=== PATIENT | male | born 1940 | race Caucasian/White ===

== ENCOUNTER 2017-07-24 13:39 | Inpatient (IN) ==
--- NOTE | 2017-07-23 23:22 | Discharge Summary ---
<Jerica Londono - Last Filed: 07/23/17 23:20> Date of Encounter: 07/23/17 - Discharge Diagnosis (1) Rotator cuff tear arthropathy of right shoulder Priority: Primary Status: Acute (2) Status post total replacement of right shoulder Priority: Primary Status: Acute - Hospital Course Hospital course: Mr. Deng is a 76 year old male - Time Spent with Patient Total time spent providing and/or coordinating discharge services: - Discharge Medications Home Medications: OxyCODONE Immed Rel [Roxicodone 5 MG] 5 mg PO Q6HR PRN 7 Days #28 tablet [Rx] Clopidogrel [Plavix] 75 mg PO DAILY 07/24/17 [History] Lisinopril 30 mg PO DAILY 07/24/17 [History] Omeprazole [PriLOSEC] 20 mg PO DAILY 07/24/17 [History] Rosuvastatin Calcium 40 mg PO DAILY 07/24/17 [History] Sertraline [Zoloft] 100 mg PO DAILY 07/24/17 [History] amLODIPine [Norvasc] 5 mg PO DAILY 07/24/17 [History] Allergies/Adverse Reactions: 3 Allergy/AdvReac Type Severity Reaction Status Date / Time No Known Allergies Allergy Verified 07/24/17 13:54 Primary care physician: Nubia Field, - Patient Status Disposition: Home, Self-Care Condition: Good - Discharge Instructions Follow Up With: Nubia Field MD [Primary Care Provider] - Additional Instructions: Discharge Instructions: Total Shoulder Please call [facility] ([phone]), your Primary Care Physician, or report to the Emergency Room if you have any of the following symptoms: Nausea, vomiting, fever greater that 101.5, swelling, chest pain, shortness of breath, increased pain/redness/drainage/odor for your incision site, numbness/ tingling, or any other concerning symptoms. ACTIVITY: Always keep your arm in the sling. Do not raise your arm away from your body. Do not use your arm to help with getting in or out of bed. No weight bearing permitted. Only perform those exercises given to you by your therapist. MEDICATIONS: Upon discharge resume your home medications. Take all the medications as prescribed. Take a stool softener if taking narcotic pain medications. Stool softeners are only effective if you drink enough fluids. Drink 6-8 glass of water or fluids a day, unless this is not allowed for another health problem. Despite using stool softeners, if you haven't had a bowel movement in 3 days, please switch to a gentle laxative. Gentle laxatives are sold over the counter. You should have a bowel movement within 24 hours, if not call the office. You will be discharged from the hospital with a prescription for pain medication. You are encouraged to decrease the use of narcotic pain medication as tolerated. Should you require a refill, please call the office. [facility] prescribes narcotic pain medication for only 4-6 weeks after surgery. If you require pain medication beyond this time period, you may be referred to your Primary Care Physician or to the Pain Clinic for further evaluation. Plan ahead for refills on pain medication as many narcotics either need to be picked up at the office or mailed. It is best to call 48-72 hours in advance of needing a prescription refill so you don't run out of medication. To help control the post-operative pain, you may take NSAIDs (Aleve,Advil, Motrin, Ibuprofen, Naprosyn) or Tylenol as prescribed on the bottle in addition to the pain medication. WOUND CARE: Leave the dressing on for 7-10 days. You may change the dressing if it becomes saturated greater than 50%. Do not get the dressing wet at anytime. Wash your hands with antibacterial soap, rinse and dry prior to any wound care. If you have merry the visiting nurse or rehab facility can remove the stapes 10-14 days after surgery and place steri-strips across the wound. Leave the steri-strips in place until they fall off on their own. You may let water from the shower run on top of the steri-strips. If you do not have a visiting nurse or rehab facility, you will need to return to the office at 10-14 days for the merry to be removed. If you have itching or redness around the dressing call the office. FOLLOW-UP: Please follow up with your surgeon in the orthopedic clinic, as scheduled <Jaron Johns - Last Filed: 07/25/17 06:26> Orders not resulted at time of discharge: Pending orders 07/24/17 00:01 XR shoulder complete RT [XR] Routine H/H [Hemoglobin and Hematocrit] [HEME] Routine Date of Encounter: 07/25/17 Time of Encounter: 06:24 - Discharge Diagnosis (1) Rotator cuff tear arthropathy of right shoulder Priority: Primary Status: Chronic (2) Status post total replacement of right shoulder Priority: Primary Status: Acute (3) Acute blood loss anemia Priority: Primary Status: Acute (4) Coronary artery disease Priority: Secondary Status: Acute Qualifiers: Coronary Disease-Associated Artery/Lesion type: unspecified vessel or lesion type [place] vs. transplanted heart: [place] heart Associated angina: angina presence unspecified Qualified Code(s): I25.10 - Atherosclerotic heart disease of [place] coronary artery without angina pectoris (5) Hypertension Priority: Secondary Status: Chronic Qualifiers: Hypertension type: unspecified Qualified Code(s): I10 - Essential (primary ) hypertension (6) Hyperlipidemia Priority: Secondary Status: Chronic Qualifiers: Hyperlipidemia type: unspecified Qualified Code(s): E78.5 - Hyperlipidemia , unspecified (7) Chronic renal disease, stage IV Priority: Secondary Status: Chronic (8) Diabetes type 2, controlled Priority: Secondary Status: Chronic Qualifiers: Diabetes mellitus long term care phlebotomist insulin use: unspecified long term care phlebotomist insulin use status Diabetes mellitus complication status: without complication Qualified Code(s): E11.9 - Type 2 diabetes mellitus without complications - Hospital Course Hospital course: Mr. Deng is a 76 year old male Status post right total shoulder The patient had an uneventful postoperative course. They received antibiotics and physical therapy and were discharged in stable condition. There will follow -up in the office in 2 weeks. - Time Spent with Patient Total time spent providing and/or coordinating discharge services: Primary care physician: Nubia Field, - Patient Status Functional capacity at discharge: independent ambulation Overall status at discharge: patient is progressing back to baseline
--- NOTE | 2017-07-24 13:53 | History & Physical Report ---
Date of Encounter: 07/24/17 Time of Encounter: 13:53 24 Hour HP Update - Instructions Instructions: If the History and Physical is less than 30 days old and was completed prior to A.M. admission and or procedure and has NOT been updated on calendar day of procedure please complete this update prior to performing procedure. - Update Patient reports changes in Medical Condition: No Changes in examination, assessment, or condition: No Changes in Medication: No Preop tests/diagnostics Reviewed: Yes Surgery Remains Indicated: Yes Consent for Planned Operative Procedure(s) Verified: Yes - Pre-Operative Checklist Preoperative Checklist Indicated: No Prophylactic Antibiotic Ordered: Yes Is VTE Prophylaxis Indicated?: Yes
[2017-07-24] MEDS ORDERED: CeFAZolin Syr 2,000MG/20 ML 2,000 MG/20 ML SYRINGE IVPB ONE (13:54)
[2017-07-24] MEDS ORDERED: Ringers Solution, Lactated 1,000 ML IVC SCH ×2 (14:00→17:45)
[2017-07-24] MEDS ORDERED: Famotidine 20 MG/2 ML VIAL IVP ONE (14:05)
[2017-07-24] MEDS ORDERED: Acetaminophen IV 1,000 MG/100 ML INFUS..BTL IVPB ONE (14:05)
--- NOTE | 2017-07-24 14:37 | Anesthesia Evaluation PreOp ---
Date of Encounter: 07/24/17 Time of Encounter: 14:35 - Past History Planned Operation: Rt Total Shoulder Replacement Cardiac History: HTN, Hyperlipidemia, Cardiac Stent, Other (CAD....last dose Plavix 07-21-2017) Pulmonary History: Denies Any Significant HX FLOTATION TENDER History: Denies Any Significant HX Other Medical History: Renal (Stage 4 CKD), Diabetes Type II Anesthesia History: No Prior Anesthetic Complications Alcohol Use: none Drug use: none Medications and Allergies OxyCODONE Immed Rel [Roxicodone 5 MG] 5 mg PO Q6HR PRN 7 Days #28 tablet [Rx] Clopidogrel [Plavix] 75 mg PO DAILY 07/24/17 [History] Lisinopril [Lisinopril] 30 mg PO DAILY 07/24/17 [History] Omeprazole [PriLOSEC] 20 mg PO DAILY 07/24/17 [History] Rosuvastatin Calcium [Rosuvastatin Calcium] 40 mg PO DAILY 07/24/17 [History] Sertraline [Zoloft] 100 mg PO DAILY 07/24/17 [History] amLODIPine [Norvasc] 5 mg PO DAILY 07/24/17 [History] 3 Allergy/AdvReac Type Severity Reaction Status Date / Time No Known Allergies Allergy Verified 07/24/17 13:54 - Meds/Allergy Pre-op Review Medications Reviewed: Yes Allergies Reviewed: Yes Beta Blockers on Current Med List: No Anesthesia Results - Labs Laboratory Tests 07/24/17 07/24/17 13:30 13:30 Hgb 11.0 L Hct 34.0 L Plt Count 123 L Sodium 138 Potassium 5.0 BUN 31 H Creatinine 2.23 H - Imaging EKG: report reviewed (SR) Anesthesia Exam O2 Sat Height 1.68 m Height 1.68 m Height 1.68 m Weight 72.575 kg Weight 72.575 kg Weight 72.575 kg O2 Sat by Pulse Oximetry 95 Vital Signs Temp Pulse Resp BP Pulse Ox 98.2 F 84 18 152/72 95 07/24/17 13:58 07/24/17 13:58 07/24/17 13:58 07/24/17 13:58 07/24/17 13:58 Height: 5'6 Weight: 152 lbs NPO (# of Hours): MN Pain Scale: 0 - HEENT Pupil (Motor): Pupils equal, EOMI Mallampati: II Denture Type: Upper: Complete Oral Opening: Greater than 3 - FLOTATION TENDER LOC: Oriented FLOTATION TENDER Motor: Normal RUE, Normal LUE, Normal RLE, Normal LLE, Normal Face FLOTATION TENDER Sensory: Normal: RUE, LUE, RLE, LLE, Face - Cardiac Rhythm: Regular Murmur: None JVD: No Carotid Bruit: No - Pulmonary Breath Sounds: bilateral Clear Respiratory Effort: Symmetrical Anesthesia Assess/Plan ASA Score: 3 (HTN CAD DM CKD) Modified Scotty Scale for Level of Consciousness: Cooperative, oriented, and tranquil Anesthetic Plan: General, Regional Monitoring Plan: Standard Monitors Recovery Plan: PACU (Discussed GA and RA, agrees to proceed)
[2017-07-24] MEDS ORDERED: Lidocaine -MPF 4% 5 ML AMPUL ONE (14:46)
[2017-07-24] MEDS ORDERED: Ondansetron 4 MG/2 ML VIAL ONE (14:46)
[2017-07-24] MEDS ORDERED: *HR* Succinylcholine 200 MG/10 ML VIAL IVP ONE (14:46)
[2017-07-24] MEDS ORDERED: Dexamethasone 4 MG/ML VIAL ONE (14:46)
[2017-07-24] MEDS ORDERED: Lidocaine -MPF 2% 2 ML VIAL ONE (14:46)
[2017-07-24] MEDS ORDERED: *HR* Propofol 200 MG/20 ML VIAL IVP ONE (14:47)
[2017-07-24] MEDS ORDERED: *HR* FentaNYL (PF) 100 MCG/2 ML VIAL ONE (14:47)
[2017-07-24] MEDS ORDERED: ROPIVACAINE HCL/PF 0.5% 30 ML VIAL ONE (15:15)
--- NOTE | 2017-07-24 15:38 | Anesthesia Procedures ---
Date of Encounter: 07/24/17 Time of Encounter: 15:36 Procedures: Anesthesia - Nerve Block Procedure Date: 07/24/17 Time: 15:36 Allergies/Adv Reactions: No Known Allergies Allergy (Verified 07/24/17 13:54) Pre-op Diagnosis: right shoulder pain Surgical Procedure: right shoulder arthroplasty Checklist: Correct Patient Identifier, Correct procedure, History checked Correct side: Right Blood Thinner: No Monitor Applied: EKG, BP, Pulse Oximetry Supplemental Oxygen via Nasal Cannula (L/min): 2 Sedation: Fentanyl (mcg): 100 Indication: Post Op Analgesia Block Type: Supraclavicular Catheter placed: No Sterile Technique: Yes Ultrasound used: Yes Anatomy identified: Yes Visual spread of Local: Yes Blood on Needle Aspiration: No Smooth Injection of Local: Yes Pain with Injection of Local: No Prep: Chlorhexadine Needle: 22 x 50 mm Stimuplex Local: Ropivacaine (0.5%) Volume (cc): 20 Number of Attempts: 1 Complications: None/effective block
[2017-07-24] MEDS ORDERED: EPHEDrine 50 MG/ML VIAL ONE (16:22)
[2017-07-24] MEDS ORDERED: *HR* Promethazine 25 MG/ML VIAL IVP PRN (16:39)
[2017-07-24] MEDS ORDERED: *HR* HYDROmorphone (PF) 1 MG/ML SYRINGE IVP PRN (16:39)
--- NOTE | 2017-07-24 16:48 | Orthopedic Operative Note ---
Date of procedure: 07/24/17 Pre-op diagnosis: Right shoulder cuff tear arthropathy Post-op diagnosis: same Procedure: Procedure: Total Shoulder Replacment Reverse, right Estimated blood loss: 100 cc Hardware: Metal and polyethylene replacement: Arthrex large glenoid baseplate, 2 4.5 screws. 1 6.5 screw, 42+4 glenosphere, 13 humeral stem, poly insert 6 Exam Under anesthesia: Full motion no instability Procedural Notes: Irreparable rotator cuff tear Operative procedure: The patient was brought to the operating room and placed on the operating room table. After general anesthesia was administered the operative shoulder was examined. Findings were noted. The patient was placed in the modified beachchair position. All pressure points were padded appropriately. And the head was stabilized in the neutral position. The operative extremity was prepped and draped in the sterile surgical fashion. The patient received IV antibiotics prior to skin incision. A standard deltopectoral approach was made to the operative shoulder. Incision was made to the skin and subcutaneous tissue,hemo stasis was obtained with Bovie cautery. Using careful blunt dissection the cephalic vein was identified and mobilized medially. The deltopectoral interval was developed and the clavipectoral fascia was incised. The subscap was irreparable. The humerus was dislocated patient noted to have irreparable tear supraspinatus tendon, and the humeral cut was made along the anatomic neck. Anterior and posterior Bankart retractors were placed to expose the glenoid. The glenoid guide was seated and the centering hole was made. It was reamed with the appropriate reamer. The large baseplate was seated and secured with (2) 4.5 screws and one 6.5 screw. The baseplate was irrigated and dried and the 42+4 Glenosphere was seated and secured with the Brady taper. The Brady taper was tested and found to be secure the humerus was redislocated and prepared with the diaphyseal reamers, followed by a broaching process up to the appropriate size 13 in the patient's anatomic version. The metaphyseal reamer was then utilized. Trial reduction found the shoulder to be relocatable. Trial components were removed and the 13 stem was impacted in place in the patient's anatomic version. Trial reduction found the shoulder to be relocatable and stable with the appropriate 6 [place] Trial component was removed and the real implant was seated and secured the shoulder was reduced. The shoulder had excellent motion and excellent stability and no evidence of dislocation. The deep tissue was irrigated with pulse irrigation. The PA close the shoulder. The deltopectoral interval was closed with a running #1 PDS suture, subcutaneous tissue was irrigated and closed with 0 PDS suture, the skin was closed with Dermabond. The patient was placed in a sterile dressing, abduction brace and extubated. The patient was then transferred to the recovery room in stable condition. Anesthesia: GETA Surgeon: Jaron Johns Was there an bus assistant present: Yes Book Agent: Nicol Dickson Estimated blood loss (cc): 100 Condition: stable Disposition: PACU
--- NOTE | 2017-07-24 17:41 | Anesthesia Evaluation Post Op ---
Date of Encounter: 07/24/17 Time of Encounter: 17:40 - Vital Signs Vital Signs: Last Vital Signs Temp 98.2 F 07/24/17 17:35 Pulse 75 07/24/17 17:35 Resp 18 07/24/17 17:35 BP 157/60 07/24/17 17:35 Pulse Ox 98 07/24/17 17:35 - Lungs Lungs: Clear Ascult./Percussion - Airway Airway: Non-obstructed - Cardiovascular Regular Rate - Mental Status Mental Status: Alert & Oriented, Answers Appropriately - Pain Pain Scale: 2 - Nausea Vomiting Nausea Vomiting: Not Present - Hydration Hydration: NPO - Discharge PostOp Status: Transfer Patient to floor
[2017-07-24] MEDS ORDERED: Naloxone 0.4 MG/ML INJ IVP PRN (17:45)
[2017-07-24] MEDS ORDERED: *HR* OxyCODONE/APAP 5/325 TABLET PO PRN (17:45)
[2017-07-24] MEDS ORDERED: *HR* OxyCODONE Immed Rel 5 MG TABLET PO PRN (17:45)
[2017-07-24] MEDS ORDERED: Sennosides 8.6 MG TABLET PO PRN (17:45)
[2017-07-24] MEDS ORDERED: MOM Conc 10 ML UD.LIQ PO PRN (17:45)
[2017-07-24] MEDS ORDERED: Ondansetron 4 MG/2 ML VIAL IVP PRN (17:45)
[2017-07-24] MEDS ORDERED: traMADol 50 MG TABLET PO PRN (17:45)
[2017-07-24] MEDS ORDERED: Temazepam 15 MG CAPSULE PO PRN (17:45)
[2017-07-24 17:54] LABS: Hematocrit 31.1 % (37.5-50.1); Hemoglobin 9.9 g/dL (12.9-16.9)
[2017-07-24] MEDS ORDERED: *HR* Enoxaparin 30 MG/0.3 ML SYRINGE SQ SCH ×2 (18:00)
[2017-07-24] MEDS ORDERED: CeFAZolin Pre 2,000 MG/100 ML 2,000 MG/100 ML BAG IVPB ONE (18:15)
[2017-07-25] MEDS ORDERED: CeFAZolin Pre 2,000 MG/100 ML 2,000 MG/100 ML BAG IVPB SCH
[2017-07-25 02:16] LABS: Hematocrit 28.6 % (37.5-50.1); Hemoglobin 9.1 g/dL (12.9-16.9)
[2017-07-25 06:25] VITALS: BP 126/52
--- NOTE | 2017-07-25 06:27 | Orthopedics Progress Note ---
Date of Encounter: 07/25/17 Time of Encounter: 06:27 - Assessment and Plan (1) Rotator cuff tear arthropathy of right shoulder Current Visit: No Status: Chronic (2) Status post total replacement of right shoulder Current Visit: No Status: Acute (3) Acute blood loss anemia Current Visit: Yes Status: Acute (4) Coronary artery disease Current Visit: Yes Status: Acute Qualifiers: Coronary Disease-Associated Artery/Lesion type: unspecified vessel or lesion type [place] vs. transplanted heart: [place] heart Associated angina: angina presence unspecified Qualified Code(s): I25.10 - Atherosclerotic heart disease of [place] coronary artery without angina pectoris (5) Hypertension Current Visit: Yes Status: Chronic Qualifiers: Hypertension type: unspecified Qualified Code(s): I10 - Essential (primary ) hypertension (6) Hyperlipidemia Current Visit: Yes Status: Chronic Qualifiers: Hyperlipidemia type: unspecified Qualified Code(s): E78.5 - Hyperlipidemia , unspecified (7) Chronic renal disease, stage IV Current Visit: Yes Status: Chronic (8) Diabetes type 2, controlled Current Visit: Yes Status: Chronic Qualifiers: Diabetes mellitus fpc insulin use: unspecified fpc insulin use status Diabetes mellitus complication status: without complication Qualified Code(s): E11.9 - Type 2 diabetes mellitus without complications Subjective Interval history: Patient was seen this morning doing well without complaints. Afebrile vital signs stable. Operative extremity: Neurovascularly intact Dressing clean dry and intact Calves nontender Assessment and plan: Continue with postoperative care Patient with bleeding after surgery requiring merry in the incision wound clean dry and intact dressing changed. Discharge today. Objective Vital signs: Vital Signs Temp Pulse Resp BP Pulse Ox 07/25/17 06:22 97.5 F L 65 18 126/52 95 07/25/17 03:20 97.8 F 72 18 153/49 97 07/24/17 23:44 97.5 F L 69 18 125/62 96 07/24/17 19:14 97.3 F L 83 16 157/76 95 07/24/17 17:53 97.6 F 76 14 154/70 96 07/24/17 17:35 98.2 F 75 18 157/60 98 07/24/17 17:25 98.2 F 75 16 146/60 97 07/24/17 17:15 98.2 F 74 18 152/60 96 07/24/17 17:05 97.5 F L 74 18 137/61 100 07/24/17 15:55 66 99 07/24/17 15:41 66 148/71 99 07/24/17 15:22 61 148/71 100 07/24/17 13:58 98.2 F 84 18 152/72 95 Intake and Output 07/24/17 07/24/17 07/25/17 15:59 23:59 07:59 Intake Total 900 / 900 0 / 0 Output Total 100 / 100 560 / 560 Balance 800 / 800 -560 / -560 Intake: Oral 900 / 900 0 / 0 Output: Urine 0 / 0 10 / 10 Estimated Blood Loss 100 / 100 Straight Cath 550 / 550 Other: Weight 72.575 kg Blood Glucose* 95 165 - Labs CBC & BMP: 07/25/17 01:24 Labs: Abnormal lab results Hgb 9.1 g/dL (12.9-16.9) L 07/25/17 01:24 Hct 28.6 % (37.5-50.1) L 07/25/17 01:24 POC Glucose 165 mg/dL (70-99) H 07/24/17 20:31 - VTE Documentation of Mechanical Device: Venous foot pump, device Consult Discharge Plan - Plan Additional Instructions: Discharge Instructions: Total Shoulder Please call [facility] ([phone]), your Primary Care Physician, or report to the Emergency Room if you have any of the following symptoms: Nausea, vomiting, fever greater that 101.5, swelling, chest pain, shortness of breath, increased pain/redness/drainage/odor for your incision site, numbness/ tingling, or any other concerning symptoms. ACTIVITY: Always keep your arm in the sling. Do not raise your arm away from your body. Do not use your arm to help with getting in or out of bed. No weight bearing permitted. Only perform those exercises given to you by your therapist. MEDICATIONS: Upon discharge resume your home medications. Take all the medications as prescribed. Take a stool softener if taking narcotic pain medications. Stool softeners are only effective if you drink enough fluids. Drink 6-8 glass of water or fluids a day, unless this is not allowed for another health problem. Despite using stool softeners, if you haven't had a bowel movement in 3 days, please switch to a gentle laxative. Gentle laxatives are sold over the counter. You should have a bowel movement within 24 hours, if not call the office. You will be discharged from the hospital with a prescription for pain medication. You are encouraged to decrease the use of narcotic pain medication as tolerated. Should you require a refill, please call the office. [facility] prescribes narcotic pain medication for only 4-6 weeks after surgery. If you require pain medication beyond this time period, you may be referred to your Primary Care Physician or to the Pain Clinic for further evaluation. Plan ahead for refills on pain medication as many narcotics either need to be picked up at the office or mailed. It is best to call 48-72 hours in advance of needing a prescription refill so you don't run out of medication. To help control the post-operative pain, you may take NSAIDs (Aleve,Advil, Motrin, Ibuprofen, Naprosyn) or Tylenol as prescribed on the bottle in addition to the pain medication. WOUND CARE: Leave the dressing on for 7-10 days. You may change the dressing if it becomes saturated greater than 50%. Do not get the dressing wet at anytime. Wash your hands with antibacterial soap, rinse and dry prior to any wound care. If you have merry the visiting nurse or rehab facility can remove the stapes 10-14 days after surgery and [address] steri-strips across the wound. Leave the steri-strips in place until they fall off on their own. You may let water from the shower run on top of the steri-strips. If you do not have a visiting nurse or rehab facility, you will need to return to the office at 10-14 days for the merry to be removed. If you have itching or redness around the dressing call the office. FOLLOW-UP: Please follow up with your surgeon in the orthopedic clinic, as scheduled Referrals: Nubia Field MD [Primary Care Provider] -
[2017-07-25] MEDS ORDERED: Insulin LISPRO 300 UNITS/3 ML VIAL SQ SCH ×2 (07:30→21:00)
[2017-07-25] MEDS ORDERED: amLODIPine 5 MG TABLET PO SCH (09:00)
== END 2017-07-25 10:28 | disposition home or self-care (01) | DRG 483 ==
LOC: SAMDAY 13:39 → 3NENU 18:06
PROVIDERS: ADMIT Orthopaedic Surgery; ATTEND Orthopaedic Surgery

== ENCOUNTER 2017-08-01 17:26 | Inpatient (IN) ==
[2017-08-01] MEDS ORDERED: Naloxone 0.4 MG/ML INJ IVP PRN (23:16)
[2017-08-01] MEDS ORDERED: Acetaminophen 325 MG TABLET PO PRN (23:16)
--- NOTE | 2017-08-01 23:16 | Internal Med History&Physical ---
<Benjamin Mckeon - Last Filed: 08/02/17 00:47> Date of Encounter: 08/02/17 Time of Encounter: 23:16 Internal Medicine - H&P: HPI Chief complaint: Dehydration and weakness Admitted From: Hospital to Hospital Transfer History of present illness: Mr. Deng is a 76 year old male with past medical history of angioplasty done in 1994, chronic kidney disease 40% at stage III, diet-controlled diabetes, one week status post total right shoulder replacement presented to the emergency department [facility] and transferred here to be further evaluated. He presented there with generalized weakness and dehydration. Since the surgery patient has not felt well so he was not eating or drinking. said he had very little water and very little food each day. The surgery seems to be healing fine there has been no problems with the shoulder surgery. This I did take him after he said he became too weak ray could barely stand up. Patient is denying any chest pain. He has no recent fevers or recent illnesses. Urine output has been decreased but no pain with urination. At the outside hospital patient was shown to be hyperkalemic as well as having worsening of his creatinine worsening of his kidney function so they gave a total of 3 L of IV fluids his normal creatinine is 2.4 based on old records here his creatinine at the outside hospital was 8.37 with a GFR of 7. Patient is also noted to have an elevated troponin of 7.49. Patient does have history of chronic anemia most likely due to chronic kidney disease hemoglobin at the outside hospital was 7.6. Platelets 159 normal white blood cell count. He was also hyponatremic at 128. Potassium was 6.0. Urine had no abnormalities. Glucose was 118. They did get blood cultures. Patient was given full dose aspirin as well as started with a heparin bolus and then a heparin drip. EKG had no acute ST changes other than ST depressions in the lateral leads which looked to be old. There is no ST elevations. Patient is yet to complain of any chest pain. Patient was transferred here for further cardiac workup as well as electrolyte replacement and fluid resuscitation Past Med Surg Social Fam HX - Past Medical History Medical history: coronary artery disease, diabetes, GERD, hypertension, renal disease, other Psychiatric history: no psych history - Past Surgical History Surgical History: carotid endarterectomy, other - Social History Smoking Status: Former smoker Smokeless Tobacco Status: No Alcohol use: none Drug use: none - Family History Daughter Hx Family Neurologic Disorders: Yes (CVA) Mother Living Status: Hx Family Endocrine Disorder: Yes (DM) Internal Medicine - H&P: Meds OxyCODONE Immed Rel [Roxicodone 5 MG] 5 mg PO Q6HR PRN 7 Days #28 tablet [Rx] Clopidogrel [Plavix] 75 mg PO DAILY 07/24/17 [History] Lisinopril 30 mg PO DAILY 07/24/17 [History] Rosuvastatin Calcium 40 mg PO DAILY 07/24/17 [History] Sertraline [Zoloft] 100 mg PO DAILY 07/24/17 [History] amLODIPine [Norvasc] 5 mg PO DAILY 07/24/17 [History] Cholecalciferol (Vitamin D3) [Vitamin D] 2,000 unit PO DAILY 08/01/17 [History] Ferrous Sulfate [Ferosul] 325 mg PO Q2D 08/01/17 [History] Omeprazole [PriLOSEC] 20 mg PO DAILY 08/01/17 [History] Chlorpromazine HCl 25 mg PO Q8H 08/02/17 [History] 3 Allergy/AdvReac Type Severity Reaction Status Date / Time No Known Allergies Allergy Verified 08/02/17 06:55 All Systems PM: A 10-system review of systems was performed and is negative for pertinent findings except as documented above in the HPI. - Constitutional Constitutional: anorexia, fatigue, lethargy, weakness, no chills, no fever(s), no night sweats - EENT Eyes: no change in vision, no discharge, no pain, no photophobia Ears: no ear discharge, no ear pain, no tinnitus Nose, mouth and throat: no dysphagia, no nasal discharge, no neck pain, no sore throat - Cardiovascular Cardiovascular ROS IM: no chest pain, no diaphoresis, no dyspnea, no lightheadedness, no palpitations, no syncope - Respiratory Respiratory: no cough, no dyspnea, no wheezing, no excessive phlegm production - Gastrointestinal Gastrointestinal: no abdominal pain, no diarrhea, no hematemesis, no hematochezia, no melena, no nausea, no vomiting - Musculoskeletal Musculoskeletal ROS IM: no numbness, no tingling - Integumentary Integumentary IM: no rash, no unusual bruising - Neurological Neurological ROS: no confusion, no convulsions, no focal weakness, no numbness, no tingling, no tremor(s) - Hematologic/Lymphatic Hematologic/Lymphatic: no easy bruising - Constitutional Vitals: Temp Pulse Resp BP Pulse Ox 97.1 F L 141 24 94/55 88 08/01/17 22:20 08/01/17 22:20 08/01/17 22:20 08/01/17 22:20 08/01/17 22:20 General appearance: Present: A&O X 3, pleasant, no acute distress - Head Head exam: Present: atraumatic, normocephalic - Eye Eye exam: Present: PERRL, conjuntiva pink, sclera anicteric Pupils: Present: PERRL - Neck Neck exam general surgery: Present: supple, trachea midline. Absent: lymphadenopathy - Respiratory Respiratory exam: Present: CTAB. Absent: accessory muscle use, rales, rhonchi, wheezes - Cardiovascular Cardiovascular exam: Present: RRR, +S1, +S2. Absent: diastolic murmur, gallop, rubs, systolic murmur - GI/Abdominal GI/Abdominal exam: Present: normal bowel sounds, soft, no peritoneal signs. Absent: distended, tenderness - Extremities Exam Extremities exam: Present: warm, radial pulses palpable and symmetrical. Absent : calf tenderness, cyanotic, pedal edema Additional comments: 20 cm healing scar with no erythema on the right shoulder that still has merry placed. There is no leakage of fluid or any erythema around the wound. Wound seems to be healing fine. - Neurological Exam Neurological exam: Present: CN II-XII intact, oriented X3, no focal deficits. Absent: pronater drift, facial droop, speech deficit - Skin Skin exam: Present: dry, intact - Assessment and plan (1) NSTEMI (non-ST elevated myocardial infarction) Current Visit: Yes Status: Acute Assessment and plan: Patient presented from outside hospital with elevated troponin of 7.[address] depressions in the lateral leads no other acute findings no ST elevation. Patient was not having any chest pain. He was given full dose aspirin at the outside hospital. He does have history of angioplasty done in 1994 otherwise no cardiac history. Does take high blood pressure medication and hypercholesterol medication. He was started on a heparin drip worries given a bolus and then started on a drip. Patient was not given any nitroglycerin. Trend troponins every 6 hours Continue heparin drip low-dose ACS protocol Echocardiogram Consult cardiology await recommendations (2) JOSH (acute kidney injury) Current Visit: Yes Status: Acute Assessment and plan: Patient was dehydrated had an elevated creatinine of 8.37 after looking at previous records his normal creatinines around 2.3 with a GFR of 40 today the GFR was 8. We will repeat labs here. He also had hyperkalemia, hyponatremia and overall seemed to dry on exam. Patient was given 3 L in the outside hospital of crystalloid fluid. He was on lactated Ringer's 125 per hour when he arrived. Patient does have known chronic kidney disease stage III has never had dialysis and is following a infrastructure technician from [facility]. Will not continue IV boluses as well monitor his kidney function. Continue LR at 125 ML's per hour Stop home nephrotoxic drugs Continue to monitor creatinine Will not consult nephrology at this time we will see if the elevated creatinine is due to the dehydration. If not better consider nephrology consultation (3) Dehydration Current Visit: Yes Status: Acute Assessment and plan: See JOSH above. Most likely secondary to malnutrition as patient has not been feeling well over the past few days. He is arty given 3 L of crystalloid prior to arrival we are continuing lactated Ringer's at 125 mellitus per hour. We will continue to monitor with daily labs. (4) Hyperkalemia Current Visit: Yes Status: Acute Assessment and plan: Patient had elevated potassium at 6.0. We will give Kayexalate at this time we will continue to monitor with daily BMPs (5) Hyponatremia Current Visit: Yes Status: Acute Assessment and plan: Patient was hyponatremic at 128 we do not want to increase it to much he has been getting IV fluids will continue giving these and continue to monitor hyponatremia with daily BMPs (6) Status post total replacement of right shoulder Current Visit: No Status: Acute Assessment and plan: This was done [address] Johns. Prior to starting heparin the outside emergency physician contacted Dr. Johns who is okay with starting heparin due to the recent surgery. Patient scars healing well there is no signs of drainage or infection or any and erythema around the area. (7) Coronary artery disease Current Visit: No Status: Acute Assessment and plan: Treating as an STEMI we will continue home medications Qualifiers: Coronary Disease-Associated Artery/Lesion type: unspecified vessel or lesion type [place] vs. transplanted heart: [place] heart Associated angina: angina presence unspecified Qualified Code(s): I25.10 - Atherosclerotic heart disease of [place] coronary artery without angina pectoris (8) Hypertension Current Visit: No Status: Chronic Assessment and plan: Stopping home nephrotoxic medications continuing all others Qualifiers: Hypertension type: unspecified Qualified Code(s): I10 - Essential (primary ) hypertension (9) Hyperlipidemia Current Visit: No Status: Chronic Assessment and plan: Continue home medications Qualifiers: Hyperlipidemia type: unspecified Qualified Code(s): E78.5 - Hyperlipidemia , unspecified (10) Chronic renal disease, stage IV Current Visit: No Status: Chronic Assessment and plan: Does have increasing creatinine we will continue to monitor after IV hydration. This most likely is due to dehydration causing this or possibly NSTEMI. If patient does not get better will consider nephrology consultation is not needed at this time (11) Diabetes type 2, controlled Current Visit: No Status: Chronic Assessment and plan: Patient is a type II diabetic controlled by diet. We will continue to monitor glucose is no insulin or treatment needed at this time. 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 Patient's hemoglobin outside hospital was 7.6 we will continue to monitor this but do not want to give blood as patient is being heparinized and possibly needs left heart catheterization at this time. Qualifiers: Anemia type: due to chronic kidney disease Chronic kidney disease stage: stage 3 (moderate) Qualified Code(s): N18.3 - Chronic kidney disease, stage 3 (moderate); D63.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 (13) DVT prophylaxis Current Visit: Yes Status: Acute Assessment and plan: Patient currently on low-dose ACS protocol heparin - Time Spent With Patient Total time spent is greater than 50% in coordination of care (as documented) at patient's floor/unit and/or counseling patient: <Cj Carias P - Last Filed: 08/02/17 08:23> Date of Encounter: 08/01/17 Internal Medicine - H&P: HPI History of present illness: Mr. Deng is a 76 year old male All Systems PM: A 10-system review of systems was performed and is negative for pertinent findings except as documented above in the HPI. - Constitutional Vitals: Temp Pulse Resp BP Pulse Ox 97.3 F L 88 22 87/50 93 08/02/17 07:30 08/02/17 07:30 08/02/17 07:30 08/02/17 07:30 08/02/17 07:30 Internal Med - H&P Results - Labs CBC & Chem 7: 08/02/17 07:04 08/02/17 07:04 Labs: Short CBC 08/02/17 08/02/17 Range/Units 00:46 07:04 WBC 9.0 10.2 (4.3-11.1) K/mcL Hgb 7.3 L 6.9 L (12.9-16.9) g/dL Hct 22.2 L 21.7 L (37.5-50.1) % Plt Count 150 157 (140-400) K/mcL Neutrophils # 7.6 8.9 (1.6-8.9) K/mcL BMP 08/02/17 08/02/17 00:46 07:04 Sodium 130 L 129 L Potassium 5.9 H 6.9 H* Chloride 101 102 Carbon Dioxide 10 L* 9 L* BUN 105 H 105 H Creatinine 8.60 H 8.55 H Glucose 104 133 H Calcium 8.3 L 8.1 L Cardiac Enzymes 08/02/17 08/02/17 Range/Units 00:46 07:04 Troponin I 6.44 H* 4.61 H* (< 0.04) ng/mL - Impressions ITS Impressions Chest X-Ray 08/02/17 07:41 IMPRESSION: Chronic interstitial lung disease with associated superimposed pulmonary edema and/or pneumonitis. D/ / Eric Platt MD / Eric Platt MD Interpreting Provider: Eric Platt MD - Attending Attestation I performed a history and physical examination of the patient on 08/01/17 and discussed his management with the resident. I reviewed the residents note and agree with the documented findings and plan of care. Briefly, patient is admitted as transfer from [place] for JOSH and NSTEMI. On heparin drip. Will trend troponins and consult cardiology in the AM. We will hydrate aggressively with IVF. Repeat CBC in AM for anemia. Kayexalate for hyperkalemia. Will monitor mild hyponatremia; on IVF. Condition is guarded at this time, so will place in step-down unit. - Time Spent With Patient Total time spent is greater than 50% in coordination of care (as documented) at patient's floor/unit and/or counseling patient:
[2017-08-01] MEDS ORDERED: Heparin 25,000 UNIT/500 ML D5W 25,000 UNIT/500 ML BAG IVC SCH (23:45)
[2017-08-01] MEDS ORDERED: Potassium Phosphate 44 MEQ in 0.9 % Sodium Chloride 250 ML IVPB PRN (23:52)
[2017-08-01] MEDS ORDERED: *HR* Heparin 5,000 UNIT/ML VIAL IVP PRN ×2 (23:56)
[2017-08-02] MEDS: Ringers Solution, Lactated 1,000 ML IVC SCH ×2 (00:25→07:54)
[2017-08-02 01:00] LABS: VBG Ionized Calcium 1.01 mmol/L (1.15-1.35)
[2017-08-02 01:03] LABS: Hematocrit 22.2 % (37.5-50.1); Hemoglobin 7.3 g/dL (12.9-16.9); Lymphocytes # 0.5 K/mcL (0.6-4.6); Lymphocytes % 5.8 %; Mean Corpuscular HGB Conc 32.9 g/dL (31.6-35.5); Mean Corpuscular Hemoglobin 31.9 pg (28.0-33.3); Mean Corpuscular Volume 96.9 fL (83.0-100.0); Mean Platelet Volume 11.1 fL (9.4-12.4); Monocytes # 0.7 K/mcL (0.0-1.3); Monocytes % 7.6 %; Neutrophils # 7.6 K/mcL (1.6-8.9); Platelet Count 150 K/mcL (140-400); Red Blood Count 2.29 M/mcL (4.19-5.50); Red Cell Distribution Width 14.7 % (11.5-14.5); Segmented Neutrophils % 84.6 %
[2017-08-02 01:08] LABS: INR 1.2; Prothrombin Time 12.7 Seconds (9.4-12.1)
[2017-08-02 01:11] LABS: Activated Partial Thrombo Time 85.7 Seconds (26.0-36.0)
[2017-08-02 01:18] LABS: Magnesium 2.3 mg/dL (1.6-2.6); Phosphorous 7.2 mg/dL (2.7-4.5)
[2017-08-02 01:23] LABS: Calcium 8.3 mg/dL (8.6-10.3); Potassium 5.9 mEq/L (3.5-5.1)
[2017-08-02] MEDS ORDERED: 0.9 % Sodium Chloride 1,000 ML IVC ONE (04:16)
[2017-08-02 07:28] LABS: Basophils % 0.1 %; Hematocrit 21.7 % (37.5-50.1); Hemoglobin 6.9 g/dL (12.9-16.9); Immature Granulocytes % 2.7 % (0-4); Lymphocytes # 0.3 K/mcL (0.6-4.6); Lymphocytes % 2.9 %; Mean Corpuscular HGB Conc 31.8 g/dL (31.6-35.5); Mean Corpuscular Hemoglobin 31.5 pg (28.0-33.3); Mean Corpuscular Volume 99.1 fL (83.0-100.0); Mean Platelet Volume 11.4 fL (9.4-12.4); Monocytes # 0.7 K/mcL (0.0-1.3); Monocytes % 7.1 %; Neutrophils # 8.9 K/mcL (1.6-8.9); Nucleated Red Blood Cells 0.3 /100 WBC (0); Platelet Count 157 K/mcL (140-400); Red Blood Count 2.19 M/mcL (4.19-5.50); Segmented Neutrophils % 87.2 %
[2017-08-02] MEDS: Cholecalciferol (D-3) 1,000 UNIT TABLET PO SCH (07:53)
[2017-08-02 07:56] LABS: Calcium 8.1 mg/dL (8.6-10.3); Chol/HDL Ratio 3.7 (0-4.9); Potassium 6.9 mEq/L (3.5-5.1)
[2017-08-02 08:02] LABS: Troponin I 4.61 ng/mL (< 0.04)
[2017-08-02] MEDS ORDERED: Sodium Bicarbonate 150 MEQ in D5% in Water 1,000 ML IVC SCH (08:15)
[2017-08-02] MEDS ORDERED: *HR* Etomidate 20 MG/10 ML AMPUL IVP ONE ×2 (08:33→21:52)
[2017-08-02] MEDS ORDERED: *HR* Rocuronium Bromide 100 MG/10 ML VIAL IVC ONE (08:33)
--- NOTE | 2017-08-02 08:35 | Nephrology Consult Note ---
Date of Encounter: 08/02/17 Time of Encounter: 08:33 Assessment and Plan (1) JOSH (acute kidney injury) Current Visit: Yes Status: Acute The patient has acute kidney injury superimposed on chronic kidney disease. Baseline creatinine is around 2.23. Acute kidney injuries in the setting of an STEMI, what appears to be acute blood loss anemia, hypotension, and possible other etiologies as well. Since the patient is critically ill and he has severe hyperkalemia and metabolic acidosis as well as evidence of some volume overload and shortness of breath I believe the best course of action is to proceed with urgent dialysis following the placement of a temporary dialysis catheter. This will also enable us to transfuse the patient without causing additional volume overload. I discussed this with the patient and the patient' s and they are in agreement. (2) NSTEMI (non-ST elevated myocardial infarction) Current Visit: Yes Status: Acute (3) Acute blood loss anemia Current Visit: No Status: Acute (4) Hyperkalemia Current Visit: Yes Status: Acute History of Present Illness - History of Present Illness This is a 76-year-old male who was admitted to the hospital after being transferred from [facility] with complaints of weakness and decreased oral intake over the past week. Apparently this is been going on since the patient underwent right shoulder surgery approximately a week ago. Initial lab work showed that the patient had a serum creatinine greater than 8 with associated hyperkalemia and severe metabolic acidosis. The patient and his reported history of chronic kidney disease. Baseline creatinine appears to be 2.23 on July 24. He follows with a java consultant for mild [place]. Patient does report a history of diabetes, hypertension, peripheral vascular disease, coronary artery disease, and gastroesophageal reflux disease. He also gives a history of a renal stents being placed. He has a history of coronary angioplasty, lower extremity stent placements as well. On admission he had a hemoglobin of 5.9. Potassium was 6.9, bicarbonate 9, and creatinine 8.55. Patient is currently on BiPAP. He is complaining of some shortness of breath. Troponin is 4.61 initial troponin was over 6. Patient reports a history of decreased oral intake and worsening weakness with difficulty in ambulating and getting up. Past Med Surg Social Fam HX - Past Medical History Medical history: coronary artery disease, diabetes, GERD, hypertension, renal disease, other Psychiatric history: no psych history - Past Surgical History Surgical History: carotid endarterectomy, other - Social History Smoking Status: Former smoker Smokeless Tobacco Status: No Alcohol use: none Drug use: none - Family History Daughter Hx Family Neurologic Disorders: Yes (CVA) Mother Living Status: Hx Family Endocrine Disorder: Yes (DM) Medications and Allergies OxyCODONE Immed Rel [Roxicodone 5 MG] 5 mg PO Q6HR PRN 7 Days #28 tablet [Rx] Clopidogrel [Plavix] 75 mg PO DAILY 07/24/17 [History] Lisinopril 30 mg PO DAILY 07/24/17 [History] Rosuvastatin Calcium 40 mg PO DAILY 07/24/17 [History] Sertraline [Zoloft] 100 mg PO DAILY 07/24/17 [History] amLODIPine [Norvasc] 5 mg PO DAILY 07/24/17 [History] Cholecalciferol (Vitamin D3) [Vitamin D] 2,000 unit PO DAILY 08/01/17 [History] Ferrous Sulfate [Ferosul] 325 mg PO Q2D 08/01/17 [History] Omeprazole [PriLOSEC] 20 mg PO DAILY 08/01/17 [History] Chlorpromazine HCl 25 mg PO Q8H 08/02/17 [History] 3 Allergy/AdvReac Type Severity Reaction Status Date / Time No Known Allergies Allergy Verified 08/02/17 06:55 Review of Systems Constitutional: weakness Eyes: bilateral: blurred vision (patient denies), diplopia (patient denies) Nose, mouth and throat: no dizziness, no headache(s) Cardiovascular: dyspnea, dyspnea on exertion, leg edema, no chest pain, no palpitations Respiratory: dyspnea, dyspnea on exertion Gastrointestinal: no abdominal pain, no change in bowel habits Genitourinary Male: as per HPI Musculoskeletal: no muscle weakness, no numbness Musculoskeletal: right: shoulder pain Integumentary: no hirsutism, no striae Neurological: as per HPI, weakness Psychiatric: no depression, no difficulty concentrating Endocrine: as per HPI Exam - Vital Signs Vital signs: Initial Vital Signs Temp Pulse Resp BP Pulse Ox 97.1 F L 141 24 94/55 88 08/01/17 22:20 08/01/17 22:20 08/01/17 22:20 08/01/17 22:20 08/01/17 22:20 Vital Signs - Last 8 Hours Temp Pulse Resp BP Pulse Ox 08/02/17 07:30 97.3 F L 88 22 87/50 93 08/02/17 07:20 22 93 08/02/17 06:00 83 100/63 08/02/17 04:11 97.6 F 114 22 83/49 93 08/02/17 04:00 79/51 08/02/17 03:45 89/52 08/02/17 02:45 102/56 08/02/17 02:00 91/53 Intake and Output 08/01/17 08/02/17 08/02/17 23:59 07:59 15:59 Intake Total 2109 Balance 2109 Intake: IV Fluids 2109 0.9 % Sodium Chloride 1,000 ML 1000 / 1000 @ 3750 mls/hr IVC .Q16M ONE Rx# :[id number] Lactated Ringers 1,000 ML @ 125 1000 / 1000 mls/hr IVC .Q8H ESTEFANÍA Rx#: [id number] Calcium Gluconate 1,000 MG In 0 110 / 110 .9 % Sodium Chloride 100 ML @ 220 mls/hr IVPB Q6HR PRN Rx#: [id number] Other: Weight 78.8 kg 78.4 kg Patient Weight 08/02/17 23:59 Weight 78.4 kg - General Appearance Exam: Patient is alert. He appears acutely ill. He is on BiPAP. Blood pressure is 87/50. Temperature 97.3. Lungs exhibit diminished breath sounds along with mild expiratory wheezing. Heart regular rate and rhythm with a 2/6 systolic ejection murmur. Abdomen shows normal bowel sounds bruits masses, megaly or tenderness. Lower extremity show no edema. He has a fresh surgical incision over the right shoulder area. Appears to be healing well and his there is no obvious sign of infection. Results - Lab Results 08/02/17 07:04 08/02/17 07:04 Most recent lab results Calcium 8.1 mg/dL (8.6-10.3) L 08/02/17 07:04 Phosphorus 7.2 mg/dL (2.7-4.5) H 08/02/17 00:46 Magnesium 2.3 mg/dL (1.6-2.6) 08/02/17 00:46 Consult Discharge Plan - Plan Referrals: Nubia Field MD [Primary Care Provider] -
[2017-08-02] MEDS ORDERED: 0.9 % Sodium Chloride 250 ML IVC PRN (08:39)
--- NOTE | 2017-08-02 08:50 | Pulmonology Consult Note ---
Date of Encounter: 08/02/17 Time of Encounter: 08:45 Assessment and Plan (1) Acute respiratory failure with hypoxia Current Visit: Yes Status: Acute In conclusion the patient is a 76-year-old gentleman with multiple medical comorbidities including underlying coronary artery disease who presents with lethargy found to have acute kidney injury metabolic acidosis and Non-STEMI with acute hypoxic respiratory failure secondary to hydrostatic pulmonary edema as a manifestation by aggressive crystalloid infusion complicated by his underlying acute kidney injury and an STEMI. He is also displaying evidence of hypotension of unclear etiology may be related to cardiogenic process versus developing sepsis although I think this is less likely. See below for my assessment and plan based upon systems. I spent 35min of Critical Care time with this patient. It involved decision making of high complexity to assess, manipulate, and support vital organ system failure and/or to prevent further life threatening deterioration of the patient' s condition. The time involved in the performance of separately reportable procedures was not counted toward critical care time. 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 Unfortunately the patient remains oliguric which is complicating ability to keep up with demands of metabolic acidosis and pulmonary edema. He is stable currently on BiPAP recommend checking ABG high risk for decompensation further to needing endotracheal intubation. I do not feel that diuretic in this situation is going to be beneficial Cards: Non-STEMI which may be demand ischemia in the setting of acute kidney injury patient has received aspirin and is on heparin infusion cardiology to see the patient recommend formal echocardiogram on urgent basis. Possibility left heart catheterization we complicated by his acute kidney injury although her to cardiology service for this I am concerned about continued use of heparin infusion given worsening anemia with unclear baseline but I will defer to cardiology regarding risk and benefit of this. This may need to be held temporarily for possible dialysis catheter placement. The patient is borderline hypotensive which may be a manifestation of his underlying cardiac process such as heart failure this may also represent sepsis although I think this is much less likely. Although the patient likely was volume depleted on admission his received aggressive volume resuscitation I think further volume resuscitation will negatively impact his clinical course FEN-GI: Remain nothing by mouth for now, abodmen otherwise appears benign Renal: Acute oliguric kidney injury with hyperkalemia this is a mixed gap acidosis likely related to underlying kidney failure need to check lactate. Nephrology has been consulted patient has received calcium recommend 10 units IV insulin followed by an amp of dextrose. Likely etiology is prerenal azotemia complicated by ACEi use (now on hold). He is also to receive Kayexalate. I discussed the case directly with the recreation center director and plan for emergent dialysis with dialysis lines replaced by interventional radiology. In the interim use of sodium bicarbonate infusion is somewhat controversial but could be attempted as temporizing measure although I think with anything that should worsen his respiratory status. Will also check urine lytes and CPK ID: I do not believe that this represents a septic picture but will obtain blood cultures and urine cultures if possible. I will not start empiric antimicrobials would have a low threshold of doing so. Heme/Onc: The patient is on heparin infusion he appears to have an anemia which likely is chronic but is slightly worse overnight there is no overt evidence of bleeding we will continue to monitor this very closely defer to management of heparin to cardiology service Endo: Patient has history of diabetes will monitor his glucose and start a sliding scale insulin may need insulin infusion based upon clinical course Integ/MSK: The patient is status post right arthroplasty which appears to be healing appropriately Dispo: Recommend transfer to intensive care unit for closer monitoring possible need for vasopressor and possible need for intubation CODE: Full code family updated all questions answered at bedsideand I explained to his and to the patient he will need transferred to ICU for close monitoring and that his prognosis remains guarded with high risk of further decompensation over the next 12-24 hours (2) Hypotension Current Visit: Yes Status: Acute Qualifiers: Hypotension type: unspecified hypotension type Qualified Code(s): I95.9 - Hypotension, unspecified (3) Metabolic acidosis Current Visit: Yes Status: Acute (4) JOSH (acute kidney injury) Current Visit: Yes Status: Acute (5) Anemia Current Visit: Yes Status: Acute Qualifiers: Anemia type: due to chronic kidney disease Chronic kidney disease stage: stage 3 (moderate) Qualified Code(s): N18.3 - Chronic kidney disease, stage 3 (moderate); D63.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 (6) Dehydration Current Visit: Yes Status: Acute (7) Hyperkalemia Current Visit: Yes Status: Acute (8) NSTEMI (non-ST elevated myocardial infarction) Current Visit: Yes Status: Acute (9) Coronary artery disease Current Visit: Yes Status: Chronic Qualifiers: Coronary Disease-Associated Artery/Lesion type: unspecified vessel or lesion type [place] vs. transplanted heart: [place] heart Associated angina: angina presence unspecified Qualified Code(s): I25.10 - Atherosclerotic heart disease of [place] coronary artery without angina pectoris (10) Diabetes type 2, controlled Current Visit: No Status: Chronic Qualifiers: Diabetes mellitus salvage determiner insulin use: unspecified prison insulin use status Diabetes mellitus complication status: without complication Qualified Code(s): E11.9 - Type 2 diabetes mellitus without complications History of Present Illness Consult date: 08/02/17 Requesting physician: Samira Tate Reason for consult: hypoxemia Chief complaint: Difficulty in Breathing History of present illness: The patient is a 76 -year-old gentleman with a past medical history of coronary artery disease peripheral vascular disease chronic kidney disease disease stage III and diabetes he presented to the emergency room yesterday at [facility] after worsening lethargy and weakness and decreased by mouth intake. The history was gathered primarily from the as the patient is on BiPAP but the patient was able to nod and confirmed the story as outlined by his . Since surgery the patient's been suffering from singultus for the last 8 days and this is caused him to lose sleep and to have decreased by mouth intake. He is about 1 week postop from a recent right shoulder arthroplasty and he was told that the singultus was a result of the anesthesia he received. He denies any abdominal pain during this time. On admission to [facility] was noted to have an elevated troponin hyperkalemia acute kidney injury and metabolic acidosis was transferred to [facility] for further evaluation he was admitted to the stepdown unit where he is developed worsening respiratory failure over the last 12 hours from nasal cannula to ox E Angy now requiring BiPAP to support his hypoxemia. Chest x-ray notable for bilateral pulmonary edema pulmonary was consulted to further evaluate the patient rate make recommendations for what appears to be developing multiorgan system failure. Past Med Surg Social Fam HX - Past Medical History Medical history: coronary artery disease, diabetes, GERD, hypertension, renal disease, other Psychiatric history: no psych history - Past Surgical History Surgical History: carotid endarterectomy, other - Social History Smoking Status: Former smoker Smokeless Tobacco Status: No Alcohol use: none Drug use: none - Family History Daughter Hx Family Neurologic Disorders: Yes (CVA) Mother Living Status: Hx Family Endocrine Disorder: Yes (DM) Medications and Allergies RX: OxyCODONE Immed Rel [Roxicodone 5 MG] 5 mg PO Q6HR PRN 7 Days #28 tablet 09/04 [Rx] RX: Clopidogrel [Plavix] 75 mg PO DAILY 07/24/17 [History] RX: Lisinopril 30 mg PO DAILY 07/24/17 [History] RX: Rosuvastatin Calcium 40 mg PO DAILY 07/24/17 [History] RX: Sertraline [Zoloft] 100 mg PO DAILY 07/24/17 [History] RX: amLODIPine [Norvasc] 5 mg PO DAILY 07/24/17 [History] Cholecalciferol (Vitamin D3) [Vitamin D] 2,000 unit PO DAILY 08/01/17 [History] Ferrous Sulfate [Ferosul] 325 mg PO Q2D 08/01/17 [History] Omeprazole [PriLOSEC] 20 mg PO DAILY 08/01/17 [History] RX: Chlorpromazine HCl 25 mg PO Q8H 08/02/17 [History] 3 Allergy/AdvReac Type Severity Reaction Status Date / Time No Known Allergies Allergy Verified 08/02/17 06:55 All Systems: The remainder of the systems were reviewed and are negative Physical Examination Vital Signs: Vital Signs, Last 4 Hours Temp Pulse Resp BP Pulse Ox 08/02/17 07:30 97.3 F L 88 22 87/50 93 08/02/17 07:20 22 93 08/02/17 06:00 83 100/63 General appearance: appears uncomfortable Eyes: nonicteric ENT: oropharynx moist Neck: supple Effort: mildly labored Auscultation: bilateral: rales Cardiovascular: regular rate and rhythm Gastrointestinal: normoactive bowel sounds, soft, non-tender Integumentary: normal Extremities: no edema, pink and warm, pulses normal Musculoskeletal: other (Status post right arthroplasty with Steri-Strips present over surgical scar appears to be well-healing there is surrounding ecchymotic changes without clear evidence of hematoma per the this is improving from May been over the last week) normal mental status, non-focal exam anxious Results - Laboratory Findings CBC and BMP: 08/02/17 07:04 08/02/17 07:04 PT/INR, D-dimer PT 12.7 Seconds (9.4-12.1) H 08/02/17 00:46 Abnormal lab findings: Abnormal lab results RBC 2.19 M/mcL (4.19-5.50) L 08/02/17 07:04 Hgb 6.9 g/dL (12.9-16.9) L 08/02/17 07:04 Hct 21.7 % (37.5-50.1) L 08/02/17 07:04 RDW 15.0 % (11.5-14.5) H 08/02/17 07:04 Lymphocytes # 0.3 K/mcL (0.6-4.6) L 08/02/17 07:04 Nucleated RBCs/100 WBC 0.3 /100 WBC (0) H 08/02/17 07:04 PT 12.7 Seconds (9.4-12.1) H 08/02/17 00:46 APTT 76.1 Seconds (26.0-36.0) H 08/02/17 07:04 Sodium 129 mEq/L (136-145) L 08/02/17 07:04 Potassium 6.9 mEq/L (3.5-5.1) H* 08/02/17 07:04 Carbon Dioxide 9 mEq/L (23-29) L* 08/02/17 07:04 BUN 105 mg/dL (8-23) H 08/02/17 07:04 Creatinine 8.55 mg/dL (0.70-1.30) H 08/02/17 07:04 Est GFR ( Amer) 7 (> 60) L 08/02/17 07:04 Est GFR (Non-Af Amer) 6 (> 60) L 08/02/17 07:04 Glucose 133 mg/dL (70-105) H 08/02/17 07:04 Calculated Osmolality 303 (280-300) H 08/02/17 07:04 Calcium 8.1 mg/dL (8.6-10.3) L 08/02/17 07:04 Venous Ioniz Calcium 1.00 mmol/L (1.15-1.35) L 08/02/17 07:26 Phosphorus 7.2 mg/dL (2.7-4.5) H 08/02/17 00:46 Troponin I 4.61 ng/mL (< 0.04) H* 08/02/17 07:04 HDL Cholesterol 19 mg/dL (40-59) L 08/02/17 07:04 - Diagnostic Findings Chest x-ray: report reviewed, image reviewed - Clinical Findings Intake & Output: Intake & Output 08/01/17 08/02/17 08/02/17 23:59 07:59 15:59 Intake Total 2109 Balance 2109 Weight 78.8 kg 78.4 kg Consult Discharge Plan - Plan Referrals: Nubia Field MD [Primary Care Provider] -
--- NOTE | 2017-08-02 08:58 | Internal Med Progress Note ---
Date of Encounter: 08/02/17 Time of Encounter: 08:00 - Assessment and plan (1) NSTEMI (non-ST elevated myocardial infarction) Current Visit: Yes Status: Acute Assessment and plan: presented with generalized weakness, elevated Troponin with EKG changes of ST depression; continue IV Heparin drip; continue ASA and statin; hold ACEI and beta jameel due to JOSH and hypotension; Cardiology consulted; f/up TTE; continue Telemetry monitoring and serial Troponins; (2) Metabolic acidosis Current Visit: Yes Status: Acute Assessment and plan: anion gap metabolic acidosis with JOSH and hyperkalemia; d/w Nephrology, will start bicarbonate drip; monitor electrolytes closely; Telemetry monitoring; (3) Acute respiratory failure with hypoxia Current Visit: Yes Status: Acute Assessment and plan: chest XRay reviewed- shows B/L infiltrates, likely pulmonary edema and volume overload; continue supplemental O2 and BiPAP support; ABG shows acidosis with pH 7.1 with bicarb of 8; d/w Pulmonology, patient is critically ill at this time and requires higher level of care, plan to transfer to ICU when bed is available; (4) JOSH (acute kidney injury) Current Visit: Yes Status: Acute Assessment and plan: JOSH on underlying CKD; [facility]; baseline serum creatinine noted to be around 2.2, now with 8.6, associated with metabolic acidosis, oliguria and hyperkalemia; consulted Nephrology, plan for possible urgent HD; high risk for complications; (5) Anemia Current Visit: Yes Status: Acute Assessment and plan: acute on chronic; suspected bleeding due to Heparin drip? transfuse to keep Hb>8 ; Qualifiers: Anemia type: due to chronic kidney disease Chronic kidney disease stage: stage 3 (moderate) Qualified Code(s): N18.3 - Chronic kidney disease, stage 3 (moderate); D63.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 (6) Hyperkalemia Current Visit: Yes Status: Acute Assessment and plan: give Kayexalate; expect to correct with correction of acidosis; (7) Coronary artery disease Current Visit: Yes Status: Chronic Qualifiers: Coronary Disease-Associated Artery/Lesion type: [place] artery [place] vs. transplanted heart: [place] heart Associated angina: without angina Qualified Code(s): I25.10 - Atherosclerotic heart disease of [place] coronary artery without angina pectoris (8) Status post total replacement of right shoulder Current Visit: Yes Status: Chronic Assessment and plan: TSR 1 week ago; Orthopedics on board; no signs of wound infection; (9) Diabetes type 2, controlled Current Visit: Yes Status: Chronic Assessment and plan: Accucheck blood glucose monitoring with sliding scale insulin as needed; Qualifiers: Diabetes mellitus long term care pharmacist insulin use: without detention use Diabetes mellitus complication status: with kidney complications Diabetes mellitus complication detail: with chronic kidney disease Chronic kidney disease stage : stage 3 (moderate) Qualified Code(s): E11.22 - Type 2 diabetes mellitus with diabetic chronic kidney disease; N18.3 - Chronic kidney disease, stage 3 ( moderate) (10) CKD (chronic kidney disease) Current Visit: Yes Status: Chronic Qualifiers: Chronic kidney disease stage: stage 3 (moderate) Qualified Code(s): N18.3 - Chronic kidney disease, stage 3 (moderate) - Time Spent With Patient Total time spent is greater than 50% in coordination of care (as documented) at patient's floor/unit and/or counseling patient: - Subjective Interval history: Patient on BiPAP; unable to provide history, which is obtained from his at bedside; presented to ER with generalized weakness and currently still reports fatigue; no nausea, vomiting, diarrhea, chest or abdominal pain; no dyspnea or leg swelling reported; - Constitutional Vitals: Temp Pulse Resp BP Pulse Ox 97.3 F L 88 22 87/50 93 08/02/17 07:30 08/02/17 07:30 08/02/17 07:30 08/02/17 07:30 08/02/17 07:30 General appearance: Present: mild distress, A&O X 3, answers questions appropriately - Respiratory Respiratory exam: Present: CTAB, rales (at right base). Absent: accessory muscle use, rhonchi, wheezes - Cardiovascular Cardiovascular exam: Present: RRR, +S1, +S2. Absent: diastolic murmur, gallop, rubs, systolic murmur - GI/Abdominal GI/Abdominal exam: Present: normal bowel sounds, soft, no peritoneal signs. Absent: distended, tenderness - Extremities Exam Extremities exam: Present: full ROM, warm, radial pulses palpable and symmetrical. Absent: calf tenderness, cyanotic, pedal edema Additional comments: right shoulder with well-healing surgical incision and sutures, with surrounding ecchymoses - Neurological Exam Neurological exam: Present: CN II-XII intact, oriented X3, no focal deficits. Absent: pronater drift, facial droop, speech deficit - Skin Skin exam: Present: dry, intact Internal Medicine: Result - Labs CBC & Chem 7: 08/02/17 07:04 08/02/17 12:49 Labs: Short CBC 08/02/17 08/02/17 Range/Units 00:46 07:04 WBC 9.0 10.2 (4.3-11.1) K/mcL Hgb 7.3 L 6.9 L (12.9-16.9) g/dL Hct 22.2 L 21.7 L (37.5-50.1) % Plt Count 150 157 (140-400) K/mcL Neutrophils # 7.6 8.9 (1.6-8.9) K/mcL BMP 08/02/17 08/02/17 00:46 07:04 Sodium 130 L 129 L Potassium 5.9 H 6.9 H* Chloride 101 102 Carbon Dioxide 10 L* 9 L* BUN 105 H 105 H Creatinine 8.60 H 8.55 H Glucose 104 133 H Calcium 8.3 L 8.1 L Cardiac Enzymes 08/02/17 08/02/17 Range/Units 00:46 07:04 Troponin I 6.44 H* 4.61 H* (< 0.04) ng/mL - ABG Interpretation ABG results: PT/INR, D-dimer PT 12.7 Seconds (9.4-12.1) H 08/02/17 00:46 - Impressions Impressions Chest X-Ray 08/02/17 07:41 IMPRESSION: Chronic interstitial lung disease with associated superimposed pulmonary edema and/or pneumonitis. D/ / Eric Platt MD / Eric Platt MD Interpreting Provider: Eric Platt MD Consult Discharge Plan - Plan Referrals: Nubia Field MD [Primary Care Provider] -
[2017-08-02] MEDS ORDERED: Lisinopril 20 MG TABLET PO SCH (09:00)
[2017-08-02] MEDS ORDERED: Aspirin 81 MG TAB.CHEW PO SCH (09:00)
[2017-08-02] MEDS ORDERED: Famotidine 20 MG TABLET PO SCH (09:00)
[2017-08-02] MEDS ORDERED: amLODIPine 5 MG TABLET PO SCH (09:00)
--- NOTE | 2017-08-02 09:09 | Cardiology Consult Note ---
<Philippe De Dios - Last Filed: 08/02/17 09:23> Date of Encounter: 08/02/17 Time of Encounter: 09:03 Assessment and Plan (1) NSTEMI (non-ST elevated myocardial infarction) Current Visit: Yes Status: Acute Troponin at [place] [facility] reportedly 7.49. At [facility], 6.44, 4.61. Downtrending. Also in setting of JOSH on CKD with creatinine 8.55 and acute anemia with HGB 6.9. Baseline creatinine ~2.23 and HGB was 11 last week prior to shoulder surgery. Pt denies chest pain. Currently in acute respiratory failure thought to be secondary to pulmonary edema, requiring BiPAP support, being transferred to ICU. Hx of CAD with PTCA in the . No LHC since that time. TTE to evaluate structure and function. Currently not a candidate for LHC given his decline in HGB and renal function. Discussed at length with family. Medically manage for now. Possible LHC in the future pending his clinical course. On ASA, Plavix, and Statin. BP will not tolerate BB. On heparin gtt, but given decline in HGB, will discuss with Dr. Cheung on if this should be continued. (2) Coronary artery disease Current Visit: Yes Status: Chronic Hx of PTCA in . Continue ASA, Plavix, Statin. BP will not tolerate BB. Qualifiers: Coronary Disease-Associated Artery/Lesion type: unspecified vessel or lesion type [place] vs. transplanted heart: [place] heart Associated angina: angina presence unspecified Qualified Code(s): I25.10 - Atherosclerotic heart disease of [place] coronary artery without angina pectoris (3) JOSH (acute kidney injury) Current Visit: Yes Status: Acute Baseline ~2.23. Creatinine today 8.55. Nephrology following with plans for urgent dialysis and temporary dialysis catheter placement. K 6.9--management per nephrology. (4) Anemia Current Visit: Yes Status: Acute HGB 11.0 prior to shoulder surgery last week. Post op HGB downtrended to 9.1. HGB today 6.9--suspect acute blood loss anemia post op, as well as dilutional. Pt reportedly received 3L of fluid at outside facility. Pt denies active bleeding. Currently on heparin gtt for NSTEMI. Will discuss with Dr. Cheung on whether to continue. Also on ASA and Plavix, both home meds. Further management of anemia per primary team. Qualifiers: Anemia type: due to chronic kidney disease Chronic kidney disease stage: stage 3 (moderate) Qualified Code(s): N18.3 - Chronic kidney disease, stage 3 (moderate); D63.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 (5) Hypotension Current Visit: Yes Status: Acute Currently hypotensive, not yet requiring pressor support. Will avoid antihypertensives. Qualifiers: Hypotension type: unspecified hypotension type Qualified Code(s): I95.9 - Hypotension, unspecified (6) Atrial fibrillation Current Visit: Yes Status: Acute A-Fib RVR on admission EKG, new diagnosis per pt and . A-Fib in setting of above--anemia, JOSH, acute respiratory failure. TTE to evaluate structure and function. 12 hr tele AVG HR 113, but HR currently 80s at bedside. No on rate control medications currently due to hypotension. K 6.9--address per nephrology. Mag 2.3. Check TSH. On heparin gtt for NSTEMI, but with declining HGB. [id number] is 4 (Age, HTN, DM, CAD). High CVA risk, ideally would be on chronic anticoagulation. However, given current clinical status and declining HGB, will not start. Continue to follow and reconsider prior to d/c pending clinical course. Qualifiers: Atrial fibrillation type: unspecified Qualified Code(s): I48.91 - Unspecified atrial fibrillation Discussion w patient/family: The assessment and plan as outlined above was discussed with the patient and/or family members who expressed understanding and agreement. All questions were answered. Thank you for involving us in the care of your patient. Please call with any questions. I will discuss all the above with Dr. Cheung and make changes as necessary. History of Present Illness Consult date: 08/02/17 Requesting physician: Samira Tate Consult reason: NSTEMI Chief complaint: dyspnea, weakness History of present illness: Mr. Deng is a 76 year old male with PMH of CAD with hx of PTCA in the , PVD with LE stents, renal stents, CKD stage III and DM that presented to the ED yesterday at [facility] after worsening lethargy and weakness, decreased PO intake, and worsening dyspnea. Hx gathered mostly from the as the patient is on BiPAP, but pt confirms details. Pt underwent right shoulder surgery last week and since then reports weakness, decreased PO intake, and worsening dyspnea in the past 3-4 days. On admission to [facility] was noted to have an elevated troponin of 7.49, hyperkalemia K 6.0, JOSH creatinine 8.37 and metabolic acidosis. He was transferred to [facility] for further evaluation. He has developed worsening respiratory failure over the last 12 hours now requiring BiPAP to support his hypoxemia. Chest x-ray notable for bilateral pulmonary edema pulmonary. Also to note, HGB 6.9 today, was 11.0 last week. Troponin trend 7.49 at [place], then 6.44, 4.61 at [facility]. Pt denies chest pain. Admission EKG A-Fib RVR, new diagnosis. Pt has been seen by nephrology. Creatinine currently 8.55, K 6.9. Plan is for urgent dialysis. Pt also seen by pulmonology. Past Med Surg Social Fam HX - Past Medical History Medical history: coronary artery disease, diabetes, GERD, hypertension, renal disease, other Psychiatric history: no psych history - Past Surgical History Surgical History: carotid endarterectomy, other - Social History Smoking Status: Former smoker Smokeless Tobacco Status: No Alcohol use: none Drug use: none - Family History Daughter Hx Family Neurologic Disorders: Yes (CVA) Mother Living Status: Hx Family Endocrine Disorder: Yes (DM) Medications and Allergies OxyCODONE Immed Rel [Roxicodone 5 MG] 5 mg PO Q6HR PRN 7 Days #28 tablet [Rx] Clopidogrel [Plavix] 75 mg PO DAILY 07/24/17 [History] Lisinopril 30 mg PO DAILY 07/24/17 [History] Rosuvastatin Calcium 40 mg PO DAILY 07/24/17 [History] Sertraline [Zoloft] 100 mg PO DAILY 07/24/17 [History] amLODIPine [Norvasc] 5 mg PO DAILY 07/24/17 [History] Cholecalciferol (Vitamin D3) [Vitamin D] 2,000 unit PO DAILY 08/01/17 [History] Ferrous Sulfate [Ferosul] 325 mg PO Q2D 08/01/17 [History] Omeprazole [PriLOSEC] 20 mg PO DAILY 08/01/17 [History] Chlorpromazine HCl 25 mg PO Q8H 08/02/17 [History] 3 Allergy/AdvReac Type Severity Reaction Status Date / Time No Known Allergies Allergy Verified 08/02/17 06:55 All Systems Review: The remainder of the systems were reviewed and are negative - Constitutional Constitutional: weakness - Cardiovascular Cardiovascular: as per HPI, dyspnea at rest, dyspnea on exertion - Respiratory Respiratory: dyspnea Physical Examination Vital Signs, Last 4 Hours Temp Pulse Resp BP Pulse Ox 08/02/17 07:30 97.3 F L 88 22 87/50 93 08/02/17 07:20 22 93 08/02/17 06:00 83 100/63 Vital Signs Temp Pulse Resp BP Pulse Ox 08/02/17 07:30 97.3 F L 88 22 87/50 93 08/02/17 07:20 22 93 08/02/17 06:00 83 100/63 08/02/17 04:11 97.6 F 114 22 83/49 93 08/02/17 04:00 79/51 08/02/17 03:45 89/52 08/02/17 02:45 102/56 08/02/17 02:00 91/53 08/01/17 22:20 97.1 F L 141 24 94/55 88 Intake and Output 08/01/17 08/02/17 08/02/17 23:59 07:59 15:59 Intake Total 2109 Balance 2109 Intake: IV Fluids 2109 0.9 % Sodium Chloride 1,000 ML 1000 / 1000 @ 3750 mls/hr IVC .Q16M ONE Rx# :[id number] Lactated Ringers 1,000 ML @ 125 1000 / 1000 mls/hr IVC .Q8H ESTEFANÍA Rx#: [id number] Calcium Gluconate 1,000 MG In 0 110 / 110 .9 % Sodium Chloride 100 ML @ 220 mls/hr IVPB Q6HR PRN Rx#: [id number] Other: Weight 78.8 kg 78.4 kg Patient Weight 08/02/17 23:59 Weight 78.4 kg General: Other (respiratory distress, on BiPAP) HEENT: Atraumatic, Normocephaly Neck: Normal carotid pulses Cardiac: Other (irregularly irregular) Lungs: Other (rhonchi, wheezes) Neuro: Alert and responsive Abdomen: Soft, Non-Tender Skin: Other (s/p right shoulder surgery, merry noted) Musculoskeletal: No Chest Wall Tenderness Extremities: No Clubbing, No Cyanosis, No Edema, Normal Pulses Results 08/02/17 07:04 08/02/17 07:04 Lab Results 08/02/17 08/02/17 08/02/17 00:46 00:46 00:46 WBC 9.0 Hgb 7.3 L Hct 22.2 L Plt Count 150 INR APTT Sodium Potassium Chloride Carbon Dioxide BUN Creatinine Glucose Calcium Magnesium 2.3 Troponin I 6.44 H* 08/02/17 08/02/17 08/02/17 00:46 00:46 07:04 WBC 10.2 Hgb 6.9 L Hct 21.7 L Plt Count 157 INR 1.2 APTT 85.7 H Sodium 130 L Potassium 5.9 H Chloride 101 Carbon Dioxide 10 L* BUN 105 H Creatinine 8.60 H Glucose 104 Calcium 8.3 L Magnesium Troponin I 08/02/17 08/02/17 08/02/17 07:04 07:04 07:04 WBC Hgb Hct Plt Count INR APTT 76.1 H Sodium 129 L Potassium 6.9 H* Chloride 102 Carbon Dioxide 9 L* BUN 105 H Creatinine 8.55 H Glucose 133 H Calcium 8.1 L Magnesium Troponin I 4.61 H* Short CBC 08/02/17 08/02/17 Range/Units 07:04 00:46 WBC 10.2 9.0 (4.3-11.1) K/mcL Hgb 6.9 L 7.3 L (12.9-16.9) g/dL Hct 21.7 L 22.2 L (37.5-50.1) % Plt Count 157 150 (140-400) K/mcL Neutrophils # 8.9 7.6 (1.6-8.9) K/mcL BMP 08/02/17 08/02/17 Range/Units 07:04 00:46 Sodium 129 L 130 L (136-145) mEq/L Potassium 6.9 H* 5.9 H (3.5-5.1) mEq/L Chloride 102 101 (98-107) mEq/L Carbon Dioxide 9 L* 10 L* (23-29) mEq/L BUN 105 H 105 H (8-23) mg/dL Creatinine 8.55 H 8.60 H (0.70-1.30) mg/dL Glucose 133 H 104 (70-105) mg/dL Calcium 8.1 L 8.3 L (8.6-10.3) mg/dL Cardiac Enzymes 08/02/17 08/02/17 Range/Units 07:04 00:46 Troponin I 4.61 H* 6.44 H* (< 0.04) ng/mL Impressions Chest X-Ray 08/02/17 07:41 IMPRESSION: Chronic interstitial lung disease with associated superimposed pulmonary edema and/or pneumonitis. D/ / Eric Platt MD / Eric Platt MD Interpreting Provider: Eric Platt MD Active Medications Acetaminophen (Tylenol) 650 mg PO Q6HR PRN PRN Reason: Mild Pain/Fever Stop: 01/31/18 23:17 Aspirin (Aspirin) 81 mg PO DAILY [facility] Stop: 02/01/18 09:01 Last Admin: 08/02/17 07:53 Dose: 81 mg Chlorpromazine HCl (Thorazine) 12.5 mg PO HS [facility] Stop: 02/01/18 21:01 Clopidogrel Bisulfate (Plavix) 75 mg PO DAILY [facility] Stop: 02/01/18 09:01 Last Admin: 08/02/17 07:53 Dose: 75 mg Ferrous Sulfate (Ferrous Sulfate) 325 mg PO [facility] Stop: 02/02/18 09:01 Heparin Sodium (Porcine) (Heparin) 4,000 unit IVP Q6HR PRN PRN Reason: SEE COMMENTS Stop: 01/31/18 23:57 Heparin Sodium (Porcine) (Heparin) 2,000 unit IVP Q6H PRN PRN Reason: SEE COMMENTS Stop: 01/31/18 23:57 Calcium Gluconate 1,000 mg/ (Sodium Chloride) 110 mls @ 220 mls/hr IVPB Q6HR PRN PRN Reason: Hypocalcemia Stop: 01/31/18 23:53 Last Infusion: 08/02/17 02:38 Dose: Infused Magnesium Sulfate (Magnesium Sulfate Premix 2gm/50ml) 2 gm in 50 mls @ 50 mls/ hr IVPB Q6H PRN PRN Reason: Hypomagnesemia Stop: 01/31/18 23:53 Potassium Chloride (Potassium Chloride 10 Meq/100ml) 10 meq in 100 mls @ 100 mls/hr IVPB Q1H PRN PRN Reason: Potassium less than 4 Stop: 01/31/18 23:53 Potassium Phosphate 44 meq/ (Sodium Chloride) 260 mls @ 40 mls/hr IVPB Q10H PRN PRN Reason: Phosphate less than 3 Stop: 01/31/18 23:53 Sodium Phosphate 30 mmol/ (Sodium Chloride) 260 mls @ 42 mls/hr IVPB Q12H PRN PRN Reason: Hypophosphatemia Stop: 01/31/18 23:53 Heparin Sodium/Dextrose (Heparin 25,000 Unit/500 Ml D5w) 25,000 unit in 500 mls @ 18.912 mls/hr IVC .Q24H ESTEFANÍA; 12 UNIT/KG/HR PRN Reason: Protocol Stop: 01/31/18 23:46 Last Admin: 08/02/17 00:25 Dose: 12 unit/kg/hr, 18.912 mls/hr Sodium Bicarbonate 150 meq/ (Dextrose) 1,150 mls @ 100 mls/hr IVC .[id number] ESTEFANÍA Stop: 02/01/18 08:16 Sodium Chloride (0.9 % Sodium Chloride) 250 mls @ 937.5 mls/hr IVC .Q16M PRN PRN Reason: Hypotension Stop: 02/01/18 08:40 Naloxone HCl (Narcan) 0.4 mg IVP Q2MIN PRN PRN Reason: SEE COMMENTS Stop: 01/31/18 23:17 Omeprazole (Prilosec) 20 mg PO DAILY ESTEFANÍA PRN Reason: Protocol Stop: 02/01/18 09:01 Last Admin: 08/02/17 07:53 Dose: 20 mg Rosuvastatin Calcium (Crestor) 40 mg PO HS [facility] Stop: 02/01/18 21:01 Sertraline HCl (Zoloft) 100 mg PO DAILY ESTEFANÍA Stop: 02/01/18 00:16 Last Admin: 08/02/17 07:53 Dose: 100 mg Vitamin D (Vitamin D) 2,000 unit PO DAILY [facility] Stop: 02/01/18 09:01 Last Admin: 08/02/17 07:53 Dose: 2,000 unit - EKG Interpretation EKG results cardiology: personally reviewed (A-Fib RVR), other (12 hr tele AVG HR 113, A-Fib, no ventricular arrhythmias noted.) Consult Discharge Plan - Plan Referrals: Nubia Field MD [Primary Care Provider] - <Marla Cheung - Last Filed: 08/02/17 12:36> Date of Encounter: 08/02/17 - Attending Attestation I have personally performed a face to face evaluation on this patient. I have reviewed and agree with the care plan. History and Exam by me shows: 76-year-old male with history of coronary artery disease status post PTCA 30 years ago presents after shoulder surgery last week with increasing shortness of breath fatigue tiredness. Patient found to have peaked troponin of 7.4 currently down trending at 6.0 with a potassium of 6.0 and acute or chronic kidney disease the creatinine of 8.0. He is in respiratory insufficiency currently on BiPAP with significant EKG changes suggestive of 3 vessel disease. Patient high risk for left her calf at this time due to significant anemia and acute renal failure. Patient likely would benefit from aspirin, heparin IV, and a left heart catheterization. I do recommend starting aspirin if not contraindicated, heparin IV ACS protocol if not contraindicated as well. Left heart catheterization would be ideal however as described above at this time is high risk and would likely lead to chronic hemodialysis and in the setting is significant anemia may also cause worsening due to dual antiplatelet therapy anticoagulation. Echocardiogram currently pending however patient is at high risk for cardiac morbidity and mortality at this time. His overall cardiac prognosis is poor due to his multiple comorbidities and cardiac risk factors/non -ST elevation myocardial infarction. Assessment and Plan Discussion w patient/family: The assessment and plan as outlined above was discussed with the patient and/or family members who expressed understanding and agreement. All questions were answered. Thank you for involving us in the care of your patient. Please call with any questions. History of Present Illness History of present illness: Mr. Deng is a 76 year old male All Systems Review: The remainder of the systems were reviewed and are negative Physical Examination Vital Signs, Last 4 Hours Temp Pulse Resp BP Pulse Ox 08/02/17 12:29 96.3 F L 134 27 107/59 95 08/02/17 11:16 96.2 F L 77 19 107/53 98 Results 08/02/17 07:04 08/02/17 07:04 Lab Results 08/02/17 08/02/17 08/02/17 00:46 00:46 00:46 WBC 9.0 Hgb 7.3 L Hct 22.2 L Plt Count 150 INR APTT Sodium Potassium Chloride Carbon Dioxide BUN Creatinine Glucose Calcium Magnesium 2.3 Troponin I 6.44 H* 08/02/17 08/02/17 08/02/17 00:46 00:46 07:04 WBC 10.2 Hgb 6.9 L Hct 21.7 L Plt Count 157 INR 1.2 APTT 85.7 H Sodium 130 L Potassium 5.9 H Chloride 101 Carbon Dioxide 10 L* BUN 105 H Creatinine 8.60 H Glucose 104 Calcium 8.3 L Magnesium Troponin I 08/02/17 08/02/17 08/02/17 07:04 07:04 07:04 WBC Hgb Hct Plt Count INR APTT 76.1 H Sodium 129 L Potassium 6.9 H* Chloride 102 Carbon Dioxide 9 L* BUN 105 H Creatinine 8.55 H Glucose 133 H Calcium 8.1 L Magnesium Troponin I 4.61 H*
--- NOTE | 2017-08-02 09:37 | IR Procedure Note ---
Date of procedure: 08/02/17 Consent Obtained: Verbal consent Timeout: Correct patient and procedure verified, Correct site verified, Time out performed, Skin prep completed Local anesthetic: Lidocaine 1% Indications: Renal failure Procedure Performed: Temp HD catheter placement Was there an study assistant present: No Site/Technique: Temp HD catheter placed bedside Results/Findings: Patent right IJ vein Estimated blood loss (cc): 2 Complications: None; Tolerated procedure well Post Procedure Treatment Plan: May use HD catheter pending CXR Specimen: none
[2017-08-02 10:49] LABS: Bilirubin,Urine Small (Negative); Blood,Urine Large (Negative); Color,Urine Dark Yellow (Yellow); Glucose,Urine (UA) Normal (Normal); Ketones,Urine Trace mg/dL (Negative); Leukocyte Esterase,Urine Small (Negative); Nitrite,Urine Negative (Negative); Protein,Urine 100 mg/dL (Neg-Trace); Specific Gravity,Urine 1.023 (1.010-1.025); Urobilinogen,Urine Normal (Normal)
[2017-08-02 10:52] LABS: RBC,Urine 30-50 per hpf (0-3); Squamous Epithelial Cell,Urine Many per lpf (None-Few); WBC,Urine 50-100 per hpf (0-3)
[2017-08-02 10:53] LABS: Clarity,Urine Hazy (Clear)
[2017-08-02 11:05] LABS: Bacteria,Urine Many per hpf (None-Few); Granular Casts,Urine Few per lpf (None Seen)
[2017-08-02] MEDS ORDERED: *HR* LORazepam 2 MG/ML VIAL IVP PRN (11:30)
[2017-08-02] MEDS ORDERED: 0.9 % Sodium Chloride 250 ML ONE (12:17)
[2017-08-02 12:27] LABS: Hepatitis B Surface Antigen Nonreactive (Nonreactive)
[2017-08-02 13:40] LABS: Potassium 6.3 mEq/L (3.5-5.1)
[2017-08-02 13:57] LABS: Albumin 2.9 g/dL (3.5-5.7); Bilirubin,Direct 0.4 mg/dL (0.0-0.2); Bilirubin,Indirect 0.3 mg/dL (0.0-1.2); Bilirubin,Total 0.7 mg/dL (0.3-1.0); Total Protein 5.9 g/dL (6.4-8.9)
--- NOTE | 2017-08-02 16:12 | Electrocardiograph Report ---
[address] [place], [place] [address] Test Date: 2017-08-02 Pat Name: Jersey Deng Department: 110 Room: 02 Gender: M Glove Sewer: TATI : 1940 Requested By: Benjamin Mckeon Order Number: [id number] Reading MD: Alana Coles Measurements Intervals [place] Rate: 137 P: 223 ID: [id number] QRS: -7 QRSD: 133 T: 68 QT: 332 QTc: 412 Interpretive Statements SUPRAVENTRICULAR TACHYCARDIA INTRAVENTRICULAR CONDUCTION DELAY NONSPECIFIC ST ABNORMALITIES Electronically Signed On 08-02-2017 16:11:03 EDT by Alana Coles
--- NOTE | 2017-08-02 16:13 | Electrocardiograph Report ---
[address] [place], [place] [address] Test Date: 2017-08-02 Pat Name: Jersey eDng Department: 110 Room: 02 Gender: M Control Engineer: : 1940 Requested By: Benjamin Mckeon Order Number: [id number] Reading MD: Alana Coles Measurements Intervals [place] Rate: 112 P: MA: 0 QRS: -18 QRSD: 138 T: 97 QT: 368 QTc: 434 Interpretive Statements ATRIAL FIBRILLATION WITH RAPID VENTRICULAR RESPONSE INTRAVENTRICULAR CONDUCTION DELAY Electronically Signed On 08-02-2017 16:11:47 EDT by Alana Coles
[2017-08-02] MEDS ORDERED: *HR* FentaNYL (PF) 100 MCG/2 ML VIAL IVP PRN (18:05)
[2017-08-02] MEDS ORDERED: *HR* FentaNYL (PF) 100 MCG/2 ML VIAL ONE (18:12)
--- NOTE | 2017-08-02 19:06 | Event Note ---
Date of Encounter: 08/02/17 Time of Encounter: 09:30 Ortho made aware of patient's admission. Patient seen on [facility]. Patient on BiPAP machine. Nurse in room. Patient states that approximately 4 days after surgery he started to feel poorly. He states that he did go to an urgent care after speaking with orthopedics nurse navigator. He states he does not remember the events of that urgent care visit normal much as the past several days. No family available at bedside. On exam patient is noted to have significant ecchymosis to the right upper extremity and right chest wall. Right total shoulder replacement incision noted to be intact with merry in supply and intact. No outer dressing noted. Patient's nurse states that patient arrived without a dressing on the right shoulder. Range of motion to the right elbow wrist and hand are intact. Embryology Professor strength intact. He is neurovascularly intact to the right and left upper extremity. Patient's chest x-ray reviewed. Visualization of the right shoulder prosthesis is incomplete however portion visualized as appears to be intact and in alignment with postoperative films. No acute right shoulder process noted on x- ray exam. Patient appears to be stable with regard to the right total shoulder replacement however patient's medical conditions are being managed by hospitalist is primary team. Patient's nurse informs this provider that patient will be transferred to the ICU when a bed becomes available as he has been diagnosed with metabolic acidosis. Nonweightbearing to the right upper extremity. Apply sling for comfort as needed. PT/OT as medical conditions allow. Gentle range of motion to the right upper extremity only. Pain medication as indicated and needed per primary team. We will continue to follow patient regarding the right shoulder replacement and will be happy to provide assistance in whatever way we can. We will be cleansing the incision and applying a new dressing today.
[2017-08-02 19:52] LABS: Albumin 3.1 g/dL (3.5-5.7); Calcium 8.3 mg/dL (8.6-10.3); Phosphorous 5.4 mg/dL (2.7-4.5); Potassium 3.5 mEq/L (3.5-5.1)
[2017-08-02 19:54] LABS: Basophils % 0.1 %; Hematocrit 25.2 % (37.5-50.1); Hemoglobin 8.5 g/dL (12.9-16.9); Immature Granulocytes % 1.5 % (0-4); Lymphocytes # 0.4 K/mcL (0.6-4.6); Lymphocytes % 2.6 %; Mean Corpuscular HGB Conc 33.7 g/dL (31.6-35.5); Mean Platelet Volume 10.8 fL (9.4-12.4); Monocytes # 0.9 K/mcL (0.0-1.3); Monocytes % 6.4 %; Neutrophils # 12.9 K/mcL (1.6-8.9); Nucleated Red Blood Cells 0.1 /100 WBC (0); Platelet Count 153 K/mcL (140-400); Red Blood Count 2.83 M/mcL (4.19-5.50); Red Cell Distribution Width 14.5 % (11.5-14.5); Segmented Neutrophils % 89.4 %
[2017-08-02 20:03] LABS: ABG Base Excess -1 mEq/L (-2 to 3); ABG HCO3 24 mEq/L (21-27); ABG Oxygen Saturation 96 % (95-98); ABG PCO2 37 mmHg (35-45); ABG PH 7.41 pH Units (7.32-7.45); ABG PO2 80 mmHg (85-104); ABG TCO2 25 mEq/L (20-26)
[2017-08-02] MEDS: Dexmedetomidine HCl 400 MCG/100 ML MLS IVC SCH (20:20)
[2017-08-02] MEDS ORDERED: chlorproMAZINE 25 MG TABLET PO SCH (21:00)
[2017-08-02] MEDS ORDERED: *HR* Rocuronium Bromide 50 MG/5 ML VIAL IVP ONE (21:52)
--- NOTE | 2017-08-02 21:57 | Event Note ---
Date of Encounter: 08/02/17 Time of Encounter: 21:55 Paged by resident Benjamin Mckeon about patient likely needing intubation. I arrive to ICU and examined patient. He is sedated and sleeping comfortably on Bipap. Has been on Bipap all day per nurse. He is having some hypotension with systolic BP in 100s. O2 saturations have remained in mid to high 80s all day. Given his condition and failure of Bipap to resolve hypoxia, agree with plan for intubation. I informed resident to page me as needed.
[2017-08-02] MEDS ORDERED: Lacri-Lube 3.5 GM TUBE BOTH EYES PRN (22:29)
--- NOTE | 2017-08-02 22:38 | Event Note ---
Date of Encounter: 08/02/17 Time of Encounter: 22:34 Procedure: Endotracheal intubation Date: 08/02/17 Time: 2234 End Maker: Dr. Benjamin Mckeon D.O. Attending: Dr. Carias Indication: Acute respiratory failure with hypoxia and hypercapnia The patient was placed in supine position. All equipment was checked and operational before beginning the procedure. Sedation was obtained using etomidate. Patient was paralyzed using rocuronium. The patient was easily ventilated using an Ambu bag. There are laryngoscope using a Mac 4 blade was inserted into the oropharynx at which time a grade 1 view of the vocal cords was visualized. A 7.5 Czech endotracheal tube was inserted and visualized going through the cords. The stylet was removed. Colorimetric change was visualized on the CO2 meter. Breath sounds were heard in both lung niño. There were no breast breath sounds auscultated over the stomach. The endotracheal tube was placed at 24 cm at the lip line. Attending physician Jv was in attendance throughout the entirety of the procedures. A chest x-ray was ordered afterwards to assess for pneumothorax and placement of the endotracheal tube. The patient tolerated the procedure well without desaturation or hemodynamic compromise. Leovofed was started as a drip on the patient through his hemodialysis pigtail prior to the procedure to alleviate any hypotension during the procedure. Patient will be continued on Levophed Patient will be sedated with Precedex and fentanyl
[2017-08-02] MEDS: Norepinephrine 4 MG in D5% in Water 250 ML IVC SCH (22:46)
[2017-08-02] MEDS: FentaNYL (PF) 1,000 MCG in 0.9 % Sodium Chloride 80 ML IVC SCH (23:04)
[2017-08-03] MEDS: Lacri-Lube 3.5 GM TUBE BOTH EYES SCH ×7 (00:25→23:06)
[2017-08-03 00:42] LABS: ABG Base Excess -2 mEq/L (-2 to 3); ABG HCO3 24 mEq/L (21-27); ABG Oxygen Saturation 93 % (95-98); ABG PCO2 47 mmHg (35-45); ABG PH 7.32 pH Units (7.32-7.45); ABG PO2 72 mmHg (85-104); ABG TCO2 26 mEq/L (20-26); Blood Gas Modality VC; Blood Gas PEEP 10 cm H2O; Blood Gas Respiration Rate 14; Blood Gas VT 500 cc
[2017-08-03 03:56] LABS: Basophils % 0.1 %; Hematocrit 25.2 % (37.5-50.1); Hemoglobin 8.5 g/dL (12.9-16.9); Lymphocytes # 0.3 K/mcL (0.6-4.6); Lymphocytes % 2.2 %; Mean Corpuscular HGB Conc 33.7 g/dL (31.6-35.5); Mean Corpuscular Hemoglobin 30.1 pg (28.0-33.3); Mean Corpuscular Volume 89.4 fL (83.0-100.0); Mean Platelet Volume 11.2 fL (9.4-12.4); Monocytes % 7.5 %; Neutrophils # 12.1 K/mcL (1.6-8.9); Platelet Count 169 K/mcL (140-400); Red Blood Count 2.82 M/mcL (4.19-5.50); Red Cell Distribution Width 14.7 % (11.5-14.5); Segmented Neutrophils % 88.2 %
[2017-08-03 04:13] LABS: Albumin 2.9 g/dL (3.5-5.7); Bilirubin,Total 0.7 mg/dL (0.3-1.0); Calcium 7.7 mg/dL (8.6-10.3); Potassium 3.6 mEq/L (3.5-5.1); Total Protein 5.9 g/dL (6.4-8.9)
[2017-08-03] MEDS: Dexmedetomidine HCl 400 MCG/100 ML MLS IVC SCH (05:30)
[2017-08-03 05:40] LABS: ABG Base Excess -1 mEq/L (-2 to 3); ABG HCO3 24 mEq/L (21-27); ABG Oxygen Saturation 98 % (95-98); ABG PCO2 39 mmHg (35-45); ABG PH 7.39 pH Units (7.32-7.45); ABG PO2 103 mmHg (85-104); ABG TCO2 25 mEq/L (20-26); Blood Gas Modality VC; Blood Gas PEEP 8 cm H2O; Blood Gas Respiration Rate 14; Blood Gas VT 500 cc
--- NOTE | 2017-08-03 08:06 | Event Note ---
Date of Encounter: 08/03/17 Time of Encounter: 08:04 Patient with worsening respiratory status overnight requiring intubation. Has had multiple episodes of suctioning of kalina blood from the endotracheal tube. I have concern about the possibility of alveolar hemorrhage with the possibility of pulmonary renal syndrome and a bronchoscopy is recommended. The procedure , risks, benefits, complications, and expected outcomes have been reviewed. Benefits of diagnosis, as well as risks to include bleeding, infection , pneumothorax which may require surgical intervention, and in a small population. Discussed with the patient's Bernadette Deng and she agrees to proceed. I did inform her that he will be at slightly increased risk for cardiovascular complications related to recent cardiac ischemia although I do not feel like this is active cardiac ischemia and cardiology is not planning acute intervention.
--- NOTE | 2017-08-03 08:09 | Pulmonology Progress Note ---
Date of Encounter: 08/03/17 Time of Encounter: 08:09 Assessment and Plan (1) Acute respiratory failure with hypoxia Current Visit: Yes Status: Acute The patient presented to the hospital with vague complaints of generalized weakness and nausea vomiting poor by mouth intake. Was found to have life- threatening metabolic acidosis and hyperkalemia along with an STEMI courses worsened to [place] respiratory failure requiring endotracheal intubation complicated by hemoptysis. He is also had cardiac instability requiring intermittent use of vasopressor. Below reflects my systems base assessment and plan I spent 40min of Critical Care time with this patient. It involved decision making of high complexity to assess, manipulate, and support vital organ system failure and/or to prevent further life threatening deterioration of the patient' s condition. The time involved in the performance of separately reportable procedures was not counted toward critical care time. Management was reviewed during multidisciplinary critical care rounds. 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 There is no neurological deficit that has been identified in the patient. He is now sedated on the vein but able to move all extremities spontaneously goal [place] 3. We will perform daily sedation holiday unless contraindication arises Pulm: Acute hypoxic respiratory failure which appears to be a combination of both cardiogenic and noncardiogenic pulmonary edema. I have adjusted his vent settings to be more in line with low tidal volume ventilatory strategy used and ARDS. Including high PEEP to FiO2 ratio. Acceptable gas exchange today. There is concern for alveolar hemorrhage status post bronchoscopy today with sequential lavage that was not consistent diffuse alveolar hemorrhage I suspect that the bloody output from the lungs is likely secondary to increased to hydrostatic filling pressures from heart failure and pulmonary edema. I am also concerned about a noncardiogenic acute lung injury possibly infectious but may be a manifestation of multiorgan system failure and diffuse inflammatory response. I have given a course of steroids for this. We will also start empiric antimicrobials for high risk of aspiration. This was all predicated upon review of his CT scan today which is notable for bilateral pleural effusions and groundglass opacities. Cards: Acute non-ST elevation [place] with heart failure. Echocardiogram pending. He has been evaluated by cardiology troponin has down trended he is not a candidate for left heart catheterization at present because of renal failure and chronic acute on chronic anemia. Heparin infusion is on hold for the same reason. Unfortunately I feel that the risk of continuation of dual antiplatelet therapy also poses an unacceptable risk of further pulmonary hemorrhage and will hold this in the acute setting. This will clearly increase the risk of worsening myocardial ischemia. He is not a candidate for beta jameel therapy because cardiac mediated hypotension requiring Levophed. FEN-GI: The patient will remain nothing by mouth for now. GI prophylaxis given to prevent stress ulcers Renal: Patient has acute and uric renal failure requiring renal replacement therapy nephrology following we will use a nephro protective strategy including renal dose all medications. There is a possibility this represents pulmonary renal syndrome however think this is less likely after the bronchoscopy today to be on the safe side I have sent off inflammatory panel to evaluate for this including ANCA THERESA rheumatoid factor anti-CCP and cryoglobulins along with anti- gbm. May need renal biopsy based upon clinical course ID: Broad-spectrum cultures are been obtained and we will start empiric antimicrobials for possible aspiration pneumonia I have sent a pro-calcitonin level and suspect that antibiotics could be de-escalated her stopped in the next 48 hours Heme/Onc: DVT prophylaxis with SCDs Endo: Glucose Monitored and stable Integ/MSK: Skin Care per routine ICU Nursing Protocol to prevent ulcers. Patient is status post right shoulder arthroplasty without significant hematoma formation as evidence by chest CT today Lines: All lines examined without evidence of infection : Dispo: Remain in ICU for critical illness CODE: Patient remains full code I updated his Bernadette in the ICU waiting room today all QUESTIONS were answered His prognosis remains guarded (2) Hypotension Current Visit: Yes Status: Acute Qualifiers: Hypotension type: unspecified hypotension type Qualified Code(s): I95.9 - Hypotension, unspecified (3) Metabolic acidosis Current Visit: Yes Status: Acute (4) JOSH (acute kidney injury) Current Visit: Yes Status: Acute (5) Anemia Current Visit: Yes Status: Acute Qualifiers: Anemia type: due to chronic kidney disease Chronic kidney disease stage: stage 3 (moderate) Qualified Code(s): N18.3 - Chronic kidney disease, stage 3 (moderate); D63.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 (6) Dehydration Current Visit: Yes Status: Acute (7) Hyperkalemia Current Visit: Yes Status: Acute (8) NSTEMI (non-ST elevated myocardial infarction) Current Visit: Yes Status: Acute (9) Coronary artery disease Current Visit: Yes Status: Chronic Qualifiers: Coronary Disease-Associated Artery/Lesion type: [place] artery [place] vs. 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 The and patient was performed by the overnight hospitalist service without incident. His had further episodes of desaturation and at least 2 episodes with the nursing staff is suctioned but tinged secretions from the endotracheal tube. Upon my arrival to the hospital oxygen saturation was in the mid 90s on 80% FiO2 and 5 of PEEP. He has had some minor hemodynamic instability requiring intermittent use of low-dose norepinephrine. He underwent dialysis yesterday which was successful in correcting hyperkalemia and acidosis however by the end was complicated by severe cramping. Patient is calm and sedated on vent at this time Objective PUL Vital signs: Last Vital Signs Temp 97.8 F 08/03/17 07:20 Pulse 61 08/03/17 06:00 Resp 20 08/03/17 07:43 BP 79/53 08/03/17 06:00 Pulse Ox 96 08/03/17 07:43 General appearance: other (Sedated on vent is noted to have spontaneous movement of all extremities) Eyes: nonicteric ENT: other (Endotracheal tube in satisfactory position) Effort: normal Auscultation: bilateral: rales Cardiovascular: irregular rhythm Gastrointestinal: soft, non-tender Integumentary: other (No rash ) Musculoskeletal: other (As noted patient does have postsurgical changes of the right shoulder with ecchymotic features appear to be improving the ecchymosis extends from the shoulder around the mid axillary region and into the back this does not appear to be worsening and there is no hematoma that is palpated) pupils equal and round Ventilator Settings Ventilator Settings: Ventilator Settings, Last 8 Hours Ventilator Mode VC+ Ventilator Mode VC+ Ventilator Mode VC+ Ventilator Mode VC+ Ventilator Mode VC+ Ventilator Mode VC+ Ventilator Mode VC+ Ventilator Tidal Volume 450 Setting Ventilator Tidal Volume 500 Setting Ventilator Tidal Volume 500 Setting Ventilator Tidal Volume 500 Setting Ventilator Tidal Volume 500 Setting Ventilator Tidal Volume 500 Setting Ventilator Tidal Volume 500 Setting Ventilator Tidal Volume 500 Setting Ventilator Tidal Volume 500 Setting Ventilator Tidal Volume 500 Setting Ventilator Tidal Volume 500 Setting Ventilator Respiratory Rate 16 Setting Ventilator Respiratory Rate 14 Setting Ventilator Respiratory Rate 14 Setting Ventilator Respiratory Rate 14 Setting Ventilator Respiratory Rate 14 Setting Ventilator Respiratory Rate 14 Setting Ventilator Respiratory Rate 14 Setting Ventilator Respiratory Rate 14 Setting Ventilator Respiratory Rate 14 Setting Ventilator Respiratory Rate 14 Setting Ventilator Respiratory Rate 14 Setting Actual Respiratory Rate 20 Actual Respiratory Rate 17 Actual Respiratory Rate 17 Actual Respiratory Rate 16 Actual Respiratory Rate 20 Actual Respiratory Rate 19 Actual Respiratory Rate 21 Actual Respiratory Rate 21 Actual Respiratory Rate 21 Positive End Expiratory 10 Pressure Positive End Expiratory 8 Pressure Positive End Expiratory 8 Pressure Positive End Expiratory 8 Pressure Positive End Expiratory 8 Pressure Positive End Expiratory 10 Pressure Positive End Expiratory 8 Pressure Positive End Expiratory 10 Pressure Positive End Expiratory 10 Pressure Positive End Expiratory 10 Pressure Positive End Expiratory 10 Pressure Peak Inspiratory Airway 20 Pressure Peak Inspiratory Airway 23 Pressure Peak Inspiratory Airway 25 Pressure Peak Inspiratory Airway 23 Pressure Peak Inspiratory Airway 23 Pressure Peak Inspiratory Airway 13 Pressure Peak Inspiratory Airway 16 Pressure Peak Inspiratory Airway 16 Pressure Peak Inspiratory Airway 20 Pressure Results - Laboratory Findings CBC and BMP: 08/03/17 03:20 08/03/17 03:20 ABG ABG pH 7.39 pH Units (7.32-7.45) 08/03/17 05:30 ABG pCO2 39 mmHg (35-45) 08/03/17 05:30 ABG pO2 103 mmHg (85-104) 08/03/17 05:30 ABG O2 Saturation 98 % (95-98) 08/03/17 05:30 PT/INR, D-dimer PT 12.7 Seconds (9.4-12.1) H 08/02/17 00:46 Abnormal lab findings: Abnormal lab results WBC 13.7 K/mcL (4.3-11.1) H 08/03/17 03:20 RBC 2.82 M/mcL (4.19-5.50) L 08/03/17 03:20 Hgb 8.5 g/dL (12.9-16.9) L 08/03/17 03:20 Hct 25.2 % (37.5-50.1) L 08/03/17 03:20 RDW 14.7 % (11.5-14.5) H 08/03/17 03:20 Neutrophils # 12.1 K/mcL (1.6-8.9) H 08/03/17 03:20 Lymphocytes # 0.3 K/mcL (0.6-4.6) L 08/03/17 03:20 Nucleated RBCs/100 WBC 0.1 /100 WBC (0) H 08/02/17 19:30 PT 12.7 Seconds (9.4-12.1) H 08/02/17 00:46 APTT 76.1 Seconds (26.0-36.0) H 08/02/17 07:04 Chloride 97 mEq/L (98-107) L 08/03/17 03:20 Carbon Dioxide 21 mEq/L (23-29) L 08/03/17 03:20 BUN 53 mg/dL (8-23) H 08/03/17 03:20 Creatinine 5.52 mg/dL (0.70-1.30) H 08/03/17 03:20 Est GFR ( Amer) 12 (> 60) L 08/03/17 03:20 Est GFR (Non-Af Amer) 10 (> 60) L 08/03/17 03:20 Glucose 162 mg/dL (70-105) H 08/03/17 03:20 POC Glucose 116 mg/dL (70-99) H 08/02/17 18:46 Calcium 7.7 mg/dL (8.6-10.3) L 08/03/17 03:20 Venous Ioniz Calcium 1.00 mmol/L (1.15-1.35) L 08/02/17 07:26 Phosphorus 5.4 mg/dL (2.7-4.5) H 08/02/17 18:41 Direct Bilirubin 0.4 mg/dL (0.0-0.2) H 08/02/17 12:49 AST 90 Units/L (13-39) H 08/03/17 03:20 ALT 54 Units/L (7-52) H 08/03/17 03:20 Alkaline Phosphatase 232 Units/L (34-104) H 08/03/17 03:20 Creatine Kinase 669 Units/L (30-223) H 08/02/17 07:04 Troponin I 4.93 ng/mL (< 0.04) H* 08/02/17 12:49 Serum Total Protein 5.9 g/dL (6.4-8.9) L 08/03/17 03:20 Albumin 2.9 g/dL (3.5-5.7) L 08/03/17 03:20 Albumin/Globulin Ratio 1.0 (1.1-2.2) L 08/03/17 03:20 HDL Cholesterol 19 mg/dL (40-59) L 08/02/17 07:04 Urine Protein 100 mg/dL (Neg-Trace) H 08/02/17 10:30 Urine Ketones Trace mg/dL (Negative) H 08/02/17 10:30 Urine Blood Large (Negative) H 08/02/17 10:30 Urine Bilirubin Small (Negative) H 08/02/17 10:30 Ur Leukocyte Esterase Small (Negative) H 08/02/17 10:30 Urine Microscopic RBC 30-50 per hpf (0-3) H 08/02/17 10:30 Urine Microscopic WBC 50-100 per hpf (0-3) H 08/02/17 10:30 Ur Squamous Epith Cells Many per lpf (None-Few) H 08/02/17 10:30 Urine Bacteria Many per hpf (None-Few) H 08/02/17 10:30 Granular Casts Few per lpf (None Seen) H 08/02/17 10:30 Ur Culture Indicated? NO. (NO) A 08/02/17 10:30 - Clinical Findings Intake & Output: Intake & Output 08/02/17 08/03/17 08/03/17 23:59 07:59 15:59 Intake Total 1082.1 / 1082.1 122.9 / 122.9 Output Total 5000 / 5000 Balance -3917.9 / -3917.9 102.9 / 102.9 Consult Discharge Plan - Plan Referrals: Nubia Field MD [Primary Care Provider] -
[2017-08-03] MEDS ORDERED: *HR* Midazolam HCl 5 MG/5 ML VIAL IVP ONE ×2 (08:23→08:25)
--- NOTE | 2017-08-03 09:32 | Nephrology Progress Note ---
Date of Encounter: 08/03/17 Time of Encounter: 09:00 - Assessment and Plan (1) JOSH (acute kidney injury) Current Visit: Yes Status: Acute JOSH superimposed on CKD. Baseline creatinine is around 2.23. JOSH setting of an STEMI, what appears to be acute blood loss anemia, hypotension, respiratory failure. Renal fct worsening creat 5.52, negligible urine output. Remains hypotensive, on pressor. Will initiate NAINA. Renal workup in progress. (2) Acute blood loss anemia Current Visit: No Status: Acute (3) NSTEMI (non-ST elevated myocardial infarction) Current Visit: Yes Status: Acute Subjective Principal diagnosis: JOSH Interval history: Intubated, sedated, pressor. FIO2 80, peep 10. Bronc this morning for [place] blood ET. Negative findings for alveolar hemorrhage. Negligible urine output. Objective - Vital Signs Vital signs: Vital Signs Temp Pulse Resp BP Pulse Ox 08/03/17 08:39 16 95 08/03/17 08:10 16 95 08/03/17 07:43 20 96 08/03/17 07:20 97.8 F 08/03/17 06:00 61 17 79/53 99 08/03/17 05:45 19 100 08/03/17 05:00 58 16 96/52 100 08/03/17 04:53 97.3 F L 08/03/17 04:00 76 20 159/93 99 08/03/17 03:47 76 08/03/17 03:31 23 100 08/03/17 03:00 62 19 115/68 98 08/03/17 02:00 70 21 120/61 97 08/03/17 01:00 77 21 70/45 82 08/03/17 00:28 98.4 F 08/03/17 00:00 77 22 102/58 94 08/02/17 23:10 14 95 08/02/17 23:00 84 14 109/51 95 08/02/17 22:30 72 22 100/69 79 08/02/17 22:00 137 22 100/69 91 08/02/17 21:21 98.5 F 08/02/17 21:00 75 30 97/46 92 08/02/17 20:00 90 28 123/53 94 08/02/17 19:45 89 08/02/17 19:00 73 105/49 05/16/18 18:33 30 91 08/02/17 18:00 79 25 89/55 94 18 17:34 97.4 F L 22 128/63 08/02/17 17:10 112/85 08/02/17 17:00 89 27 96/75 99 18 16:55 111/61 18 16:40 123/44 08/02/17 16:25 112/78 08/02/17 16:10 121/67 08/02/17 16:05 97 F L 78 22 119/72 08/02/17 16:00 97.1 F L 96 23 108/61 93 08/02/17 15:55 120/66 08/02/17 15:40 119/68 08/02/17 15:25 97.4 F L 79 22 119/57 08/02/17 15:10 97.3 F L 82 28 133/76 08/02/17 15:00 86 32 136/98 97 08/02/17 14:55 120/63 08/02/17 14:40 109/58 08/02/17 14:38 75 30 109/58 93 08/02/17 14:30 70 30 107/69 93 08/02/17 14:25 107/69 08/02/17 14:10 97.1 F L 22 110/66 08/02/17 13:54 30 100 18 13:31 79 34 124/65 96 08/02/17 12:44 97.4 F L 69 30 92/48 95 08/02/17 12:29 96.3 F L 134 27 107/59 95 08/02/17 11:16 96.2 F L 77 19 107/53 98 Intake and Output 08/02/17 08/03/17 08/03/17 23:59 07:59 15:59 Intake Total 1082.1 / 1082.1 122.9 / 122.9 Output Total 5000 / 5000 Balance -3917.9 / -3917.9 102.9 / 102.9 Intake: IV Fluids 782.1 / 782.1 122.9 / 122.9 PRECEDEX Premix 400 mcg In 100 32.1 / 32.1 67.9 / 67.9 ml @ 0.2 MCG/KG/HR 3.9 mls/hr IVC .Q24H ESTEFANÍA Rx#:[id number] Levophed 4 MG In Dextrose 5% 55.0 / 55.0 250 ML @ 8 MCG/MIN 30.48 mls/hr IVC CONT ESTEFANÍA Rx#:[id number] Sodium Bicarbonate 150 MEQ In 750 / 750 Dextrose 5% 1,000 ML @ 100 mls/ hr IVC .[id number] ESTEFANÍA Rx#: [id number] Oral 0 / 0 Blood Product 300 / 300 Rbcs Leuko Poor As-1 Unit 300 / 300 [id number] Output: Urine 0 / 0 Total Dialysis (HD) Output 4900 / 4900 Catheter 100 / 100 20 / 20 Other: Stool Size Moderate Stool Consistency liquid Stool Color Green # Bowel Movements 1 Hemodialysis Net Fluid Removed 3000 (mL) - General Appearance General appearance: Present: well-developed, well-nourished, appears started age EENT: Present: mucous membranes moist Neck: Present: no JVD Additional Comments: harsh Cardiology: Present: no edema, irregular rhythm Gastrointestinal: Present: absent bowel sounds Additional Comments: soft Integumentary: Present: warm and dry - Lab 08/03/17 03:20 08/03/17 03:20 Most recent lab results ABG pH 7.39 pH Units (7.32-7.45) 08/03/17 05:30 ABG pCO2 39 mmHg (35-45) 08/03/17 05:30 ABG pO2 103 mmHg (85-104) 08/03/17 05:30 ABG HCO3 24 mEq/L (21-27) 08/03/17 05:30 ABG O2 Saturation 98 % (95-98) 08/03/17 05:30 Calcium 7.7 mg/dL (8.6-10.3) L 08/03/17 03:20 Phosphorus 5.4 mg/dL (2.7-4.5) H 08/02/17 18:41 Magnesium 2.3 mg/dL (1.6-2.6) 08/02/17 00:46 Consult Discharge Plan - Plan Referrals: Nubia Field MD [Primary Care Provider] -
[2017-08-03] MEDS: Piperacillin/Tazobactam 3.375 GM in 0.9 % Sodium Chloride Mini Bag 100 ML IVPB SCH ×2 (09:36→21:11)
[2017-08-03] MEDS: Chlorhexidine Rinse 15 ML MOUTHWASH MM SCH ×2 (09:38→20:14)
[2017-08-03] MEDS: Pantoprazole 40 MG VIAL IVP SCH (09:38)
[2017-08-03] MEDS: methylPREDNISolone 125 MG/2 ML VIAL IVP SCH ×2 (09:38→20:14)
[2017-08-03] MEDS: Cholecalciferol (D-3) 1,000 UNIT TABLET PO SCH (09:39)
[2017-08-03] MEDS: 0.9 % Sodium Chloride 1,000 ML PRIME SCH ×2 (11:45→21:07)
[2017-08-03] MEDS: FentaNYL (PF) 1,000 MCG in 0.9 % Sodium Chloride 80 ML IVC SCH ×2 (11:45→20:11)
[2017-08-03] MEDS: PrismaSATE BGK 4/2.5 5,000 ML CRRT SCH ×4 (11:46→22:26)
[2017-08-03] MEDS: Insulin LISPRO 300 UNITS/3 ML VIAL SQ SCH ×2 (12:00→16:23)
[2017-08-03 12:43] LABS: Appearance of Body Fluid Cloudy (Clear); Volume of Body Fluid 29 mL
[2017-08-03 13:17] LABS: INR 1.2; Prothrombin Time 13.2 Seconds (9.4-12.1)
--- NOTE | 2017-08-03 13:32 | Cardiology Progress Note ---
Date of Encounter: 08/03/17 Time of Encounter: 13:20 Assessment and Plan (1) NSTEMI (non-ST elevated myocardial infarction) Current Visit: Yes Status: Acute Troponin at [facility] reportedly 7.49. At [facility], 6.44, 4.61. Downtrending. Also in setting of JOSH on CKD with creatinine 8.55 and acute anemia with HGB 6.9. Baseline creatinine ~2.23 and HGB was 11 last week prior to shoulder surgery. Acute respiratory failure thought to be secondary to pulmonary edema, no intubated/sedated on CRRT. Hx of CAD with PTCA in the . No LHC since that time. TTE to evaluate structure and function. Currently not a candidate for LHC given his decline in HGB and renal function, family aware. Medically manage for now. Heparing gtt/asa/plavix stopped due to anemia/ pulmonary hemorrhage. Unable to tolerate BB due to hypotension, now bradycardiac. Will continue to follow. (2) JOSH (acute kidney injury) Current Visit: Yes Status: Acute Baseline ~2.23. Creatinine peak 8.55 with hyperkalemia. Now on CRRT, Nephrology following. (3) Atrial fibrillation Current Visit: Yes Status: Acute A-Fib RVR on admission EKG, new diagnosis per pt and . A-Fib in setting of above--anemia, JOSH, acute respiratory failure. Echo pending. Remains in NSR, HR 50's sinus bradycardia upon exam. [id number] is 4 (Age, HTN, DM, CAD). High CVA risk, ideally would be on chronic anticoagulation. However, given current clinical status and declining HGB/ alveolar hemorrhage, unable to safely start. Reconsider upon discharge or in the outpatient setting. Qualifiers: Atrial fibrillation type: unspecified Qualified Code(s): I48.91 - Unspecified atrial fibrillation (4) Anemia Current Visit: Yes Status: Acute HGB 11.0 prior to shoulder surgery last week. Post op HGB downtrended to 9.1. HGB today 6.9--suspect acute blood loss anemia post op, as well as dilutional. Alveolar hemorrhage confirmed by Bronch today. Significant bruising at right shoulder (operation site) extending down flank. Qualifiers: Anemia type: due to chronic kidney disease Chronic kidney disease stage: stage 3 (moderate) Qualified Code(s): N18.3 - Chronic kidney disease, stage 3 (moderate); D63.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 (5) Coronary artery disease Current Visit: Yes Status: Chronic Hx of PTCA in . Continue ASA, Plavix, Statin. BP will not tolerate BB. Qualifiers: Coronary Disease-Associated Artery/Lesion type: [place] artery [place] vs. transplanted heart: [place] heart Associated angina: without angina Qualified Code(s): I25.10 - Atherosclerotic heart disease of [place] coronary artery without angina pectoris Discussion w patient/family: The assessment and plan as outlined above was discussed with the patient and/or family members who expressed understanding and agreement. All questions were answered. Thank you for involving us in the care of your patient. Please call with any questions. The patient will be discussed and reviewed with Dr. Cheung; changes to be made accordingly. Subjective Principal diagnosis: JOSH Interval history: Seen and examined. On CRRT, intubated and sedated overnight due to worsening respiratory failure. Bronch this AM-- Objective Vital Signs, Last 4 Hours Temp Pulse Resp BP Pulse Ox 08/03/17 13:00 51 21 102/64 100 08/03/17 12:00 96.2 F L 67 24 156/88 100 08/03/17 11:49 96.2 F L 08/03/17 11:24 21 96 08/03/17 11:00 66 21 131/66 96 08/03/17 10:00 74 21 145/81 96 08/03/17 09:55 20 98 General: Other (intubated/sedated) Cardiac: Reg Rate and Rhythm (bradycardiac), Normal S1 and S2 Lungs: Other (Coarse breath sounds) Neuro: Other (intubated/sedated) Musculoskeletal: Other (large amount of ecchymosis to right shoulder extending down flank) Extremities: No Edema, Normal Pulses Results 08/03/17 03:20 08/03/17 03:20 Lab Results 08/02/17 08/02/17 08/02/17 12:49 18:41 19:30 WBC 14.4 H Hgb 8.5 L D Hct 25.2 L Plt Count 153 INR Sodium 139 D Potassium 6.3 H 3.5 D Chloride 98 Carbon Dioxide 25 BUN 43 H Creatinine 4.30 H Glucose 119 H Calcium 8.3 L Total Bilirubin 0.7 AST 97 H ALT 57 H Alkaline Phosphatase 217 H 08/03/17 08/03/17 08/03/17 03:20 03:20 12:49 WBC 13.7 H Hgb 8.5 L Hct 25.2 L Plt Count 169 INR 1.2 Sodium 136 Potassium 3.6 Chloride 97 L Carbon Dioxide 21 L BUN 53 H Creatinine 5.52 H Glucose 162 H Calcium 7.7 L Total Bilirubin 0.7 AST 90 H ALT 54 H Alkaline Phosphatase 232 H Active Medications Acetaminophen (Tylenol) 650 mg PO Q6HR PRN PRN Reason: Mild Pain/Fever Stop: 01/31/18 23:17 Albuterol Sulfate (Albuterol Inhaler) 2 puff IH Q2HR PRN PRN Reason: Shortness Of Breath/Wheezing Stop: 02/01/18 22:30 Artificial Tears (Lacri-Lube) 1 appl BOTH EYES Q4HR [facility] PRN Reason: Protocol Stop: 02/02/18 00:01 Last Admin: 08/03/17 09:38 Dose: 1 appl Artificial Tears (Lacri-Lube) 1 appl BOTH EYES Q2HR PRN; Protocol PRN Reason: Dry Eyes Stop: 02/01/18 22:30 Chlorhexidine Gluconate (Chlorhexidine Rinse) 15 ml MM BID [facility] Stop: 02/02/18 09:01 Last Admin: 08/03/17 09:38 Dose: 15 ml Fentanyl Citrate (Fentanyl (Pf)) 25 mcg IVP Q1H PRN PRN Reason: Pain Stop: 02/01/18 18:06 Last Admin: 08/02/17 18:15 Dose: 25 mcg Heparin Sodium (Porcine) (Heparin) 0 unit IV ONCE PRN PRN Reason: SEE COMMENTS Stop: 02/02/18 10:25 Sodium Chloride (0.9 % Sodium Chloride) 250 mls @ 937.5 mls/hr IVC .Q16M PRN PRN Reason: Hypotension Stop: 02/01/18 08:40 Dexmedetomidine HCl (Precedex Premix) 400 mcg in 100 mls @ 3.9 mls/hr IVC .Q24H [facility]; 0.2 MCG/KG/HR PRN Reason: Protocol Stop: 02/01/18 20:01 Last Admin: 08/03/17 05:30 Dose: 0.6 mcg/kg/hr, 11.7 mls/hr Fentanyl Citrate 1,000 mcg/ (Sodium Chloride) 100 mls @ 5 mls/hr IVC CONT [facility]EF[facility]A; 50 MCG/HR PRN Reason: Protocol Stop: 02/01/18 22:01 Last Admin: 08/03/17 11:45 Dose: 50 mcg/hr, 5 mls/hr Norepinephrine Bitartrate 4 mg (/ Dextrose) 254 mls @ 30.48 mls/hr IVC CONT ESTEFAN[facility]A ; 8 MCG/MIN PRN Reason: Protocol Stop: 02/01/18 22:01 Last Titration: 08/03/17 06:06 Dose: 2.5 mcg/min, 9.52 mls/hr Piperacillin Sod/Tazobactam (Sod 3.375 gm/ Sodium Chloride) 100 mls @ 25 mls/ hr IVPB Q12H [facility] Stop: 02/02/18 10:01 Last Admin: 08/03/17 09:36 Dose: 25 mls/hr Sodium Chloride (0.9 % Sodium Chloride) 1,000 mls @ 100 mls/hr PRIME .Q10H [facility] Stop: 02/02/18 10:31 Last Admin: 08/03/17 11:45 Dose: 100 mls/hr CRRT Dialysis Solution (Prismasate Bgk 4/2.5) 5,000 mls @ 2,000 mls/hr CRRT CONT [facility] Stop: 02/02/18 10:31 Last Admin: 08/03/17 11:46 Dose: 2,000 mls/hr CRRT Dialysis Solution (Prismasate Bgk 4/2.5) 5,000 mls @ 2,000 mls/hr CRRT CONT [facility] Stop: 02/02/18 10:31 Last Admin: 08/03/17 11:47 Dose: 2,000 mls/hr Insulin Human Lispro (Humalog) 0 units SQ TIDAC [facility]A PRN Reason: Protocol Stop: 02/02/18 12:01 Methylprednisolone (Solu-Medrol) 60 mg IVP Q12H [facility] Stop: 02/02/18 09:01 Last Admin: 08/03/17 09:38 Dose: 60 mg Naloxone HCl (Narcan) 0.4 mg IVP Q2MIN PRN PRN Reason: SEE COMMENTS Stop: 01/31/18 23:17 Pantoprazole Sodium (Protonix) 40 mg IVP DAILY [facility] Stop: 02/02/18 09:01 Last Admin: 08/03/17 09:38 Dose: 40 mg Rosuvastatin Calcium (Crestor) 40 mg PO HS [facility] Stop: 02/01/18 21:01 Last Admin: 08/02/17 20:45 Dose: Not Given Sertraline HCl (Zoloft) 100 mg PO DAILY [facility] Stop: 02/01/18 00:16 Last Admin: 08/03/17 09:29 Dose: Not Given Vitamin D (Vitamin D) 2,000 unit PO DAILY [facility] Stop: 02/01/18 09:01 Last Admin: 08/03/17 09:39 Dose: 2,000 unit - Imaging and Cardiology Echo: pending Consult Discharge Plan - Plan Referrals: Nubia Field MD [Primary Care Provider] -
--- NOTE | 2017-08-03 13:48 | Orthopedics Progress Note ---
Date of Encounter: 08/03/17 Time of Encounter: 13:47 Subjective Principal diagnosis: JOSH Interval history: Patient seen today, status post right total shoulder replacement. Patient surgery was July 31, uneventful discharged home postop day 1. Patient in the ICU now intubated right upper extremity positive ecchymosis dressing clean dry and intact. No orthopedic intervention required at this point time. Reconsult if necessary Objective Vital signs: Vital Signs Temp Pulse Resp BP Pulse Ox 08/03/17 13:00 51 21 102/64 100 08/03/17 12:00 96.2 F L 67 24 156/88 100 08/03/17 11:49 96.2 F L 08/03/17 11:24 21 96 08/03/17 11:00 66 21 131/66 96 08/03/17 10:00 74 21 145/81 96 08/03/17 09:55 20 98 08/03/17 09:00 65 24 153/90 95 08/03/17 08:39 16 95 08/03/17 08:10 16 95 08/03/17 08:00 97.8 F 73 16 125/68 98 08/03/17 07:43 20 96 08/03/17 07:20 97.8 F 08/03/17 07:00 68 32 129/85 95 08/03/17 06:00 61 17 79/53 99 08/03/17 05:45 19 100 08/03/17 05:00 58 16 96/52 100 08/03/17 04:53 97.3 F L 08/03/17 04:00 76 20 159/93 99 08/03/17 03:47 76 08/03/17 03:31 23 100 08/03/17 03:00 62 19 115/68 98 08/03/17 02:00 70 21 120/61 97 08/03/17 01:00 77 21 70/45 82 08/03/17 00:28 98.4 F 08/03/17 00:00 77 22 102/58 94 08/02/17 23:10 14 95 08/02/17 23:00 84 14 109/51 95 08/02/17 22:30 72 22 100/69 79 08/02/17 22:00 137 22 100/69 91 08/02/17 21:21 98.5 F 08/02/17 21:00 75 30 97/46 92 05/16/18 20:00 90 28 123/53 94 08/02/17 19:45 89 08/02/17 19:00 73 105/49 08/02/17 18:33 30 91 08/02/17 18:00 79 25 89/55 94 18 17:34 97.4 F L 22 128/63 08/02/17 17:10 112/85 08/02/17 17:00 89 27 96/75 99 08/02/17 16:55 111/61 08/02/17 16:40 123/44 08/02/17 16:25 112/78 08/02/17 16:10 121/67 08/02/17 16:05 97 F L 78 22 119/72 08/02/17 16:00 97.1 F L 96 23 108/61 93 08/02/17 15:55 120/66 08/02/17 15:40 119/68 08/02/17 15:25 97.4 F L 79 22 119/57 08/02/17 15:10 97.3 F L 82 28 133/76 08/02/17 15:00 86 32 136/98 97 08/02/17 14:55 120/63 08/02/17 14:40 109/58 08/02/17 14:38 75 30 109/58 93 08/02/17 14:30 70 30 107/69 93 08/02/17 14:25 107/69 08/02/17 14:10 97.1 F L 22 110/66 08/02/17 13:54 30 100 Intake and Output 08/02/17 08/03/17 08/03/17 23:59 07:59 15:59 Intake Total 1082.1 / 1082.1 122.9 / 122.9 100 / 100 Output Total 5000 / 5000 20 / 20 0 / 0 Balance -3917.9 / -3917.9 102.9 / 102.9 100 / 100 Intake: IV Fluids 782.1 / 782.1 122.9 / 122.9 100 / 100 PRECEDEX Premix 400 mcg In 100 32.1 / 32.1 67.9 / 67.9 ml @ 0.2 MCG/KG/HR 3.9 mls/hr IVC .Q24H [facility] Rx#:[id number] FentaNYL (PF) 1,000 MCG In 0.9 100 / 100 % Sodium Chloride 80 ML @ 50 MCG/HR 5 mls/hr IVC CONT [facility] Rx #:[id number] Levophed 4 MG In Dextrose 5% 55.0 / 55.0 250 ML @ 8 MCG/MIN 30.48 mls/hr IVC CONT [facility] Rx#:[id number] Sodium Bicarbonate 150 MEQ In 750 / 750 Dextrose 5% 1,000 ML @ 100 mls/ hr IVC .[id number] [facility] Rx#: [id number] Oral 0 / 0 Blood Product 300 / 300 Rbcs Leuko Poor As-1 Unit 300 / 300 [id number] Output: Urine 0 / 0 Total Dialysis (HD) Output 4900 / 4900 Catheter 100 / 100 20 / 20 0 / 0 Other: Stool Size Moderate Stool Consistency liquid Stool Color Green # Bowel Movements 1 Weight 78 kg Blood Glucose* 153 Hemodialysis Net Fluid Removed 3000 (mL) Patient Weight 08/03/17 23:59 Weight 78 kg - Labs CBC & BMP: 08/03/17 03:20 08/03/17 03:20 Labs: Abnormal lab results WBC 13.7 K/mcL (4.3-11.1) H 08/03/17 03:20 RBC 2.82 M/mcL (4.19-5.50) L 08/03/17 03:20 Hgb 8.5 g/dL (12.9-16.9) L 08/03/17 03:20 Hct 25.2 % (37.5-50.1) L 08/03/17 03:20 RDW 14.7 % (11.5-14.5) H 08/03/17 03:20 Neutrophils # 12.1 K/mcL (1.6-8.9) H 08/03/17 03:20 Lymphocytes # 0.3 K/mcL (0.6-4.6) L 08/03/17 03:20 Nucleated RBCs/100 WBC 0.1 /100 WBC (0) H 08/02/17 19:30 PT 13.2 Seconds (9.4-12.1) H 08/03/17 12:49 APTT 76.1 Seconds (26.0-36.0) H 08/02/17 07:04 Chloride 97 mEq/L (98-107) L 08/03/17 03:20 Carbon Dioxide 21 mEq/L (23-29) L 08/03/17 03:20 BUN 53 mg/dL (8-23) H 08/03/17 03:20 Creatinine 5.52 mg/dL (0.70-1.30) H 08/03/17 03:20 Est GFR ( Amer) 12 (> 60) L 08/03/17 03:20 Est GFR (Non-Af Amer) 10 (> 60) L 08/03/17 03:20 Glucose 162 mg/dL (70-105) H 08/03/17 03:20 POC Glucose 153 mg/dL (70-99) H 08/03/17 11:36 Calcium 7.7 mg/dL (8.6-10.3) L 08/03/17 03:20 Venous Ioniz Calcium 1.00 mmol/L (1.15-1.35) L 08/02/17 07:26 Phosphorus 5.4 mg/dL (2.7-4.5) H 08/02/17 18:41 Direct Bilirubin 0.4 mg/dL (0.0-0.2) H 08/02/17 12:49 AST 90 Units/L (13-39) H 08/03/17 03:20 ALT 54 Units/L (7-52) H 08/03/17 03:20 Alkaline Phosphatase 232 Units/L (34-104) H 08/03/17 03:20 Creatine Kinase 669 Units/L (30-223) H 08/02/17 07:04 Troponin I 4.93 ng/mL (< 0.04) H* 08/02/17 12:49 Serum Total Protein 5.9 g/dL (6.4-8.9) L 08/03/17 03:20 Albumin 2.9 g/dL (3.5-5.7) L 08/03/17 03:20 Albumin/Globulin Ratio 1.0 (1.1-2.2) L 08/03/17 03:20 HDL Cholesterol 19 mg/dL (40-59) L 08/02/17 07:04 Urine Protein 100 mg/dL (Neg-Trace) H 08/02/17 10:30 Urine Ketones Trace mg/dL (Negative) H 08/02/17 10:30 Urine Blood Large (Negative) H 08/02/17 10:30 Urine Bilirubin Small (Negative) H 08/02/17 10:30 Ur Leukocyte Esterase Small (Negative) H 08/02/17 10:30 Urine Microscopic RBC 30-50 per hpf (0-3) H 08/02/17 10:30 Urine Microscopic WBC 50-100 per hpf (0-3) H 08/02/17 10:30 Ur Squamous Epith Cells Many per lpf (None-Few) H 08/02/17 10:30 Urine Bacteria Many per hpf (None-Few) H 08/02/17 10:30 Granular Casts Few per lpf (None Seen) H 08/02/17 10:30 Ur Culture Indicated? NO. (NO) A 08/02/17 10:30 Fluid Appearance Cloudy (Clear) A 08/03/17 08:30 Consult Discharge Plan - Plan Referrals: Nubia Field MD [Primary Care Provider] -
[2017-08-03 14:24] LABS: Hemoglobin 8.6 g/dL (12.9-16.9); Lymphocytes # 0.2 K/mcL (0.6-4.6); Lymphocytes % 1.9 %; Mean Corpuscular HGB Conc 34.4 g/dL (31.6-35.5); Mean Corpuscular Hemoglobin 31.2 pg (28.0-33.3); Mean Corpuscular Volume 90.6 fL (83.0-100.0); Monocytes # 0.5 K/mcL (0.0-1.3); Monocytes % 4.1 %; Neutrophils # 10.2 K/mcL (1.6-8.9); Nucleated Red Blood Cells 0.2 /100 WBC (0); Platelet Count 158 K/mcL (140-400); Red Blood Count 2.76 M/mcL (4.19-5.50)
[2017-08-03 14:31] LABS: Albumin 2.8 g/dL (3.5-5.7); Bilirubin,Direct 0.5 mg/dL (0.0-0.2); Bilirubin,Indirect 0.3 mg/dL (0.0-1.2); Bilirubin,Total 0.8 mg/dL (0.3-1.0); Calcium 7.6 mg/dL (8.6-10.3); Globulin 2.7 g/dL (2.4-3.5); Magnesium 2.1 mg/dL (1.6-2.6); Phosphorous 6.9 mg/dL (2.7-4.5); Potassium 3.7 mEq/L (3.5-5.1); Total Protein 5.5 g/dL (6.4-8.9)
[2017-08-03 16:39] LABS: ABG Base Excess -3 mEq/L (-2 to 3); ABG HCO3 24 mEq/L (21-27); ABG Oxygen Saturation 93 % (95-98); ABG PCO2 50 mmHg (35-45); ABG PO2 76 mmHg (85-104); ABG TCO2 26 mEq/L (20-26); Blood Gas Modality ASSIST CONTROL; Blood Gas PEEP 12 cm H2O
[2017-08-03] MEDS: Norepinephrine 4 MG in D5% in Water 250 ML IVC SCH ×2 (21:07→21:30)
[2017-08-03] MEDS ORDERED: *HR* Heparin 5,000 UNIT/ML VIAL ONE (21:09)
[2017-08-03 21:20] LABS: Hemoglobin 9.1 g/dL (12.9-16.9)
[2017-08-04] MEDS: FentaNYL (PF) 1,000 MCG in 0.9 % Sodium Chloride 80 ML IVC SCH (01:03)
[2017-08-04] MEDS: PrismaSATE BGK 4/2.5 5,000 ML CRRT SCH ×9 (01:36→22:01)
[2017-08-04] MEDS: Lacri-Lube 3.5 GM TUBE BOTH EYES SCH ×6 (03:26→23:38)
[2017-08-04 04:19] LABS: ABG Base Excess -2 mEq/L (-2 to 3); ABG HCO3 24 mEq/L (21-27); ABG Oxygen Saturation 100 % (95-98); ABG PCO2 47 mmHg (35-45); ABG PH 7.32 pH Units (7.32-7.45); ABG PO2 277 mmHg (85-104); ABG TCO2 26 mEq/L (20-26); Blood Gas Modality PRVC; Blood Gas PEEP 12 cm H2O; Blood Gas Respiration Rate 16; Blood Gas VT 450 cc
[2017-08-04 04:27] LABS: Basophils % 0.2 %; Hematocrit 26.3 % (37.5-50.1); Hemoglobin 8.6 g/dL (12.9-16.9); Immature Granulocytes % 1.4 % (0-4); Lymphocytes # 0.2 K/mcL (0.6-4.6); Mean Corpuscular HGB Conc 32.7 g/dL (31.6-35.5); Mean Corpuscular Volume 91.6 fL (83.0-100.0); Mean Platelet Volume 10.8 fL (9.4-12.4); Monocytes # 0.5 K/mcL (0.0-1.3); Monocytes % 4.3 %; Neutrophils # 10.8 K/mcL (1.6-8.9); Platelet Count 177 K/mcL (140-400); Red Blood Count 2.87 M/mcL (4.19-5.50); Red Cell Distribution Width 15.2 % (11.5-14.5); Segmented Neutrophils % 92.1 %
[2017-08-04 04:36] LABS: Calcium 7.9 mg/dL (8.6-10.3); Potassium 4.3 mEq/L (3.5-5.1)
[2017-08-04] MEDS: FentaNYL (PF) 2,500 MCG in EMPTY BAG 1 EACH IVC SCH ×2 (05:07→15:07)
--- NOTE | 2017-08-04 07:13 | Pulmonology Progress Note ---
Date of Encounter: 08/04/17 Time of Encounter: 07:12 Assessment and Plan (1) Acute respiratory failure with hypoxia Current Visit: Yes Status: Acute The patient presented to the hospital with vague complaints of generalized weakness and nausea vomiting poor by mouth intake. Was found to have life- threatening metabolic acidosis and hyperkalemia along with an STEMI courses worsened to [place] respiratory failure requiring endotracheal intubation complicated by hemoptysis. He is also had cardiac instability requiring intermittent use of vasopressor. Below reflects my systems base assessment and plan I spent 35 min of Critical Care time with this patient. It involved decision making of high complexity to assess, manipulate, and support vital organ system failure and/or to prevent further life threatening deterioration of the patient' s condition. The time involved in the performance of separately reportable procedures was not counted toward critical care time. Management was reviewed during multidisciplinary critical care rounds. FIELD ORGANIZER: Acute FIELD ORGANIZER failure s/t to Metabolic Encephalopathy. The patient remains sedated on vent for goal [place] 3-4 today he has had some dyssynchrony of the ventilator with increased agitation so we will try to minimize this as much as possible. Pulm: Acute hypoxic respiratory failure which I suspect in large part is related to hydrostatic pulmonary edema from heart failure. There is likely a superimposed component of acute lung injury from noncardiac etiology possibly even infection. Concern yesterday for pulmonary renal syndrome given pulmonary hemorrhage noted clinically. Bronchoscopy was not consistent with diffuse alveolar hemorrhage however I suspect this is related to increased hydrostatic pressure in the context of acute lung injury in the patient on dual antiplatelet therapy (bland hemorrhage). Acceptable gas exchange today but he remains on high FiO2 which I will attempt to wean down. Refusing a low tidal volume ventilatory strategy with the increased PEEP-Fio2 Ratio. Cards: Acute non-ST elevation IN with heart failure with evidence of cardiogenic shock he remains on vasopressor support for this. Echocardiogram reviewed which was notable for ejection fraction of 50-55% with moderate left ventricular diastolic dysfunction mild aortic region could agitation and mild to moderate mitral regurgitation along with moderate to severe tricuspid regurgitation and severe pulmonary hypertension. I suspect the pulmonary hypertension is a manifestation of his left heart disease/failure along with hypoxia and PEEP. Encouraging there is no evidence of right heart failure at this time based upon echocardiography. He is not a candidate for left heart catheterization today for multiple reasons including acute kidney failure and hemorrhage/new anemia. Furthermore I have stopped his dual antiplatelet therapy because of pulmonary hemorrhage. Cardiology is following with this patient appreciate their recommendations. FEN-GI: We have started enteral nutrition per dietary recommendations and will continue GI prophylaxis given to prevent stress ulcers Renal: The patient remains and uric with acute kidney injury on continuous renal replacement therapy acidosis has corrected the hyperkalemia has corrected continue to monitor electrolytes and replace per protocol appreciate nephrology following this patient ID: Broad-spectrum cultures are been obtained and broad-spectrum antibiotics have been started in the form of Zosyn with planned to de-escalate over next 24- 48 hours. Patient has MRSA screen which was negative. Appreciate pharmacy following for renal dosing of all medications Heme/Onc: DVT prophylaxis with SCDs; H/H Stable no evidence of coagulopathy. Endo: Glucose Monitored and slightly elevated we will continue bolus dosing per sliding scale Integ/MSK: Skin Care per routine ICU Nursing Protocol to prevent ulcers. Patient is status post right shoulder arthroplasty without significant hematoma no further intervention necessary from the standpoint Lines: All lines examined without evidence of infection : Dispo: Remain in ICU for critical illness CODE: Patient remains full code (2) Hypotension Current Visit: Yes Status: Acute Qualifiers: Hypotension type: unspecified hypotension type Qualified Code(s): I95.9 - Hypotension, unspecified (3) Metabolic acidosis Current Visit: Yes Status: Acute (4) JOSH (acute kidney injury) Current Visit: Yes Status: Acute (5) Anemia Current Visit: Yes Status: Acute Qualifiers: Anemia type: due to chronic kidney disease Chronic kidney disease stage: stage 3 (moderate) Qualified Code(s): N18.3 - Chronic kidney disease, stage 3 (moderate); D63.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 (6) Dehydration Current Visit: Yes Status: Acute (7) Hyperkalemia Current Visit: Yes Status: Acute (8) NSTEMI (non-ST elevated myocardial infarction) Current Visit: Yes Status: Acute (9) Coronary artery disease Current Visit: Yes Status: Chronic Qualifiers: Coronary Disease-Associated Artery/Lesion type: [place] artery [place] vs. transplanted heart: [place] heart Associated angina: without angina Qualified Code(s): I25.10 - Atherosclerotic heart disease of [place] coronary artery without angina pectoris (10) Diabetes type 2, controlled Current Visit: Yes Status: Chronic Qualifiers: Diabetes mellitus group home insulin use: without manager long term care use Diabetes mellitus complication status: with kidney complications Diabetes mellitus complication detail: with chronic kidney disease Chronic kidney disease stage : stage 3 (moderate) Qualified Code(s): E11.22 - Type 2 diabetes mellitus with diabetic chronic kidney disease; N18.3 - Chronic kidney disease, stage 3 ( moderate) (11) Pulmonary alveolar hemorrhage Current Visit: Yes Status: Acute Subjective Principal diagnosis: JOSH Interval history: The patient remains critically ill and hemodynamically unstable. He said increasing ventilator requirement was on 100% FiO2 and high PEEP over the night now FiO2 is been weaned down to 70%. The amount of the bloody secretions from the endotracheal tube has diminished encouragingly. He remains on norepinephrine for blood pressure support however there is not been a trend to increase in amount needed to maintain appropriate mean arterial pressure. He remains on continuous renal replacement therapy. Objective PUL Vital signs: Last Vital Signs Temp 97.6 F 08/04/17 04:00 Pulse 57 08/04/17 07:00 Resp 20 08/04/17 07:00 BP 89/58 08/04/17 07:00 Pulse Ox 95 08/04/17 07:00 The patient remained sedated on the vent. He was able to open his eyes to my voice command today and gently squeeze my fingers in both upper extremities Endotracheal tube is noted in satisfactory position there is faint pink tinged secretions noted in the suction catheter Pupils are equal round and reactive to light Neck is supple He has breath sounds bilaterally with scattered wheezes diminished breath sounds in the lung bases Is regular rate and rhythm no audible murmur His abdomen is firm but nondistended and nontender to palpation he has hypoactive bowel sounds He has a right IJ CVC catheter without evidence of infection He has diffuse ecchymosis around the right shoulder with postoperative dressing which appears to be healing appropriately He has bilateral lower extremity edema He is able to move all extremities to voice command without clear evidence of focal deficit No new areas of rash purpura or cyanosis Distal pulses are intact bilaterally in the extremities remain warm without evidence of mottling Ventilator Settings Ventilator Settings: Ventilator Settings, Last 8 Hours Ventilator Mode VC+ Ventilator Mode VC+ Ventilator Mode VC+ Ventilator Mode VC+ Ventilator Mode VC+ Ventilator Mode VC+ Ventilator Mode VC+ Ventilator Tidal Volume 450 Setting Ventilator Tidal Volume 450 Setting Ventilator Tidal Volume 450 Setting Ventilator Tidal Volume 450 Setting Ventilator Tidal Volume 450 Setting Ventilator Tidal Volume 450 Setting Ventilator Tidal Volume 450 Setting Ventilator Tidal Volume 450 Setting Ventilator Tidal Volume 450 Setting Ventilator Tidal Volume 450 Setting Ventilator Tidal Volume 450 Setting Ventilator Tidal Volume 450 Setting Ventilator Tidal Volume 450 Setting Ventilator Respiratory Rate 16 Setting Ventilator Respiratory Rate 16 Setting Ventilator Respiratory Rate 16 Setting Ventilator Respiratory Rate 16 Setting Ventilator Respiratory Rate 16 Setting Ventilator Respiratory Rate 16 Setting Ventilator Respiratory Rate 16 Setting Ventilator Respiratory Rate 16 Setting Ventilator Respiratory Rate 16 Setting Ventilator Respiratory Rate 16 Setting Ventilator Respiratory Rate 16 Setting Ventilator Respiratory Rate 16 Setting Ventilator Respiratory Rate 16 Setting Actual Respiratory Rate 19 Actual Respiratory Rate 20 Actual Respiratory Rate 18 Actual Respiratory Rate 20 Actual Respiratory Rate 20 Actual Respiratory Rate 21 Actual Respiratory Rate 21 Actual Respiratory Rate 20 Actual Respiratory Rate 20 Actual Respiratory Rate 22 Actual Respiratory Rate 22 Actual Respiratory Rate 19 Positive End Expiratory 12 Pressure Positive End Expiratory 12 Pressure Positive End Expiratory 12 Pressure Positive End Expiratory 12 Pressure Positive End Expiratory 12 Pressure Positive End Expiratory 12 Pressure Positive End Expiratory 12 Pressure Positive End Expiratory 12 Pressure Positive End Expiratory 12 Pressure Positive End Expiratory 12 Pressure Positive End Expiratory 12 Pressure Positive End Expiratory 12 Pressure Positive End Expiratory 12 Pressure Peak Inspiratory Airway 33 Pressure Peak Inspiratory Airway 33 Pressure Peak Inspiratory Airway 33 Pressure Peak Inspiratory Airway 31 Pressure Peak Inspiratory Airway 31 Pressure Peak Inspiratory Airway 33 Pressure Peak Inspiratory Airway 30 Pressure Peak Inspiratory Airway 28 Pressure Peak Inspiratory Airway 28 Pressure Peak Inspiratory Airway 30 Pressure Peak Inspiratory Airway 26 Pressure Peak Inspiratory Airway 29 Pressure Results - Laboratory Findings CBC and BMP: 08/04/17 03:55 08/04/17 03:55 ABG ABG pH 7.32 pH Units (7.32-7.45) 08/04/17 04:16 ABG pCO2 47 mmHg (35-45) H 08/04/17 04:16 ABG pO2 277 mmHg (85-104) H 08/04/17 04:16 ABG O2 Saturation 100 % (95-98) H 08/04/17 04:16 PT/INR, D-dimer PT 13.2 Seconds (9.4-12.1) H 08/03/17 12:49 Abnormal lab findings: Abnormal lab results WBC 11.7 K/mcL (4.3-11.1) H 08/04/17 03:55 RBC 2.87 M/mcL (4.19-5.50) L 08/04/17 03:55 Hgb 8.6 g/dL (12.9-16.9) L 08/04/17 03:55 Hct 26.3 % (37.5-50.1) L 08/04/17 03:55 RDW 15.2 % (11.5-14.5) H 08/04/17 03:55 Neutrophils # 10.8 K/mcL (1.6-8.9) H 08/04/17 03:55 Lymphocytes # 0.2 K/mcL (0.6-4.6) L 08/04/17 03:55 Nucleated RBCs/100 WBC 0.2 /100 WBC (0) H 08/03/17 13:34 PT 13.2 Seconds (9.4-12.1) H 08/03/17 12:49 APTT 76.1 Seconds (26.0-36.0) H 08/02/17 07:04 ABG pCO2 47 mmHg (35-45) H 08/04/17 04:16 ABG pO2 277 mmHg (85-104) H 08/04/17 04:16 ABG O2 Saturation 100 % (95-98) H 08/04/17 04:16 BUN 39 mg/dL (8-23) H 08/04/17 03:55 Creatinine 3.32 mg/dL (0.70-1.30) H 08/04/17 03:55 Est GFR ( Amer) 22 (> 60) L 08/04/17 03:55 Est GFR (Non-Af Amer) 18 (> 60) L 08/04/17 03:55 Glucose 205 mg/dL (70-105) H 08/04/17 03:55 POC Glucose 190 mg/dL (70-99) H 08/04/17 03:20 Calculated Osmolality 303 (280-300) H 08/04/17 03:55 Calcium 7.9 mg/dL (8.6-10.3) L 08/04/17 03:55 Venous Ioniz Calcium 1.00 mmol/L (1.15-1.35) L 08/02/17 07:26 Phosphorus 6.9 mg/dL (2.7-4.5) H 08/03/17 13:34 Direct Bilirubin 0.5 mg/dL (0.0-0.2) H 08/03/17 13:34 AST 70 Units/L (13-39) H 08/03/17 13:34 Alkaline Phosphatase 210 Units/L (34-104) H 08/03/17 13:34 Creatine Kinase 669 Units/L (30-223) H 08/02/17 07:04 Troponin I 4.93 ng/mL (< 0.04) H* 08/02/17 12:49 Serum Total Protein 5.5 g/dL (6.4-8.9) L 08/03/17 13:34 Albumin 2.8 g/dL (3.5-5.7) L 08/03/17 13:34 Albumin/Globulin Ratio 1.0 (1.1-2.2) L 08/03/17 13:34 HDL Cholesterol 19 mg/dL (40-59) L 08/02/17 07:04 Urine Protein 100 mg/dL (Neg-Trace) H 08/02/17 10:30 Urine Ketones Trace mg/dL (Negative) H 08/02/17 10:30 Urine Blood Large (Negative) H 08/02/17 10:30 Urine Bilirubin Small (Negative) H 08/02/17 10:30 Ur Leukocyte Esterase Small (Negative) H 08/02/17 10:30 Urine Microscopic RBC 30-50 per hpf (0-3) H 08/02/17 10:30 Urine Microscopic WBC 50-100 per hpf (0-3) H 08/02/17 10:30 Ur Squamous Epith Cells Many per lpf (None-Few) H 08/02/17 10:30 Urine Bacteria Many per hpf (None-Few) H 08/02/17 10:30 Granular Casts Few per lpf (None Seen) H 08/02/17 10:30 Ur Culture Indicated? NO. (NO) A 08/02/17 10:30 Fluid Appearance Cloudy (Clear) A 08/03/17 08:30 - Microbiology Findings Microbiology Findings: Microbiology, Last 48 Hours 08/03/17 08:30 Gram Stain - Final Right Middle Lobe Lung - Diagnostic Findings Chest x-ray: report reviewed, image reviewed CT scan - chest: report reviewed, image reviewed Additional studies: ECHO report reviewed - Clinical Findings Intake & Output: Intake & Output 08/03/17 08/03/17 08/04/17 15:59 23:59 07:59 Intake Total 200 / 200 659.4 / 659.4 663.1 / 663.1 Output Total 0 / 0 432 / 432 678 / 678 Balance 200 / 200 227.4 / 227.4 -14.9 / -14.9 Weight 78 kg - VTE Documentation of Mechanical Device: Intermittent pneumatic compression device Consult Discharge Plan - Plan Referrals: Nubia Field MD [Primary Care Provider] -
[2017-08-04] MEDS: Insulin LISPRO 300 UNITS/3 ML VIAL SQ SCH ×6 (07:42→23:39)
[2017-08-04] MEDS: Piperacillin/Tazobactam 3.375 GM in 0.9 % Sodium Chloride Mini Bag 100 ML IVPB SCH ×2 (08:35→16:49)
[2017-08-04] MEDS: methylPREDNISolone 125 MG/2 ML VIAL IVP SCH ×2 (08:36→20:10)
[2017-08-04] MEDS: Pantoprazole 40 MG VIAL IVP SCH (08:37)
[2017-08-04] MEDS: Cholecalciferol (D-3) 1,000 UNIT TABLET PO SCH (08:37)
[2017-08-04] MEDS: Chlorhexidine Rinse 15 ML MOUTHWASH MM SCH ×2 (08:37→20:10)
--- NOTE | 2017-08-04 09:00 | Cardiology Progress Note ---
Date of Encounter: 08/04/17 Time of Encounter: 08:30 Assessment and Plan (1) NSTEMI (non-ST elevated myocardial infarction) Current Visit: Yes Status: Acute Troponin at [facility] reportedly 7.49. At [facility], 6.44, 4.61. Downtrending. Also in setting of JOSH on CKD with creatinine 8.55 and acute anemia with HGB 6.9. Baseline creatinine ~2.23 and HGB was 11 last week prior to shoulder surgery. Acute respiratory failure thought to be secondary to pulmonary edema, no intubated/sedated on CRRT. Hx of CAD with PTCA in the . No LHC since that time. TTE demonstrated preserved LVEF, 50-55%, moderate LVDD, mild AR, mild-moderate MR, moderate to severe TR, severe PH (est. RVSP=65 mmHg). Currently not a candidate for LHC given his decline in HGB and renal function, family aware. Medically manage for now. Heparing gtt/asa/plavix stopped due to anemia/ pulmonary hemorrhage. Unable to tolerate BB due to hypotension, now bradycardiac. Recommend resuming when able. Continue statin. Discussed with Dr. Cheung; Cardiology will sign-off. Recommend ischemic evaluation once patient is stable, acute issues have resolved prior to discharge or in the outpatient setting. (2) JOSH (acute kidney injury) Current Visit: Yes Status: Acute Baseline ~2.23. Creatinine peak 8.55 with hyperkalemia. Now on CRRT, Nephrology following. (3) Atrial fibrillation Current Visit: Yes Status: Acute A-Fib RVR on admission EKG, new diagnosis per pt and . A-Fib in setting of above--anemia, JOSH, acute respiratory failure. TTE shows preserved LVEF, 50-55%. Remains in NSR, HR 50's sinus bradycardia upon exam likely secondary to precedex gtt. Brief episode of PAF noted overnight. [id number] is 4 (Age, HTN, DM, CAD). High CVA risk, ideally would be on chronic anticoagulation. However, given current clinical status and declining HGB/ alveolar hemorrhage, unable to safely start. Reconsider upon discharge or in the outpatient setting. Qualifiers: Atrial fibrillation type: unspecified Qualified Code(s): I48.91 - Unspecified atrial fibrillation (4) Anemia Current Visit: Yes Status: Acute HGB 11.0 prior to shoulder surgery last week. Post op HGB downtrended to 9.1. HGB today 6.9--suspect acute blood loss anemia post op, as well as dilutional. Alveolar hemorrhage confirmed by Bronch today. Significant bruising at right shoulder (operation site) extending down flank. Qualifiers: Anemia type: due to chronic kidney disease Chronic kidney disease stage: stage 3 (moderate) Qualified Code(s): N18.3 - Chronic kidney disease, stage 3 (moderate); D63.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 (5) Coronary artery disease Current Visit: Yes Status: Chronic Hx of PTCA in . Continue statin. ASA/plavix stopped due to anemia, acute blood loss, alveolar hemorrhage. BP will not tolerate BB--currently on pressors. Qualifiers: Coronary Disease-Associated Artery/Lesion type: [place] artery [place] vs. transplanted heart: [place] heart Associated angina: without angina Qualified Code(s): I25.10 - Atherosclerotic heart disease of [place] coronary artery without angina pectoris Discussion w patient/family: The assessment and plan as outlined above was discussed with the patient and/or family members who expressed understanding and agreement. All questions were answered. Thank you for involving us in the care of your patient. Please call with any questions. The patient will be discussed and reviewed with Dr. Cheung; changes to be made accordingly. Subjective Principal diagnosis: JOSH Interval history: Seen and examined. Remains intubated/sedated, on CRRT. Objective Vital Signs, Last 4 Hours Pulse Resp BP Pulse Ox 08/04/17 08:00 59 19 94/52 97 08/04/17 07:46 18 98/48 89 08/04/17 07:00 57 20 89/58 95 08/04/17 06:00 52 20 92/55 99 08/04/17 05:56 18 90/47 95 08/04/17 05:00 53 20 97/50 96 General: Other (intubated/sedated) HEENT: Atraumatic Cardiac: Reg Rate and Rhythm, Normal S1 and S2 Lungs: Other (coarse) Neuro: Other (intubated/sedated) Abdomen: Soft Extremities: Normal Pulses, Other (mild upper and lower extremity edema) Other: right IJ CVC, grey cath--minimal dark output. Results 08/04/17 03:55 08/04/17 03:55 Lab Results 08/03/17 08/03/17 08/03/17 12:49 13:34 13:34 WBC 11.0 Hgb 8.6 L Hct 25.0 L Plt Count 158 INR 1.2 Sodium 141 Potassium 3.7 Chloride 100 Carbon Dioxide 25 BUN 54 H Creatinine 5.44 H Glucose 162 H Calcium 7.6 L Magnesium 2.1 Total Bilirubin 0.8 AST 70 H ALT 48 Alkaline Phosphatase 210 H 08/03/17 08/04/17 08/04/17 21:00 03:55 03:55 WBC 11.7 H Hgb 9.1 L 8.6 L Hct 27.0 L 26.3 L Plt Count 177 INR Sodium 139 Potassium 4.3 Chloride 103 Carbon Dioxide 23 BUN 39 H Creatinine 3.32 H Glucose 205 H Calcium 7.9 L Magnesium Total Bilirubin AST ALT Alkaline Phosphatase Active Medications Acetaminophen (Tylenol) 650 mg PO Q6HR PRN PRN Reason: Mild Pain/Fever Stop: 01/31/18 23:17 Albuterol Sulfate (Albuterol Inhaler) 2 puff IH Q2HR PRN PRN Reason: Shortness Of Breath/Wheezing Stop: 02/01/18 22:30 Artificial Tears (Lacri-Lube) 1 appl BOTH EYES Q4HR ESTEFANÍA PRN Reason: Protocol Stop: 02/02/18 00:01 Last Admin: 08/04/17 07:46 Dose: 1 appl Artificial Tears (Lacri-Lube) 1 appl BOTH EYES Q2HR PRN; Protocol PRN Reason: Dry Eyes Stop: 02/01/18 22:30 Chlorhexidine Gluconate (Chlorhexidine Rinse) 15 ml MM BID ESTEFANÍA Stop: 02/02/18 09:01 Last Admin: 08/04/17 08:37 Dose: 15 ml Fentanyl Citrate (Fentanyl (Pf)) 25 mcg IVP Q1H PRN PRN Reason: Pain Stop: 02/01/18 18:06 Last Admin: 08/02/17 18:15 Dose: 25 mcg Heparin Sodium (Porcine) (Heparin) 0 unit IV ONCE PRN PRN Reason: SEE COMMENTS Stop: 02/02/18 10:25 Sodium Chloride (0.9 % Sodium Chloride) 250 mls @ 937.5 mls/hr IVC .Q16M PRN PRN Reason: Hypotension Stop: 02/01/18 08:40 Dexmedetomidine HCl (Precedex Premix) 400 mcg in 100 mls @ 3.9 mls/hr IVC .Q24H ESTEFANÍA; 0.2 MCG/KG/HR PRN Reason: Protocol Stop: 02/01/18 20:01 Last Titration: 08/03/17 19:00 Dose: Infused Norepinephrine Bitartrate 4 mg (/ Dextrose) 254 mls @ 30.48 mls/hr IVC CONT ESTEFANÍA ; 8 MCG/MIN PRN Reason: Protocol Stop: 02/01/18 22:01 Last Titration: 08/04/17 08:00 Dose: 1.04 mcg/min, 4 mls/hr Sodium Chloride (0.9 % Sodium Chloride) 1,000 mls @ 100 mls/hr PRIME .Q10H ESTEFANÍA Stop: 02/02/18 10:31 Last Admin: 08/03/17 21:07 Dose: Not Given CRRT Dialysis Solution (Prismasate Bgk 4/2.5) 5,000 mls @ 2,000 mls/hr CRRT CONT ESTEFANÍA Stop: 02/02/18 10:31 Last Admin: 08/04/17 08:28 Dose: 2,000 mls/hr CRRT Dialysis Solution (Prismasate Bgk 4/2.5) 5,000 mls @ 2,000 mls/hr CRRT CONT ESTEFANÍA Stop: 02/02/18 10:31 Last Admin: 08/04/17 01:36 Dose: 2,000 mls/hr Fentanyl Citrate 2,500 mcg/ (Miscellaneous) 50 mls @ 1 mls/hr IVC CONT ESTEFANÍA; 50 MCG/HR PRN Reason: Protocol Stop: 02/01/18 22:01 Last Titration: 08/04/17 08:00 Dose: 150 mcg/hr, 3 mls/hr Piperacillin Sod/Tazobactam (Sod 3.375 gm/ Sodium Chloride) 100 mls @ 25 mls/ hr IVPB Q8H ESTEFANÍA Stop: 02/02/18 10:01 Last Admin: 08/04/17 08:35 Dose: 25 mls/hr Insulin Human Lispro (Humalog) 0 units SQ Q4H ESTEFANÍA PRN Reason: Protocol Stop: 02/02/18 12:01 Last Admin: 08/04/17 08:27 Dose: Not Given Methylprednisolone (Solu-Medrol) 60 mg IVP Q12H ESTEFANÍA Stop: 02/02/18 09:01 Last Admin: 08/04/17 08:36 Dose: 60 mg Naloxone HCl (Narcan) 0.4 mg IVP Q2MIN PRN PRN Reason: SEE COMMENTS Stop: 01/31/18 23:17 Pantoprazole Sodium (Protonix) 40 mg IVP DAILY ESTEFANÍA Stop: 02/02/18 09:01 Last Admin: 08/04/17 08:37 Dose: 40 mg Rosuvastatin Calcium (Crestor) 40 mg PO HS ESTEFANÍA Stop: 02/01/18 21:01 Last Admin: 08/03/17 20:13 Dose: 40 mg Sertraline HCl (Zoloft) 100 mg PO DAILY ESTEFANÍA Stop: 02/01/18 00:16 Last Admin: 08/04/17 08:37 Dose: 100 mg Vitamin D (Vitamin D) 2,000 unit PO DAILY ESTEFANÍA Stop: 02/01/18 09:01 Last Admin: 08/04/17 08:37 Dose: 2,000 unit - Imaging and Cardiology Echo: report reviewed Other Results: 12 hour tele: avg HR=67 SR. Episode of PAF noted. - EKG Interpretation EKG results cardiology: personally reviewed - VTE Documentation of Mechanical Device: Intermittent pneumatic compression device Consult Discharge Plan - Plan Referrals: Nubia Field MD [Primary Care Provider] -
--- NOTE | 2017-08-04 09:40 | Nephrology Progress Note ---
Date of Encounter: 08/04/17 Time of Encounter: 09:25 - Assessment and Plan (1) JOSH (acute kidney injury) Current Visit: Yes Status: Acute JOSH superimposed on CKD. Baseline creatinine is around 2.23. JOSH setting of an STEMI, what appears to be acute blood loss anemia, hypotension, respiratory failure. Creat 3.32. urine output today 165 cc. NAINA attempt fluid removal rate net +50 as anders. (2) Acute blood loss anemia Current Visit: No Status: Acute (3) NSTEMI (non-ST elevated myocardial infarction) Current Visit: Yes Status: Acute Subjective Principal diagnosis: JOSH Interval history: Intubated, sedated, pressor. FIO2 70, peep 12. Objective - Vital Signs Vital signs: Vital Signs Temp Pulse Resp BP Pulse Ox 08/04/17 09:06 19 101/48 100 08/04/17 08:00 59 19 94/52 97 08/04/17 07:46 18 98/48 89 08/04/17 07:00 57 20 89/58 95 08/04/17 06:00 52 20 92/55 99 08/04/17 05:56 18 90/47 95 08/04/17 05:00 53 20 97/50 96 08/04/17 04:00 97.6 F 110 20 105/64 93 08/04/17 03:46 108 08/04/17 03:10 21 90/53 90 08/04/17 03:00 100 21 81/53 94 08/04/17 02:00 60 20 111/58 94 08/04/17 01:30 20 110/61 96 08/04/17 01:00 60 22 102/54 93 08/04/17 00:00 98.7 F 60 20 118/63 93 08/03/17 23:47 61 08/03/17 23:15 19 118/67 93 08/03/17 23:00 71 20 118/67 91 08/03/17 22:00 77 22 102/63 88 08/03/17 21:36 18 141/71 93 08/03/17 21:00 61 20 133/67 93 08/03/17 20:00 97.3 F L 65 16 126/70 90 08/03/17 19:40 64 08/03/17 19:30 20 133/83 93 08/03/17 19:00 58 22 133/83 90 08/03/17 18:00 67 29 139/73 94 08/03/17 17:42 24 146/75 92 08/03/17 17:00 64 27 152/70 93 08/03/17 16:09 96.0 F L 08/03/17 16:00 96.0 F L 59 18 111/60 98 08/03/17 15:42 22 97 08/03/17 15:00 48 24 80/49 100 08/03/17 14:00 48 21 92/57 100 08/03/17 13:20 20 93 08/03/17 13:00 51 21 102/64 100 08/03/17 12:00 96.2 F L 67 24 156/88 100 08/03/17 11:49 96.2 F L 08/03/17 11:24 21 96 08/03/17 11:00 66 21 131/66 96 08/03/17 10:00 74 21 145/81 96 08/03/17 09:55 20 98 Intake and Output 08/03/17 08/04/17 08/04/17 23:59 07:59 15:59 Intake Total 659.4 / 659.4 663.1 / 663.1 62.9 / 62.9 Output Total 432 / 432 828 / 828 59 / 59 Balance 227.4 / 227.4 -164.9 / -164.9 3.9 / 3.9 Intake: IV Fluids 496.4 / 496.4 328.1 / 328.1 15.9 / 15.9 PrismaSATE BGK 4/2.5 5,000 ML @ 0 / 0 0 / 0 2000 mls/hr CRRT CONT [facility] Rx#: [id number] PRECEDEX Premix 400 mcg In 100 100 / 100 ml @ 0.2 MCG/KG/HR 3.9 mls/hr IVC .Q24H [facility] Rx#:[id number] FentaNYL (PF) 1,000 MCG In 0.9 173.0 / 173.0 127.0 / 127.0 % Sodium Chloride 80 ML @ 50 MCG/HR 5 mls/hr IVC CONT [facility] Rx #:[id number] FentaNYL (PF) 2,500 MCG In 8.9 / 8.9 3.2 / 3.2 Empty Bag 1 Each @ 50 MCG/HR 1 mls/hr IVC CONT [facility] Rx#: [id number] Levophed 4 MG In Dextrose 5% 223.4 / 223.4 92.2 / 92.2 12.7 / 12.7 250 ML @ 8 MCG/MIN 30.48 mls/hr IVC CONT [facility] Rx#:[id number] Zosyn 3.375 GM In 0.9 % Sodium 100 / 100 Chloride (Mini-Bag +) 100 ML @ 25 mls/hr IVPB Q12H [facility] Rx#: [id number] Oral 0 / 0 Tube Feeding 163 / 163 335 / 335 47 / 47 Output: Urine 0 / 0 Naina 432 / 432 663 / 663 59 / 59 Catheter 0 / 0 165 / 165 Urethral ([place]) 0 / 0 Other: Blood Glucose* 124 190 - General Appearance General appearance: Present: well-developed, well-nourished, appears started age EENT: Present: mucous membranes moist Neck: Present: no JVD Respiratory: Present: rhonchi Cardiology: Present: edema, irregular rhythm Additional Comments: trace pitting ankle Gastrointestinal: Present: absent bowel sounds Integumentary: Present: warm and dry - Lab 08/04/17 03:55 08/04/17 03:55 Most recent lab results ABG pH 7.32 pH Units (7.32-7.45) 08/04/17 04:16 ABG pCO2 47 mmHg (35-45) H 08/04/17 04:16 ABG pO2 277 mmHg (85-104) H 08/04/17 04:16 ABG HCO3 24 mEq/L (21-27) 08/04/17 04:16 ABG O2 Saturation 100 % (95-98) H 08/04/17 04:16 Calcium 7.9 mg/dL (8.6-10.3) L 08/04/17 03:55 Phosphorus 6.9 mg/dL (2.7-4.5) H 08/03/17 13:34 Magnesium 2.1 mg/dL (1.6-2.6) 08/03/17 13:34 - VTE Documentation of Mechanical Device: Intermittent pneumatic compression device Consult Discharge Plan - Plan Referrals: Nubia Field MD [Primary Care Provider] -
[2017-08-04] MEDS: 0.9 % Sodium Chloride 1,000 ML PRIME SCH ×2 (09:55→17:08)
[2017-08-04 11:01] LABS: ABG Base Excess -19 mEq/L (-2 to 3); ABG HCO3 8 mEq/L (21-27); ABG Oxygen Saturation 96 % (95-98); ABG PCO2 25 mmHg (35-45); ABG PH 7.14 pH Units (7.32-7.45); ABG PO2 104 mmHg (85-104); ABG TCO2 9 mEq/L (20-26)
[2017-08-04] MEDS ORDERED: *HR* Heparin 5,000 UNIT/ML VIAL SQ SCH (14:00)
[2017-08-04] MEDS: Norepinephrine 4 MG in D5% in Water 250 ML IVC SCH (16:34)
[2017-08-04] MEDS ORDERED: *HR* Heparin 5,000 UNIT/ML VIAL ONE (18:16)
[2017-08-04 20:05] LABS: Basophils % 0.1 %; Hematocrit 24.8 % (37.5-50.1); Hemoglobin 8.3 g/dL (12.9-16.9); Immature Granulocytes % 1.9 % (0-4); Immature Platelets 5.3 % (1.1-6.1); Lymphocytes # 0.2 K/mcL (0.6-4.6); Lymphocytes % 1.5 %; Mean Corpuscular HGB Conc 33.5 g/dL (31.6-35.5); Mean Corpuscular Hemoglobin 31.3 pg (28.0-33.3); Mean Corpuscular Volume 93.6 fL (83.0-100.0); Mean Platelet Volume 10.7 fL (9.4-12.4); Monocytes # 0.7 K/mcL (0.0-1.3); Monocytes % 4.5 %; Neutrophils # 14.8 K/mcL (1.6-8.9); Nucleated Red Blood Cells 0.1 /100 WBC (0); Platelet Count 209 K/mcL (140-400); Red Blood Count 2.65 M/mcL (4.19-5.50); Red Cell Distribution Width 15.1 % (11.5-14.5)
[2017-08-04] MEDS: Dexmedetomidine HCl 400 MCG/100 ML MLS IVC SCH (20:10)
[2017-08-04 20:47] LABS: Calcium 7.9 mg/dL (8.6-10.3); Magnesium 2.6 mg/dL (1.6-2.6); Potassium 4.4 mEq/L (3.5-5.1)
[2017-08-05] MEDS: *HR* Heparin 5,000 UNIT/ML VIAL IV PRN (00:40)
[2017-08-05] MEDS: Piperacillin/Tazobactam 3.375 GM in 0.9 % Sodium Chloride Mini Bag 100 ML IVPB SCH ×3 (00:41→17:05)
[2017-08-05] MEDS: 0.9 % Sodium Chloride 1,000 ML PRIME SCH ×3 (00:49→20:09)
[2017-08-05] MEDS: FentaNYL (PF) 2,500 MCG in EMPTY BAG 1 EACH IVC SCH ×2 (03:02→16:10)
[2017-08-05] MEDS: PrismaSATE BGK 4/2.5 5,000 ML CRRT SCH ×9 (03:02→22:06)
[2017-08-05 04:14] LABS: Basophils % 0.1 %; Hematocrit 25.6 % (37.5-50.1); Hemoglobin 8.4 g/dL (12.9-16.9); Immature Granulocytes % 1.5 % (0-4); Lymphocytes # 0.3 K/mcL (0.6-4.6); Lymphocytes % 1.7 %; Mean Corpuscular HGB Conc 32.8 g/dL (31.6-35.5); Mean Corpuscular Volume 94.5 fL (83.0-100.0); Mean Platelet Volume 10.6 fL (9.4-12.4); Monocytes # 0.6 K/mcL (0.0-1.3); Monocytes % 3.5 %; Neutrophils # 15.7 K/mcL (1.6-8.9); Nucleated Red Blood Cells 0.2 /100 WBC (0); Platelet Count 193 K/mcL (140-400); Red Blood Count 2.71 M/mcL (4.19-5.50); Red Cell Distribution Width 15.2 % (11.5-14.5); Segmented Neutrophils % 93.2 %
[2017-08-05 04:19] LABS: INR 1.1; Prothrombin Time 11.4 Seconds (9.4-12.1)
[2017-08-05] MEDS: Insulin LISPRO 300 UNITS/3 ML VIAL SQ SCH ×6 (04:22→23:32)
[2017-08-05] MEDS: Lacri-Lube 3.5 GM TUBE BOTH EYES SCH ×6 (04:22→23:33)
[2017-08-05 04:41] LABS: Potassium 4.3 mEq/L (3.5-5.1)
[2017-08-05 05:00] LABS: ABG Base Excess -1 mEq/L (-2 to 3); ABG HCO3 29 mEq/L (21-27); ABG Oxygen Saturation 97 % (95-98); ABG PCO2 73 mmHg (35-45); ABG PO2 108 mmHg (85-104); ABG TCO2 31 mEq/L (20-26); Blood Gas Modality PRVC; Blood Gas PEEP 12 cm H2O; Blood Gas Respiration Rate 16; Blood Gas VT 450 cc
--- NOTE | 2017-08-05 06:41 | Pulmonology Progress Note ---
Date of Encounter: 08/05/17 Time of Encounter: 06:41 Assessment and Plan (1) Acute respiratory failure with hypoxia Current Visit: Yes Status: Acute The patient presented to the hospital with vague complaints of generalized weakness and nausea vomiting poor by mouth intake. Was found to have life- threatening metabolic acidosis and hyperkalemia requiring emergent dialysis along with NSTEMI respiratory failure requiring endotracheal intubation complicated by hemoptysis and cardiac instability requiring vasopressor. Below reflects my systems base assessment and plan I spent 32 min of Critical Care time with this patient. It involved decision making of high complexity to assess, manipulate, and support vital organ system failure and/or to prevent further life threatening deterioration of the patient' s condition. The time involved in the performance of separately reportable procedures was not counted toward critical care time. Management was reviewed during multidisciplinary critical care rounds. DOCTOR NATUROPATHIC: Acute DOCTOR NATUROPATHIC failure s/t to Metabolic Encephalopathy. The patient remains sedated on vent for goal [place] 3-4 today he has had some dyssynchrony of the ventilator with increased agitation so we will try to minimize this as much as possible. Pulm: Acute hypoxic respiratory failure which I suspect in large part is related to hydrostatic pulmonary edema from heart failure. There is likely a superimposed component of acute lung injury from noncardiac etiology likely (PNA ) infection. C Bronchoscopy was not consistent with diffuse alveolar hemorrhage however I suspect this is related to increased hydrostatic pressure in the context of acute lung injury in the patient on dual antiplatelet therapy (bland hemorrhage). A worsening respiratory acidosis overnight and adjust his vent settings to increase minute ventilation by increasing respiratory rate I suspect this is a component of worsening cardiogenic edema. Encouragingly the oxygen requirement has gone down we will continue to decrease FiO2. Cont a low tidal volume ventilatory strategy with the increased PEEP-Fio2 Ratio. Cont steroids and antibiotics bronchodilators. Repeat chest x-ray today. Cards: Acute non-ST elevation MD with heart failure with evidence of cardiogenic shock he remains on vasopressor support for this. Echocardiogram reviewed which was notable for ejection fraction of 50-55% with moderate left ventricular diastolic dysfunction mild aortic region could agitation and mild to moderate mitral regurgitation along with moderate to severe tricuspid regurgitation and severe pulmonary hypertension. I suspect the pulmonary hypertension is a manifestation of his left heart disease/failure along with hypoxia and PEEP. Encouraging there is no evidence of right heart failure at this time based upon echocardiography. He is not a candidate for left heart catheterization today for multiple reasons including acute kidney failure and hemorrhage/new anemia. Furthermore I have stopped his dual antiplatelet therapy because of pulmonary hemorrhage. Cardiology is following with this patient appreciate their recommendations. Continue volume removal with Continuous renal replacement therapy FEN-GI: Cont enteral nutrition per dietary recommendations and will continue GI prophylaxis given to prevent stress ulcers Renal: The patient remains and uric with acute kidney injury on continuous renal replacement therapy acidosis has corrected the hyperkalemia has corrected continue to monitor electrolytes and replace per protocol appreciate nephrology following this patient ID: Continue antibiotics for likely pneumonia. White count is stable he remains afebrile cultures thus far negative. Renal dose all medications per pharmacy guidelines Heme/Onc: DVT prophylaxis with SCDs; H/H Stable no evidence of coagulopathy. Endo: Glucose Monitored and slightly elevated we will continue bolus dosing per sliding scale Integ/MSK: Skin Care per routine ICU Nursing Protocol to prevent ulcers. Patient is status post right shoulder arthroplasty without significant hematoma no further intervention necessary from the standpoint Lines: All lines examined without evidence of infection : Dispo: Remain in ICU for critical illness CODE: Patient remains full code (2) Hypotension Current Visit: Yes Status: Acute Qualifiers: Hypotension type: unspecified hypotension type Qualified Code(s): I95.9 - Hypotension, unspecified (3) Metabolic acidosis Current Visit: Yes Status: Acute (4) JOSH (acute kidney injury) Current Visit: Yes Status: Acute (5) Anemia Current Visit: Yes Status: Acute Qualifiers: Anemia type: due to chronic kidney disease Chronic kidney disease stage: stage 3 (moderate) Qualified Code(s): N18.3 - Chronic kidney disease, stage 3 (moderate); D63.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 (6) Dehydration Current Visit: Yes Status: Acute (7) Hyperkalemia Current Visit: Yes Status: Acute (8) NSTEMI (non-ST elevated myocardial infarction) Current Visit: Yes Status: Acute (9) Coronary artery disease Current Visit: Yes Status: Chronic Qualifiers: Coronary Disease-Associated Artery/Lesion type: [place] artery [place] vs. transplanted heart: [place] heart Associated angina: without angina Qualified Code(s): I25.10 - Atherosclerotic heart disease of [place] coronary artery without angina pectoris (10) Diabetes type 2, controlled Current Visit: Yes Status: Chronic Qualifiers: Diabetes mellitus marketing assistant [employer] insulin use: without marketing assistant retail division use Diabetes mellitus complication status: with kidney complications Diabetes mellitus complication detail: with chronic kidney disease Chronic kidney disease stage : stage 3 (moderate) Qualified Code(s): E11.22 - Type 2 diabetes mellitus with diabetic chronic kidney disease; N18.3 - Chronic kidney disease, stage 3 ( moderate) (11) Pulmonary alveolar hemorrhage Current Visit: Yes Status: Acute Subjective Principal diagnosis: JOSH Interval history: The patient remains critically ill on continuous renal replacement therapy and vasopressor support. He is able to awaken to my voice today follow simple commands. Been able to titrate vasopressor down slightly overnight so that he is on low-dose norepinephrine. Noted to have worsening respiratory acidosis today with vent adjustment. Oxygenation actually he has been improving. He continues to have trace amount of pink secretions from the endotracheal tube without kalina hemoptysis. Objective PUL Vital signs: Last Vital Signs Temp 98.0 F 08/05/17 04:00 Pulse 55 08/05/17 06:00 Resp 22 08/05/17 06:00 BP 100/60 08/05/17 06:00 Pulse Ox 100 08/05/17 06:00 General appearance: other Patient is sedated on vent however he is able to open his eyes to my voice he is able to follow simple commands intermittently such as squeezing both hands His pupils are round and reactive to light they are symmetric He has a right internal jugular CVC without evidence of infection Neck is supple otherwise He has bilateral breath sounds with faint inspiratory wheezing rales at the lung bases are appreciated Heart sounds are regular rate and rhythm without audible murmur His abdomen today is soft he has bowel sounds present there is no grimace to deep palpation no rigidity or rebound tenderness His lower shoulders have trace pulses the distal extremities are warm and well perfused is no peripheral cyanosis he does have trace bilateral lower extremity edema Status post right arthroplasty with dressing clean dry and intact surrounding ecchymotic changes with trend towards healing Ventilator Settings Ventilator Settings: Ventilator Settings, Last 8 Hours Ventilator Mode VC+ Ventilator Mode VC+ Ventilator Mode VC+ Ventilator Tidal Volume 450 Setting Ventilator Tidal Volume 450 Setting Ventilator Tidal Volume 450 Setting Ventilator Tidal Volume 450 Setting Ventilator Tidal Volume 450 Setting Ventilator Tidal Volume 450 Setting Ventilator Tidal Volume 450 Setting Ventilator Tidal Volume 450 Setting Ventilator Tidal Volume 450 Setting Ventilator Tidal Volume 450 Setting Ventilator Tidal Volume 450 Setting Ventilator Tidal Volume 450 Setting Ventilator Tidal Volume 450 Setting Ventilator Respiratory Rate 20 Setting Ventilator Respiratory Rate 20 Setting Ventilator Respiratory Rate 16 Setting Ventilator Respiratory Rate 16 Setting Ventilator Respiratory Rate 16 Setting Ventilator Respiratory Rate 16 Setting Ventilator Respiratory Rate 16 Setting Ventilator Respiratory Rate 16 Setting Ventilator Respiratory Rate 16 Setting Ventilator Respiratory Rate 16 Setting Ventilator Respiratory Rate 16 Setting Ventilator Respiratory Rate 16 Setting Ventilator Respiratory Rate 16 Setting Actual Respiratory Rate 22 Actual Respiratory Rate 22 Actual Respiratory Rate 17 Actual Respiratory Rate 18 Actual Respiratory Rate 18 Actual Respiratory Rate 18 Actual Respiratory Rate 18 Actual Respiratory Rate 20 Actual Respiratory Rate 18 Actual Respiratory Rate 18 Actual Respiratory Rate 17 Actual Respiratory Rate 18 Positive End Expiratory 12 Pressure Positive End Expiratory 12 Pressure Positive End Expiratory 12 Pressure Positive End Expiratory 12 Pressure Positive End Expiratory 12 Pressure Positive End Expiratory 12 Pressure Positive End Expiratory 12 Pressure Positive End Expiratory 12 Pressure Positive End Expiratory 12 Pressure Positive End Expiratory 12 Pressure Positive End Expiratory 12 Pressure Positive End Expiratory 12 Pressure Positive End Expiratory 12 Pressure Peak Inspiratory Airway 32 Pressure Peak Inspiratory Airway 33 Pressure Peak Inspiratory Airway 29 Pressure Peak Inspiratory Airway 29 Pressure Peak Inspiratory Airway 29 Pressure Peak Inspiratory Airway 27 Pressure Peak Inspiratory Airway 30 Pressure Peak Inspiratory Airway 28 Pressure Peak Inspiratory Airway 28 Pressure Peak Inspiratory Airway 27 Pressure Peak Inspiratory Airway 29 Pressure Peak Inspiratory Airway 25 Pressure Results - Laboratory Findings CBC and BMP: 08/05/17 04:08 08/05/17 04:08 ABG ABG pH 7.20 pH Units (7.32-7.45) L* 08/05/17 04:57 ABG pCO2 73 mmHg (35-45) H* 08/05/17 04:57 ABG pO2 108 mmHg (85-104) H 08/05/17 04:57 ABG O2 Saturation 97 % (95-98) 08/05/17 04:57 PT/INR, D-dimer PT 11.4 Seconds (9.4-12.1) 08/05/17 04:08 Abnormal lab findings: Abnormal lab results WBC 16.8 K/mcL (4.3-11.1) H 08/05/17 04:08 RBC 2.71 M/mcL (4.19-5.50) L 08/05/17 04:08 Hgb 8.4 g/dL (12.9-16.9) L 08/05/17 04:08 Hct 25.6 % (37.5-50.1) L 08/05/17 04:08 RDW 15.2 % (11.5-14.5) H 08/05/17 04:08 Neutrophils # 15.7 K/mcL (1.6-8.9) H 08/05/17 04:08 Lymphocytes # 0.3 K/mcL (0.6-4.6) L 08/05/17 04:08 Nucleated RBCs/100 WBC 0.2 /100 WBC (0) H 08/05/17 04:08 APTT 76.1 Seconds (26.0-36.0) H 08/02/17 07:04 ABG pH 7.20 pH Units (7.32-7.45) L* 08/05/17 04:57 ABG pCO2 73 mmHg (35-45) H* 08/05/17 04:57 ABG pO2 108 mmHg (85-104) H 08/05/17 04:57 ABG HCO3 29 mEq/L (21-27) H 08/05/17 04:57 ABG Total CO2 31 mEq/L (20-26) H 08/05/17 04:57 BUN 31 mg/dL (8-23) H 08/05/17 04:08 Creatinine 2.27 mg/dL (0.70-1.30) H 08/05/17 04:08 Est GFR ( Amer) 34 (> 60) L 08/05/17 04:08 Est GFR (Non-Af Amer) 28 (> 60) L 08/05/17 04:08 Glucose 167 mg/dL (70-105) H 08/05/17 04:08 POC Glucose 191 mg/dL (70-99) H 08/05/17 03:59 Calcium 8.0 mg/dL (8.6-10.3) L 08/05/17 04:08 Venous Ioniz Calcium 1.00 mmol/L (1.15-1.35) L 08/02/17 07:26 Phosphorus 6.9 mg/dL (2.7-4.5) H 08/03/17 13:34 Direct Bilirubin 0.5 mg/dL (0.0-0.2) H 08/03/17 13:34 AST 70 Units/L (13-39) H 08/03/17 13:34 Alkaline Phosphatase 210 Units/L (34-104) H 08/03/17 13:34 Creatine Kinase 669 Units/L (30-223) H 08/02/17 07:04 Troponin I 4.93 ng/mL (< 0.04) H* 08/02/17 12:49 Serum Total Protein 5.5 g/dL (6.4-8.9) L 08/03/17 13:34 Albumin 2.8 g/dL (3.5-5.7) L 08/03/17 13:34 Albumin/Globulin Ratio 1.0 (1.1-2.2) L 08/03/17 13:34 HDL Cholesterol 19 mg/dL (40-59) L 08/02/17 07:04 Urine Protein 100 mg/dL (Neg-Trace) H 08/02/17 10:30 Urine Ketones Trace mg/dL (Negative) H 08/02/17 10:30 Urine Blood Large (Negative) H 08/02/17 10:30 Urine Bilirubin Small (Negative) H 08/02/17 10:30 Ur Leukocyte Esterase Small (Negative) H 08/02/17 10:30 Urine Microscopic RBC 30-50 per hpf (0-3) H 08/02/17 10:30 Urine Microscopic WBC 50-100 per hpf (0-3) H 08/02/17 10:30 Ur Squamous Epith Cells Many per lpf (None-Few) H 08/02/17 10:30 Urine Bacteria Many per hpf (None-Few) H 08/02/17 10:30 Granular Casts Few per lpf (None Seen) H 08/02/17 10:30 Ur Culture Indicated? NO. (NO) A 08/02/17 10:30 Fluid Appearance Cloudy (Clear) A 08/03/17 08:30 - Microbiology Findings Microbiology Findings: Microbiology, Last 48 Hours 08/03/17 08:30 Acid Fast Stain - Final Right Middle Lobe Lung 08/03/17 08:30 Gram Stain - Final Right Middle Lobe Lung 08/02/17 12:49 Blood Culture - Preliminary Peripheral Venipuncture No growth. 08/02/17 12:49 Blood Culture - Preliminary Peripheral Venipuncture No growth. - Clinical Findings Intake & Output: Intake & Output 08/04/17 08/04/17 08/05/17 15:59 23:59 07:59 Intake Total 666.0 / 666.0 694.3 / 694.3 561.4 / 561.4 Output Total 723 / 723 1067 / 1067 846 / 846 Balance -57.0 / -57.0 -372.7 / -372.7 -284.6 / -284.6 - VTE Documentation of Mechanical Device: Intermittent pneumatic compression device Consult Discharge Plan - Plan Referrals: Nubia Field MD [Primary Care Provider] -
[2017-08-05] MEDS ORDERED: *HR* Heparin 5,000 UNIT/ML VIAL ONE (07:49)
[2017-08-05] MEDS: Pantoprazole 40 MG VIAL IVP SCH (08:09)
[2017-08-05] MEDS: Cholecalciferol (D-3) 1,000 UNIT TABLET PO SCH (08:09)
[2017-08-05] MEDS: Chlorhexidine Rinse 15 ML MOUTHWASH MM SCH ×2 (08:09→20:08)
[2017-08-05] MEDS: methylPREDNISolone 125 MG/2 ML VIAL IVP SCH ×2 (08:09→20:08)
[2017-08-05] MEDS ORDERED: Sennosides 8.6 MG TABLET PO SCH (09:30)
--- NOTE | 2017-08-05 10:07 | Nephrology Progress Note ---
Date of Encounter: 08/05/17 Time of Encounter: 09:05 - Assessment and Plan (1) JOSH (acute kidney injury) Current Visit: Yes Status: Acute JOSH superimposed on CKD. Baseline creatinine is around 2.23. JOSH setting of an STEMI, what appears to be acute blood loss anemia, hypotension, respiratory failure. Creat 2.27. urine output today 170 cc. NAINA attempt fluid removal rate net +100 as anders. (2) Acute blood loss anemia Current Visit: No Status: Acute (3) NSTEMI (non-ST elevated myocardial infarction) Current Visit: Yes Status: Acute Subjective Principal diagnosis: JOSH Interval history: Intubated, sedated, pressor. FIO2 50, peep 12. Objective - Vital Signs Vital signs: Vital Signs Temp Pulse Resp BP Pulse Ox 08/05/17 09:00 65 20 100/54 99 08/05/17 08:00 76 20 89/59 100 08/05/17 07:35 20 100/60 100 08/05/17 07:30 72 08/05/17 07:00 75 22 100 08/05/17 06:00 55 22 100/60 100 08/05/17 05:58 22 91/52 99 08/05/17 05:00 64 17 108/63 100 08/05/17 04:13 117 08/05/17 04:00 98.0 F 115 18 98/60 100 08/05/17 03:21 18 98/59 100 08/05/17 03:00 116 20 98/59 100 08/05/17 02:00 58 18 90/47 97 08/05/17 01:05 20 99/57 100 08/05/17 01:00 67 18 99/57 100 08/05/17 00:00 98.0 F 64 18 91/57 100 08/04/17 23:41 76 08/04/17 23:04 17 99/60 100 08/04/17 23:00 61 18 99/60 100 08/04/17 22:00 72 18 94/64 100 08/04/17 21:08 18 114/63 100 08/04/17 21:00 61 18 114/63 100 08/04/17 20:00 97.9 F 66 18 100/59 100 08/04/17 19:29 64 08/04/17 19:19 18 98/45 100 08/04/17 19:00 68 18 98/45 100 08/04/17 18:00 66 19 110/50 100 08/04/17 17:04 19 105/64 100 08/04/17 17:00 59 19 105/64 100 08/04/17 16:00 97.9 F 58 18 108/56 100 08/04/17 15:14 16 106/75 96 08/04/17 15:00 64 17 106/75 100 08/04/17 14:00 64 18 86/52 98 08/04/17 13:44 19 85/47 100 08/04/17 13:00 64 19 102/59 98 08/04/17 12:00 97.8 F 68 20 99/58 100 08/04/17 11:24 22 101/49 100 08/04/17 11:00 61 20 101/49 100 Intake and Output 08/04/17 08/05/17 08/05/17 23:59 07:59 15:59 Intake Total 694.3 / 694.3 630.6 / 630.6 79.5 / 79.5 Output Total 1067 / 1067 967 / 967 158 / 158 Balance -372.7 / -372.7 -336.4 / -336.4 -78.5 / -78.5 Intake: IV Fluids 231.3 / 231.3 175.6 / 175.6 13.5 / 13.5 PrismaSATE BGK 4/2.5 5,000 ML @ 0 / 0 0 / 0 2000 mls/hr CRRT CONT [facility] Rx#: [id number] FentaNYL (PF) 2,500 MCG In 29.1 / 29.1 37.6 / 37.6 6 / 6 Empty Bag 1 Each @ 50 MCG/HR 1 mls/hr IVC CONT [facility]A Rx#: [id number] Levophed 4 MG In Dextrose 5% 102.2 / 102.2 38.0 / 38.0 7.5 / 7.5 250 ML @ 8 MCG/MIN 30.48 mls/hr IVC CONT [facility] Rx#:[id number] Zosyn 3.375 GM In 0.9 % Sodium 100 / 100 100 / 100 Chloride (Mini-Bag +) 100 ML @ 25 mls/hr IVPB Q8H [facility] Rx#: [id number] 0.9 % Sodium Chloride 1,000 ML 0 / 0 @ 100 mls/hr PRIME .Q10H [facility] Rx #:[id number] Tube Feeding 463 / 463 455 / 455 16 / 16 Other 50 / 50 Output: Naina 1062 / 1062 967 / 967 158 / 158 Catheter 5 / 5 0 / 0 0 / 0 Other: Blood Glucose* 189 191 - General Appearance General appearance: Present: well-developed, appears started age EENT: Present: mucous membranes moist Neck: Present: no JVD Respiratory: Present: rhonchi Cardiology: Present: edema, irregular rhythm Additional Comments: right arm Dialysis Vascular Access: Venous Catheter Gastrointestinal: Present: hypoactive bowel sounds Integumentary: Present: warm and dry - Lab 08/05/17 04:08 08/05/17 04:08 Most recent lab results ABG pH 7.20 pH Units (7.32-7.45) L* 08/05/17 04:57 ABG pCO2 73 mmHg (35-45) H* 08/05/17 04:57 ABG pO2 108 mmHg (85-104) H 08/05/17 04:57 ABG HCO3 29 mEq/L (21-27) H 08/05/17 04:57 ABG O2 Saturation 97 % (95-98) 08/05/17 04:57 Calcium 8.0 mg/dL (8.6-10.3) L 08/05/17 04:08 Phosphorus 6.9 mg/dL (2.7-4.5) H 08/03/17 13:34 Magnesium 2.6 mg/dL (1.6-2.6) 08/04/17 19:50 - VTE Documentation of Mechanical Device: Intermittent pneumatic compression device Consult Discharge Plan - Plan Referrals: Nubia Field MD [Primary Care Provider] -
[2017-08-05] MEDS: Dexmedetomidine HCl 400 MCG/100 ML MLS IVC SCH (15:43)
[2017-08-05 15:49] LABS: ANA IgG by ELISA NONE DETECTED (None Detected)
[2017-08-05 17:58] LABS: Myeloperoxidase Ab 0 AU/mL (0-19); Serine Protease-3 Antibody 1 AU/mL (0-19)
[2017-08-05] MEDS ORDERED: *HR* LORazepam 2 MG/ML VIAL ONE (20:34)
[2017-08-05] MEDS ORDERED: *HR* LORazepam 2 MG/ML VIAL IM STA (20:37)
[2017-08-05] MEDS: *HR* LORazepam 2 MG/ML VIAL IVP PRN (23:32)
[2017-08-06] MEDS: Piperacillin/Tazobactam 3.375 GM in 0.9 % Sodium Chloride Mini Bag 100 ML IVPB SCH ×3 (00:04→16:48)
[2017-08-06] MEDS: PrismaSATE BGK 4/2.5 5,000 ML CRRT SCH ×8 (01:17→21:40)
[2017-08-06] MEDS: *HR* LORazepam 2 MG/ML VIAL IVP PRN ×4 (01:36→20:57)
[2017-08-06] MEDS ORDERED: *HR* Heparin 5,000 UNIT/ML VIAL ONE (02:16)
[2017-08-06 03:24] LABS: Basophils % 0.1 %; Hematocrit 25.8 % (37.5-50.1); Hemoglobin 8.3 g/dL (12.9-16.9); Immature Granulocytes % 1.5 % (0-4); Lymphocytes # 0.4 K/mcL (0.6-4.6); Lymphocytes % 1.8 %; Mean Corpuscular HGB Conc 32.2 g/dL (31.6-35.5); Mean Corpuscular Hemoglobin 31.4 pg (28.0-33.3); Mean Corpuscular Volume 97.7 fL (83.0-100.0); Mean Platelet Volume 10.5 fL (9.4-12.4); Monocytes # 0.8 K/mcL (0.0-1.3); Monocytes % 3.4 %; Neutrophils # 20.6 K/mcL (1.6-8.9); Platelet Count 196 K/mcL (140-400); Red Blood Count 2.64 M/mcL (4.19-5.50); Red Cell Distribution Width 15.5 % (11.5-14.5); Segmented Neutrophils % 93.2 %
[2017-08-06 03:43] LABS: Potassium 4.9 mEq/L (3.5-5.1)
[2017-08-06] MEDS: *HR* Heparin 5,000 UNIT/ML VIAL IV PRN (04:00)
[2017-08-06] MEDS: FentaNYL (PF) 2,500 MCG in EMPTY BAG 1 EACH IVC SCH ×2 (04:02→15:04)
[2017-08-06] MEDS: Norepinephrine 4 MG in D5% in Water 250 ML IVC SCH (04:02)
[2017-08-06] MEDS: Lacri-Lube 3.5 GM TUBE BOTH EYES SCH ×6 (04:03→23:30)
[2017-08-06] MEDS: Insulin LISPRO 300 UNITS/3 ML VIAL SQ SCH ×6 (04:03→23:30)
[2017-08-06 04:46] LABS: ABG Base Excess 1 mEq/L (-2 to 3); ABG HCO3 28 mEq/L (21-27); ABG Oxygen Saturation 99 % (95-98); ABG PCO2 57 mmHg (35-45); ABG PO2 132 mmHg (85-104); ABG TCO2 30 mEq/L (20-26); Blood Gas Modality PRVC; Blood Gas PEEP 5 cm H2O; Blood Gas Respiration Rate 20; Blood Gas VT 450 cc
[2017-08-06] MEDS: 0.9 % Sodium Chloride 1,000 ML PRIME SCH ×2 (05:37→20:06)
--- NOTE | 2017-08-06 06:43 | Pulmonology Progress Note ---
Date of Encounter: 08/06/17 Time of Encounter: 06:43 Assessment and Plan (1) Acute respiratory failure with hypoxia Current Visit: Yes Status: Acute The patient presented to the hospital with vague complaints of generalized weakness and nausea vomiting poor by mouth intake. Was found to have life- threatening metabolic acidosis and hyperkalemia requiring emergent dialysis along with NSTEMI respiratory failure requiring endotracheal intubation complicated by hemoptysis and cardiac instability requiring vasopressor. Below reflects my systems base assessment and plan I spent 33 min of Critical Care time with this patient. It involved decision making of high complexity to assess, manipulate, and support vital organ system failure and/or to prevent further life threatening deterioration of the patient' s condition. The time involved in the performance of separately reportable procedures was not counted toward critical care time. Management was reviewed during multidisciplinary critical care rounds. 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 The patient remains sedated on vent for goal [place] 3-4 today spontaneous awake trial showed that he is able to move all extremities and follow simple commands. I suspect the patient is significant hard of hearing and we will add attempt to get his hearing aid with battery to prevent sensory deprivation Pulm: Acute hypoxic respiratory failure which I suspect in large part is related to hydrostatic pulmonary edema from heart failure withhemoptysis complicated by pneumonia. Bronchoscopy was not consistent with diffuse alveolar hemorrhage however I suspect this is related to increased hydrostatic pressure in the context of acute lung injury in the patient on dual antiplatelet therapy (bland hemorrhage). Acceptable gas exchange on today's ABG I will wean down the patient's PEEP because of high PaO2 value in excellent saturation. Encouragingly the oxygen requirement has gone down we will continue to decrease FiO2. Cont a low tidal volume ventilatory strategy with the increased PEEP-Fio2 Ratio. Stop steroids continue antibiotics and bronchodilators. Cards: Acute non-ST elevation NH with heart failure with evidence of cardiogenic shock he remains on vasopressor support for this. Echocardiogram reviewed which was notable for ejection fraction of 50-55% with moderate left ventricular diastolic dysfunction mild aortic region regurgitaito n and mild to moderate mitral regurgitation along with moderate to severe tricuspid regurgitation and severe pulmonary hypertension. I suspect the pulmnary hypertension is a manifestation of his left heart disease/failure along with hypoxia and PEEP. Encouraging there is no evidence of right heart failure at this time based upon echocardiography. He is not a candidate for left heart catheterization today for multiple reasons including acute kidney failure and hemorrhage/new anemia. DAPT on hold for CAD but likely safe to restart ASA given stability. Cardiology is following with this patient appreciate their recommendations. Continue volume removal with Continuous renal replacement therapy FEN-GI: Cont enteral nutrition per dietary recommendations and will continue GI prophylaxis given to prevent stress ulcers Renal: The patient remains anuric with acute kidney injury on continuous renal replacement therapy acidosis has corrected the hyperkalemia has corrected continue to monitor electrolytes and replace per protocol appreciate nephrology following this patient ID: Continue antibiotics for Haemophilus pneumonia. White count trending up which may be a steroid effect and I stopped this. He remains afebrile otherwise and a respiratory standpoint appears to be improving . Renal dose all medications per pharmacy guidelines Heme/Onc: Start subcutaneous heparin for chemical DVT prophylaxis; H/H Stable no evidence of coagulopathy. Endo: Glucose Monitored and slightly elevated we will continue bolus dosing per sliding scale Integ/MSK: Skin Care per routine ICU Nursing Protocol to prevent ulcers. Patient is status post right shoulder arthroplasty without significant hematoma no further intervention necessary from their standpoint Lines: All lines examined without evidence of infection : Dispo: Remain in ICU for critical illness CODE: Patient remains full code (2) Hypotension Current Visit: Yes Status: Acute Qualifiers: Hypotension type: unspecified hypotension type Qualified Code(s): I95.9 - Hypotension, unspecified (3) Metabolic acidosis Current Visit: Yes Status: Acute (4) JOSH (acute kidney injury) Current Visit: Yes Status: Acute (5) Anemia Current Visit: Yes Status: Acute Qualifiers: Anemia type: due to chronic kidney disease Chronic kidney disease stage: stage 3 (moderate) Qualified Code(s): N18.3 - Chronic kidney disease, stage 3 (moderate); D63.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 (6) Dehydration Current Visit: Yes Status: Acute (7) Hyperkalemia Current Visit: Yes Status: Acute (8) NSTEMI (non-ST elevated myocardial infarction) Current Visit: Yes Status: Acute (9) Coronary artery disease Current Visit: Yes Status: Chronic Qualifiers: Coronary Disease-Associated Artery/Lesion type: red devil artery [place] vs. 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 Diabetes mellitus complication status: with kidney complications Diabetes mellitus complication detail: with chronic kidney disease Chronic kidney disease stage : stage 3 (moderate) Qualified Code(s): E11.22 - Type 2 diabetes mellitus with diabetic chronic kidney disease; N18.3 - Chronic kidney disease, stage 3 ( moderate) (11) Pulmonary alveolar hemorrhage Current Visit: Yes Status: Acute (12) Cardiorenal syndrome with renal failure Current Visit: Yes Status: Acute (13) Pneumonia Current Visit: Yes Status: Acute Qualifiers: Qualified Code(s): J18.9 - Pneumonia, unspecified organism Subjective Principal diagnosis: JOSH Interval history: The patient had issues with the tachycardia overnight which appears related to agitation with increase in sedation his been more comfortable. Blood pressure was temporarily stable enough to remove vasopressor but he had to be restarted on vasopressor over the course of early part of this morning. He remains on continuous renal replacement therapy. No further episodes of bloody output from the endotracheal tube. Objective PUL Vital signs: Last Vital Signs Temp 96.3 F L 08/06/17 04:00 Pulse 62 08/06/17 06:00 Resp 20 08/06/17 06:16 BP 88/64 08/06/17 06:16 Pulse Ox 100 08/06/17 06:16 General appearance: other (The patient is resting comfortably. He is on sedation but able to open his eyes to my voice command and move all of his extremities to command) Eyes: nonicteric ENT: other (Endotracheal tube in satisfactory position) Neck: supple Auscultation: bilateral: rales Cardiovascular: irregular rhythm Gastrointestinal: hypoactive bowel sounds, non-tender, other (Mildly distended and firm but no tenderness to deep palpation) Integumentary: other (Right IJ CVC without evidence of palpable cord or surrounding erythema) Extremities: pink and warm, pulses normal, no ischemia or petechiae, anasarca ( Worsening anasarca of the upper and lower extremities) Gait: other (Status post right arthroplasty stable physical examination) Ventilator Settings Ventilator Settings: Ventilator Settings, Last 8 Hours Ventilator Mode VC+ Ventilator Mode VC+ Ventilator Mode VC+ Ventilator Tidal Volume 450 Setting Ventilator Tidal Volume 450 Setting Ventilator Tidal Volume 450 Setting Ventilator Tidal Volume 450 Setting Ventilator Tidal Volume 450 Setting Ventilator Tidal Volume 450 Setting Ventilator Tidal Volume 450 Setting Ventilator Tidal Volume 450 Setting Ventilator Tidal Volume 450 Setting Ventilator Tidal Volume 450 Setting Ventilator Tidal Volume 450 Setting Ventilator Tidal Volume 450 Setting Ventilator Tidal Volume 450 Setting Ventilator Respiratory Rate 20 Setting Ventilator Respiratory Rate 20 Setting Ventilator Respiratory Rate 20 Setting Ventilator Respiratory Rate 20 Setting Ventilator Respiratory Rate 20 Setting Ventilator Respiratory Rate 20 Setting Ventilator Respiratory Rate 20 Setting Ventilator Respiratory Rate 20 Setting Ventilator Respiratory Rate 20 Setting Ventilator Respiratory Rate 20 Setting Ventilator Respiratory Rate 20 Setting Ventilator Respiratory Rate 20 Setting Ventilator Respiratory Rate 20 Setting Actual Respiratory Rate 20 Actual Respiratory Rate 20 Actual Respiratory Rate 20 Actual Respiratory Rate 24 Actual Respiratory Rate 22 Actual Respiratory Rate 20 Actual Respiratory Rate 20 Actual Respiratory Rate 20 Actual Respiratory Rate 20 Actual Respiratory Rate 20 Actual Respiratory Rate 22 Actual Respiratory Rate 20 Positive End Expiratory 12 Pressure Positive End Expiratory 12 Pressure Positive End Expiratory 12 Pressure Positive End Expiratory 12 Pressure Positive End Expiratory 12 Pressure Positive End Expiratory 12 Pressure Positive End Expiratory 12 Pressure Positive End Expiratory 12 Pressure Positive End Expiratory 12 Pressure Positive End Expiratory 12 Pressure Positive End Expiratory 12 Pressure Positive End Expiratory 12 Pressure Positive End Expiratory 12 Pressure Peak Inspiratory Airway 30 Pressure Peak Inspiratory Airway 38 Pressure Peak Inspiratory Airway 38 Pressure Peak Inspiratory Airway 33 Pressure Peak Inspiratory Airway 31 Pressure Peak Inspiratory Airway 35 Pressure Peak Inspiratory Airway 36 Pressure Peak Inspiratory Airway 33 Pressure Peak Inspiratory Airway 32 Pressure Peak Inspiratory Airway 32 Pressure Peak Inspiratory Airway 34 Pressure Peak Inspiratory Airway 32 Pressure Results - Laboratory Findings CBC and BMP: 08/06/17 03:10 08/06/17 03:10 ABG ABG pH 7.30 pH Units (7.32-7.45) L 08/06/17 04:42 ABG pCO2 57 mmHg (35-45) H 08/06/17 04:42 ABG pO2 132 mmHg (85-104) H 08/06/17 04:42 ABG O2 Saturation 99 % (95-98) H 08/06/17 04:42 PT/INR, D-dimer PT 11.4 Seconds (9.4-12.1) 08/05/17 04:08 Abnormal lab findings: Abnormal lab results WBC 22.1 K/mcL (4.3-11.1) H 08/06/17 03:10 RBC 2.64 M/mcL (4.19-5.50) L 08/06/17 03:10 Hgb 8.3 g/dL (12.9-16.9) L 08/06/17 03:10 Hct 25.8 % (37.5-50.1) L 08/06/17 03:10 RDW 15.5 % (11.5-14.5) H 08/06/17 03:10 Neutrophils # 20.6 K/mcL (1.6-8.9) H 08/06/17 03:10 Lymphocytes # 0.4 K/mcL (0.6-4.6) L 08/06/17 03:10 Nucleated RBCs/100 WBC 0.2 /100 WBC (0) H 08/05/17 04:08 APTT 76.1 Seconds (26.0-36.0) H 08/02/17 07:04 ABG pH 7.30 pH Units (7.32-7.45) L 08/06/17 04:42 ABG pCO2 57 mmHg (35-45) H 08/06/17 04:42 ABG pO2 132 mmHg (85-104) H 08/06/17 04:42 ABG HCO3 28 mEq/L (21-27) H 08/06/17 04:42 ABG Total CO2 30 mEq/L (20-26) H 08/06/17 04:42 ABG O2 Saturation 99 % (95-98) H 08/06/17 04:42 BUN 29 mg/dL (8-23) H 08/06/17 03:10 Creatinine 1.88 mg/dL (0.70-1.30) H 08/06/17 03:10 Est GFR ( Amer) 42 (> 60) L 08/06/17 03:10 Est GFR (Non-Af Amer) 35 (> 60) L 08/06/17 03:10 Glucose 152 mg/dL (70-105) H 08/06/17 03:10 POC Glucose 134 mg/dL (70-99) H 08/06/17 03:43 Calcium 8.0 mg/dL (8.6-10.3) L 08/06/17 03:10 Venous Ioniz Calcium 1.00 mmol/L (1.15-1.35) L 08/02/17 07:26 Phosphorus 6.9 mg/dL (2.7-4.5) H 08/03/17 13:34 Direct Bilirubin 0.5 mg/dL (0.0-0.2) H 08/03/17 13:34 AST 70 Units/L (13-39) H 08/03/17 13:34 Alkaline Phosphatase 210 Units/L (34-104) H 08/03/17 13:34 Creatine Kinase 669 Units/L (30-223) H 08/02/17 07:04 Troponin I 4.93 ng/mL (< 0.04) H* 08/02/17 12:49 Serum Total Protein 5.5 g/dL (6.4-8.9) L 08/03/17 13:34 Albumin 2.8 g/dL (3.5-5.7) L 08/03/17 13:34 Albumin/Globulin Ratio 1.0 (1.1-2.2) L 08/03/17 13:34 HDL Cholesterol 19 mg/dL (40-59) L 08/02/17 07:04 Procalcitonin 3.93 ng/mL (<=0.10) H 08/03/17 09:17 Urine Protein 100 mg/dL (Neg-Trace) H 08/02/17 10:30 Urine Ketones Trace mg/dL (Negative) H 08/02/17 10:30 Urine Blood Large (Negative) H 08/02/17 10:30 Urine Bilirubin Small (Negative) H 08/02/17 10:30 Ur Leukocyte Esterase Small (Negative) H 08/02/17 10:30 Urine Microscopic RBC 30-50 per hpf (0-3) H 08/02/17 10:30 Urine Microscopic WBC 50-100 per hpf (0-3) H 08/02/17 10:30 Ur Squamous Epith Cells Many per lpf (None-Few) H 08/02/17 10:30 Urine Bacteria Many per hpf (None-Few) H 08/02/17 10:30 Granular Casts Few per lpf (None Seen) H 08/02/17 10:30 Ur Culture Indicated? NO. (NO) A 08/02/17 10:30 Fluid Appearance Cloudy (Clear) A 08/03/17 08:30 - Microbiology Findings Microbiology Findings: Microbiology, Last 48 Hours 08/03/17 08:30 Acid Fast Stain - Final Right Middle Lobe Lung 08/03/17 08:30 Gram Stain - Final Right Middle Lobe Lung Respiratory Culture - Final Haemophilus influenzae 08/02/17 12:49 Blood Culture - Preliminary Peripheral Venipuncture No growth. 08/02/17 12:49 Blood Culture - Preliminary Peripheral Venipuncture No growth. - Clinical Findings Intake & Output: Intake & Output 08/05/17 08/05/17 08/06/17 15:59 23:59 07:59 Intake Total 259.1 / 259.1 239.9 / 239.9 185.8 / 185.8 Output Total 821 / 821 443 / 443 302 / 302 Balance -561.9 / -561.9 -203.1 / -203.1 -116.2 / -116.2 Weight 78.4 kg - VTE Documentation of Mechanical Device: Intermittent pneumatic compression device Consult Discharge Plan - Plan Referrals: Nubia Field MD [Primary Care Provider] -
[2017-08-06] MEDS: *HR* Heparin 5,000 UNIT/ML VIAL SQ SCH ×3 (07:47→20:57)
[2017-08-06] MEDS: Cholecalciferol (D-3) 1,000 UNIT TABLET PO SCH (08:20)
[2017-08-06] MEDS: Chlorhexidine Rinse 15 ML MOUTHWASH MM SCH ×2 (08:20→20:48)
[2017-08-06] MEDS: Pantoprazole 40 MG VIAL IVP SCH (08:20)
--- NOTE | 2017-08-06 09:06 | Nephrology Progress Note ---
Date of Encounter: 08/06/17 Time of Encounter: 08:50 - Assessment and Plan (1) JOSH (acute kidney injury) Current Visit: Yes Status: Acute JOSH superimposed on CKD. Baseline creatinine is around 2.23. JOSH setting of an STEMI, what appears to be acute blood loss anemia, hypotension, respiratory failure. Creat 1.88, anuric. NAINA attempt fluid removal rate net +100 as anders. (2) Acute blood loss anemia Current Visit: No Status: Acute (3) NSTEMI (non-ST elevated myocardial infarction) Current Visit: Yes Status: Acute Subjective Principal diagnosis: JOSH Interval history: Intubated, sedated, pressor. FIO2 50, peep 10. Nursing states difficulty obtaining net +100 volume removal, currently at 50. Objective - Vital Signs Vital signs: Vital Signs Temp Pulse Resp BP Pulse Ox 08/06/17 08:00 97.3 F L 60 21 82/58 100 08/06/17 07:26 20 106/61 100 08/06/17 07:00 64 26 95/65 100 08/06/17 06:59 61 23 90/61 100 08/06/17 06:16 20 88/64 100 08/06/17 06:00 62 20 74/50 100 08/06/17 05:00 59 20 99/52 100 08/06/17 04:00 96.3 F L 57 24 107/55 100 08/06/17 03:53 23 102/62 100 08/06/17 03:34 56 08/06/17 03:00 48 20 87/53 100 08/06/17 02:00 60 20 101/61 100 08/06/17 01:12 20 102/60 100 08/06/17 01:00 53 20 102/60 100 08/06/17 00:00 96.3 F L 62 20 92/67 100 08/05/17 23:20 57 08/05/17 23:05 22 114/91 99 08/05/17 23:00 54 24 114/91 100 08/05/17 22:00 53 20 108/62 100 08/05/17 21:34 20 105/68 100 08/05/17 21:00 45 20 70/44 100 08/05/17 20:00 96.8 F L 51 22 93/59 100 08/05/17 19:45 21 76/59 100 08/05/17 19:25 46 08/05/17 19:00 44 22 84/51 100 08/05/17 18:00 114 20 97/66 100 08/05/17 17:06 20 79/51 100 08/05/17 17:00 117 20 79/51 100 08/05/17 16:00 98.1 F 134 20 137/77 100 08/05/17 15:43 20 136/73 100 08/05/17 15:00 68 20 118/87 100 08/05/17 14:00 65 20 96/54 100 08/05/17 13:15 20 114/58 100 08/05/17 13:00 70 20 114/58 100 08/05/17 12:00 98.1 F 65 20 97/57 100 08/05/17 11:02 20 102/65 100 08/05/17 11:00 61 20 102/65 100 08/05/17 10:00 64 20 107/53 100 08/05/17 09:57 20 100/54 100 Intake and Output 08/05/17 08/06/17 08/06/17 23:59 07:59 15:59 Intake Total 239.9 / 239.9 193.0 / 193.0 0 / 0 Output Total 443 / 443 352 / 352 124 / 124 Balance -203.1 / -203.1 -159.0 / -159.0 -124 / -124 Intake: IV Fluids 239.9 / 239.9 193.0 / 193.0 0 / 0 PrismaSATE BGK 4/2.5 5,000 ML @ 0 / 0 0 / 0 0 / 0 2000 mls/hr CRRT CONT ESTEFANÍA Rx#: [id number] PRECEDEX Premix 400 mcg In 100 36.8 / 36.8 ml @ 0.2 MCG/KG/HR 3.9 mls/hr IVC .Q24H ESTEFANÍA Rx#:[id number] FentaNYL (PF) 2,500 MCG In 36.2 / 36.2 32.2 / 32.2 Empty Bag 1 Each @ 50 MCG/HR 1 mls/hr IVC CONT ESTEFANÍA Rx#: [id number] Levophed 4 MG In Dextrose 5% 66.9 / 66.9 60.8 / 60.8 250 ML @ 8 MCG/MIN 30.48 mls/hr IVC CONT ESTEFANÍA Rx#:[id number] Zosyn 3.375 GM In 0.9 % Sodium 100.0 / 100.0 100 / 100 Chloride (Mini-Bag +) 100 ML @ 25 mls/hr IVPB Q8H ESTEFANÍA Rx#: [id number] 0.9 % Sodium Chloride 1,000 ML 0 / 0 @ 100 mls/hr PRIME .Q10H ESTEFANÍA Rx #:[id number] Oral 0 / 0 0 / 0 Tube Feeding 0 / 0 Output: Naina 443 / 443 347 / 347 49 / 49 Catheter 0 / 0 5 / 5 Gastric Drainage 0 / 0 0 / 0 75 / 75 Other: Stool Size Moderate Stool Consistency loose Stool Color Brown # Bowel Movements 1 Weight 78.4 kg Blood Glucose* 141 123 Patient Weight 08/06/17 23:59 Weight 78.4 kg - General Appearance General appearance: Present: well-developed, appears started age EENT: Present: mucous membranes moist Neck: Present: no JVD Respiratory: Present: rhonchi Cardiology: Present: no edema, irregular rhythm Dialysis Vascular Access: Venous Catheter Gastrointestinal: Present: absent bowel sounds Integumentary: Present: warm and dry - Lab 08/06/17 03:10 08/06/17 03:10 Most recent lab results ABG pH 7.30 pH Units (7.32-7.45) L 08/06/17 04:42 ABG pCO2 57 mmHg (35-45) H 08/06/17 04:42 ABG pO2 132 mmHg (85-104) H 08/06/17 04:42 ABG HCO3 28 mEq/L (21-27) H 08/06/17 04:42 ABG O2 Saturation 99 % (95-98) H 08/06/17 04:42 Calcium 8.0 mg/dL (8.6-10.3) L 08/06/17 03:10 Phosphorus 6.9 mg/dL (2.7-4.5) H 08/03/17 13:34 Magnesium 2.6 mg/dL (1.6-2.6) 08/04/17 19:50 - VTE Documentation of Mechanical Device: Intermittent pneumatic compression device Consult Discharge Plan - Plan Referrals: Nubia Field MD [Primary Care Provider] -
[2017-08-06] MEDS: Aspirin 81 MG TAB.CHEW PO SCH (09:34)
[2017-08-06 09:42] LABS: Magnesium 2.6 mg/dL (1.6-2.6)
[2017-08-06] MEDS ORDERED: *HR* Metoprolol 5 MG/5 ML VIAL IVP ONE ×2 (12:15→12:17)
[2017-08-06 13:30] LABS: Influenza A PCR Body Fluid NOT DETECTED; Influenza B PCR Body Fluid NOT DETECTED; RVP Body Fluid Source BAL RML
[2017-08-06 16:48] LABS: RSV PCR Body Fluid NOT DETECTED
[2017-08-06] MEDS: Dexmedetomidine HCl 400 MCG/100 ML MLS IVC SCH (20:07)
[2017-08-07] MEDS: PrismaSATE BGK 4/2.5 5,000 ML CRRT SCH ×8 (00:52→21:00)
[2017-08-07] MEDS: Piperacillin/Tazobactam 3.375 GM in 0.9 % Sodium Chloride Mini Bag 100 ML IVPB SCH ×3 (00:54→16:34)
[2017-08-07] MEDS: FentaNYL (PF) 2,500 MCG in EMPTY BAG 1 EACH IVC SCH ×2 (01:53→16:44)
[2017-08-07] MEDS: *HR* LORazepam 2 MG/ML VIAL IVP PRN ×3 (02:53→22:18)
[2017-08-07] MEDS: Lacri-Lube 3.5 GM TUBE BOTH EYES SCH ×5 (03:16→20:16)
[2017-08-07 03:40] LABS: Basophils % 0.1 %; Hematocrit 24.6 % (37.5-50.1); Hemoglobin 7.8 g/dL (12.9-16.9); Immature Granulocytes % 1.8 % (0-4); Lymphocytes # 1.3 K/mcL (0.6-4.6); Lymphocytes % 8.6 %; Mean Corpuscular HGB Conc 31.7 g/dL (31.6-35.5); Mean Corpuscular Hemoglobin 31.5 pg (28.0-33.3); Mean Corpuscular Volume 99.2 fL (83.0-100.0); Mean Platelet Volume 9.9 fL (9.4-12.4); Monocytes # 0.8 K/mcL (0.0-1.3); Monocytes % 5.5 %; Neutrophils # 12.4 K/mcL (1.6-8.9); Nucleated Red Blood Cells 0.2 /100 WBC (0); Platelet Count 159 K/mcL (140-400); Red Blood Count 2.48 M/mcL (4.19-5.50)
[2017-08-07 03:59] LABS: Potassium 4.6 mEq/L (3.5-5.1)
[2017-08-07 04:00] LABS: Calcium 8.2 mg/dL (8.6-10.3); Magnesium 2.6 mg/dL (1.6-2.6); Phosphorous 1.8 mg/dL (2.7-4.5)
[2017-08-07] MEDS: 0.9 % Sodium Chloride 1,000 ML PRIME SCH ×3 (04:08→19:44)
[2017-08-07] MEDS: Insulin LISPRO 300 UNITS/3 ML VIAL SQ SCH ×5 (04:08→20:16)
[2017-08-07 05:17] LABS: ABG Base Excess 3 mEq/L (-2 to 3); ABG HCO3 30 mEq/L (21-27); ABG Oxygen Saturation 95 % (95-98); ABG PCO2 58 mmHg (35-45); ABG PH 7.32 pH Units (7.32-7.45); ABG PO2 82 mmHg (85-104); ABG TCO2 32 mEq/L (20-26); Blood Gas Modality PRVC; Blood Gas PEEP 10 cm H2O; Blood Gas Respiration Rate 20; Blood Gas VT 450 cc
[2017-08-07] MEDS: *HR* Heparin 5,000 UNIT/ML VIAL SQ SCH ×3 (05:57→21:05)
--- NOTE | 2017-08-07 07:33 | Pulmonology Progress Note ---
<Benjamin Mckeon - Last Filed: 08/07/17 12:43> Date of Encounter: 08/07/17 Time of Encounter: 11:30 Assessment and Plan (1) Acute respiratory failure with hypoxia Current Visit: Yes Status: Acute Patient presented to the hospital with complaints of generalized weakness and nausea and vomiting with poor intake by mouth. Was found out life-threatening metabolic acidosis and hyperkalemia requiring emergent dialysis along with an and STEMI and her story failure requiring endotracheal intubation, complicated by hemoptysis in cardiac instability requiring vasopressors due to hypotension. Patient is still on the intubate her at this time. AB.32/58/82/30 patient is currently being sedated with fentanyl and Precedex Patient was on a norepinephrine drip to keep his blood pressure normalized. We have weaned him off that and he is just on Lopressor as needed to help with his blood pressure. Plan to decrease sedation today and had a CPAP trial. Results of that are still pending (2) Metabolic acidosis Current Visit: Yes Status: Acute Patient did have an extensive metabolic acidosis with an electrolyte abnormality of hyponatremia and hyperkalemia. Nephrology was consult to Dr. Winchester were patient was emergently dialyzed. Please refer to nephrology's note for recommendations for the metabolic acidosis and treatment of his chronic kidney disease. (3) NSTEMI (non-ST elevated myocardial infarction) Current Visit: Yes Status: Acute Patient did have a NSTEMI with heart failure with evidence of cardiogenic shock he was on vasopressors but is currently off the vasopressors at this time. Patient did have elevated troponins at previous hospital where was 7.49 here it changed to 6.442 4.61 and is down trending. Echo was reviewed which was notable for an ejection fraction of 50-55% with moderate left ventricular diastolic dysfunction mild aortic regurgitation and mild to moderate mitral regurgitation, moderate to severe tricuspid regurgitation and severe pulmonary hypertension. DA PT is on hold for CAD but likely safe to restart aspirin given patient's stability. Cardiology was following patient we appreciated the recommendations they say patient is not stable enough for left heart catheterization as kidney function does need to get better. Continue volume removal with continuous renal replacement therapy (4) JOSH (acute kidney injury) Current Visit: Yes Status: Acute Patient does have history of chronic kidney disease his normal creatinine is around 2.3. He has never had be on dialysis. Patient did present here and he had a creatinine 8.6 and has been downtrending after patient was started on dialysis were now most recently today it is 1.85. Nephrology is following the patient through Dr. Winchester Patient still on dialysis. We will continue to monitor nephrology is goal is to take off 100 mL per hour (5) Dehydration Current Visit: Yes Status: Acute Patient was dehydrated when he first was admitted he was given 3 L of IV fluids prior to his arrival here and given another liter bolus here. This ended up going into pulmonary edema. Dehydration is mainly subsided Patient easily could become dehydrated again as his kidney function is still poor while not on dialysis. So we will continue to monitor. Strict I's and O's as well as fluid resuscitation as needed (6) Hyperkalemia Current Visit: Yes Status: Acute Patient is hyperkalemic due to chronic kidney disease and acute kidney injury. This has normalized to where he is now having potassium of 4.6. We will continue to monitor (7) Hyponatremia Current Visit: Yes Status: Acute Patient was hyponatremic when he arrived most likely due to dehydration we will continue to monitor. Dialysis is helping with this as well. 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 Dr. Johns has seen the patient and they say there is no orthopedic intervention required at this time and will reconsult when necessary. At this time there is no need to reconsult orthopedics (9) Coronary artery disease Current Visit: Yes Status: Chronic Patient does have history of coronary artery disease patient is back on his aspirin will hold all her medications due to patient's poor status at this time. Qualifiers: Coronary Disease-Associated Artery/Lesion type: [place] artery [place] vs. transplanted heart: [place] heart Associated angina: without angina Qualified Code(s): I25.10 - Atherosclerotic heart disease of [place] coronary artery without angina pectoris (10) Hypertension Current Visit: No Status: Chronic Patient is currently hypotensive does have history of hypertension we will hold all home hypertensive medications. Qualifiers: Hypertension type: unspecified Qualified Code(s): I10 - Essential (primary ) hypertension (11) Hyperlipidemia Current Visit: No Status: Chronic Continue home medications Qualifiers: Hyperlipidemia type: unspecified Qualified Code(s): E78.5 - Hyperlipidemia , unspecified (12) Chronic renal disease, stage IV Current Visit: No Status: Anali Stephens's EKG baseline creatinine is 2.3 when he presented here he was 8.0. Creatinine has gone down since being on dialysis. We will continue to monitor. Patient is being followed by nephrology Dr. Winchester we appreciate their recommendations (13) Pneumonia Current Visit: Yes Status: Acute Patient did have acute hypoxic respiratory failure in large part due to the hydrostatic pulmonary edema from his heart failure with his hemoptysis. Bronchoscopy was done but was not consistent with a diffuse alveolar hemorrhage however they could have been due to the increased hydrostatic pressure in contact with acute lung injury in the patient while he was on dual antiplatelet therapy. Patient is doing well on the ventilator. Patient's P Pat had to be increased where slowly decreasing as patient tolerates. FiO2 has been decreased to 30 which is better. He is keeping his saturations around upper 90% . Blood Cultures have been negative 2 Bronchoscopy pathology came back positive for Haemophilus influenza susceptibilities are still pending Patient is on day #3 of Zon for antibiotics we will de-escalate/change once susceptibilities come back Steroids have been stopped where continuing antibiotics and bronchodilators. This is day Qualifiers: Pneumonia type: due to Haemophilus influenzae Laterality: unspecified laterality Lung location: unspecified part of lung Qualified Code(s): J14 - Pneumonia due to Hemophilus influenzae (14) Pulmonary alveolar hemorrhage Current Visit: Yes Status: Acute Through the ET tube suctioned out was pink frothy fluid that we are worried about was possibly alveolar hemorrhage. Bronchoscopy did not show any signs of hemorrhage. This most likely was secondary to his CHF and pulmonary hypertension. There has not been any signs of other hemorrhage coming out of the ET tube during since he was last initially intubated and had a bronchoscopy done. Continue to monitor (15) Diabetes type 2, controlled Current Visit: Yes Status: Chronic Patient is a known type II diabetic does need long-term insulin. Patient is currently on the high-dose sliding scale of insulin. Blood sugars have been stable we will continue to monitor Qualifiers: Diabetes mellitus manager intermediate insulin use: without fpc use Diabetes mellitus complication status: with kidney complications Diabetes mellitus complication detail: with chronic kidney disease Chronic kidney disease stage : stage 3 (moderate) Qualified Code(s): E11.22 - Type 2 diabetes mellitus with diabetic chronic kidney disease; N18.3 - Chronic kidney disease, stage 3 ( moderate) (16) Anemia Current Visit: Yes Status: Acute Patient has been anemic during his entire stay here. He recently came in with hemoglobin of 9.1 is now 7.8. We will continue to monitor. There is no active bleeding anywhere. Was likely secondary to his chronic kidney disease and decreased kidney function. We will continue to monitor. Transfuse packed red blood cells as necessary Qualifiers: Anemia type: due to chronic kidney disease Chronic kidney disease stage: stage 3 (moderate) Qualified Code(s): N18.3 - Chronic kidney disease, stage 3 (moderate); D63.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 (17) Cardiorenal syndrome with renal failure Current Visit: Yes Status: Acute See above, patient most likely is not cardio renal failure and nephrology and cardiology avulsing the patient and we appreciate their recommendations. They should normalize once the kidney function and cardiac function normalizes. (18) DVT prophylaxis Current Visit: Yes Status: Acute Subcutaneous heparin Subjective Principal diagnosis: JOSH Interval history: No acute events overnight. Patient is still intubated and upon arrival this morning. We will attempt to decrease sedation and have a CPAP trial to see how patient does see we can wean him off the ventilator. Patient is still on dialysis with nephrology. Objective PUL Vital signs: Last Vital Signs Temp 97.8 F 08/07/17 04:00 Pulse 64 08/07/17 07:00 Resp 20 08/07/17 07:00 BP 112/62 08/07/17 07:00 Pulse Ox 100 08/07/17 07:00 General appearance: no acute distress, other (Somnolent and sedated on a ventilator and intubated) Eyes: nonicteric ENT: oropharynx moist Neck: supple Effort: normal Auscultation: bilateral: diminished breath sounds, rales Cardiovascular: regular rate and rhythm Gastrointestinal: normoactive bowel sounds, non-distended Integumentary: normal Extremities: no cyanosis, no edema, no clubbing Musculoskeletal: no deformities, ROM normal non-focal exam, pupils equal and round Ventilator Settings Ventilator Settings: Ventilator Settings, Last 8 Hours Ventilator Mode VC+ Ventilator Mode VC+ Ventilator Mode VC+ Ventilator Tidal Volume 450 Setting Ventilator Tidal Volume 450 Setting Ventilator Tidal Volume 450 Setting Ventilator Tidal Volume 450 Setting Ventilator Tidal Volume 450 Setting Ventilator Tidal Volume 450 Setting Ventilator Tidal Volume 450 Setting Ventilator Tidal Volume 450 Setting Ventilator Tidal Volume 450 Setting Ventilator Tidal Volume 450 Setting Ventilator Tidal Volume 450 Setting Ventilator Tidal Volume 450 Setting Ventilator Respiratory Rate 20 Setting Ventilator Respiratory Rate 20 Setting Ventilator Respiratory Rate 20 Setting Ventilator Respiratory Rate 20 Setting Ventilator Respiratory Rate 20 Setting Ventilator Respiratory Rate 20 Setting Ventilator Respiratory Rate 20 Setting Ventilator Respiratory Rate 20 Setting Ventilator Respiratory Rate 20 Setting Ventilator Respiratory Rate 20 Setting Ventilator Respiratory Rate 20 Setting Ventilator Respiratory Rate 20 Setting Actual Respiratory Rate 20 Actual Respiratory Rate 22 Actual Respiratory Rate 20 Actual Respiratory Rate 20 Actual Respiratory Rate 20 Actual Respiratory Rate 20 Actual Respiratory Rate 20 Actual Respiratory Rate 20 Actual Respiratory Rate 21 Actual Respiratory Rate 20 Actual Respiratory Rate 20 Positive End Expiratory 10 Pressure Positive End Expiratory 10 Pressure Positive End Expiratory 10 Pressure Positive End Expiratory 10 Pressure Positive End Expiratory 10 Pressure Positive End Expiratory 10 Pressure Positive End Expiratory 10 Pressure Positive End Expiratory 10 Pressure Positive End Expiratory 10 Pressure Positive End Expiratory 10 Pressure Positive End Expiratory 10 Pressure Positive End Expiratory 10 Pressure Peak Inspiratory Airway 24 Pressure Peak Inspiratory Airway 24 Pressure Peak Inspiratory Airway 25 Pressure Peak Inspiratory Airway 27 Pressure Peak Inspiratory Airway 27 Pressure Peak Inspiratory Airway 28 Pressure Peak Inspiratory Airway 25 Pressure Peak Inspiratory Airway 26 Pressure Peak Inspiratory Airway 26 Pressure Peak Inspiratory Airway 25 Pressure Peak Inspiratory Airway 25 Pressure Results - Laboratory Findings CBC and BMP: 08/07/17 03:30 08/07/17 03:30 ABG ABG pH 7.32 pH Units (7.32-7.45) 08/07/17 05:14 ABG pCO2 58 mmHg (35-45) H 08/07/17 05:14 ABG pO2 82 mmHg (85-104) L 08/07/17 05:14 ABG O2 Saturation 95 % (95-98) 08/07/17 05:14 PT/INR, D-dimer PT 11.4 Seconds (9.4-12.1) 08/05/17 04:08 Abnormal lab findings: Abnormal lab results WBC 14.8 K/mcL (4.3-11.1) H 08/07/17 03:30 RBC 2.48 M/mcL (4.19-5.50) L 08/07/17 03:30 Hgb 7.8 g/dL (12.9-16.9) L 08/07/17 03:30 Hct 24.6 % (37.5-50.1) L 08/07/17 03:30 RDW 15.0 % (11.5-14.5) H 08/07/17 03:30 Neutrophils # 12.4 K/mcL (1.6-8.9) H 08/07/17 03:30 Nucleated RBCs/100 WBC 0.2 /100 WBC (0) H 08/07/17 03:30 APTT 76.1 Seconds (26.0-36.0) H 08/02/17 07:04 ABG pCO2 58 mmHg (35-45) H 08/07/17 05:14 ABG pO2 82 mmHg (85-104) L 08/07/17 05:14 ABG HCO3 30 mEq/L (21-27) H 08/07/17 05:14 ABG Total CO2 32 mEq/L (20-26) H 08/07/17 05:14 Creatinine 1.85 mg/dL (0.70-1.30) H 08/07/17 03:30 Est GFR ( Amer) 43 (> 60) L 08/07/17 03:30 Est GFR (Non-Af Amer) 36 (> 60) L 08/07/17 03:30 Calcium 8.2 mg/dL (8.6-10.3) L 08/07/17 03:30 Venous Ioniz Calcium 1.00 mmol/L (1.15-1.35) L 08/02/17 07:26 Phosphorus 1.8 mg/dL (2.7-4.5) L 08/07/17 03:30 Direct Bilirubin 0.5 mg/dL (0.0-0.2) H 08/03/17 13:34 AST 70 Units/L (13-39) H 08/03/17 13:34 Alkaline Phosphatase 210 Units/L (34-104) H 08/03/17 13:34 Creatine Kinase 669 Units/L (30-223) H 08/02/17 07:04 Troponin I 4.93 ng/mL (< 0.04) H* 08/02/17 12:49 Serum Total Protein 5.5 g/dL (6.4-8.9) L 08/03/17 13:34 Albumin 2.8 g/dL (3.5-5.7) L 08/03/17 13:34 Albumin/Globulin Ratio 1.0 (1.1-2.2) L 08/03/17 13:34 HDL Cholesterol 19 mg/dL (40-59) L 08/02/17 07:04 Procalcitonin 3.93 ng/mL (<=0.10) H 08/03/17 09:17 Urine Protein 100 mg/dL (Neg-Trace) H 08/02/17 10:30 Urine Ketones Trace mg/dL (Negative) H 08/02/17 10:30 Urine Blood Large (Negative) H 08/02/17 10:30 Urine Bilirubin Small (Negative) H 08/02/17 10:30 Ur Leukocyte Esterase Small (Negative) H 08/02/17 10:30 Urine Microscopic RBC 30-50 per hpf (0-3) H 08/02/17 10:30 Urine Microscopic WBC 50-100 per hpf (0-3) H 08/02/17 10:30 Ur Squamous Epith Cells Many per lpf (None-Few) H 08/02/17 10:30 Urine Bacteria Many per hpf (None-Few) H 08/02/17 10:30 Granular Casts Few per lpf (None Seen) H 08/02/17 10:30 Ur Culture Indicated? NO. (NO) A 08/02/17 10:30 Fluid Appearance Cloudy (Clear) A 08/03/17 08:30 - Microbiology Findings Microbiology Findings: Microbiology, Last 48 Hours 08/03/17 08:30 Acid Fast Stain - Final Right Middle Lobe Lung 08/03/17 08:30 Gram Stain - Final Right Middle Lobe Lung Respiratory Culture - Final Haemophilus influenzae - Clinical Findings Intake & Output: Intake & Output 08/06/17 08/06/17 08/07/17 15:59 23:59 07:59 Intake Total 253.6 / 253.6 184.5 / 184.5 138.3 / 138.3 Output Total 703 / 703 795 / 795 865 / 865 Balance -449.4 / -449.4 -610.5 / -610.5 -726.7 / -726.7 Weight 78.4 kg - VTE Documentation of Mechanical Device: Intermittent pneumatic compression device Consult Discharge Plan - Plan Referrals: Nubia Field MD [Primary Care Provider] - <Vy Scales - Last Filed: 08/07/17 15:53> Date of Encounter: 08/07/17 Objective PUL Vital signs: Last Vital Signs Temp 98.4 F 08/07/17 08:42 Pulse 64 08/07/17 08:42 Resp 20 08/07/17 08:42 BP 105/57 08/07/17 08:42 Pulse Ox 100 08/07/17 08:42 Ventilator Settings Ventilator Settings: Ventilator Settings, Last 8 Hours Ventilator Mode VC+ Ventilator Tidal Volume 450 Setting Ventilator Tidal Volume 450 Setting Ventilator Tidal Volume 450 Setting Ventilator Tidal Volume 450 Setting Ventilator Tidal Volume 450 Setting Ventilator Tidal Volume 450 Setting Ventilator Tidal Volume 450 Setting Ventilator Tidal Volume 450 Setting Ventilator Tidal Volume 450 Setting Ventilator Tidal Volume 450 Setting Ventilator Tidal Volume 450 Setting Ventilator Tidal Volume 450 Setting Ventilator Respiratory Rate 20 Setting Ventilator Respiratory Rate 20 Setting Ventilator Respiratory Rate 20 Setting Ventilator Respiratory Rate 20 Setting Ventilator Respiratory Rate 20 Setting Ventilator Respiratory Rate 20 Setting Ventilator Respiratory Rate 20 Setting Ventilator Respiratory Rate 20 Setting Ventilator Respiratory Rate 20 Setting Ventilator Respiratory Rate 20 Setting Ventilator Respiratory Rate 20 Setting Ventilator Respiratory Rate 20 Setting Actual Respiratory Rate 20 Actual Respiratory Rate 20 Actual Respiratory Rate 20 Actual Respiratory Rate 22 Actual Respiratory Rate 20 Actual Respiratory Rate 20 Actual Respiratory Rate 20 Actual Respiratory Rate 20 Actual Respiratory Rate 20 Actual Respiratory Rate 20 Actual Respiratory Rate 21 Positive End Expiratory 8 Pressure Positive End Expiratory 8 Pressure Positive End Expiratory 10 Pressure Positive End Expiratory 10 Pressure Positive End Expiratory 10 Pressure Positive End Expiratory 10 Pressure Positive End Expiratory 10 Pressure Positive End Expiratory 10 Pressure Positive End Expiratory 10 Pressure Positive End Expiratory 10 Pressure Positive End Expiratory 10 Pressure Positive End Expiratory 10 Pressure Peak Inspiratory Airway 24 Pressure Peak Inspiratory Airway 24 Pressure Peak Inspiratory Airway 24 Pressure Peak Inspiratory Airway 24 Pressure Peak Inspiratory Airway 25 Pressure Peak Inspiratory Airway 27 Pressure Peak Inspiratory Airway 27 Pressure Peak Inspiratory Airway 28 Pressure Peak Inspiratory Airway 25 Pressure Peak Inspiratory Airway 26 Pressure Peak Inspiratory Airway 26 Pressure Results - Laboratory Findings CBC and BMP: 08/07/17 03:30 08/07/17 03:30 ABG ABG pH 7.32 pH Units (7.32-7.45) 08/07/17 05:14 ABG pCO2 58 mmHg (35-45) H 08/07/17 05:14 ABG pO2 82 mmHg (85-104) L 08/07/17 05:14 ABG O2 Saturation 95 % (95-98) 08/07/17 05:14 PT/INR, D-dimer PT 11.4 Seconds (9.4-12.1) 08/05/17 04:08 Abnormal lab findings: Abnormal lab results WBC 14.8 K/mcL (4.3-11.1) H 08/07/17 03:30 RBC 2.48 M/mcL (4.19-5.50) L 08/07/17 03:30 Hgb 7.8 g/dL (12.9-16.9) L 08/07/17 03:30 Hct 24.6 % (37.5-50.1) L 08/07/17 03:30 RDW 15.0 % (11.5-14.5) H 08/07/17 03:30 Neutrophils # 12.4 K/mcL (1.6-8.9) H 08/07/17 03:30 Nucleated RBCs/100 WBC 0.2 /100 WBC (0) H 08/07/17 03:30 APTT 76.1 Seconds (26.0-36.0) H 08/02/17 07:04 ABG pCO2 58 mmHg (35-45) H 08/07/17 05:14 ABG pO2 82 mmHg (85-104) L 08/07/17 05:14 ABG HCO3 30 mEq/L (21-27) H 08/07/17 05:14 ABG Total CO2 32 mEq/L (20-26) H 08/07/17 05:14 Creatinine 1.85 mg/dL (0.70-1.30) H 08/07/17 03:30 Est GFR ( Amer) 43 (> 60) L 08/07/17 03:30 Est GFR (Non-Af Amer) 36 (> 60) L 08/07/17 03:30 Calcium 8.2 mg/dL (8.6-10.3) L 08/07/17 03:30 Venous Ioniz Calcium 1.00 mmol/L (1.15-1.35) L 08/02/17 07:26 Phosphorus 1.8 mg/dL (2.7-4.5) L 08/07/17 03:30 Direct Bilirubin 0.5 mg/dL (0.0-0.2) H 08/03/17 13:34 AST 70 Units/L (13-39) H 08/03/17 13:34 Alkaline Phosphatase 210 Units/L (34-104) H 08/03/17 13:34 Creatine Kinase 669 Units/L (30-223) H 08/02/17 07:04 Troponin I 4.93 ng/mL (< 0.04) H* 08/02/17 12:49 Serum Total Protein 5.5 g/dL (6.4-8.9) L 08/03/17 13:34 Albumin 2.8 g/dL (3.5-5.7) L 08/03/17 13:34 Albumin/Globulin Ratio 1.0 (1.1-2.2) L 08/03/17 13:34 HDL Cholesterol 19 mg/dL (40-59) L 08/02/17 07:04 Procalcitonin 3.93 ng/mL (<=0.10) H 08/03/17 09:17 Urine Protein 100 mg/dL (Neg-Trace) H 08/02/17 10:30 Urine Ketones Trace mg/dL (Negative) H 08/02/17 10:30 Urine Blood Large (Negative) H 08/02/17 10:30 Urine Bilirubin Small (Negative) H 08/02/17 10:30 Ur Leukocyte Esterase Small (Negative) H 08/02/17 10:30 Urine Microscopic RBC 30-50 per hpf (0-3) H 08/02/17 10:30 Urine Microscopic WBC 50-100 per hpf (0-3) H 08/02/17 10:30 Ur Squamous Epith Cells Many per lpf (None-Few) H 08/02/17 10:30 Urine Bacteria Many per hpf (None-Few) H 08/02/17 10:30 Granular Casts Few per lpf (None Seen) H 08/02/17 10:30 Ur Culture Indicated? NO. (NO) A 08/02/17 10:30 Fluid Appearance Cloudy (Clear) A 08/03/17 08:30 - Microbiology Findings Microbiology Findings: Microbiology, Last 48 Hours 08/03/17 08:30 Acid Fast Stain - Final Right Middle Lobe Lung 08/03/17 08:30 Gram Stain - Final Right Middle Lobe Lung Respiratory Culture - Final Haemophilus influenzae - Clinical Findings Intake & Output: Intake & Output 08/06/17 08/07/17 08/07/17 23:59 07:59 15:59 Intake Total 184.5 / 184.5 138.3 / 138.3 Output Total 795 / 795 865 / 865 98 / 98 Balance -610.5 / -610.5 -726.7 / -726.7 -98 / -98 Weight 78.4 kg - Attending Attestation I examined this patient and my medical decision-making was reviewed with the Resident Physician. I agree with the documented findings, disposition and treatment plan as described except to the extent set forth below. Patient seen and examined. Labs, radiology, chart personally reviewed. Agree with resident's history and physical, assessment, plan with following comments: HARNESSMAKER: Patient still on sedation and will wean off for SBT, Pulmonary: Acceptable oxygenation and ventilation lowered PEEP and try SBT. Cardiovascular: stable GI: Nutrition per dietary and GI prophylaxis per routine Heme: DVT prophylaxis per routine ID: Continue antibiotics and plan to de-escalation Renal; urine out put and renal funtion reviewed. Nephrology is following up and replace electrolytes. Endorcine: blood glucose is monitored Lines: all lines checked and no evidence of infections Skin: skin care to prevent pressure ulcers per nursing routine care
[2017-08-07] MEDS: Aspirin 81 MG TAB.CHEW PO SCH (08:22)
[2017-08-07] MEDS: Cholecalciferol (D-3) 1,000 UNIT TABLET PO SCH (08:22)
[2017-08-07] MEDS: Chlorhexidine Rinse 15 ML MOUTHWASH MM SCH ×2 (08:23→20:17)
[2017-08-07] MEDS: Pantoprazole 40 MG VIAL IVP SCH (08:23)
--- NOTE | 2017-08-07 09:03 | Nephrology Progress Note ---
Date of Encounter: 08/07/17 Time of Encounter: 08:35 - Assessment and Plan (1) JOSH (acute kidney injury) Current Visit: Yes Status: Acute JOSH superimposed on CKD. Baseline creatinine is around 2.23. JOSH setting of an STEMI, what appears to be acute blood loss anemia, hypotension, respiratory failure. Creat 1.85, anuric. NAINA attempt fluid removal rate net +100 as anders. (2) Acute blood loss anemia Current Visit: No Status: Acute (3) NSTEMI (non-ST elevated myocardial infarction) Current Visit: Yes Status: Acute Subjective Principal diagnosis: JOSH Interval history: Intubated, sedated, off pressor since 2300 last night. FIO2 30, peep 8. Nursing states obtaining net +100 volume removal on CVVH. Objective - Vital Signs Vital signs: Vital Signs Temp Pulse Resp BP Pulse Ox 08/07/17 08:00 98.4 F 64 20 105/57 100 08/07/17 07:32 20 92/61 96 08/07/17 07:00 64 20 112/62 100 08/07/17 06:00 66 22 102/63 95 08/07/17 05:18 23 122/55 96 08/07/17 05:00 60 22 107/72 98 08/07/17 04:00 97.8 F 60 20 105/65 100 08/07/17 03:30 21 90/55 100 08/07/17 03:22 69 08/07/17 03:00 73 20 118/73 98 08/07/17 02:00 64 20 92/76 100 08/07/17 01:39 20 94/54 100 08/07/17 01:00 70 20 100/53 100 08/07/17 00:00 98.0 F 69 20 94/51 100 08/06/17 23:30 67 08/06/17 23:12 20 94/72 100 08/06/17 23:00 80 20 94/72 100 08/06/17 22:00 73 21 102/63 99 08/06/17 21:39 20 101/56 96 08/06/17 21:00 86 20 99/70 98 08/06/17 20:00 98.2 F 56 21 101/52 100 08/06/17 19:43 20 97/63 100 08/06/17 19:24 67 08/06/17 19:00 63 20 107/51 98 08/06/17 18:00 56 20 105/53 100 08/06/17 17:00 59 20 114/55 100 08/06/17 16:51 21 108/54 100 08/06/17 16:00 97.5 F L 58 20 108/52 97 08/06/17 15:30 21 105/68 100 08/06/17 15:00 61 20 98/67 100 08/06/17 14:00 61 20 105/66 100 08/06/17 13:00 50 20 88/56 100 08/06/17 12:00 98 F 121 20 94/63 100 08/06/17 11:46 23 131/52 100 08/06/17 11:00 62 20 97/61 100 08/06/17 10:00 64 22 127/69 100 08/06/17 09:39 23 76/48 100 Intake and Output 08/06/17 08/07/17 08/07/17 23:59 07:59 15:59 Intake Total 184.5 / 184.5 138.3 / 138.3 Output Total 795 / 795 865 / 865 Balance -610.5 / -610.5 -726.7 / -726.7 Intake: IV Fluids 184.5 / 184.5 138.3 / 138.3 PrismaSATE BGK 4/2.5 5,000 ML @ 0 / 0 0 / 0 2000 mls/hr CRRT CONT ESTEFANÍA Rx#: [id number] FentaNYL (PF) 2,500 MCG In 29.4 / 29.4 38.3 / 38.3 Empty Bag 1 Each @ 50 MCG/HR 1 mls/hr IVC CONT ESTEFANÍA Rx#: [id number] Levophed 4 MG In Dextrose 5% 55.1 / 55.1 250 ML @ 8 MCG/MIN 30.48 mls/hr IVC CONT ESTEFANÍA Rx#:[id number] Zosyn 3.375 GM In 0.9 % Sodium 100.0 / 100.0 100 / 100 Chloride (Mini-Bag +) 100 ML @ 25 mls/hr IVPB Q8H ESTEFANÍA Rx#: [id number] Oral 0 / 0 Output: Naina 595 / 595 865 / 865 Catheter 0 / 0 0 / 0 Gastric Drainage 200 / 200 0 / 0 Other: Weight 78.4 kg Blood Glucose* 99 85 78 Patient Weight 08/07/17 23:59 Weight 78.4 kg - General Appearance General appearance: Present: well-developed, appears started age EENT: Present: mucous membranes moist Neck: Present: no JVD Respiratory: Present: rhonchi Cardiology: Present: no edema, irregular rhythm Dialysis Vascular Access: Venous Catheter Gastrointestinal: Present: hypoactive bowel sounds Integumentary: Present: warm and dry - Lab 08/07/17 03:30 08/07/17 03:30 Most recent lab results ABG pH 7.32 pH Units (7.32-7.45) 08/07/17 05:14 ABG pCO2 58 mmHg (35-45) H 08/07/17 05:14 ABG pO2 82 mmHg (85-104) L 08/07/17 05:14 ABG HCO3 30 mEq/L (21-27) H 08/07/17 05:14 ABG O2 Saturation 95 % (95-98) 08/07/17 05:14 Calcium 8.2 mg/dL (8.6-10.3) L 08/07/17 03:30 Phosphorus 1.8 mg/dL (2.7-4.5) L 08/07/17 03:30 Magnesium 2.6 mg/dL (1.6-2.6) 08/07/17 03:30 - VTE Documentation of Mechanical Device: Intermittent pneumatic compression device Consult Discharge Plan - Plan Referrals: Nubia Field MD [Primary Care Provider] -
--- NOTE | 2017-08-07 14:41 | Electrocardiograph Report ---
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
[2017-08-07] MEDS ORDERED: *HR* Heparin 5,000 UNIT/ML VIAL ONE (19:20)
[2017-08-07] MEDS: *HR* Heparin 5,000 UNIT/ML VIAL IV PRN (19:43)
[2017-08-07] MEDS: Dexmedetomidine HCl 400 MCG/100 ML MLS IVC SCH (20:16)
[2017-08-07] MEDS: Norepinephrine 4 MG in D5% in Water 250 ML IVC SCH (21:04)
[2017-08-07] MEDS ORDERED: *HR* Metoprolol 5 MG/5 ML VIAL IVP ONE (22:25)
[2017-08-08] MEDS: PrismaSATE BGK 4/2.5 5,000 ML CRRT SCH ×10 (00:20→22:02)
[2017-08-08] MEDS: Insulin LISPRO 300 UNITS/3 ML VIAL SQ SCH ×7 (00:20→23:04)
[2017-08-08] MEDS: Piperacillin/Tazobactam 3.375 GM in 0.9 % Sodium Chloride Mini Bag 100 ML IVPB SCH ×3 (00:20→16:58)
[2017-08-08] MEDS: Lacri-Lube 3.5 GM TUBE BOTH EYES SCH ×7 (00:20→21:07)
[2017-08-08] MEDS: *HR* LORazepam 2 MG/ML VIAL IVP PRN (03:50)
[2017-08-08 04:05] LABS: Basophils % 0.1 %; Eosinophils % 0.1 %; Hematocrit 25.3 % (37.5-50.1); Immature Platelets 5.1 % (1.1-6.1); Lymphocytes # 1.3 K/mcL (0.6-4.6); Lymphocytes % 7.7 %; Mean Corpuscular HGB Conc 31.6 g/dL (31.6-35.5); Mean Corpuscular Hemoglobin 31.4 pg (28.0-33.3); Mean Corpuscular Volume 99.2 fL (83.0-100.0); Mean Platelet Volume 10.1 fL (9.4-12.4); Monocytes # 0.9 K/mcL (0.0-1.3); Monocytes % 5.1 %; Neutrophils # 14.2 K/mcL (1.6-8.9); Platelet Count 188 K/mcL (140-400); Red Blood Count 2.55 M/mcL (4.19-5.50); Red Cell Distribution Width 15.2 % (11.5-14.5)
[2017-08-08] MEDS: FentaNYL (PF) 2,500 MCG in EMPTY BAG 1 EACH IVC SCH (05:09)
[2017-08-08] MEDS: *HR* Heparin 5,000 UNIT/ML VIAL SQ SCH ×3 (05:11→21:05)
[2017-08-08 05:12] LABS: Calcium 8.2 mg/dL (8.6-10.3); Potassium 4.5 mEq/L (3.5-5.1)
[2017-08-08 06:00] LABS: ABG Base Excess 2 mEq/L (-2 to 3); ABG HCO3 28 mEq/L (21-27); ABG Oxygen Saturation 93 % (95-98); ABG PCO2 54 mmHg (35-45); ABG PH 7.33 pH Units (7.32-7.45); ABG PO2 74 mmHg (85-104); ABG TCO2 30 mEq/L (20-26); Blood Gas Modality VC; Blood Gas PEEP 8 cm H2O; Blood Gas Respiration Rate 20; Blood Gas VT 450 cc
--- NOTE | 2017-08-08 07:53 | Pulmonology Progress Note ---
<Vy Scales M - Last Filed: 08/08/17 09:55> Date of Encounter: 08/08/17 Objective PUL Vital signs: Last Vital Signs Temp 98.0 F 08/08/17 08:00 Pulse 64 08/08/17 09:00 Resp 10 08/08/17 09:28 BP 114/58 08/08/17 09:28 Pulse Ox 98 08/08/17 09:28 Ventilator Settings Ventilator Settings: Ventilator Settings, Last 8 Hours Ventilator Mode CPAP Ventilator Mode CPAP Ventilator Mode A/C Ventilator Mode VC+ Ventilator Mode VC+ Ventilator Mode VC+ Ventilator Mode VC+ Ventilator Tidal Volume 450 Setting Ventilator Tidal Volume 450 Setting Ventilator Tidal Volume 450 Setting Ventilator Tidal Volume 450 Setting Ventilator Tidal Volume 450 Setting Ventilator Tidal Volume 450 Setting Ventilator Tidal Volume 450 Setting Ventilator Tidal Volume 450 Setting Ventilator Respiratory Rate 20 Setting Ventilator Respiratory Rate 20 Setting Ventilator Respiratory Rate 20 Setting Ventilator Respiratory Rate 20 Setting Ventilator Respiratory Rate 20 Setting Ventilator Respiratory Rate 20 Setting Ventilator Respiratory Rate 20 Setting Actual Respiratory Rate 10 Actual Respiratory Rate 12 Actual Respiratory Rate 11 Actual Respiratory Rate 12 Actual Respiratory Rate 20 Actual Respiratory Rate 22 Actual Respiratory Rate 22 Actual Respiratory Rate 20 Actual Respiratory Rate 20 Actual Respiratory Rate 20 Actual Respiratory Rate 21 Positive End Expiratory 5 Pressure Positive End Expiratory 5 Pressure Positive End Expiratory 5 Pressure Positive End Expiratory 8 Pressure Positive End Expiratory 8 Pressure Positive End Expiratory 8 Pressure Positive End Expiratory 8 Pressure Positive End Expiratory 8 Pressure Positive End Expiratory 8 Pressure Positive End Expiratory 8 Pressure Positive End Expiratory 8 Pressure Positive End Expiratory 8 Pressure Peak Inspiratory Airway 11 Pressure Peak Inspiratory Airway 10 Pressure Peak Inspiratory Airway 11 Pressure Peak Inspiratory Airway 18 Pressure Peak Inspiratory Airway 30 Pressure Peak Inspiratory Airway 22 Pressure Peak Inspiratory Airway 22 Pressure Peak Inspiratory Airway 24 Pressure Peak Inspiratory Airway 24 Pressure Peak Inspiratory Airway 21 Pressure Peak Inspiratory Airway 23 Pressure Results - Laboratory Findings CBC and BMP: 08/08/17 04:00 08/08/17 03:50 ABG ABG pH 7.33 pH Units (7.32-7.45) 08/08/17 05:55 ABG pCO2 54 mmHg (35-45) H 08/08/17 05:55 ABG pO2 74 mmHg (85-104) L 08/08/17 05:55 ABG O2 Saturation 93 % (95-98) L 08/08/17 05:55 PT/INR, D-dimer PT 11.4 Seconds (9.4-12.1) 08/05/17 04:08 Abnormal lab findings: Abnormal lab results WBC 17.1 K/mcL (4.3-11.1) H 08/08/17 04:00 RBC 2.55 M/mcL (4.19-5.50) L 08/08/17 04:00 Hgb 8.0 g/dL (12.9-16.9) L 08/08/17 04:00 Hct 25.3 % (37.5-50.1) L 08/08/17 04:00 RDW 15.2 % (11.5-14.5) H 08/08/17 04:00 Neutrophils # 14.2 K/mcL (1.6-8.9) H 08/08/17 04:00 Nucleated RBCs/100 WBC 0.2 /100 WBC (0) H 08/07/17 03:30 APTT 76.1 Seconds (26.0-36.0) H 08/02/17 07:04 ABG pCO2 54 mmHg (35-45) H 08/08/17 05:55 ABG pO2 74 mmHg (85-104) L 08/08/17 05:55 ABG HCO3 28 mEq/L (21-27) H 08/08/17 05:55 ABG Total CO2 30 mEq/L (20-26) H 08/08/17 05:55 ABG O2 Saturation 93 % (95-98) L 08/08/17 05:55 Creatinine 1.79 mg/dL (0.70-1.30) H 08/08/17 03:50 Est GFR ( Amer) 45 (> 60) L 08/08/17 03:50 Est GFR (Non-Af Amer) 37 (> 60) L 08/08/17 03:50 Calcium 8.2 mg/dL (8.6-10.3) L 08/08/17 03:50 Venous Ioniz Calcium 1.00 mmol/L (1.15-1.35) L 08/02/17 07:26 Phosphorus 1.8 mg/dL (2.7-4.5) L 08/07/17 03:30 Direct Bilirubin 0.5 mg/dL (0.0-0.2) H 08/03/17 13:34 AST 70 Units/L (13-39) H 08/03/17 13:34 Alkaline Phosphatase 210 Units/L (34-104) H 08/03/17 13:34 Creatine Kinase 669 Units/L (30-223) H 08/02/17 07:04 Troponin I 4.93 ng/mL (< 0.04) H* 08/02/17 12:49 Serum Total Protein 5.5 g/dL (6.4-8.9) L 08/03/17 13:34 Albumin 2.8 g/dL (3.5-5.7) L 08/03/17 13:34 Albumin/Globulin Ratio 1.0 (1.1-2.2) L 08/03/17 13:34 HDL Cholesterol 19 mg/dL (40-59) L 08/02/17 07:04 Procalcitonin 3.93 ng/mL (<=0.10) H 08/03/17 09:17 Urine Protein 100 mg/dL (Neg-Trace) H 08/02/17 10:30 Urine Ketones Trace mg/dL (Negative) H 08/02/17 10:30 Urine Blood Large (Negative) H 08/02/17 10:30 Urine Bilirubin Small (Negative) H 08/02/17 10:30 Ur Leukocyte Esterase Small (Negative) H 08/02/17 10:30 Urine Microscopic RBC 30-50 per hpf (0-3) H 08/02/17 10:30 Urine Microscopic WBC 50-100 per hpf (0-3) H 08/02/17 10:30 Ur Squamous Epith Cells Many per lpf (None-Few) H 08/02/17 10:30 Urine Bacteria Many per hpf (None-Few) H 08/02/17 10:30 Granular Casts Few per lpf (None Seen) H 08/02/17 10:30 Ur Culture Indicated? NO. (NO) A 08/02/17 10:30 Fluid Appearance Cloudy (Clear) A 08/03/17 08:30 - Microbiology Findings Microbiology Findings: Microbiology, Last 48 Hours 08/02/17 12:49 Blood Culture - Final Peripheral Venipuncture No growth. 08/02/17 12:49 Blood Culture - Final Peripheral Venipuncture No growth. - Clinical Findings Intake & Output: Intake & Output 08/07/17 08/08/17 08/08/17 23:59 07:59 15:59 Intake Total 121.6 / 121.6 128.4 / 128.4 33.7 / 33.7 Output Total 549 / 549 64 / 64 0 / 0 Balance -427.4 / -427.4 64.4 / 64.4 33.7 / 33.7 Weight 76.7 kg Consult Discharge Plan - Plan Referrals: Nubia Field MD [Primary Care Provider] - - Attending Attestation I examined this patient and my medical decision-making was reviewed with the Resident Physician. I agree with the documented findings, disposition and treatment plan as described except to the extent set forth below. Patient seen and examined. Labs, radiology, chart personally reviewed. Agree with resident's history and physical, assessment, plan with following comments: SEAMLESS T[employer]BE [employer]ER: Patient follows commands, continuing to wean off sedation. Pulmonary: Acceptable oxygenation and ventilation and is tolerating spontaneous breathing trial most likely plan for extubation Cardiovascular: stable and I suspect he is intravascular volume depleted. GI: Nutrition per dietary and GI prophylaxis per routine Heme: DVT prophylaxis per routine Renal; urine out put and renal funtion reviewed and renal replacement per nephrology Endorcine: blood glucose is monitored Lines: all lines checked and no evidence of infections Skin: skin care to prevent pressure ulcers per nursing routine care <Benjamin Mckeon - Last Filed: 08/08/17 13:08> Date of Encounter: 08/08/17 Time of Encounter: 07:50 Assessment and Plan (1) Acute respiratory failure with hypoxia Current Visit: Yes Status: Acute Patient presented to the hospital with complaints of generalized weakness and nausea and vomiting with poor intake by mouth. Was found out life-threatening metabolic acidosis and hyperkalemia requiring emergent dialysis along with an and STEMI and her story failure requiring endotracheal intubation, complicated by hemoptysis in cardiac instability requiring vasopressors due to hypotension. Patient is still on the intubate her at this time. AB.33/54/74/28 patient is currently being sedated with fentanyl and Precedex Patient was on a norepinephrine drip to keep his blood pressure normalized. We have weaned him off that and he is just on Lopressor as needed to help with his blood pressure. Patient did CPAP very well yesterday. Plan is to decrease sedation and possibly extubate patient today. (2) Metabolic acidosis Current Visit: Yes Status: Acute Patient did have an extensive metabolic acidosis with an electrolyte abnormality of hyponatremia and hyperkalemia. Nephrology was consult to Dr. Winchester were patient was emergently dialyzed. Please refer to nephrology's note for recommendations for the metabolic acidosis and treatment of his chronic kidney disease. (3) Pneumonia Current Visit: Yes Status: Acute Patient did have acute hypoxic respiratory failure in large part due to the hydrostatic pulmonary edema from his heart failure with his hemoptysis. Bronchoscopy was done but was not consistent with a diffuse alveolar hemorrhage however they could have been due to the increased hydrostatic pressure in contact with acute lung injury in the patient while he was on dual antiplatelet therapy. Patient is doing well on the ventilator. Patient's P Pat had to be increased where slowly decreasing as patient tolerates. FiO2 has been decreased to 30 which is better. He is keeping his saturations around upper 90% . Blood Cultures have been negative 2 Bronchoscopy pathology came back positive for Haemophilus influenza susceptibilities are still pending Patient is on day #4 of Zon for antibiotics we will de-escalate/change once susceptibilities come back Steroids have been stopped where continuing antibiotics and bronchodilators. This is day Qualifiers: Pneumonia type: due to Haemophilus influenzae Laterality: unspecified laterality Lung location: unspecified part of lung Qualified Code(s): J14 - Pneumonia due to Hemophilus influenzae (4) NSTEMI (non-ST elevated myocardial infarction) Current Visit: Yes Status: Acute Patient did have a NSTEMI with heart failure with evidence of cardiogenic shock he was on vasopressors but is currently off the vasopressors at this time. Patient did have elevated troponins at previous hospital where was 7.49 here it changed to 6.442 4.61 and is down trending. Echo was reviewed which was notable for an ejection fraction of 50-55% with moderate left ventricular diastolic dysfunction mild aortic regurgitation and mild to moderate mitral regurgitation, moderate to severe tricuspid regurgitation and severe pulmonary hypertension. DA PT is on hold for CAD but likely safe to restart aspirin given patient's stability. Cardiology was following patient we appreciated the recommendations they say patient is not stable enough for left heart catheterization as kidney function does need to get better. Continue volume removal with continuous renal replacement therapy (5) JOSH (acute kidney injury) Current Visit: Yes Status: Acute Patient does have history of chronic kidney disease his normal creatinine is around 2.3. He has never had be on dialysis. Patient did present here and he had a creatinine 8.6 and has been downtrending after patient was started on dialysis were now most recently today it is 1.79. Nephrology is following the patient through Dr. Winchester Patient still on dialysis. Patient is still and Nicole they are now not removing any fluid and he is net 0. (6) Dehydration Current Visit: Yes Status: Acute Patient was dehydrated when he first was admitted he was given 3 L of IV fluids prior to his arrival here and given another liter bolus here. This ended up going into pulmonary edema. Dehydration is mainly subsided Patient easily could become dehydrated again as his kidney function is still poor while not on dialysis. So we will continue to monitor. Strict I's and O's as well as fluid resuscitation as needed (7) Hyperkalemia Current Visit: Yes Status: Acute Patient is hyperkalemic due to chronic kidney disease and acute kidney injury. This has normalized to where he is now having potassium of 4.5. We will continue to monitor (8) Hyponatremia Current Visit: Yes Status: Acute Patient was hyponatremic when he arrived most likely due to dehydration we will continue to monitor. Dialysis is helping with this as well. 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 Dr. Johns has seen the patient and they say there is no orthopedic intervention required at this time and will reconsult when necessary. At this time there is no need to reconsult orthopedics (10) Coronary artery disease Current Visit: Yes Status: Chronic Patient does have history of coronary artery disease patient is back on his aspirin will hold all her medications due to patient's poor status at this time. Qualifiers: Coronary Disease-Associated Artery/Lesion type: [place] artery [place] vs. transplanted heart: [place] heart Associated angina: without angina Qualified Code(s): I25.10 - Atherosclerotic heart disease of [place] coronary artery without angina pectoris (11) Hypertension Current Visit: No Status: Chronic Patient is currently hypotensive does have history of hypertension we will hold all home hypertensive medications. Qualifiers: Hypertension type: unspecified Qualified Code(s): I10 - Essential (primary ) hypertension (12) Hyperlipidemia Current Visit: No Status: Chronic Continue home medications Qualifiers: Hyperlipidemia type: unspecified Qualified Code(s): E78.5 - Hyperlipidemia , unspecified (13) Chronic renal disease, stage IV Current Visit: No Status: Chronic Tobinuvcarmenza's EKG baseline creatinine is 2.3 when he presented here he was 8.0. Creatinine has gone down since being on dialysis. We will continue to monitor. Patient is being followed by nephrology Dr. Winchester we appreciate their recommendations (14) Pulmonary alveolar hemorrhage Current Visit: Yes Status: Acute Through the ET tube suctioned out was pink frothy fluid that we are worried about was possibly alveolar hemorrhage. Bronchoscopy did not show any signs of hemorrhage. This most likely was secondary to his CHF and pulmonary hypertension. There has not been any signs of other hemorrhage coming out of the ET tube during since he was last initially intubated and had a bronchoscopy done. Continue to monitor (15) Diabetes type 2, controlled Current Visit: Yes Status: Chronic Patient is a known type II diabetic does need long-term insulin. Patient is currently on the high-dose sliding scale of insulin. Blood sugars have been stable we will continue to monitor Qualifiers: Diabetes mellitus assisted insulin use: without assisted use Diabetes mellitus complication status: with kidney complications Diabetes mellitus complication detail: with chronic kidney disease Chronic kidney disease stage : stage 3 (moderate) Qualified Code(s): E11.22 - Type 2 diabetes mellitus with diabetic chronic kidney disease; N18.3 - Chronic kidney disease, stage 3 ( moderate) (16) Anemia Current Visit: Yes Status: Acute Patient has been anemic during his entire stay here. He recently came in with hemoglobin of 9.1 is now 8.0 which is up from yesterday. We will continue to monitor. There is no active bleeding anywhere. Was likely secondary to his chronic kidney disease and decreased kidney function. Think that is now going up from day-to-day shows possibly the kidneys are healing and they are getting better kidney function to produce more erythropoietin We will continue to monitor. Transfuse packed red blood cells as necessary Qualifiers: Anemia type: due to chronic kidney disease Chronic kidney disease stage: stage 3 (moderate) Qualified Code(s): N18.3 - Chronic kidney disease, stage 3 (moderate); D63.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 (17) Cardiorenal syndrome with renal failure Current Visit: Yes Status: Acute See above, patient most likely is not cardio renal failure and nephrology and cardiology avulsing the patient and we appreciate their recommendations. They should normalize once the kidney function and cardiac function normalizes. (18) DVT prophylaxis Current Visit: Yes Status: Acute Subcutaneous heparin Subjective Principal diagnosis: JOSH Interval history: No acute events overnight. Patient is still intubated and upon arrival this morning. We will attempt to decrease sedation and have a CPAP trial to see how patient does see we can wean him off the ventilator. Patient is still on usp at this time his net is now 0. They are not take any more fluid off. He did a couple episodes where he was tachycardic last night he did get a dose of his beta jameel as well as Ativan which did seem to help. Still seems to be due to agitation. Plan is to try and extubate today. Objective PUL Vital signs: Last Vital Signs Temp 97.4 F L 08/08/17 04:00 Pulse 67 08/08/17 07:35 Resp 13 08/08/17 07:26 BP 120/59 08/08/17 07:26 Pulse Ox 95 08/08/17 07:26 General appearance: no acute distress Eyes: nonicteric ENT: oropharynx moist Neck: supple Effort: normal Auscultation: bilateral: rales Cardiovascular: regular rate and rhythm Gastrointestinal: normoactive bowel sounds, soft, non-distended Integumentary: normal Extremities: no cyanosis, no edema, no clubbing Musculoskeletal: no deformities, ROM normal non-focal exam, pupils equal and round Ventilator Settings Ventilator Settings: Ventilator Settings, Last 8 Hours Ventilator Mode CPAP Ventilator Mode A/C Ventilator Mode VC+ Ventilator Mode VC+ Ventilator Mode VC+ Ventilator Mode VC+ Ventilator Mode VC+ Ventilator Mode VC+ Ventilator Tidal Volume 450 Setting Ventilator Tidal Volume 450 Setting Ventilator Tidal Volume 450 Setting Ventilator Tidal Volume 450 Setting Ventilator Tidal Volume 450 Setting Ventilator Tidal Volume 450 Setting Ventilator Tidal Volume 450 Setting Ventilator Tidal Volume 450 Setting Ventilator Tidal Volume 450 Setting Ventilator Tidal Volume 450 Setting Ventilator Tidal Volume 450 Setting Ventilator Respiratory Rate 20 Setting Ventilator Respiratory Rate 20 Setting Ventilator Respiratory Rate 20 Setting Ventilator Respiratory Rate 20 Setting Ventilator Respiratory Rate 20 Setting Ventilator Respiratory Rate 20 Setting Ventilator Respiratory Rate 20 Setting Ventilator Respiratory Rate 20 Setting Ventilator Respiratory Rate 20 Setting Ventilator Respiratory Rate 20 Setting Actual Respiratory Rate 11 Actual Respiratory Rate 12 Actual Respiratory Rate 20 Actual Respiratory Rate 22 Actual Respiratory Rate 22 Actual Respiratory Rate 20 Actual Respiratory Rate 20 Actual Respiratory Rate 20 Actual Respiratory Rate 21 Actual Respiratory Rate 20 Actual Respiratory Rate 20 Actual Respiratory Rate 21 Positive End Expiratory 5 Pressure Positive End Expiratory 8 Pressure Positive End Expiratory 8 Pressure Positive End Expiratory 8 Pressure Positive End Expiratory 8 Pressure Positive End Expiratory 8 Pressure Positive End Expiratory 8 Pressure Positive End Expiratory 8 Pressure Positive End Expiratory 8 Pressure Positive End Expiratory 8 Pressure Positive End Expiratory 8 Pressure Positive End Expiratory 8 Pressure Positive End Expiratory 8 Pressure Peak Inspiratory Airway 11 Pressure Peak Inspiratory Airway 18 Pressure Peak Inspiratory Airway 30 Pressure Peak Inspiratory Airway 22 Pressure Peak Inspiratory Airway 22 Pressure Peak Inspiratory Airway 24 Pressure Peak Inspiratory Airway 24 Pressure Peak Inspiratory Airway 21 Pressure Peak Inspiratory Airway 23 Pressure Peak Inspiratory Airway 24 Pressure Peak Inspiratory Airway 25 Pressure Peak Inspiratory Airway 25 Pressure Results - Laboratory Findings CBC and BMP: 08/08/17 04:00 08/08/17 03:50 ABG ABG pH 7.33 pH Units (7.32-7.45) 08/08/17 05:55 ABG pCO2 54 mmHg (35-45) H 08/08/17 05:55 ABG pO2 74 mmHg (85-104) L 08/08/17 05:55 ABG O2 Saturation 93 % (95-98) L 08/08/17 05:55 PT/INR, D-dimer PT 11.4 Seconds (9.4-12.1) 08/05/17 04:08 Abnormal lab findings: Abnormal lab results WBC 17.1 K/mcL (4.3-11.1) H 08/08/17 04:00 RBC 2.55 M/mcL (4.19-5.50) L 08/08/17 04:00 Hgb 8.0 g/dL (12.9-16.9) L 08/08/17 04:00 Hct 25.3 % (37.5-50.1) L 08/08/17 04:00 RDW 15.2 % (11.5-14.5) H 08/08/17 04:00 Neutrophils # 14.2 K/mcL (1.6-8.9) H 08/08/17 04:00 Nucleated RBCs/100 WBC 0.2 /100 WBC (0) H 08/07/17 03:30 APTT 76.1 Seconds (26.0-36.0) H 08/02/17 07:04 ABG pCO2 54 mmHg (35-45) H 08/08/17 05:55 ABG pO2 74 mmHg (85-104) L 08/08/17 05:55 ABG HCO3 28 mEq/L (21-27) H 08/08/17 05:55 ABG Total CO2 30 mEq/L (20-26) H 08/08/17 05:55 ABG O2 Saturation 93 % (95-98) L 08/08/17 05:55 Creatinine 1.79 mg/dL (0.70-1.30) H 08/08/17 03:50 Est GFR ( Amer) 45 (> 60) L 08/08/17 03:50 Est GFR (Non-Af Amer) 37 (> 60) L 08/08/17 03:50 Calcium 8.2 mg/dL (8.6-10.3) L 08/08/17 03:50 Venous Ioniz Calcium 1.00 mmol/L (1.15-1.35) L 08/02/17 07:26 Phosphorus 1.8 mg/dL (2.7-4.5) L 08/07/17 03:30 Direct Bilirubin 0.5 mg/dL (0.0-0.2) H 08/03/17 13:34 AST 70 Units/L (13-39) H 08/03/17 13:34 Alkaline Phosphatase 210 Units/L (34-104) H 08/03/17 13:34 Creatine Kinase 669 Units/L (30-223) H 08/02/17 07:04 Troponin I 4.93 ng/mL (< 0.04) H* 08/02/17 12:49 Serum Total Protein 5.5 g/dL (6.4-8.9) L 08/03/17 13:34 Albumin 2.8 g/dL (3.5-5.7) L 08/03/17 13:34 Albumin/Globulin Ratio 1.0 (1.1-2.2) L 08/03/17 13:34 HDL Cholesterol 19 mg/dL (40-59) L 08/02/17 07:04 Procalcitonin 3.93 ng/mL (<=0.10) H 08/03/17 09:17 Urine Protein 100 mg/dL (Neg-Trace) H 08/02/17 10:30 Urine Ketones Trace mg/dL (Negative) H 08/02/17 10:30 Urine Blood Large (Negative) H 08/02/17 10:30 Urine Bilirubin Small (Negative) H 08/02/17 10:30 Ur Leukocyte Esterase Small (Negative) H 08/02/17 10:30 Urine Microscopic RBC 30-50 per hpf (0-3) H 08/02/17 10:30 Urine Microscopic WBC 50-100 per hpf (0-3) H 08/02/17 10:30 Ur Squamous Epith Cells Many per lpf (None-Few) H 08/02/17 10:30 Urine Bacteria Many per hpf (None-Few) H 08/02/17 10:30 Granular Casts Few per lpf (None Seen) H 08/02/17 10:30 Ur Culture Indicated? NO. (NO) A 08/02/17 10:30 Fluid Appearance Cloudy (Clear) A 08/03/17 08:30 - Clinical Findings Intake & Output: Intake & Output 08/07/17 08/07/17 08/08/17 15:59 23:59 07:59 Intake Total 132.3 / 132.3 121.6 / 121.6 128.4 / 128.4 Output Total 751 / 751 549 / 549 64 / 64 Balance -618.7 / -618.7 -427.4 / -427.4 64.4 / 64.4 Weight 76.7 kg - VTE Documentation of Mechanical Device: Intermittent pneumatic compression device
[2017-08-08] MEDS: Aspirin 81 MG TAB.CHEW PO SCH (07:54)
[2017-08-08] MEDS: Chlorhexidine Rinse 15 ML MOUTHWASH MM SCH ×2 (07:54→19:17)
[2017-08-08] MEDS: Cholecalciferol (D-3) 1,000 UNIT TABLET PO SCH (07:54)
[2017-08-08] MEDS: Pantoprazole 40 MG VIAL IVP SCH (07:54)
--- NOTE | 2017-08-08 08:18 | Nephrology Progress Note ---
Date of Encounter: 08/08/17 Time of Encounter: 08:16 - Assessment and Plan (1) JOSH (acute kidney injury) Current Visit: Yes Status: Acute Patient has oligo anuric acute kidney injury. He remains dialysis dependent. He is tolerating the CVVH well. There is good control of his azotemia as well as his acid base and electrolyte status. He has not received phosphorus supplementation he will need some. (2) NSTEMI (non-ST elevated myocardial infarction) Current Visit: Yes Status: Acute (3) Acute blood loss anemia Current Visit: No Status: Acute (4) Hyperkalemia Current Visit: Yes Status: Acute Subjective Principal diagnosis: JOSH Interval history: Overall the patient's condition has been improving. He is off vasopressors. He has decreasing oxygen requirements and currently is on BiPAP. From a renal perspective he remains in anuric and dialysis dependent. He currently is on CVVH with no net negative fluid removal. His azotemia is well controlled. He was hypophosphatemic yesterday. Objective - Vital Signs Vital signs: Vital Signs Temp Pulse Resp BP Pulse Ox 08/08/17 08:10 67 08/08/17 08:00 98.0 F 67 12 116/48 98 08/08/17 07:35 67 08/08/17 07:26 13 120/59 95 08/08/17 07:00 63 12 120/59 94 08/08/17 06:00 65 20 123/52 95 08/08/17 05:27 24 107/49 100 08/08/17 05:00 63 22 108/78 100 08/08/17 04:00 97.4 F L 67 20 103/61 97 08/08/17 03:53 20 108/48 94 08/08/17 03:26 61 08/08/17 03:00 67 20 108/57 100 08/08/17 02:00 62 21 115/53 100 08/08/17 01:00 65 20 110/67 100 08/08/17 00:27 20 101/63 100 08/08/17 00:00 97.6 F 110 21 110/64 100 08/07/17 23:57 110 08/07/17 23:00 64 23 107/58 97 08/07/17 22:35 21 95/58 100 08/07/17 22:00 130 22 105/62 100 08/07/17 21:00 128 22 132/64 100 08/07/17 20:00 97.8 F 71 20 106/57 99 08/07/17 19:52 20 107/51 100 08/07/17 19:47 64 18 19:00 73 21 135/57 98 08/07/17 18:00 67 21 110/57 98 08/07/17 17:00 72 22 103/66 100 08/07/17 16:47 13 08/07/17 16:00 73 12 142/81 97 08/07/17 15:47 12 136/73 98 08/07/17 15:00 75 12 123/66 100 08/07/17 14:00 70 14 124/73 100 08/07/17 13:25 11 128/55 97 08/07/17 13:00 74 11 122/90 100 08/07/17 12:00 99.3 F 67 11 115/68 96 08/07/17 11:15 11 116/58 96 08/07/17 11:00 67 21 112/51 100 08/07/17 10:09 72 21 100/55 98 08/07/17 10:07 72 21 100/55 98 08/07/17 09:46 26 119/48 98 08/07/17 09:09 66 21 106/60 100 08/07/17 08:42 98.4 F 64 20 105/57 100 Intake and Output 08/07/17 08/08/17 08/08/17 23:59 07:59 15:59 Intake Total 121.6 / 121.6 128.4 / 128.4 31.9 / 31.9 Output Total 549 / 549 64 / 64 0 / 0 Balance -427.4 / -427.4 64.4 / 64.4 31.9 / 31.9 Intake: IV Fluids 121.6 / 121.6 128.4 / 128.4 1.9 / 1.9 PrismaSATE BGK 4/2.5 5,000 ML @ 0 / 0 0 / 0 2000 mls/hr CRRT CONT ESTEFANÍA Rx#: [id number] FentaNYL (PF) 2,500 MCG In 21.6 / 21.6 28.4 / 28.4 1.9 / 1.9 Empty Bag 1 Each @ 50 MCG/HR 1 mls/hr IVC CONT ESTEFANÍA Rx#: [id number] Zosyn 3.375 GM In 0.9 % Sodium 100 / 100 100 / 100 Chloride (Mini-Bag +) 100 ML @ 25 mls/hr IVPB Q8H ESTEFANÍA Rx#: [id number] 0.9 % Sodium Chloride 1,000 ML 0 / 0 @ 100 mls/hr PRIME .Q10H ESTEFANÍA Rx #:[id number] Oral 0 / 0 Free Water 30 / 30 Output: Nicole 549 / 549 64 / 64 0 / 0 Catheter 0 / 0 0 / 0 0 / 0 Gastric Drainage 0 / 0 0 / 0 0 / 0 Other: Weight 76.7 kg Blood Glucose* 78 77 84 Patient Weight 08/08/17 23:59 Weight 76.7 kg - General Appearance Exam: Patient is currently on the ventilator. Vital signs are stable. Lungs coarse breath sounds otherwise clear. Heart regular rate and rhythm. Abdomen is benign. There is no lower extremity swelling. There is a temporary dialysis catheter in the right internal jugular vein. - Lab 08/08/17 04:00 08/08/17 03:50 Most recent lab results ABG pH 7.33 pH Units (7.32-7.45) 08/08/17 05:55 ABG pCO2 54 mmHg (35-45) H 08/08/17 05:55 ABG pO2 74 mmHg (85-104) L 08/08/17 05:55 ABG HCO3 28 mEq/L (21-27) H 08/08/17 05:55 ABG O2 Saturation 93 % (95-98) L 08/08/17 05:55 Calcium 8.2 mg/dL (8.6-10.3) L 08/08/17 03:50 Phosphorus 1.8 mg/dL (2.7-4.5) L 08/07/17 03:30 Magnesium 2.6 mg/dL (1.6-2.6) 08/07/17 03:30 - VTE Documentation of Mechanical Device: Intermittent pneumatic compression device Consult Discharge Plan - Plan Referrals: Nubia Field MD [Primary Care Provider] -
[2017-08-08 09:30] LABS: GBM IgG Multiplex Bead Assay 0 AU/mL (0-19); Glomerular Basement Memb IgG NEGATIVE (Negative)
[2017-08-08] MEDS: 0.9 % Sodium Chloride 1,000 ML PRIME SCH ×3 (15:56→21:08)
[2017-08-08] MEDS: Dexmedetomidine HCl 400 MCG/100 ML MLS IVC SCH (19:17)
[2017-08-08] MEDS: Norepinephrine 4 MG in D5% in Water 250 ML IVC SCH (19:18)
[2017-08-09] MEDS: Piperacillin/Tazobactam 3.375 GM in 0.9 % Sodium Chloride Mini Bag 100 ML IVPB SCH ×2 (00:10→09:11)
[2017-08-09] MEDS: PrismaSATE BGK 4/2.5 5,000 ML CRRT SCH ×9 (01:14→22:04)
[2017-08-09] MEDS: Insulin LISPRO 300 UNITS/3 ML VIAL SQ SCH ×6 (03:06→23:03)
[2017-08-09 03:32] LABS: Basophils % 0.1 %; Hematocrit 25.2 % (37.5-50.1); Immature Granulocytes % 4.7 % (0-4); Lymphocytes % 4.7 %; Mean Corpuscular HGB Conc 31.7 g/dL (31.6-35.5); Mean Corpuscular Hemoglobin 31.4 pg (28.0-33.3); Mean Corpuscular Volume 98.8 fL (83.0-100.0); Mean Platelet Volume 10.7 fL (9.4-12.4); Monocytes % 4.9 %; Neutrophils # 18.2 K/mcL (1.6-8.9); Platelet Count 158 K/mcL (140-400); Red Blood Count 2.55 M/mcL (4.19-5.50); Red Cell Distribution Width 15.1 % (11.5-14.5); Segmented Neutrophils % 85.6 %
[2017-08-09 03:47] LABS: Calcium 8.2 mg/dL (8.6-10.3); Potassium 4.6 mEq/L (3.5-5.1)
[2017-08-09] MEDS: *HR* Heparin 5,000 UNIT/ML VIAL SQ SCH ×3 (05:06→21:07)
[2017-08-09] MEDS ORDERED: Potassium Phosphate 44 MEQ in 0.9 % Sodium Chloride 250 ML IVPB PRN (07:02)
--- NOTE | 2017-08-09 07:25 | Pulmonology Progress Note ---
<Benjamin Mckeon - Last Filed: 08/09/17 12:43> Date of Encounter: 08/09/17 Time of Encounter: 07:24 Assessment and Plan (1) Acute respiratory failure with hypoxia Current Visit: Yes Status: Acute Patient presented to the hospital with complaints of generalized weakness and nausea and vomiting with poor intake by mouth. Was found out life-threatening metabolic acidosis and hyperkalemia requiring emergent dialysis along with an and STEMI and her story failure requiring endotracheal intubation, complicated by hemoptysis in cardiac instability requiring vasopressors due to hypotension. Patient is still on the intubate her at this time. AB.33/54/74/28 Patient was on a norepinephrine drip to keep his blood pressure normalized. We have weaned him off that and he is just on Lopressor as needed to help with his blood pressure. Patient extubated yesterday doing well since extubation is now on 2 L via nasal cannula and sating at 98%. Patient is still very tired and sleepy which most likely is due to patient's poor kidney function and there still might be some sedating medications still in his body. We will continue to monitor him. (2) Metabolic acidosis Current Visit: Yes Status: Acute Patient did have an extensive metabolic acidosis with an electrolyte abnormality of hyponatremia and hyperkalemia. Nephrology was consult to Dr. Winchester were patient was emergently dialyzed. Please refer to nephrology's note for recommendations for the metabolic acidosis and treatment of his chronic kidney disease. (3) Pneumonia Current Visit: Yes Status: Acute Patient did have acute hypoxic respiratory failure in large part due to the hydrostatic pulmonary edema from his heart failure with his hemoptysis. Bronchoscopy was done but was not consistent with a diffuse alveolar hemorrhage however they could have been due to the increased hydrostatic pressure in contact with acute lung injury in the patient while he was on dual antiplatelet therapy. Patient is doing well on the ventilator. Patient's P Pat had to be increased where slowly decreasing as patient tolerates. FiO2 has been decreased to 30 which is better. He is keeping his saturations around upper 90% . Blood Cultures have been negative 2 Bronchoscopy pathology came back positive for Haemophilus influenza susceptibilities are still pending Patient is on day #8 of Zosyn for antibiotics This is day #8 of Zosyn this will be the very last dose today. Patient only grew Haemophilus and Zosyn should have covered any other infections. Patient did have an increase in his white blood cell count is mostly was likely a stress reaction after being extubated. We will continue to monitor. Qualifiers: Pneumonia type: due to Haemophilus influenzae Laterality: unspecified laterality Lung location: unspecified part of lung Qualified Code(s): J14 - Pneumonia due to Hemophilus influenzae (4) NSTEMI (non-ST elevated myocardial infarction) Current Visit: Yes Status: Acute Patient did have a NSTEMI with heart failure with evidence of cardiogenic shock he was on vasopressors but is currently off the vasopressors at this time. Patient did have elevated troponins at previous hospital where was 7.49 here it changed to 6.442 4.61 and is down trending. Echo was reviewed which was notable for an ejection fraction of 50-55% with moderate left ventricular diastolic dysfunction mild aortic regurgitation and mild to moderate mitral regurgitation, moderate to severe tricuspid regurgitation and severe pulmonary hypertension. DA PT is on hold for CAD but likely safe to restart aspirin given patient's stability. Cardiology was following patient we appreciated the recommendations they say patient is not stable enough for left heart catheterization as kidney function does need to get better. Continue volume removal with continuous renal replacement therapy (5) JOSH (acute kidney injury) Current Visit: Yes Status: Acute Patient does have history of chronic kidney disease his normal creatinine is around 2.3. He has never had be on dialysis. Patient did present here and he had a creatinine 8.6 and has been downtrending after patient was started on dialysis were now most recently today it is 1.79. Nephrology is following the patient through Dr. Winchester Patient still on dialysis. Patient is still and Nicole they are now not removing any fluid and he is net 0. (6) Dehydration Current Visit: Yes Status: Resolved Patient was dehydrated when he first was admitted he was given 3 L of IV fluids prior to his arrival here and given another liter bolus here. This ended up going into pulmonary edema. Dehydration is mainly subsided Patient easily could become dehydrated again as his kidney function is still poor while not on dialysis. So we will continue to monitor. Strict I's and O's as well as fluid resuscitation as needed (7) Hyperkalemia Current Visit: Yes Status: Resolved Patient is hyperkalemic due to chronic kidney disease and acute kidney injury. This has normalized to where he is now having potassium of 4.5. We will continue to monitor (8) Hyponatremia Current Visit: Yes Status: Resolved Patient was hyponatremic when he arrived most likely due to dehydration we will continue to monitor. Dialysis is helping with this as well. 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 Dr. Johns has seen the patient and they say there is no orthopedic intervention required at this time and will reconsult when necessary. At this time there is no need to reconsult orthopedics (10) Coronary artery disease Current Visit: Yes Status: Chronic Patient does have history of coronary artery disease patient is back on his aspirin will hold all her medications due to patient's poor status at this time. Qualifiers: Coronary Disease-Associated Artery/Lesion type: [place] artery [place] vs. transplanted heart: [place] heart Associated angina: without angina Qualified Code(s): I25.10 - Atherosclerotic heart disease of [place] coronary artery without angina pectoris (11) Hypertension Current Visit: No Status: Chronic Patient is currently hypotensive does have history of hypertension we will hold all home hypertensive medications. Qualifiers: Hypertension type: unspecified Qualified Code(s): I10 - Essential (primary ) hypertension (12) Hyperlipidemia Current Visit: No Status: Chronic Continue home medications Qualifiers: Hyperlipidemia type: unspecified Qualified Code(s): E78.5 - Hyperlipidemia , unspecified (13) Chronic renal disease, stage IV Current Visit: No Status: Chronic History of CKD baseline creatinine is 2.3 when he presented here he was 8.0. Creatinine has gone down since being on dialysis. We will continue to monitor. Patient is being followed by nephrology Dr. Winchester we appreciate their recommendations (14) Pulmonary alveolar hemorrhage Current Visit: Yes Status: Acute Through the ET tube suctioned out was pink frothy fluid that we are worried about was possibly alveolar hemorrhage. Bronchoscopy did not show any signs of hemorrhage. This most likely was secondary to his CHF and pulmonary hypertension. There has not been any signs of other hemorrhage coming out of the ET tube during since he was last initially intubated and had a bronchoscopy done. Continue to monitor (15) Diabetes type 2, controlled Current Visit: Yes Status: Chronic Patient is a known type II diabetic does need long-term insulin. Patient is currently on the high-dose sliding scale of insulin. Blood sugars have been stable we will continue to monitor Qualifiers: Diabetes mellitus long-term insulin use: without terminal operator use Diabetes mellitus complication status: with kidney complications Diabetes mellitus complication detail: with chronic kidney disease Chronic kidney disease stage : stage 3 (moderate) Qualified Code(s): E11.22 - Type 2 diabetes mellitus with diabetic chronic kidney disease; N18.3 - Chronic kidney disease, stage 3 ( moderate) (16) Anemia Current Visit: Yes Status: Acute Patient has been anemic during his entire stay here. He recently came in with hemoglobin of 9.1 is now 8.0 which is up from yesterday. We will continue to monitor. There is no active bleeding anywhere. Was likely secondary to his chronic kidney disease and decreased kidney function. Think that is now going up from day-to-day shows possibly the kidneys are healing and they are getting better kidney function to produce more erythropoietin We will continue to monitor. Transfuse packed red blood cells as necessary Qualifiers: Anemia type: due to chronic kidney disease Chronic kidney disease stage: stage 3 (moderate) Qualified Code(s): N18.3 - Chronic kidney disease, stage 3 (moderate); D63.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 (17) Cardiorenal syndrome with renal failure Current Visit: Yes Status: Acute See above, patient most likely is not cardio renal failure and nephrology and cardiology avulsing the patient and we appreciate their recommendations. They should normalize once the kidney function and cardiac function normalizes. (18) DVT prophylaxis Current Visit: Yes Status: Acute Subcutaneous heparin Subjective Principal diagnosis: JOSH Interval history: No acute events overnight. Patient was extubated yesterday. He is still very tired and sleepy. He does follow commands but is not fully responding at this time. Patient had no acute overnight events he has not passed a swallow study so we are still getting IV medications as patient cannot take anything bY mouth at this time. Patient did well with extubation and her story status has been doing well with no decrease in oxygen saturations. Objective PUL Vital signs: Last Vital Signs Temp 97.4 F L 08/09/17 07:00 Pulse 68 08/09/17 07:14 Resp 16 08/09/17 07:00 BP 155/89 08/09/17 07:00 Pulse Ox 96 08/09/17 07:00 General appearance: no acute distress, alert, asleep Eyes: nonicteric ENT: oropharynx moist Neck: supple Effort: normal Auscultation: bilateral: clear Cardiovascular: regular rate and rhythm Gastrointestinal: normoactive bowel sounds, non-distended Integumentary: normal Extremities: no cyanosis, no edema, no clubbing Musculoskeletal: no deformities, ROM normal normal mental status, non-focal exam, pupils equal and round, motor strength normal and symmetric Results - Laboratory Findings CBC and BMP: 08/09/17 03:35 08/09/17 03:00 ABG ABG pH 7.33 pH Units (7.32-7.45) 08/08/17 05:55 ABG pCO2 54 mmHg (35-45) H 08/08/17 05:55 ABG pO2 74 mmHg (85-104) L 08/08/17 05:55 ABG O2 Saturation 93 % (95-98) L 08/08/17 05:55 PT/INR, D-dimer PT 11.4 Seconds (9.4-12.1) 08/05/17 04:08 Abnormal lab findings: Abnormal lab results WBC 21.3 K/mcL (4.3-11.1) H 08/09/17 03:35 RBC 2.55 M/mcL (4.19-5.50) L 08/09/17 03:35 Hgb 8.0 g/dL (12.9-16.9) L 08/09/17 03:35 Hct 25.2 % (37.5-50.1) L 08/09/17 03:35 RDW 15.1 % (11.5-14.5) H 08/09/17 03:35 Immature Gran % 4.7 % (0-4) H 08/09/17 03:35 Neutrophils # 18.2 K/mcL (1.6-8.9) H 08/09/17 03:35 Nucleated RBCs/100 WBC 0.2 /100 WBC (0) H 08/07/17 03:30 APTT 76.1 Seconds (26.0-36.0) H 08/02/17 07:04 ABG pCO2 54 mmHg (35-45) H 08/08/17 05:55 ABG pO2 74 mmHg (85-104) L 08/08/17 05:55 ABG HCO3 28 mEq/L (21-27) H 08/08/17 05:55 ABG Total CO2 30 mEq/L (20-26) H 08/08/17 05:55 ABG O2 Saturation 93 % (95-98) L 08/08/17 05:55 Creatinine 1.68 mg/dL (0.70-1.30) H 08/09/17 03:00 Est GFR ( Amer) 48 (> 60) L 08/09/17 03:00 Est GFR (Non-Af Amer) 40 (> 60) L 08/09/17 03:00 Glucose 114 mg/dL (70-105) H 08/09/17 03:00 POC Glucose 103 mg/dL (70-99) H 08/09/17 07:08 Calcium 8.2 mg/dL (8.6-10.3) L 08/09/17 03:00 Venous Ioniz Calcium 1.00 mmol/L (1.15-1.35) L 08/02/17 07:26 Phosphorus 1.8 mg/dL (2.7-4.5) L 08/07/17 03:30 Direct Bilirubin 0.5 mg/dL (0.0-0.2) H 08/03/17 13:34 AST 70 Units/L (13-39) H 08/03/17 13:34 Alkaline Phosphatase 210 Units/L (34-104) H 08/03/17 13:34 Creatine Kinase 669 Units/L (30-223) H 08/02/17 07:04 Troponin I 4.93 ng/mL (< 0.04) H* 08/02/17 12:49 Serum Total Protein 5.5 g/dL (6.4-8.9) L 08/03/17 13:34 Albumin 2.8 g/dL (3.5-5.7) L 08/03/17 13:34 Albumin/Globulin Ratio 1.0 (1.1-2.2) L 08/03/17 13:34 HDL Cholesterol 19 mg/dL (40-59) L 08/02/17 07:04 Procalcitonin 3.93 ng/mL (<=0.10) H 08/03/17 09:17 Urine Protein 100 mg/dL (Neg-Trace) H 08/02/17 10:30 Urine Ketones Trace mg/dL (Negative) H 08/02/17 10:30 Urine Blood Large (Negative) H 08/02/17 10:30 Urine Bilirubin Small (Negative) H 08/02/17 10:30 Ur Leukocyte Esterase Small (Negative) H 08/02/17 10:30 Urine Microscopic RBC 30-50 per hpf (0-3) H 08/02/17 10:30 Urine Microscopic WBC 50-100 per hpf (0-3) H 08/02/17 10:30 Ur Squamous Epith Cells Many per lpf (None-Few) H 08/02/17 10:30 Urine Bacteria Many per hpf (None-Few) H 08/02/17 10:30 Granular Casts Few per lpf (None Seen) H 08/02/17 10:30 Ur Culture Indicated? NO. (NO) A 08/02/17 10:30 Fluid Appearance Cloudy (Clear) A 08/03/17 08:30 - Microbiology Findings Microbiology Findings: Microbiology, Last 48 Hours 08/02/17 12:49 Blood Culture - Final Peripheral Venipuncture No growth. 08/02/17 12:49 Blood Culture - Final Peripheral Venipuncture No growth. - Clinical Findings Intake & Output: Intake & Output 08/08/17 08/08/17 08/09/17 15:59 23:59 07:59 Intake Total 137.6 / 137.6 100 / 100 100 / 100 Output Total 108 / 108 99 / 99 110 / 110 Balance 29.6 / 29.6 -10 Weight 73.6 kg - VTE Documentation of Mechanical Device: Intermittent pneumatic compression device Consult Discharge Plan - Plan Referrals: Nubia Field MD [Primary Care Provider] - <Vy Scales - Last Filed: 08/09/17 15:57> Date of Encounter: 08/09/17 Objective PUL Vital signs: Last Vital Signs Temp 97.5 F L 08/09/17 15:00 Pulse 78 08/09/17 15:10 Resp 16 08/09/17 15:00 BP 143/66 08/09/17 15:00 Pulse Ox 92 08/09/17 15:00 Results - Laboratory Findings CBC and BMP: 08/09/17 03:35 08/09/17 03:00 ABG ABG pH 7.33 pH Units (7.32-7.45) 08/08/17 05:55 ABG pCO2 54 mmHg (35-45) H 08/08/17 05:55 ABG pO2 74 mmHg (85-104) L 08/08/17 05:55 ABG O2 Saturation 93 % (95-98) L 08/08/17 05:55 PT/INR, D-dimer PT 11.4 Seconds (9.4-12.1) 08/05/17 04:08 Abnormal lab findings: Abnormal lab results WBC 21.3 K/mcL (4.3-11.1) H 08/09/17 03:35 RBC 2.55 M/mcL (4.19-5.50) L 08/09/17 03:35 Hgb 8.0 g/dL (12.9-16.9) L 08/09/17 03:35 Hct 25.2 % (37.5-50.1) L 08/09/17 03:35 RDW 15.1 % (11.5-14.5) H 08/09/17 03:35 Immature Gran % 4.7 % (0-4) H 08/09/17 03:35 Neutrophils # 18.2 K/mcL (1.6-8.9) H 08/09/17 03:35 Nucleated RBCs/100 WBC 0.2 /100 WBC (0) H 08/07/17 03:30 APTT 76.1 Seconds (26.0-36.0) H 08/02/17 07:04 ABG pCO2 54 mmHg (35-45) H 08/08/17 05:55 ABG pO2 74 mmHg (85-104) L 08/08/17 05:55 ABG HCO3 28 mEq/L (21-27) H 08/08/17 05:55 ABG Total CO2 30 mEq/L (20-26) H 08/08/17 05:55 ABG O2 Saturation 93 % (95-98) L 08/08/17 05:55 Creatinine 1.68 mg/dL (0.70-1.30) H 08/09/17 03:00 Est GFR ( Amer) 48 (> 60) L 08/09/17 03:00 Est GFR (Non-Af Amer) 40 (> 60) L 08/09/17 03:00 Glucose 114 mg/dL (70-105) H 08/09/17 03:00 Calcium 8.2 mg/dL (8.6-10.3) L 08/09/17 03:00 Venous Ioniz Calcium 1.14 mmol/L (1.15-1.35) L 08/09/17 07:46 Phosphorus 2.1 mg/dL (2.7-4.5) L 08/09/17 07:30 Direct Bilirubin 0.5 mg/dL (0.0-0.2) H 08/03/17 13:34 AST 70 Units/L (13-39) H 08/03/17 13:34 Alkaline Phosphatase 210 Units/L (34-104) H 08/03/17 13:34 Creatine Kinase 669 Units/L (30-223) H 08/02/17 07:04 Troponin I 4.93 ng/mL (< 0.04) H* 08/02/17 12:49 Serum Total Protein 5.5 g/dL (6.4-8.9) L 08/03/17 13:34 Albumin 2.8 g/dL (3.5-5.7) L 08/03/17 13:34 Albumin/Globulin Ratio 1.0 (1.1-2.2) L 08/03/17 13:34 HDL Cholesterol 19 mg/dL (40-59) L 08/02/17 07:04 Procalcitonin 3.93 ng/mL (<=0.10) H 08/03/17 09:17 Urine Protein 100 mg/dL (Neg-Trace) H 08/02/17 10:30 Urine Ketones Trace mg/dL (Negative) H 08/02/17 10:30 Urine Blood Large (Negative) H 08/02/17 10:30 Urine Bilirubin Small (Negative) H 08/02/17 10:30 Ur Leukocyte Esterase Small (Negative) H 08/02/17 10:30 Urine Microscopic RBC 30-50 per hpf (0-3) H 08/02/17 10:30 Urine Microscopic WBC 50-100 per hpf (0-3) H 08/02/17 10:30 Ur Squamous Epith Cells Many per lpf (None-Few) H 08/02/17 10:30 Urine Bacteria Many per hpf (None-Few) H 08/02/17 10:30 Granular Casts Few per lpf (None Seen) H 08/02/17 10:30 Ur Culture Indicated? NO. (NO) A 08/02/17 10:30 Fluid Appearance Cloudy (Clear) A 08/03/17 08:30 - Microbiology Findings Microbiology Findings: Microbiology, Last 48 Hours 08/02/17 12:49 Blood Culture - Final Peripheral Venipuncture No growth. 08/02/17 12:49 Blood Culture - Final Peripheral Venipuncture No growth. - Clinical Findings Intake & Output: Intake & Output 08/08/17 08/09/17 08/09/17 23:59 07:59 15:59 Intake Total 100 / 100 4600 / 4600 356.3 / 356.3 Output Total 99 / 99 110 / 110 217 / 217 Balance 4490 / 4490 139.3 / 139.3 Weight 73.6 kg - Attending Attestation I examined this patient and my medical decision-making was reviewed with the Resident Physician. I agree with the documented findings, disposition and treatment plan as described except to the extent set forth below. Patient seen and examined. Labs, radiology, chart personally reviewed. Agree with resident's history and physical, assessment, plan with following comments: MANAGER VIDEO: Patient follows commands, Pulmonary: Acceptable oxygenation and ventilation and encourage incentive spirometry. Cardiovascular: stable GI: Nutrition per dietary and GI prophylaxis per routine Heme: DVT prophylaxis per routine ID: Continue antibiotics and plan to de-escalation. Monitor WBC count since patient is overall clinically stabilizing. Renal; urine out put and renal funtion reviewed. Patient remain on renal replacement therapy and when that is stop, and then will plan to transfer patient to the floor. Endorcine: blood glucose is monitored Lines: all lines checked and no evidence of infections Skin: skin care to prevent pressure ulcers per nursing routine care
[2017-08-09] MEDS: Lacri-Lube 3.5 GM TUBE BOTH EYES SCH ×2 (07:36→11:49)
[2017-08-09 07:49] LABS: VBG Ionized Calcium 1.14 mmol/L (1.15-1.35)
[2017-08-09 08:02] LABS: Magnesium 2.5 mg/dL (1.6-2.6); Phosphorous 2.1 mg/dL (2.7-4.5)
[2017-08-09] MEDS ORDERED: *HR* Heparin 5,000 UNIT/ML VIAL ONE (08:58)
[2017-08-09] MEDS: Pantoprazole 40 MG VIAL IVP SCH (09:11)
[2017-08-09] MEDS: Chlorhexidine Rinse 15 ML MOUTHWASH MM SCH (09:11)
[2017-08-09] MEDS: Aspirin 81 MG TAB.CHEW PO SCH (11:01)
[2017-08-09] MEDS: Cholecalciferol (D-3) 1,000 UNIT TABLET PO SCH (11:01)
--- NOTE | 2017-08-09 11:10 | Nephrology Progress Note ---
Date of Encounter: 08/09/17 Time of Encounter: 10:45 - Assessment and Plan (1) JOSH (acute kidney injury) Current Visit: Yes Status: Acute JOSH superimposed on CKD. Baseline creatinine is around 2.23. JOSH setting of an STEMI, what appears to be acute blood loss anemia, hypotension, respiratory failure. Creat 1.68, anuric. Continue CVVH. (2) Acute blood loss anemia Current Visit: No Status: Acute (3) NSTEMI (non-ST elevated myocardial infarction) Current Visit: Yes Status: Acute Subjective Principal diagnosis: JOSH Interval history: O2 NC, arouses, no focus, non verbal. Objective - Vital Signs Vital signs: Vital Signs Temp Pulse Resp BP Pulse Ox 08/09/17 10:00 70 18 148/56 94 08/09/17 09:00 66 18 147/74 95 08/09/17 08:00 64 16 129/54 94 08/09/17 07:14 68 08/09/17 07:00 97.4 F L 70 16 155/89 96 08/09/17 06:02 66 16 151/62 96 08/09/17 05:05 64 18 140/53 98 08/09/17 04:07 68 15 130/56 98 08/09/17 03:00 97.4 F L 84 20 132/67 96 08/09/17 02:09 68 15 130/57 96 08/09/17 01:00 73 16 143/79 99 08/09/17 00:09 79 19 144/67 95 08/08/17 23:04 98.1 F 80 12 139/65 94 08/08/17 22:00 77 18 110/65 97 08/08/17 21:04 76 17 148/52 92 08/08/17 20:06 74 16 145/61 96 08/08/17 19:13 98.0 F 76 17 140/69 95 08/08/17 18:00 73 18 154/52 95 08/08/17 17:00 71 18 140/53 100 08/08/17 16:00 75 18 140/62 98 08/08/17 15:01 72 08/08/17 15:00 98.0 F 72 18 121/64 97 08/08/17 14:00 72 16 135/70 98 08/08/17 13:00 64 16 111/67 100 08/08/17 12:00 68 16 125/47 100 08/08/17 11:28 13 144/63 99 Intake and Output 08/08/17 08/09/17 08/09/17 23:59 07:59 15:59 Intake Total 100 / 100 4600 / 4600 123.3 / 123.3 Output Total 99 / 99 110 / 110 6 / 6 Balance / 4490 / 4490 117.3 / 117.3 Intake: IV Fluids 100 / 100 4600 / 4600 123.3 / 123.3 PrismaSATE BGK 4/2.5 5,000 ML @ 0 / 0 4500 / 4500 0 / 0 2000 mls/hr CRRT CONT ESTEFANÍA Rx#: [id number] FentaNYL (PF) 2,500 MCG In 0 / 0 Empty Bag 1 Each @ 50 MCG/HR 1 mls/hr IVC CONT ESTEFANÍA Rx#: [id number] Levophed 4 MG In Dextrose 5% 0 / 0 250 ML @ 8 MCG/MIN 30.48 mls/hr IVC CONT ESTEFANÍA Rx#:[id number] Zosyn 3.375 GM In 0.9 % Sodium 100 / 100 100 / 100 43.4 / 43.4 Chloride (Mini-Bag +) 100 ML @ 25 mls/hr IVPB Q8H ESTEFANÍA Rx#: [id number] Sodium Phosphate 30 MMOL In 0.9 79.9 / 79.9 % Sodium Chloride 250 ML @ 42 mls/hr IVPB Q12H PRN Rx#: [id number] Oral 0 / 0 0 / 0 0 / 0 Output: Nicole 89 / 89 100 / 100 1 / 1 Catheter 10 / 10 5 / 5 Gastric Drainage 0 / 0 Other: Stool Size Moderate Large Stool Consistency soft loose Stool Color Black Weight 73.6 kg Blood Glucose* 103 - General Appearance General appearance: Present: well-developed, appears started age EENT: Present: mucous membranes moist Neck: Present: no JVD Respiratory: Present: clear Cardiology: Present: no edema, irregular rhythm Dialysis Vascular Access: Venous Catheter Gastrointestinal: Present: hypoactive bowel sounds Integumentary: Present: warm and dry - Lab 08/09/17 03:35 08/09/17 03:00 Most recent lab results ABG pH 7.33 pH Units (7.32-7.45) 08/08/17 05:55 ABG pCO2 54 mmHg (35-45) H 08/08/17 05:55 ABG pO2 74 mmHg (85-104) L 08/08/17 05:55 ABG HCO3 28 mEq/L (21-27) H 08/08/17 05:55 ABG O2 Saturation 93 % (95-98) L 08/08/17 05:55 Calcium 8.2 mg/dL (8.6-10.3) L 08/09/17 03:00 Phosphorus 2.1 mg/dL (2.7-4.5) L 08/09/17 07:30 Magnesium 2.5 mg/dL (1.6-2.6) 08/09/17 07:30 - VTE Documentation of Mechanical Device: Intermittent pneumatic compression device Consult Discharge Plan - Plan Referrals: Nubia Field MD [Primary Care Provider] -
[2017-08-09] MEDS: *HR* Metoprolol 5 MG/5 ML VIAL IVP SCH ×3 (12:10→23:06)
[2017-08-09] MEDS: 0.9 % Sodium Chloride 1,000 ML PRIME SCH ×2 (15:51→17:43)
[2017-08-09] MEDS: Dexmedetomidine HCl 400 MCG/100 ML MLS IVC SCH (17:42)
[2017-08-09] MEDS: Norepinephrine 4 MG in D5% in Water 250 ML IVC SCH (17:43)
--- NOTE | 2017-08-09 20:14 | Electrocardiograph Report ---
[address] [place], [place] [address] Test Date: 2017-08-07 Pat Name: Jersey Deng Department: 109 Room: 02 Gender: M [employer] Operator: : [id number] Requested By: Jason Avery Order Number: [id number] Reading MD: Marc Sanchez Measurements Intervals [place] Rate: 126 P: 46 MD: 190 QRS: 64 QRSD: 99 T: 234 QT: 318 QTc: 393 Interpretive Statements SINUS TACHYCARDIA SEPTAL MYOCARDIAL INFARCTION, OF INDETERMINATE AGE ANTEROLATERAL ISCHEMIA Electronically Signed On 08-09-2017 20:12:56 EDT by Marc Sanchez
[2017-08-09] MEDS: *HR* LORazepam 2 MG/ML VIAL IVP PRN (20:39)
[2017-08-10] MEDS: PrismaSATE BGK 4/2.5 5,000 ML CRRT SCH ×3 (01:28→08:20)
[2017-08-10] MEDS: Insulin LISPRO 300 UNITS/3 ML VIAL SQ SCH ×2 (03:09→09:59)
[2017-08-10 03:28] LABS: Basophils % 0.2 %; Eosinophils % 0.1 %; Hematocrit 23.6 % (37.5-50.1); Hemoglobin 7.6 g/dL (12.9-16.9); Immature Granulocytes % 5.3 % (0-4); Lymphocytes # 1.1 K/mcL (0.6-4.6); Lymphocytes % 5.6 %; Mean Corpuscular HGB Conc 32.2 g/dL (31.6-35.5); Mean Corpuscular Hemoglobin 31.4 pg (28.0-33.3); Mean Corpuscular Volume 97.5 fL (83.0-100.0); Monocytes # 1.3 K/mcL (0.0-1.3); Monocytes % 6.4 %; Neutrophils # 16.5 K/mcL (1.6-8.9); Nucleated Red Blood Cells 0.2 /100 WBC (0); Platelet Count 155 K/mcL (140-400); Red Blood Count 2.42 M/mcL (4.19-5.50); Red Cell Distribution Width 15.3 % (11.5-14.5); Segmented Neutrophils % 82.4 %
[2017-08-10 03:30] LABS: VBG Ionized Calcium 1.13 mmol/L (1.15-1.35)
[2017-08-10 03:38] LABS: Calcium 8.5 mg/dL (8.6-10.3); Magnesium 2.5 mg/dL (1.6-2.6); Phosphorous 2.4 mg/dL (2.7-4.5); Potassium 4.2 mEq/L (3.5-5.1)
[2017-08-10 04:17] LABS: Hypochromasia Present (Not Present); Platelet Estimate Normal (Normal)
[2017-08-10] MEDS: *HR* Metoprolol 5 MG/5 ML VIAL IVP SCH ×3 (05:03→17:36)
[2017-08-10] MEDS: *HR* Heparin 5,000 UNIT/ML VIAL SQ SCH ×3 (05:03→22:24)
--- NOTE | 2017-08-10 08:01 | Pulmonology Progress Note ---
<HannahmarthaVy giron M - Last Filed: 08/10/17 10:05> Date of Encounter: 08/10/17 Objective PUL Vital signs: Last Vital Signs Temp 97.4 F L 08/10/17 07:34 Pulse 54 08/10/17 08:00 Resp 21 08/10/17 08:00 BP 126/53 08/10/17 08:00 Pulse Ox 94 08/10/17 08:00 Results - Laboratory Findings CBC and BMP: 08/10/17 03:00 08/10/17 03:00 ABG ABG pH 7.33 pH Units (7.32-7.45) 08/08/17 05:55 ABG pCO2 54 mmHg (35-45) H 08/08/17 05:55 ABG pO2 74 mmHg (85-104) L 08/08/17 05:55 ABG O2 Saturation 93 % (95-98) L 08/08/17 05:55 PT/INR, D-dimer PT 11.4 Seconds (9.4-12.1) 08/05/17 04:08 Abnormal lab findings: Abnormal lab results WBC 20.0 K/mcL (4.3-11.1) H 08/10/17 03:00 RBC 2.42 M/mcL (4.19-5.50) L 08/10/17 03:00 Hgb 7.6 g/dL (12.9-16.9) L 08/10/17 03:00 Hct 23.6 % (37.5-50.1) L 08/10/17 03:00 RDW 15.3 % (11.5-14.5) H 08/10/17 03:00 Immature Gran % 5.3 % (0-4) H 08/10/17 03:00 Neutrophils # 16.5 K/mcL (1.6-8.9) H 08/10/17 03:00 Nucleated RBCs/100 WBC 0.2 /100 WBC (0) H 08/10/17 03:00 Hypochromasia Present (Not Present) A 08/10/17 03:00 APTT 76.1 Seconds (26.0-36.0) H 08/02/17 07:04 ABG pCO2 54 mmHg (35-45) H 08/08/17 05:55 ABG pO2 74 mmHg (85-104) L 08/08/17 05:55 ABG HCO3 28 mEq/L (21-27) H 08/08/17 05:55 ABG Total CO2 30 mEq/L (20-26) H 08/08/17 05:55 ABG O2 Saturation 93 % (95-98) L 08/08/17 05:55 Creatinine 1.55 mg/dL (0.70-1.30) H 08/10/17 03:00 Est GFR ( Amer) 53 (> 60) L 08/10/17 03:00 Est GFR (Non-Af Amer) 44 (> 60) L 08/10/17 03:00 Glucose 106 mg/dL (70-105) H 08/10/17 03:00 Calcium 8.5 mg/dL (8.6-10.3) L 08/10/17 03:00 Venous Ioniz Calcium 1.13 mmol/L (1.15-1.35) L 08/10/17 03:26 Phosphorus 2.4 mg/dL (2.7-4.5) L 08/10/17 03:00 Direct Bilirubin 0.5 mg/dL (0.0-0.2) H 08/03/17 13:34 AST 70 Units/L (13-39) H 08/03/17 13:34 Alkaline Phosphatase 210 Units/L (34-104) H 08/03/17 13:34 Creatine Kinase 669 Units/L (30-223) H 08/02/17 07:04 Troponin I 4.93 ng/mL (< 0.04) H* 08/02/17 12:49 Serum Total Protein 5.5 g/dL (6.4-8.9) L 08/03/17 13:34 Albumin 2.8 g/dL (3.5-5.7) L 08/03/17 13:34 Albumin/Globulin Ratio 1.0 (1.1-2.2) L 08/03/17 13:34 HDL Cholesterol 19 mg/dL (40-59) L 08/02/17 07:04 Procalcitonin 3.93 ng/mL (<=0.10) H 08/03/17 09:17 Urine Protein 100 mg/dL (Neg-Trace) H 08/02/17 10:30 Urine Ketones Trace mg/dL (Negative) H 08/02/17 10:30 Urine Blood Large (Negative) H 08/02/17 10:30 Urine Bilirubin Small (Negative) H 08/02/17 10:30 Ur Leukocyte Esterase Small (Negative) H 08/02/17 10:30 Urine Microscopic RBC 30-50 per hpf (0-3) H 08/02/17 10:30 Urine Microscopic WBC 50-100 per hpf (0-3) H 08/02/17 10:30 Ur Squamous Epith Cells Many per lpf (None-Few) H 08/02/17 10:30 Urine Bacteria Many per hpf (None-Few) H 08/02/17 10:30 Granular Casts Few per lpf (None Seen) H 08/02/17 10:30 Ur Culture Indicated? NO. (NO) A 08/02/17 10:30 Fluid Appearance Cloudy (Clear) A 08/03/17 08:30 - Microbiology Findings Microbiology Findings: Microbiology, Last 48 Hours 08/02/17 12:49 Blood Culture - Final Peripheral Venipuncture No growth. 08/02/17 12:49 Blood Culture - Final Peripheral Venipuncture No growth. - Clinical Findings Intake & Output: Intake & Output 08/09/17 08/10/17 08/10/17 23:59 07:59 15:59 Intake Total 0 / 0 0 / 0 5000 / 5000 Output Total 4656 / 4656 74 / 74 50 / 50 Balance -4656 / -4656 -74 / -74 4950 / 4950 Weight 73.6 kg Consult Discharge Plan - Plan Referrals: Nubia Field MD [Primary Care Provider] - - Attending Attestation I examined this patient and my medical decision-making was reviewed with the Resident Physician. I agree with the documented findings, disposition and treatment plan as described except to the extent set forth below. Patient seen and examined. Labs, radiology, chart personally reviewed. Agree with resident's history and physical, assessment, plan with following comments: IMAGE ARCHIVIST: Patient follows commands, Pulmonary: Acceptable oxygenation and ventilation Cardiovascular: stable GI: Nutrition per dietary and GI prophylaxis per routine Heme: DVT prophylaxis per routine ID: Pt completed antibiotic Renal; urine out put and renal funtion reviewed. Nicole will be stopped today. Patient will be transition to HD per nephrology. Endorcine: blood glucose is monitored. Stop SSI Lines: all lines checked and no evidence of infections Skin: skin care to prevent pressure ulcers per nursing routine care Patient can be transferred out to the telem floor after stopping his Nicole <Serge Stokes - Last Filed: 08/10/17 12:15> Date of Encounter: 08/10/17 Time of Encounter: 08:01 Assessment and Plan (1) Acute on chronic renal failure Current Visit: Yes Status: Acute - History of known stage IV chronic kidney disease - Patient presented to emergency room with severe metabolic acidosis and hyperkalemia - Requiring continuous venovenous hemodialysis. - Nephrology consulted, appreciate recommendations - Baseline creatinine around 2.3, most recent of 07/04.55 with Nicole, creatinine down trended from 8.6 on admission Plan - Per nephrology, will stop Nicole today and transition to long-term hemodialysis - Hemodialysis placed per interventional radiology - Continue to monitor kidney function, electrolyte abnormalities have resolved Qualifiers: Acute renal failure type: unspecified Chronic kidney disease stage: stage 4 (severe) Qualified Code(s): N17.9 - Acute kidney failure, unspecified; N18.4 - Chronic kidney disease, stage 4 (severe) (2) Acute respiratory failure with hypoxia Current Visit: Yes Status: Resolved - Acute respiratory failure with hypoxia likely related to his acute renal failure, hydrostatic pulmonary edema - Did require intubation which was complicated by hemoptysis and alveolar hemorrhage as below - Successfully extubated on 08/08, currently tolerating 2 L of oxygen via nasal cannula - Patient treated for pneumonia with Zosyn with the course of 8 days. - Bronchoscopy was performed on 08/03 which showed blood in trachea and lungs. Plan - Continue to monitor - Stable for transfer to telemetry floor today (3) Metabolic acidosis Current Visit: Yes Status: Acute - Metabolic acidosis secondary to uremia - This has resolved with dialysis as above - Electrolyte abnormalities resolved as well - We will continue to monitor (4) Atrial fibrillation Current Visit: Yes Status: Acute - Rate controlled with most recent rate at 70 - Not on home anticoagulation due to anemia? - Anticoagulation being held while inpatient due to hemoptysis - Is receiving subcutaneous heparin for DVT prophylaxis Qualifiers: Atrial fibrillation type: chronic Qualified Code(s): I48.2 - Chronic atrial fibrillation (5) Pulmonary alveolar hemorrhage Current Visit: Yes Status: Acute Through the ET tube suctioned out was pink frothy fluid that we are worried about was possibly alveolar hemorrhage. Bronchoscopy did not show any signs of hemorrhage. This most likely was secondary to his CHF and pulmonary hypertension. There has not been any signs of other hemorrhage coming out of the ET tube during since he was last initially intubated and had a bronchoscopy done. Continue to monitor (6) Pneumonia Current Visit: Yes Status: Acute - As above for acute respiratory failure - Blood cultures negative 2 - Chest x-ray on 08/05 shows interstitial pulmonary edema superimposed on chronic interstitial lung disease - BAL Gram stain and shows Haemophilus influenza - Received a course of 8 days of Zosyn - Nonseptic, WBC remains elevated at 20.0 which is stable from previous. Possibly stress related Continue to monitor Qualifiers: Pneumonia type: due to Haemophilus influenzae Laterality: unspecified laterality Lung location: unspecified part of lung Qualified Code(s): J14 - Pneumonia due to Hemophilus influenzae (7) Anemia Current Visit: Yes Status: Acute - H/H of 7./, this is stable from hemoglobin of 8.0 - Related to anemia of chronic disease - No further signs of active bleeding Plan - Continue monitor and transfuse as necessary Qualifiers: Anemia type: due to chronic kidney disease Chronic kidney disease stage: stage 3 (moderate) Qualified Code(s): N18.3 - Chronic kidney disease, stage 3 (moderate); 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 Dr. Johns has seen the patient and they say there is no orthopedic intervention required at this time and will reconsult when necessary. At this time there is no need to reconsult orthopedics (9) Hypertension Current Visit: No Status: Chronic - Was hypotensive on admission, requiring vasopressor support - No longer requiring vasopressors at this time Plan - Continue monitor and restart home meds as able Qualifiers: Hypertension type: unspecified Qualified Code(s): I10 - Essential (primary ) hypertension (10) Hyperlipidemia Current Visit: Yes Status: Chronic Continue home medications Qualifiers: Hyperlipidemia type: unspecified Qualified Code(s): E78.5 - Hyperlipidemia , unspecified (11) Chronic renal disease, stage IV Current Visit: No Status: Chronic As above for acute on chronic renal failure (12) Diabetes type 2, controlled Current Visit: Yes Status: Suspected - Blood sugar has been well controlled with most recent reading of 90 - A1c of 6.4% on 07/24/17 - Has not been requiring insulin coverage Qualifiers: Diabetes mellitus trauma doctor insulin use: without trauma doctor use Diabetes mellitus complication status: with kidney complications Diabetes mellitus complication detail: with chronic kidney disease Chronic kidney disease stage : stage 3 (moderate) Qualified Code(s): E11.22 - Type 2 diabetes mellitus with diabetic chronic kidney disease; N18.3 - Chronic kidney disease, stage 3 ( moderate) (13) NSTEMI (non-ST elevated myocardial infarction) Current Visit: Yes Status: Acute - Patient did have a NSTEMI with heart failure with evidence of cardiogenic shock he was on vasopressors but is currently off the vasopressors at this time. - Patient did have elevated troponins at previous hospital where was 7.49 here it changed to 6.44, 4.61 and is down trending. - Echo was reviewed which was notable for an ejection fraction of 50-55% with moderate left ventricular diastolic dysfunction mild aortic regurgitation and mild to moderate mitral regurgitation, moderate to severe tricuspid regurgitation and severe pulmonary hypertension. - DAPT is on hold for CAD but likely safe to restart aspirin given patient's stability. - Cardiology was following patient we appreciated the recommendations they say patient is not stable enough for left heart catheterization as kidney function does need to get better. - Continue HD as above. (14) Hyperkalemia Current Visit: Yes Status: Resolved - Resolved, Potassium of 4.2 (15) Hyponatremia Current Visit: Yes Status: Resolved - Resolved, sodium of 139 (16) Coronary artery disease Current Visit: Yes Status: Chronic - NSTEMI as above - Continue home medications Qualifiers: Coronary Disease-Associated Artery/Lesion type: [place] artery [place] vs. transplanted heart: [place] heart Associated angina: without angina Qualified Code(s): I25.10 - Atherosclerotic heart disease of [place] coronary artery without angina pectoris (17) DVT prophylaxis Current Visit: Yes Status: Acute Subcutaneous heparin Subjective Principal diagnosis: JOSH Interval history: Patient was seen and examined at bedside this morning. He appears to be lethargic and does not follow commands. He opens his eyes and reaches for stethoscope on auscultation. Easily arousable to tactile stimuli. No acute events overnight. Objective PUL Vital signs: Last Vital Signs Temp 97.4 F L 08/10/17 07:34 Pulse 62 08/10/17 06:00 Resp 16 08/10/17 06:00 BP 130/74 08/10/17 06:00 Pulse Ox 96 08/10/17 06:00 Gen.: Vitals noted. No acute distress. Sleeping comfortably. Arouses to touch. HEENT: PERRL/EOMI, oropharynx clear, Normocephalic, atraumatic, MMM Cardiac: Irregularly irregular rhythm of heart, no murmur, +S1/S2 Pulmonary: CTA bilaterally, no wheezes, rales or rhonchi, equal chest expansion Abdomen: soft, nontender, BS noted, no guarding, no rebound. : Minimal red colored urine output Extremities: no BLE edema, nontender calf, no cyanosis or clubbing Neuro: AOx0, moves all extremities, no focal deficits Psych:Does not follow commands appropriately. Results - Laboratory Findings CBC and BMP: 08/10/17 03:00 08/10/17 03:00 ABG ABG pH 7.33 pH Units (7.32-7.45) 08/08/17 05:55 ABG pCO2 54 mmHg (35-45) H 08/08/17 05:55 ABG pO2 74 mmHg (85-104) L 08/08/17 05:55 ABG O2 Saturation 93 % (95-98) L 08/08/17 05:55 PT/INR, D-dimer PT 11.4 Seconds (9.4-12.1) 08/05/17 04:08 Abnormal lab findings: Abnormal lab results WBC 20.0 K/mcL (4.3-11.1) H 08/10/17 03:00 RBC 2.42 M/mcL (4.19-5.50) L 08/10/17 03:00 Hgb 7.6 g/dL (12.9-16.9) L 08/10/17 03:00 Hct 23.6 % (37.5-50.1) L 08/10/17 03:00 RDW 15.3 % (11.5-14.5) H 08/10/17 03:00 Immature Gran % 5.3 % (0-4) H 08/10/17 03:00 Neutrophils # 16.5 K/mcL (1.6-8.9) H 08/10/17 03:00 Nucleated RBCs/100 WBC 0.2 /100 WBC (0) H 08/10/17 03:00 Hypochromasia Present (Not Present) A 08/10/17 03:00 APTT 76.1 Seconds (26.0-36.0) H 08/02/17 07:04 ABG pCO2 54 mmHg (35-45) H 08/08/17 05:55 ABG pO2 74 mmHg (85-104) L 08/08/17 05:55 ABG HCO3 28 mEq/L (21-27) H 08/08/17 05:55 ABG Total CO2 30 mEq/L (20-26) H 08/08/17 05:55 ABG O2 Saturation 93 % (95-98) L 08/08/17 05:55 Creatinine 1.55 mg/dL (0.70-1.30) H 08/10/17 03:00 Est GFR ( Amer) 53 (> 60) L 08/10/17 03:00 Est GFR (Non-Af Amer) 44 (> 60) L 08/10/17 03:00 Glucose 106 mg/dL (70-105) H 08/10/17 03:00 Calcium 8.5 mg/dL (8.6-10.3) L 08/10/17 03:00 Venous Ioniz Calcium 1.13 mmol/L (1.15-1.35) L 08/10/17 03:26 Phosphorus 2.4 mg/dL (2.7-4.5) L 08/10/17 03:00 Direct Bilirubin 0.5 mg/dL (0.0-0.2) H 08/03/17 13:34 AST 70 Units/L (13-39) H 08/03/17 13:34 Alkaline Phosphatase 210 Units/L (34-104) H 08/03/17 13:34 Creatine Kinase 669 Units/L (30-223) H 08/02/17 07:04 Troponin I 4.93 ng/mL (< 0.04) H* 08/02/17 12:49 Serum Total Protein 5.5 g/dL (6.4-8.9) L 08/03/17 13:34 Albumin 2.8 g/dL (3.5-5.7) L 08/03/17 13:34 Albumin/Globulin Ratio 1.0 (1.1-2.2) L 08/03/17 13:34 HDL Cholesterol 19 mg/dL (40-59) L 08/02/17 07:04 Procalcitonin 3.93 ng/mL (<=0.10) H 08/03/17 09:17 Urine Protein 100 mg/dL (Neg-Trace) H 08/02/17 10:30 Urine Ketones Trace mg/dL (Negative) H 08/02/17 10:30 Urine Blood Large (Negative) H 08/02/17 10:30 Urine Bilirubin Small (Negative) H 08/02/17 10:30 Ur Leukocyte Esterase Small (Negative) H 08/02/17 10:30 Urine Microscopic RBC 30-50 per hpf (0-3) H 08/02/17 10:30 Urine Microscopic WBC 50-100 per hpf (0-3) H 08/02/17 10:30 Ur Squamous Epith Cells Many per lpf (None-Few) H 08/02/17 10:30 Urine Bacteria Many per hpf (None-Few) H 08/02/17 10:30 Granular Casts Few per lpf (None Seen) H 08/02/17 10:30 Ur Culture Indicated? NO. (NO) A 08/02/17 10:30 Fluid Appearance Cloudy (Clear) A 08/03/17 08:30 - Microbiology Findings Microbiology Findings: Microbiology, Last 48 Hours 08/02/17 12:49 Blood Culture - Final Peripheral Venipuncture No growth. 08/02/17 12:49 Blood Culture - Final Peripheral Venipuncture No growth. - Clinical Findings Intake & Output: Intake & Output 08/09/17 08/10/17 08/10/17 23:59 07:59 15:59 Intake Total 0 / 0 0 / 0 Output Total 4656 / 4656 74 / 74 Balance -4656 / -4656 -74 / -74 Weight 73.6 kg - VTE Documentation of Mechanical Device: Intermittent pneumatic compression device
--- NOTE | 2017-08-10 09:16 | Nephrology Progress Note ---
Date of Encounter: 08/10/17 Time of Encounter: 08:40 - Assessment and Plan (1) JOSH (acute kidney injury) Current Visit: Yes Status: Acute JOSH in setting of an STEMI, what appears to be acute blood loss anemia, hypotension, respiratory failure. Creat 1.55, anuric, documented urine output 25cc. Will stop CVVH today with plans to start chronic HD tomorrow. (2) Acute blood loss anemia Current Visit: No Status: Acute (3) NSTEMI (non-ST elevated myocardial infarction) Current Visit: Yes Status: Acute Subjective Principal diagnosis: JOSH Interval history: O2 NC, arouses, no focus, non verbal. Objective - Vital Signs Vital signs: Vital Signs Temp Pulse Resp BP Pulse Ox 08/10/17 08:00 54 21 126/53 94 08/10/17 07:34 97.4 F L 08/10/17 06:00 62 16 130/74 96 08/10/17 05:00 62 17 132/81 96 08/10/17 04:06 98.1 F 65 20 129/59 96 08/10/17 03:07 62 19 143/59 95 08/10/17 02:00 64 15 123/52 98 08/10/17 01:00 61 17 127/79 96 08/10/17 00:03 66 14 152/63 93 08/09/17 23:01 96.7 F L 71 21 146/52 97 08/09/17 22:00 61 19 140/76 92 08/09/17 21:00 66 17 154/98 95 08/09/17 20:00 75 15 130/86 97 08/09/17 19:03 98 F 67 16 152/81 94 08/09/17 18:00 61 18 145/60 93 08/09/17 17:00 68 20 133/83 97 08/09/17 16:00 68 20 145/50 97 08/09/17 15:10 78 08/09/17 15:00 97.5 F L 71 16 143/66 92 08/09/17 14:00 66 18 145/95 92 08/09/17 13:00 66 18 107/75 93 08/09/17 12:00 75 20 151/55 94 08/09/17 11:07 65 08/09/17 11:00 65 18 134/55 94 08/09/17 10:00 70 18 148/56 94 Intake and Output 08/09/17 08/10/17 08/10/17 23:59 07:59 15:59 Intake Total 0 / 0 0 / 0 5000 / 5000 Output Total 4656 / 4656 / 74 50 / 50 Balance -4656 / -4656 -74 / -74 4950 / 4950 Intake: IV Fluids 0 / 0 0 / 0 5000 / 5000 PrismaSATE BGK 4/2.5 5,000 ML @ 0 / 0 0 / 0 5000 / 5000 2000 mls/hr CRRT CONT ESTEFANÍA Rx#: [id number] Oral 0 / 0 0 / 0 Output: Nicole 146 / 146 50 / 50 Other 4500 / 4500 Catheter 10 0 / 0 Other: Weight 73.6 kg Blood Glucose* 95 88 - General Appearance General appearance: Present: well-developed, appears started age EENT: Present: mucous membranes moist Neck: Present: no JVD Respiratory: Present: clear Cardiology: Present: no edema, irregular rhythm Dialysis Vascular Access: Venous Catheter Gastrointestinal: Present: hypoactive bowel sounds, no tenderness Integumentary: Present: warm and dry - Lab 08/10/17 03:00 08/10/17 03:00 Most recent lab results ABG pH 7.33 pH Units (7.32-7.45) 08/08/17 05:55 ABG pCO2 54 mmHg (35-45) H 08/08/17 05:55 ABG pO2 74 mmHg (85-104) L 08/08/17 05:55 ABG HCO3 28 mEq/L (21-27) H 08/08/17 05:55 ABG O2 Saturation 93 % (95-98) L 08/08/17 05:55 Calcium 8.5 mg/dL (8.6-10.3) L 08/10/17 03:00 Phosphorus 2.4 mg/dL (2.7-4.5) L 08/10/17 03:00 Magnesium 2.5 mg/dL (1.6-2.6) 08/10/17 03:00 - VTE Documentation of Mechanical Device: Intermittent pneumatic compression device Consult Discharge Plan - Plan Referrals: Nubia Field MD [Primary Care Provider] -
[2017-08-10] MEDS: Cholecalciferol (D-3) 1,000 UNIT TABLET PO SCH (09:58)
[2017-08-10] MEDS: Aspirin 81 MG TAB.CHEW PO SCH (09:58)
[2017-08-10] MEDS: Pantoprazole 40 MG VIAL IVP SCH (09:58)
[2017-08-10] MEDS: *HR* Heparin 5,000 UNIT/ML VIAL IV PRN (11:09)
[2017-08-10] MEDS ORDERED: 0.9 % Sodium Chloride 1,000 ML PRIME SCH (12:18)
[2017-08-10] MEDS ORDERED: PrismaSATE BGK 4/2.5 5,000 ML CRRT SCH ×2 (12:18)
[2017-08-10] MEDS ORDERED: *HR* Heparin 5,000 UNIT/ML VIAL IV PRN (12:18)
[2017-08-10] MEDS ORDERED: *HR* LORazepam 2 MG/ML VIAL IVP PRN (12:18)
[2017-08-10] MEDS ORDERED: Naloxone 0.4 MG/ML INJ IVP PRN (12:18)
[2017-08-11] MEDS: *HR* Metoprolol 5 MG/5 ML VIAL IVP SCH ×3 (00:52→12:00)
[2017-08-11] MEDS: *HR* Heparin 5,000 UNIT/ML VIAL SQ SCH ×3 (05:32→22:05)
[2017-08-11 06:22] LABS: Hematocrit 19.4 % (37.5-50.1); Hemoglobin 6.3 g/dL (12.9-16.9); Mean Corpuscular HGB Conc 32.5 g/dL (31.6-35.5); Mean Corpuscular Hemoglobin 31.8 pg (28.0-33.3); Mean Platelet Volume 10.9 fL (9.4-12.4); Nucleated Red Blood Cells 0.1 /100 WBC (0); Platelet Count 131 K/mcL (140-400); Red Blood Count 1.98 M/mcL (4.19-5.50); Red Cell Distribution Width 15.6 % (11.5-14.5)
[2017-08-11 06:28] LABS: Calcium 8.4 mg/dL (8.6-10.3); Potassium 3.5 mEq/L (3.5-5.1)
[2017-08-11 07:17] LABS: Lymphocytes # 1.5 K/mcL (0.6-4.6); Monocytes # 0.3 K/mcL (0.0-1.3); Neutrophils # 12.8 K/mcL (1.6-8.9); Platelet Estimate Slight Decrease (Normal)
[2017-08-11] MEDS ORDERED: Pantoprazole 40 MG VIAL IVP SCH (09:00)
[2017-08-11] MEDS: Cholecalciferol (D-3) 1,000 UNIT TABLET PO SCH (09:45)
[2017-08-11] MEDS: Aspirin 81 MG TAB.CHEW PO SCH (09:45)
[2017-08-11] MEDS ORDERED: 0.9 % Sodium Chloride 250 ML IVC PRN (12:09)
[2017-08-11] MEDS ORDERED: *HR* Heparin 10,000 UNIT/10 ML VIAL IV PRN (12:09)
[2017-08-11] MEDS ORDERED: 0.9 % Sodium Chloride 1,000 ML PRIME SCH (12:15)
--- NOTE | 2017-08-11 13:42 | Nephrology Progress Note ---
Date of Encounter: 08/11/17 Time of Encounter: 13:25 - Assessment and Plan (1) JOSH (acute kidney injury) Current Visit: Yes Status: Acute JOSH in setting of an STEMI, what appears to be acute blood loss anemia, hypotension, respiratory failure. Creat 3.55, K 3.5, Hgb 6.3, essentially anuric , documented urine output 35cc. CVVH stopped yesterday, will do HD today, with plans of chronic schedule. Orders given. Will also transfuse 2 units PRBC. (2) Acute blood loss anemia Current Visit: No Status: Acute (3) NSTEMI (non-ST elevated myocardial infarction) Current Visit: Yes Status: Acute Subjective Principal diagnosis: JOSH Interval history: Transferred to . O2 NC, Eyes open, conversing appropriately. at bedside. Discussed lack of renal recovery at this point and need for chronic HD. Verbalized understanding. Objective - Vital Signs Vital signs: Vital Signs Temp Pulse Resp BP Pulse Ox 08/11/17 10:55 98.9 F 61 21 155/68 94 08/11/17 06:48 100.2 F H 71 18 150/51 95 08/11/17 05:07 99.4 F 90 18 133/58 93 08/10/17 22:45 98.4 F 83 18 151/53 91 08/10/17 19:25 99.7 F H 70 18 134/49 95 08/10/17 18:00 66 20 102/69 97 08/10/17 17:00 89 18 143/67 94 08/10/17 15:30 63 08/10/17 15:00 66 16 138/51 93 Intake and Output 08/10/17 08/11/17 08/11/17 23:59 07:59 15:59 Intake Total 0 / 0 Output Total 30 / 30 Balance -30 / -30 Intake: Oral 0 / 0 Output: Catheter 30 / Other: Stool Size Moderate Stool Consistency liquid Stool Color Brown Black # Bowel Movements 1 Blood Glucose* 104 104 111 - General Appearance General appearance: Present: well-developed, appears started age EENT: Present: mucous membranes moist Neck: Present: no JVD Respiratory: Present: clear Cardiology: Present: no edema, regular rate, regular rhythm Dialysis Vascular Access: Venous Catheter Gastrointestinal: Present: hypoactive bowel sounds, no tenderness Integumentary: Present: warm and dry Psychiatric: Present: mood/affect appropriate, cooperative - Lab 08/11/17 05:35 08/11/17 05:35 Most recent lab results ABG pH 7.33 pH Units (7.32-7.45) 08/08/17 05:55 ABG pCO2 54 mmHg (35-45) H 08/08/17 05:55 ABG pO2 74 mmHg (85-104) L 08/08/17 05:55 ABG HCO3 28 mEq/L (21-27) H 08/08/17 05:55 ABG O2 Saturation 93 % (95-98) L 08/08/17 05:55 Calcium 8.4 mg/dL (8.6-10.3) L 08/11/17 05:35 Phosphorus 2.4 mg/dL (2.7-4.5) L 08/10/17 03:00 Magnesium 2.5 mg/dL (1.6-2.6) 08/10/17 03:00 - VTE Documentation of Mechanical Device: Intermittent pneumatic compression device Consult Discharge Plan - Plan Referrals: Nubia Field MD [Primary Care Provider] -
[2017-08-11] MEDS ORDERED: 0.9 % Sodium Chloride 2,000 ML ONE (16:39)
--- NOTE | 2017-08-11 19:39 | Internal Med Progress Note ---
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 Assessment and plan: TSR 1 week ago; Orthopedics on board; no signs of wound infection; (2) Chronic renal disease, stage IV Current Visit: No Status: Chronic Assessment and plan: Nephrology following and appreciate recommendations (3) Hyponatremia Current Visit: Yes Status: Resolved (4) Anemia Current Visit: Yes Status: Acute Assessment and plan: Continue to monitor Qualifiers: Anemia type: due to chronic kidney disease Chronic kidney disease stage: stage 3 (moderate) Qualified Code(s): N18.3 - Chronic kidney disease, stage 3 (moderate); D63.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 (5) NSTEMI (non-ST elevated myocardial infarction) Current Visit: Yes Status: Acute Assessment and plan: Suspect secondary to demand ischemia (6) Acute respiratory failure with hypoxia Current Visit: Yes Status: Resolved Assessment and plan: Patient extubated and was transferred to the medical surgical floor per pulmonology recommendations (7) Atrial fibrillation Current Visit: Yes Status: Acute Qualifiers: Atrial fibrillation type: chronic Qualified Code(s): I48.2 - Chronic atrial fibrillation (8) Pulmonary alveolar hemorrhage Current Visit: Yes Status: Acute Assessment and plan: , Pulmonology with recommendations to monitor (9) Pneumonia Current Visit: Yes Status: Acute Assessment and plan: Patient finished a course of IV antibiotics Qualifiers: Pneumonia type: due to Haemophilus influenzae Laterality: unspecified laterality Lung location: unspecified part of lung Qualified Code(s): J14 - Pneumonia due to Hemophilus influenzae (10) DVT prophylaxis Current Visit: Yes Status: Acute Assessment and plan: Heparin subcutaneous - Time Spent With Patient Total time spent is greater than 50% in coordination of care (as documented) at patient's floor/unit and/or counseling patient: - Subjective Interval history: Patient confused this morning and somnolent - Constitutional Vitals: Temp Pulse Resp BP Pulse Ox 98.4 F 72 16 160/83 92 08/11/17 19:31 08/11/17 19:31 08/11/17 19:31 08/11/17 19:31 08/11/17 19:31 General appearance: Present: A&O X 0, mild distress, A&O X 3, answers questions appropriately - Respiratory Respiratory exam: Present: CTAB. Absent: accessory muscle use, rales, rhonchi, wheezes - Cardiovascular Cardiovascular exam: Present: RRR, +S1, +S2. Absent: diastolic murmur, gallop, rubs, systolic murmur Internal Medicine: Result - Labs CBC & Chem 7: 08/12/17 06:15 08/12/17 06:15 Labs: Short CBC 08/11/17 Range/Units 05:35 WBC 14.5 H (4.3-11.1) K/mcL Hgb 6.3 L (12.9-16.9) g/dL Hct 19.4 L (37.5-50.1) % Plt Count 131 L (140-400) K/mcL Neutrophils # 12.8 H (1.6-8.9) K/mcL BMP 08/11/17 05:35 Sodium 141 Potassium 3.5 Chloride 108 H Carbon Dioxide 21 L BUN 38 H Creatinine 3.55 H Glucose 105 Calcium 8.4 L - ABG Interpretation ABG results: ABG ABG pH 7.33 pH Units (7.32-7.45) 08/08/17 05:55 ABG pCO2 54 mmHg (35-45) H 08/08/17 05:55 ABG pO2 74 mmHg (85-104) L 08/08/17 05:55 ABG O2 Saturation 93 % (95-98) L 08/08/17 05:55 PT/INR, D-dimer PT 11.4 Seconds (9.4-12.1) 08/05/17 04:08 - VTE Documentation of Mechanical Device: Intermittent pneumatic compression device Consult Discharge Plan - Plan Referrals: Nubia Field MD [Primary Care Provider] -
[2017-08-12] MEDS: *HR* Heparin 5,000 UNIT/ML VIAL SQ SCH ×3 (05:54→22:54)
[2017-08-12 07:50] LABS: Calcium 8.3 mg/dL (8.6-10.3); Potassium 3.7 mEq/L (3.5-5.1)
[2017-08-12 07:55] LABS: Basophils % 0.2 %; Eosinophils % 0.1 %; Hematocrit 27.6 % (37.5-50.1); Immature Granulocytes % 4.9 % (0-4); Lymphocytes % 8.3 %; Mean Corpuscular HGB Conc 31.9 g/dL (31.6-35.5); Mean Corpuscular Hemoglobin 30.2 pg (28.0-33.3); Mean Corpuscular Volume 94.8 fL (83.0-100.0); Mean Platelet Volume 10.9 fL (9.4-12.4); Monocytes # 1.3 K/mcL (0.0-1.3); Monocytes % 11.3 %; Neutrophils # 8.6 K/mcL (1.6-8.9); Platelet Count 100 K/mcL (140-400); Red Blood Count 2.91 M/mcL (4.19-5.50); Red Cell Distribution Width 16.1 % (11.5-14.5); Segmented Neutrophils % 75.2 %
[2017-08-12 07:58] LABS: Hemoglobin 8.8 g/dL (12.9-16.9)
--- NOTE | 2017-08-12 09:13 | Nephrology Progress Note ---
Date of Encounter: 08/12/17 Time of Encounter: 09:00 - Assessment and Plan (1) JOSH (acute kidney injury) Current Visit: Yes Status: Acute JOSH in setting of an STEMI, what appears to be acute blood loss anemia, hypotension, respiratory failure. Creat 3.17, K 3.7, Hgb 8.8 following 2 units PRBC yesterday. Started on chronic HD yesterday. Avoid nephrotoxins, accurate I& O. Will continue to monitor. (2) Acute blood loss anemia Current Visit: No Status: Acute (3) NSTEMI (non-ST elevated myocardial infarction) Current Visit: Yes Status: Acute Subjective Principal diagnosis: JOSH Interval history: O2 NC, Alert, pleasantly confused, asking for clothes. Objective - Vital Signs Vital signs: Vital Signs Temp Pulse Resp BP Pulse Ox 08/12/17 07:44 98.5 F 72 16 162/76 90 08/12/17 05:40 98.5 F 76 15 148/74 93 08/12/17 00:31 98.2 F 72 15 146/67 93 08/11/17 19:31 98.4 F 72 16 160/83 92 08/11/17 18:33 99.1 F 22 160/75 08/11/17 18:00 143/68 08/11/17 17:45 144/68 08/11/17 17:33 98.5 F 75 18 120/57 08/11/17 17:30 120/57 08/11/17 17:24 98.3 F 80 18 101/66 08/11/17 17:15 105/52 08/11/17 17:09 98.7 F 82 18 118/56 08/11/17 17:00 123/65 08/11/17 16:58 98.6 F 81 20 101/76 08/11/17 16:52 98.5 F 77 18 112/58 08/11/17 16:45 121/57 08/11/17 16:37 98.5 F 68 18 120/58 08/11/17 16:30 112/57 08/11/17 16:15 135/94 08/11/17 16:00 148/90 08/11/17 15:45 131/59 08/11/17 15:30 134/56 08/11/17 15:15 122/54 08/11/17 15:00 148/67 08/11/17 14:45 98.8 F 22 157/56 08/11/17 10:55 98.9 F 61 21 155/68 94 Intake and Output 08/11/17 08/12/17 08/12/17 23:59 07:59 15:59 Intake Total 1750 / 1750 Output Total 2200 / 2200 Balance -450 / -450 Intake: Blood Product 1750 / 1750 Rbcs Leuko Poor As-1 Unit 1050 / 1050 [id number] Rbcs Leuko Poor As-1 Unit 700 / 700 [id number] Output: Urine 0 / 0 Total Dialysis (HD) Output 2200 / 2200 Other: Stool Size Large Stool Consistency liquid # Bowel Movement Diapers 1 Weight 72.8 kg Blood Glucose* 105 106 Hemodialysis Net Fluid Removed 1000 (mL) Patient Weight 08/12/17 23:59 Weight 72.8 kg - General Appearance General appearance: Present: well-developed, appears started age EENT: Present: mucous membranes moist Neck: Present: no JVD Respiratory: Present: clear Cardiology: Present: no edema, regular rate, regular rhythm Dialysis Vascular Access: Venous Catheter Gastrointestinal: Present: normoactive bowel sounds, no tenderness Integumentary: Present: warm and dry Psychiatric: Present: cooperative - Lab 08/12/17 06:15 08/12/17 06:15 Most recent lab results ABG pH 7.33 pH Units (7.32-7.45) 08/08/17 05:55 ABG pCO2 54 mmHg (35-45) H 08/08/17 05:55 ABG pO2 74 mmHg (85-104) L 08/08/17 05:55 ABG HCO3 28 mEq/L (21-27) H 08/08/17 05:55 ABG O2 Saturation 93 % (95-98) L 08/08/17 05:55 Calcium 8.3 mg/dL (8.6-10.3) L 08/12/17 06:15 Phosphorus 2.4 mg/dL (2.7-4.5) L 08/10/17 03:00 Magnesium 2.5 mg/dL (1.6-2.6) 08/10/17 03:00 - VTE Documentation of Mechanical Device: Intermittent pneumatic compression device Consult Discharge Plan - Plan Referrals: Nubia Field MD [Primary Care Provider] -
[2017-08-12] MEDS: Aspirin 81 MG TAB.CHEW PO SCH (09:42)
[2017-08-12] MEDS: Cholecalciferol (D-3) 1,000 UNIT TABLET PO SCH (09:42)
[2017-08-12] MEDS: Acetaminophen 325 MG TABLET PO PRN (13:22)
--- NOTE | 2017-08-12 19:04 | Internal Med Progress Note ---
Date of Encounter: 08/12/17 Time of Encounter: 11:00 - Assessment and plan (1) Acute respiratory failure with hypoxia Current Visit: Yes Status: Resolved Assessment and plan: Patient extubated and was transferred to the medical surgical floor per pulmonology recommendations (2) NSTEMI (non-ST elevated myocardial infarction) Current Visit: Yes Status: Acute Assessment and plan: Suspect secondary to demand ischemia (3) Pneumonia Current Visit: Yes Status: Acute Assessment and plan: Patient finished a course of IV antibiotics Qualifiers: Pneumonia type: due to Haemophilus influenzae Laterality: unspecified laterality Lung location: unspecified part of lung Qualified Code(s): J14 - Pneumonia due to Hemophilus influenzae (4) Pulmonary alveolar hemorrhage Current Visit: Yes Status: Acute (5) Acute on chronic renal failure Current Visit: Yes Status: Acute Assessment and plan: Nephrology following and appreciate recommendations Qualifiers: Acute renal failure type: unspecified Chronic kidney disease stage: stage 4 (severe) Qualified Code(s): N17.9 - Acute kidney failure, unspecified; N18.4 - Chronic kidney disease, stage 4 (severe) (6) Status post total replacement of right shoulder Current Visit: Yes Status: Chronic Assessment and plan: TSR 1 week ago; Orthopedics on board; no signs of wound infection; (7) Diabetes type 2, controlled Current Visit: Yes Status: Suspected Qualifiers: Diabetes mellitus mcc insulin use: without mcc use Diabetes mellitus complication status: with kidney complications Diabetes mellitus complication detail: with chronic kidney disease Chronic kidney disease stage : stage 3 (moderate) Qualified Code(s): E11.22 - Type 2 diabetes mellitus with diabetic chronic kidney disease; N18.3 - Chronic kidney disease, stage 3 ( moderate) (8) Hyperkalemia Current Visit: Yes Status: Resolved Assessment and plan: give Kayexalate; expect to correct with correction of acidosis; (9) Anemia Current Visit: Yes Status: Acute Assessment and plan: Continue to monitor Qualifiers: Anemia type: due to chronic kidney disease Chronic kidney disease stage: stage 3 (moderate) Qualified Code(s): N18.3 - Chronic kidney disease, stage 3 (moderate); D63.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 (10) DVT prophylaxis Current Visit: Yes Status: Acute Assessment and plan: Heparin subcutaneous - Time Spent With Patient Total time spent is greater than 50% in coordination of care (as documented) at patient's floor/unit and/or counseling patient: - Subjective Interval history: Patient doing better today and is sitting up in chair requesting diet order - Constitutional Vitals: Temp Pulse Resp BP Pulse Ox 98.6 F 119 16 128/79 92 08/12/17 15:24 08/12/17 15:24 08/12/17 15:24 08/12/17 15:24 08/12/17 15:24 General appearance: Present: mild distress, A&O X 3, answers questions appropriately - Respiratory Respiratory exam: Present: CTAB. Absent: accessory muscle use, rales, rhonchi, wheezes - Cardiovascular Cardiovascular exam: Present: RRR, +S1, +S2. Absent: diastolic murmur, gallop, rubs, systolic murmur Internal Medicine: Result - Labs CBC & Chem 7: 08/12/17 06:15 08/12/17 06:15 Labs: Short CBC 08/12/17 Range/Units 06:15 WBC 11.5 H (4.3-11.1) K/mcL Hgb 8.8 L D (12.9-16.9) g/dL Hct 27.6 L (37.5-50.1) % Plt Count 100 L (140-400) K/mcL Neutrophils # 8.6 (1.6-8.9) K/mcL BMP 08/12/17 06:15 Sodium 142 Potassium 3.7 Chloride 106 Carbon Dioxide 25 BUN 29 H Creatinine 3.17 H Glucose 100 Calcium 8.3 L - ABG Interpretation ABG results: ABG ABG pH 7.33 pH Units (7.32-7.45) 08/08/17 05:55 ABG pCO2 54 mmHg (35-45) H 08/08/17 05:55 ABG pO2 74 mmHg (85-104) L 08/08/17 05:55 ABG O2 Saturation 93 % (95-98) L 08/08/17 05:55 PT/INR, D-dimer PT 11.4 Seconds (9.4-12.1) 08/05/17 04:08 - Impressions Impressions Shoulder X-Ray 08/11/17 12:24 IMPRESSION: Postop changes without complicating feature. D/ / Eric Platt MD / Eric Platt MD Interpreting Provider: Eric Platt MD - VTE Documentation of Mechanical Device: Intermittent pneumatic compression device Consult Discharge Plan - Plan Referrals: Nubia Field MD [Primary Care Provider] -
[2017-08-13] MEDS: Acetaminophen 325 MG TABLET PO PRN ×3 (01:27→22:26)
[2017-08-13] MEDS: *HR* Heparin 5,000 UNIT/ML VIAL SQ SCH ×3 (06:47→22:25)
--- NOTE | 2017-08-13 08:37 | Nephrology Progress Note ---
Date of Encounter: 08/13/17 Time of Encounter: 08:20 - Assessment and Plan (1) JOSH (acute kidney injury) Current Visit: Yes Status: Acute JOSH in setting of an STEMI, what appears to be acute blood loss anemia, hypotension, respiratory failure. Started on chronic HD. Today labs pending, remains anuric. Avoid nephrotoxins, accurate I&O. Will continue to monitor. (2) Acute blood loss anemia Current Visit: No Status: Acute (3) NSTEMI (non-ST elevated myocardial infarction) Current Visit: Yes Status: Acute Subjective Principal diagnosis: JOSH Interval history: O2 NC, Alert, pleasantly confused. Objective - Vital Signs Vital signs: Vital Signs Temp Pulse Resp BP Pulse Ox 08/13/17 07:28 9831 F H 68 18 137/52 974 08/13/17 04:27 97.7 F 100 18 104/72 97 08/13/17 04:11 98.3 F 71 18 132/55 95 08/12/17 23:52 99.0 F 75 18 112/52 94 08/12/17 20:48 98.4 F 73 18 120/84 97 08/12/17 15:24 98.6 F 119 16 128/79 92 08/12/17 12:42 98.4 F 146 20 105/67 91 Intake and Output 08/12/17 08/13/17 08/13/17 23:59 07:59 15:59 Intake Total 360 / 360 240 / 240 Output Total 0 / 0 100 / 100 Balance 360 / 360 140 / 140 Intake: Oral 360 / 360 240 / 240 Output: Urine 0 / 0 100 / 100 Other: Meal Dinner Percent of Meal Consumed 60% Stool Size Moderate Stool Consistency loose Stool Color Brown Green # Bowel Movements 1 Weight 136.622 kg Blood Glucose* 151 107 Patient Weight 08/13/17 23:59 Weight 136.622 kg - General Appearance General appearance: Present: well-developed, appears started age EENT: Present: mucous membranes moist Neck: Present: no JVD Respiratory: Present: clear Cardiology: Present: no edema, regular rate, regular rhythm Dialysis Vascular Access: Venous Catheter Gastrointestinal: Present: normoactive bowel sounds, no tenderness Integumentary: Present: warm and dry Psychiatric: Present: cooperative - Lab 08/12/17 06:15 08/12/17 06:15 Most recent lab results ABG pH 7.33 pH Units (7.32-7.45) 08/08/17 05:55 ABG pCO2 54 mmHg (35-45) H 08/08/17 05:55 ABG pO2 74 mmHg (85-104) L 08/08/17 05:55 ABG HCO3 28 mEq/L (21-27) H 08/08/17 05:55 ABG O2 Saturation 93 % (95-98) L 08/08/17 05:55 Calcium 8.3 mg/dL (8.6-10.3) L 08/12/17 06:15 Phosphorus 2.4 mg/dL (2.7-4.5) L 08/10/17 03:00 Magnesium 2.5 mg/dL (1.6-2.6) 08/10/17 03:00 - VTE Documentation of Mechanical Device: Intermittent pneumatic compression device Consult Discharge Plan - Plan Referrals: Nubia Field MD [Primary Care Provider] -
[2017-08-13] MEDS: Cholecalciferol (D-3) 1,000 UNIT TABLET PO SCH (10:05)
[2017-08-13] MEDS: Aspirin 81 MG TAB.CHEW PO SCH (10:06)
[2017-08-13 11:09] LABS: Eosinophils % 0.2 %; Hemoglobin 8.7 g/dL (12.9-16.9); Mean Corpuscular Volume 96.7 fL (83.0-100.0)
[2017-08-13 11:11] LABS: Basophils % 0.1 %; Immature Granulocytes % 3.9 % (0-4); Immature Platelets 6.4 % (1.1-6.1); Lymphocytes # 0.7 K/mcL (0.6-4.6); Lymphocytes % 7.5 %; Mean Corpuscular HGB Conc 33.5 g/dL (31.6-35.5); Mean Corpuscular Hemoglobin 32.3 pg (28.0-33.3); Mean Platelet Volume 11.1 fL (9.4-12.4); Monocytes # 0.9 K/mcL (0.0-1.3); Monocytes % 9.4 %; Neutrophils # 7.3 K/mcL (1.6-8.9); Nucleated Red Blood Cells 0.2 /100 WBC (0); Red Blood Count 2.69 M/mcL (4.19-5.50); Red Cell Distribution Width 16.3 % (11.5-14.5); Segmented Neutrophils % 78.9 %
[2017-08-13 11:17] LABS: Platelet Count 96 K/mcL (140-400)
[2017-08-13 11:27] LABS: Calcium 8.2 mg/dL (8.6-10.3); Potassium 3.8 mEq/L (3.5-5.1)
--- NOTE | 2017-08-13 18:15 | Internal Med Progress Note ---
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 Assessment and plan: TSR 1 week ago; Orthopedics on board; no signs of wound infection; (2) Chronic renal disease, stage IV Current Visit: No Status: Chronic Assessment and plan: Nephrology following and appreciate recommendations (3) Anemia Current Visit: Yes Status: Acute Assessment and plan: Continue to monitor Qualifiers: Anemia type: due to chronic kidney disease Chronic kidney disease stage: stage 3 (moderate) Qualified Code(s): N18.3 - Chronic kidney disease, stage 3 (moderate); D63.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 (4) NSTEMI (non-ST elevated myocardial infarction) Current Visit: Yes Status: Acute Assessment and plan: Suspect secondary to demand ischemia (5) Acute respiratory failure with hypoxia Current Visit: Yes Status: Resolved Assessment and plan: Patient extubated and was transferred to the medical surgical floor per pulmonology recommendations (6) Pulmonary alveolar hemorrhage Current Visit: Yes Status: Acute (7) Pneumonia Current Visit: Yes Status: Acute Qualifiers: Pneumonia type: due to Haemophilus influenzae Laterality: unspecified laterality Lung location: unspecified part of lung Qualified Code(s): J14 - Pneumonia due to Hemophilus influenzae (8) DVT prophylaxis Current Visit: Yes Status: Acute Assessment and plan: Heparin subcutaneous - Time Spent With Patient Total time spent is greater than 50% in coordination of care (as documented) at patient's floor/unit and/or counseling patient: - Subjective Interval history: No acute events overnight Awaiting placement at [facility] - Constitutional Vitals: Temp Pulse Resp BP Pulse Ox 99.0 F 69 19 142/47 97 08/13/17 16:08 08/13/17 16:08 08/13/17 16:08 08/13/17 16:08 08/13/17 16:08 General appearance: Present: A&O X 0, mild distress, A&O X 3, answers questions appropriately - Respiratory Respiratory exam: Present: CTAB. Absent: accessory muscle use, rales, rhonchi, wheezes - Cardiovascular Cardiovascular exam: Present: RRR, +S1, +S2. Absent: diastolic murmur, gallop, rubs, systolic murmur Internal Medicine: Result - Labs CBC & Chem 7: 08/13/17 10:55 08/13/17 10:55 Labs: Short CBC 08/13/17 Range/Units 10:55 WBC 9.3 (4.3-11.1) K/mcL Hgb 8.7 L (12.9-16.9) g/dL Hct 26.0 L (37.5-50.1) % Plt Count 96 L (140-400) K/mcL Neutrophils # 7.3 (1.6-8.9) K/mcL BMP 08/13/17 10:55 Sodium 136 Potassium 3.8 Chloride 102 Carbon Dioxide 25 BUN 48 H Creatinine 5.95 H Glucose 190 H Calcium 8.2 L - ABG Interpretation ABG results: ABG ABG pH 7.33 pH Units (7.32-7.45) 08/08/17 05:55 ABG pCO2 54 mmHg (35-45) H 08/08/17 05:55 ABG pO2 74 mmHg (85-104) L 08/08/17 05:55 ABG O2 Saturation 93 % (95-98) L 08/08/17 05:55 PT/INR, D-dimer PT 11.4 Seconds (9.4-12.1) 08/05/17 04:08 - VTE Documentation of Mechanical Device: Intermittent pneumatic compression device Consult Discharge Plan - Plan Referrals: Nubia Field MD [Primary Care Provider] -
[2017-08-14] MEDS: *HR* Heparin 5,000 UNIT/ML VIAL SQ SCH ×3 (06:34→22:34)
[2017-08-14] MEDS: Cholecalciferol (D-3) 1,000 UNIT TABLET PO SCH (07:51)
[2017-08-14] MEDS: Aspirin 81 MG TAB.CHEW PO SCH (07:51)
--- NOTE | 2017-08-14 08:46 | Nephrology Progress Note ---
Date of Encounter: 08/14/17 Time of Encounter: 08:20 - Assessment and Plan (1) JOSH (acute kidney injury) Current Visit: Yes Status: Acute JOSH in setting of an STEMI, what appears to be acute blood loss anemia, hypotension, respiratory failure. Started on chronic HD. HD today, keeping MWF schedule. Orders given. Documented urine output 150cc. Avoid nephrotoxins, accurate I&O. Will continue to monitor for renal recovery. (2) Acute blood loss anemia Current Visit: No Status: Acute (3) NSTEMI (non-ST elevated myocardial infarction) Current Visit: Yes Status: Acute Subjective Principal diagnosis: JOSH Interval history: Sitting up in chair feeding self breakfast. Knows in hospital. Discussed renal issues, does not seem to grasp. Objective - Vital Signs Vital signs: Vital Signs Temp Pulse Resp BP Pulse Ox 08/14/17 07:43 98.9 F 75 18 154/62 92 08/14/17 04:11 98.1 F 63 18 129/63 95 08/13/17 23:36 98.4 F 69 18 133/72 96 08/13/17 18:43 97.5 F L 80 18 173/74 97 08/13/17 16:08 99.0 F 69 19 142/47 97 08/13/17 11:17 98.0 F 77 18 138/70 89 Intake and Output 08/13/17 08/14/17 08/14/17 23:59 07:59 15:59 Intake Total 240 / 240 0 / 0 Output Total 50 / 50 0 / 0 Balance 190 / 190 0 / 0 Intake: Oral 240 / 240 0 / 0 Output: Urine 50 / 50 0 / 0 Other: Percent of Meal Consumed 60% Weight 76.6 kg Blood Glucose* 138 114 Patient Weight 08/14/17 23:59 Weight 76.6 kg - General Appearance General appearance: Present: well-developed, appears started age EENT: Present: mucous membranes moist Neck: Present: no JVD Respiratory: Present: clear Cardiology: Present: no edema, regular rate, regular rhythm Dialysis Vascular Access: Venous Catheter Gastrointestinal: Present: normoactive bowel sounds, no tenderness Integumentary: Present: warm and dry Psychiatric: Present: mood/affect appropriate, cooperative - Lab 08/13/17 10:55 08/13/17 10:55 Most recent lab results ABG pH 7.33 pH Units (7.32-7.45) 08/08/17 05:55 ABG pCO2 54 mmHg (35-45) H 08/08/17 05:55 ABG pO2 74 mmHg (85-104) L 08/08/17 05:55 ABG HCO3 28 mEq/L (21-27) H 08/08/17 05:55 ABG O2 Saturation 93 % (95-98) L 08/08/17 05:55 Calcium 8.2 mg/dL (8.6-10.3) L 08/13/17 10:55 Phosphorus 2.4 mg/dL (2.7-4.5) L 08/10/17 03:00 Magnesium 2.5 mg/dL (1.6-2.6) 08/10/17 03:00 - VTE Documentation of Mechanical Device: Intermittent pneumatic compression device Consult Discharge Plan - Plan Referrals: Nubia Field MD [Primary Care Provider] -
[2017-08-14 09:50] LABS: Basophils % 0.1 %; Eosinophils % 0.3 %; Hematocrit 28.6 % (37.5-50.1); Hemoglobin 9.3 g/dL (12.9-16.9); Immature Granulocytes % 4.5 % (0-4); Lymphocytes # 0.8 K/mcL (0.6-4.6); Lymphocytes % 6.9 %; Mean Corpuscular HGB Conc 32.5 g/dL (31.6-35.5); Mean Corpuscular Hemoglobin 31.8 pg (28.0-33.3); Mean Corpuscular Volume 97.9 fL (83.0-100.0); Mean Platelet Volume 11.4 fL (9.4-12.4); Monocytes # 0.9 K/mcL (0.0-1.3); Monocytes % 7.5 %; Neutrophils # 9.7 K/mcL (1.6-8.9); Nucleated Red Blood Cells 0.2 /100 WBC (0); Platelet Count 104 K/mcL (140-400); Red Blood Count 2.92 M/mcL (4.19-5.50); Red Cell Distribution Width 16.3 % (11.5-14.5); Segmented Neutrophils % 80.7 %
[2017-08-14 10:11] LABS: Calcium 8.5 mg/dL (8.6-10.3)
[2017-08-14 10:50] LABS: Potassium 4.6 mEq/L (3.5-5.1)
[2017-08-14] MEDS ORDERED: 0.9 % Sodium Chloride 250 ML IVC PRN (10:52)
[2017-08-14] MEDS ORDERED: 0.9 % Sodium Chloride 1,000 ML PRIME SCH (11:00)
--- NOTE | 2017-08-14 19:26 | Internal Med Progress Note ---
Date of Encounter: 08/14/17 Time of Encounter: 11:00 - Assessment and plan (1) Status post total replacement of right shoulder Current Visit: Yes Status: Chronic Assessment and plan: TSR 1 week ago; Orthopedics on board; no signs of wound infection; (2) Chronic renal disease, stage IV Current Visit: No Status: Chronic Assessment and plan: Nephrology following and appreciate recommendations (3) Anemia Current Visit: Yes Status: Acute Assessment and plan: Continue to monitor Qualifiers: Anemia type: due to chronic kidney disease Chronic kidney disease stage: stage 3 (moderate) Qualified Code(s): N18.3 - Chronic kidney disease, stage 3 (moderate); D63.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 (4) NSTEMI (non-ST elevated myocardial infarction) Current Visit: Yes Status: Acute Assessment and plan: Suspect secondary to demand ischemia (5) Acute respiratory failure with hypoxia Current Visit: Yes Status: Resolved Assessment and plan: Patient extubated and was transferred to the medical surgical floor per pulmonology recommendations (6) Pulmonary alveolar hemorrhage Current Visit: Yes Status: Acute Assessment and plan: , Pulmonology with recommendations to monitor (7) Pneumonia Current Visit: Yes Status: Acute Assessment and plan: Patient finished a course of IV antibiotics Qualifiers: Pneumonia type: due to Haemophilus influenzae Laterality: unspecified laterality Lung location: unspecified part of lung Qualified Code(s): J14 - Pneumonia due to Hemophilus influenzae (8) DVT prophylaxis Current Visit: Yes Status: Acute Assessment and plan: Heparin subcutaneous - Time Spent With Patient Total time spent is greater than 50% in coordination of care (as documented) at patient's floor/unit and/or counseling patient: - Subjective Interval history: No acute events overnight Awaiting placement at [facility]1983 - Constitutional Vitals: Temp Pulse Resp BP Pulse Ox 98.2 F 75 17 115/65 98 08/14/17 15:49 08/14/17 15:49 08/14/17 15:49 08/14/17 15:49 08/14/17 15:49 General appearance: Present: A&O X 0, mild distress, A&O X 3, no acute distress , answers questions appropriately - Respiratory Respiratory exam: Present: CTAB. Absent: accessory muscle use, rales, rhonchi, wheezes - Cardiovascular Cardiovascular exam: Present: RRR, +S1, +S2. Absent: diastolic murmur, gallop, rubs, systolic murmur Internal Medicine: Result - Labs CBC & Chem 7: 08/14/17 09:37 08/14/17 09:37 Labs: Short CBC 08/14/17 Range/Units 09:37 WBC 12.0 H (4.3-11.1) K/mcL Hgb 9.3 L (12.9-16.9) g/dL Hct 28.6 L (37.5-50.1) % Plt Count 104 L (140-400) K/mcL Neutrophils # 9.7 H (1.6-8.9) K/mcL BMP 08/14/17 09:37 Sodium 135 L Potassium 4.6 Chloride 100 Carbon Dioxide 24 BUN 60 H Creatinine 7.86 H Glucose 161 H Calcium 8.5 L - ABG Interpretation ABG results: ABG ABG pH 7.33 pH Units (7.32-7.45) 08/08/17 05:55 ABG pCO2 54 mmHg (35-45) H 08/08/17 05:55 ABG pO2 74 mmHg (85-104) L 08/08/17 05:55 ABG O2 Saturation 93 % (95-98) L 08/08/17 05:55 PT/INR, D-dimer PT 11.4 Seconds (9.4-12.1) 08/05/17 04:08 - VTE Documentation of Mechanical Device: Intermittent pneumatic compression device Consult Discharge Plan - Plan Referrals: Nubia Field MD [Primary Care Provider] - (probably going to [facility], [facility])
[2017-08-14] MEDS: Acetaminophen 325 MG TABLET PO PRN (19:57)
[2017-08-15] MEDS ORDERED: Melatonin 3 MG TABLET PO ONE (02:07)
[2017-08-15] MEDS: *HR* Heparin 5,000 UNIT/ML VIAL SQ SCH ×3 (06:06→20:55)
[2017-08-15] MEDS: Cholecalciferol (D-3) 1,000 UNIT TABLET PO SCH (08:03)
[2017-08-15] MEDS: Aspirin 81 MG TAB.CHEW PO SCH (08:04)
--- NOTE | 2017-08-15 09:55 | Nephrology Progress Note ---
Date of Encounter: 08/15/17 Time of Encounter: 09:40 - Assessment and Plan (1) JOSH (acute kidney injury) Current Visit: Yes Status: Acute JOSH in setting of an STEMI, what appears to be acute blood loss anemia, hypotension, respiratory failure. Started on chronic HD. No HD today, keeping MWF schedule. No documented urine output. 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 Will consult IR for perm cath. When social work contacting outpatient HD clinic, patients is JOSH with no renal recovery as yet, not ESRD. Avoid nephrotoxins, accurate I&O. Will continue to monitor for renal recovery. (2) Acute blood loss anemia Current Visit: No Status: Acute (3) NSTEMI (non-ST elevated myocardial infarction) Current Visit: Yes Status: Acute Subjective Principal diagnosis: JOSH Interval history: Laying in bed, watching tv. Knows in hospital. Discussed renal issues, does not seem to grasp fully. Objective - Vital Signs Vital signs: Vital Signs Temp Pulse Resp BP Pulse Ox 08/15/17 07:16 97.7 F 80 18 133/65 93 08/15/17 03:27 98.9 F 82 16 124/62 94 08/14/17 23:19 99.8 F H 50 16 125/53 98 08/14/17 19:26 98.7 F 93 16 119/47 95 08/14/17 15:49 98.2 F 75 17 115/65 98 08/14/17 14:45 98.8 F 20 147/74 08/14/17 14:25 144/70 08/14/17 14:10 140/62 08/14/17 13:55 132/64 08/14/17 13:40 136/58 08/14/17 13:25 137/70 08/14/17 13:10 135/56 08/14/17 12:55 137/66 08/14/17 12:40 139/74 08/14/17 12:25 141/70 08/14/17 12:10 139/73 08/14/17 11:55 148/72 08/14/17 11:40 135/69 08/14/17 11:25 98.9 F 20 139/65 Intake and Output 08/14/17 08/15/17 08/15/17 23:59 07:59 15:59 Intake Total 0 / 0 0 / 0 360 / 360 Output Total 0 / 0 Balance 0 / 0 0 / 0 360 / 360 Intake: Oral 0 / 0 0 / 0 360 / 360 Output: Urine 0 / 0 Other: Meal Breakfast Percent of Meal Consumed 100% Stool Size Moderate Stool Consistency loose liquid Stool Color Brown Yellow Green # Bowel Movements 1 Weight 76 kg Blood Glucose* 156 114 Patient Weight 08/15/17 23:59 Weight 76 kg - General Appearance General appearance: Present: well-developed, appears started age EENT: Present: mucous membranes moist Neck: Present: no JVD Respiratory: Present: clear Cardiology: Present: no edema, regular rate, regular rhythm Dialysis Vascular Access: Venous Catheter Gastrointestinal: Present: normoactive bowel sounds, no tenderness Integumentary: Present: warm and dry Psychiatric: Present: mood/affect appropriate, cooperative - Lab 08/14/17 09:37 08/14/17 09:37 Most recent lab results ABG pH 7.33 pH Units (7.32-7.45) 08/08/17 05:55 ABG pCO2 54 mmHg (35-45) H 08/08/17 05:55 ABG pO2 74 mmHg (85-104) L 08/08/17 05:55 ABG HCO3 28 mEq/L (21-27) H 08/08/17 05:55 ABG O2 Saturation 93 % (95-98) L 08/08/17 05:55 Calcium 8.5 mg/dL (8.6-10.3) L 08/14/17 09:37 Phosphorus 2.4 mg/dL (2.7-4.5) L 08/10/17 03:00 Magnesium 2.5 mg/dL (1.6-2.6) 08/10/17 03:00 - VTE Documentation of Mechanical Device: Intermittent pneumatic compression device Consult Discharge Plan - Plan Referrals: Nubia Field MD [Primary Care Provider] - (probably going to [facility])
--- NOTE | 2017-08-15 12:49 | Internal Med Progress Note ---
Date of Encounter: 08/15/17 Time of Encounter: 09:55 - Assessment and plan (1) Status post total replacement of right shoulder Current Visit: Yes Status: Chronic Assessment and plan: TSR 1 week ago; Orthopedics on board; no signs of wound infection; (2) Chronic renal disease, stage IV Current Visit: Yes Status: Chronic Assessment and plan: Nephrology following and appreciate recommendations Creatinine worsening, as patient presented with acute on chronic kidney injury. For placement of tunneled catheter for hemodialysis. (3) DVT prophylaxis Current Visit: Yes Status: Acute Assessment and plan: Heparin subcutaneous (4) Anemia Current Visit: Yes Status: Acute Assessment and plan: Continue to monitor Qualifiers: Anemia type: due to chronic kidney disease Chronic kidney disease stage: stage 3 (moderate) Qualified Code(s): N18.3 - Chronic kidney disease, stage 3 (moderate); D63.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 (5) NSTEMI (non-ST elevated myocardial infarction) Current Visit: Yes Status: Acute (6) Acute respiratory failure with hypoxia Current Visit: Yes Status: Acute Assessment and plan: Patient extubated and was transferred to the medical surgical floor per pulmonology recommendations, stable on oxygen by nasal cannula (7) Pulmonary alveolar hemorrhage Current Visit: Yes Status: Acute Assessment and plan: , Pulmonology with recommendations to monitor (8) Pneumonia Current Visit: Yes Status: Acute Assessment and plan: Patient finished a course of IV antibiotics Qualifiers: Pneumonia type: due to Haemophilus influenzae Laterality: unspecified laterality Lung location: unspecified part of lung Qualified Code(s): J14 - Pneumonia due to Hemophilus influenzae - Time Spent With Patient Total time spent is greater than 50% in coordination of care (as documented) at patient's floor/unit and/or counseling patient: - Subjective Interval history: Seen and examined at the bedside No new complains Admitted for acute renal failure on CKD,acute hypoxic resp failure, NSTEMI, H.infleunza PNA,PAH Transferred from the medical ICU to floors No new complaints this morning, nephrology is following, tunneled catheter to be placed on hemodialysis since there is no evidence of renal recovery - Constitutional Vitals: Temp Pulse Resp BP Pulse Ox 97.9 F 74 16 126/45 97 08/15/17 10:51 08/15/17 10:51 08/15/17 10:51 08/15/17 10:51 08/15/17 10:51 General appearance: Present: A&O X 3, no acute distress, answers questions appropriately - Head Head exam: Present: atraumatic, normocephalic - Eye Eye exam: Present: PERRL, conjuntiva pink, sclera anicteric Pupils: Present: PERRL - Neck Neck exam general surgery: Present: supple, trachea midline. Absent: lymphadenopathy - Respiratory Respiratory exam: Present: CTAB. Absent: accessory muscle use, rales, rhonchi, wheezes - Cardiovascular Cardiovascular exam: Present: RRR, +S1, +S2. Absent: diastolic murmur, gallop, rubs, systolic murmur - GI/Abdominal GI/Abdominal exam: Present: normal bowel sounds, soft, no peritoneal signs. Absent: distended, tenderness - Extremities Exam Extremities exam: Present: warm, radial pulses palpable and symmetrical. Absent : calf tenderness, cyanotic, pedal edema - Neurological Exam Neurological exam: Present: alert, CN II-XII intact, oriented X3, no focal deficits. Absent: pronater drift, facial droop, speech deficit - Skin Skin exam: Present: dry, intact Internal Medicine: Result - Labs CBC & Chem 7: 08/14/17 09:37 08/14/17 09:37 - ABG Interpretation ABG results: ABG ABG pH 7.33 pH Units (7.32-7.45) 08/08/17 05:55 ABG pCO2 54 mmHg (35-45) H 08/08/17 05:55 ABG pO2 74 mmHg (85-104) L 08/08/17 05:55 ABG O2 Saturation 93 % (95-98) L 08/08/17 05:55 PT/INR, D-dimer PT 11.4 Seconds (9.4-12.1) 08/05/17 04:08 - VTE Documentation of Mechanical Device: Intermittent pneumatic compression device Consult Discharge Plan - Plan Referrals: Nubia Field MD [Primary Care Provider] - (probably going to [facility])
[2017-08-15] MEDS: Acetaminophen 325 MG TABLET PO PRN (21:06)
[2017-08-16 05:31] LABS: Basophils % 0.1 %; Eosinophils % 0.2 %
[2017-08-16 05:32] LABS: Hematocrit 22.1 % (37.5-50.1); Immature Granulocytes % 2.2 % (0-4); Immature Platelets 6.8 % (1.1-6.1); Lymphocytes # 0.9 K/mcL (0.6-4.6); Lymphocytes % 10.4 %; Mean Corpuscular HGB Conc 32.6 g/dL (31.6-35.5); Mean Corpuscular Hemoglobin 32.1 pg (28.0-33.3); Mean Corpuscular Volume 98.7 fL (83.0-100.0); Mean Platelet Volume 11.4 fL (9.4-12.4); Monocytes # 0.7 K/mcL (0.0-1.3); Monocytes % 7.4 %; Nucleated Red Blood Cells 0.2 /100 WBC (0); Red Blood Count 2.24 M/mcL (4.19-5.50); Red Cell Distribution Width 16.6 % (11.5-14.5); Segmented Neutrophils % 79.7 %
[2017-08-16 05:50] LABS: Potassium 3.8 mEq/L (3.5-5.1)
[2017-08-16 06:04] LABS: Platelet Count 99 K/mcL (140-400)
[2017-08-16 06:08] LABS: Hemoglobin 7.3 g/dL (12.9-16.9)
[2017-08-16] MEDS ORDERED: *HR* Heparin 10,000 UNIT/10 ML VIAL IV PRN (06:42)
[2017-08-16] MEDS ORDERED: 0.9 % Sodium Chloride 250 ML IVC PRN (06:42)
[2017-08-16] MEDS ORDERED: 0.9 % Sodium Chloride 2,000 ML ONE (07:09)
[2017-08-16] MEDS ORDERED: Heparin 1,000 UNITS/500 mL 500 ML ONE (10:22)
[2017-08-16] MEDS: *HR* Heparin 5,000 UNIT/ML VIAL SQ SCH ×3 (10:34→21:46)
[2017-08-16] MEDS ORDERED: CeFAZolin Premix DUPLEX 2,000 MG/50 ML BAG IVPB ONE ×2 (11:23→12:00)
[2017-08-16] MEDS ORDERED: *HR* Midazolam HCl 2 MG/2 ML VIAL IVP ONE (11:23)
[2017-08-16] MEDS ORDERED: *HR* FentaNYL (PF) 100 MCG/2 ML VIAL IVP ONE (11:23)
--- NOTE | 2017-08-16 11:25 | Pre-Sedation Evaluation ---
Pre-sedation evaluation - Pre-sedation checklist Date of procedure: 08/02/17 Procedure: permacath Recent Vitals: Last Vital Signs Temp 97.7 F 08/16/17 10:15 Pulse 69 08/16/17 10:15 Resp 18 08/16/17 10:15 BP 151/69 08/16/17 10:15 Pulse Ox 90 08/16/17 07:04 Airway Assessment: Patient can open mouth completely, TMJ function normal, Micrognathia (under-bite, receding chin) absent, Neck with adequate range of motion Possible difficult airway: No ASA Classification *see protocol: CLASS II-Mild systemic disease Plan of Care: Pt appropriate candidate for procedure/moderate/conscious sedation , Risks/benefits of procedure/sedation discussed w/ patient/family, If not NPO; Risk of intake outweiged by necessity to perform procedure
[2017-08-16] MEDS ORDERED: 0.9 % Sodium Chloride 500 ML ONE (11:46)
[2017-08-16] MEDS ORDERED: *HR* Heparin 5,000 UNIT/ML VIAL ONE (12:07)
--- NOTE | 2017-08-16 12:13 | IR Procedure Note ---
Date of procedure: 08/16/17 Consent Obtained: Written consent Timeout: Correct patient and procedure verified, Correct site verified, Time out performed, Skin prep completed Indications: renal failure Procedure Performed: permacath Was there an scheduling assistant present: No Site/Technique: rt IJ to RA Results/Findings: adequate placement Estimated blood loss (cc): 2 Complications: None; Tolerated procedure well Post Procedure Treatment Plan: OK to dialyze Specimen: none
[2017-08-16] MEDS: Aspirin 81 MG TAB.CHEW PO SCH (13:05)
[2017-08-16] MEDS: Cholecalciferol (D-3) 1,000 UNIT TABLET PO SCH (13:05)
--- NOTE | 2017-08-16 13:20 | Nephrology Progress Note ---
Date of Encounter: 08/16/17 Time of Encounter: 12:55 - Assessment and Plan (1) JOSH (acute kidney injury) Current Visit: Yes Status: Acute AKICKD in setting of an STEMI, what appears to be acute blood loss anemia, hypotension, respiratory failure. Started on chronic HD. No HD today, keeping MWF schedule. No documented urine output. 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 Permacath placed today. When social work contacting outpatient HD clinic, patients is JOSH with no renal recovery as yet, not ESRD. Avoid nephrotoxins, accurate I&O. Will continue to monitor for renal recovery. (2) Acute blood loss anemia Current Visit: No Status: Acute (3) NSTEMI (non-ST elevated myocardial infarction) Current Visit: Yes Status: Acute Subjective Principal diagnosis: JOSH Interval history: Laying in bed, watching tv. Knows in hospital. Discussed renal issues, does not seem to grasp fully. at bedside, verbalizes understanding. Objective - Vital Signs Vital signs: Vital Signs Temp Pulse Resp BP Pulse Ox 08/16/17 10:50 98.1 F 20 159/77 08/16/17 10:25 149/66 08/16/17 10:15 97.7 F 69 18 151/69 08/16/17 10:10 137/62 08/16/17 09:55 144/55 08/16/17 09:54 97.7 F 70 20 147/63 08/16/17 09:40 148/52 08/16/17 09:39 97.5 F L 68 18 151/64 08/16/17 09:33 97.7 F 68 20 151/66 08/16/17 09:29 97.7 F 66 20 148/52 08/16/17 09:25 152/68 08/16/17 09:10 143/45 08/16/17 09:06 97.7 F 62 20 140/50 08/16/17 08:55 151/41 08/16/17 08:40 160/62 08/16/17 08:25 168/57 08/16/17 08:10 163/75 08/16/17 07:55 163/79 08/16/17 07:40 166/80 08/16/17 07:25 97.7 F 18 166/82 08/16/17 07:04 98.3 F 53 18 152/52 90 08/16/17 04:43 98.5 F 78 18 151/60 94 08/16/17 01:02 98.0 F 64 18 158/57 96 08/15/17 20:21 97.6 F 78 18 126/56 94 08/15/17 16:14 98.0 F 85 16 126/53 96 Intake and Output 08/15/17 08/16/17 08/16/17 23:59 07:59 15:59 Intake Total 180 / 180 600 / 600 2100 / 2100 Output Total 0 / 0 1300 / 1300 Balance 180 / 180 600 / 600 800 / 800 Intake: Oral 180 / 180 0 / 0 0 / 0 Blood Product 2100 / 2100 Rbcs Leuko Poor As-1 Unit 1050 / 1050 [id number] Rbcs Leuko Poor As-1 Unit 1050 / 1050 [id number] Intake, Rinseback and Flushes 600 / 600 Output: Urine 0 / 0 0 / 0 Total Dialysis (HD) Output 1300 / 1300 Other: Meal npo Percent of Meal Consumed 0% Weight 70.5 kg Blood Glucose* 147 108 Hemodialysis Net Fluid Removed 386 1000 (mL) Patient Weight 08/16/17 23:59 Weight 70.5 kg - General Appearance General appearance: Present: well-developed, appears started age EENT: Present: mucous membranes moist Neck: Present: no JVD Respiratory: Present: clear Cardiology: Present: no edema, regular rate, regular rhythm Dialysis Vascular Access: Venous Catheter Gastrointestinal: Present: normoactive bowel sounds, no tenderness Integumentary: Present: warm and dry Psychiatric: Present: mood/affect appropriate, cooperative - Lab 08/16/17 05:11 08/16/17 05:11 Most recent lab results ABG pH 7.33 pH Units (7.32-7.45) 08/08/17 05:55 ABG pCO2 54 mmHg (35-45) H 08/08/17 05:55 ABG pO2 74 mmHg (85-104) L 08/08/17 05:55 ABG HCO3 28 mEq/L (21-27) H 08/08/17 05:55 ABG O2 Saturation 93 % (95-98) L 08/08/17 05:55 Calcium 8.0 mg/dL (8.6-10.3) L 08/16/17 05:11 Phosphorus 2.4 mg/dL (2.7-4.5) L 08/10/17 03:00 Magnesium 2.5 mg/dL (1.6-2.6) 08/10/17 03:00 - VTE Documentation of Mechanical Device: Intermittent pneumatic compression device Consult Discharge Plan - Plan Referrals: Nubia Field MD [Primary Care Provider] - (probably going to [facility])
--- NOTE | 2017-08-16 13:48 | Internal Med Progress Note ---
Date of Encounter: 08/16/17 Time of Encounter: 13:48 - Assessment and plan (1) Status post total replacement of right shoulder Current Visit: Yes Status: Chronic Assessment and plan: TSR 1 week prior to arrival, Orthopedics on board; no signs of wound infection; (2) Chronic renal disease, stage IV Current Visit: Yes Status: Chronic Assessment and plan: Nephrology following and appreciate recommendations Creatinine worsening, as patient presented with acute on chronic kidney injury. No evidence of renal recovery, the patient ay have progressed to ESRD For continued HD as out-patient (3) DVT prophylaxis Current Visit: Yes Status: Acute Assessment and plan: Heparin subcutaneous (4) Anemia Current Visit: Yes Status: Acute Assessment and plan: Hb drop to 7.3 this a.m, s/p 2 units RBCS, no source of bleeding, hemodynaimcally stable, Continue to monitor Qualifiers: Anemia type: due to chronic kidney disease Chronic kidney disease stage: stage 3 (moderate) Qualified Code(s): N18.3 - Chronic kidney disease, stage 3 (moderate); D63.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 (5) NSTEMI (non-ST elevated myocardial infarction) Current Visit: Yes Status: Acute Assessment and plan: Continue current meds, per cardiology, continue ASA, Statin, BB, plavix was held due to anemia and PAH, no chest pain (6) Acute respiratory failure with hypoxia Current Visit: Yes Status: Acute (7) Pulmonary alveolar hemorrhage Current Visit: Yes Status: Resolved Assessment and plan: resolved (8) Pneumonia Current Visit: Yes Status: Resolved Assessment and plan: Patient finished a course of IV antibiotics Qualifiers: Pneumonia type: due to Haemophilus influenzae Laterality: unspecified laterality Lung location: unspecified part of lung Qualified Code(s): J14 - Pneumonia due to Hemophilus influenzae - Time Spent With Patient Total time spent is greater than 50% in coordination of care (as documented) at patient's floor/unit and/or counseling patient: - Subjective Interval history: Seen and examined at the bedside No new complains Admitted for acute renal failure on CKD,acute hypoxic resp failure, NSTEMI, H.infleunza PNA,PAH No new complaints this morning, nephrology is following, s/p tunneled catheter , for chronic HD SW working on placement, no complains, patient states he feels very much improved - Constitutional Vitals: Temp Pulse Resp BP Pulse Ox 98.1 F 69 20 159/77 90 08/16/17 10:50 08/16/17 10:15 08/16/17 10:50 08/16/17 10:50 08/16/17 07:04 General appearance: Present: A&O X 3, no acute distress, answers questions appropriately - Head Head exam: Present: atraumatic, normocephalic - Eye Eye exam: Present: PERRL, conjuntiva pink, sclera anicteric Pupils: Present: PERRL - Neck Neck exam general surgery: Present: supple, trachea midline. Absent: lymphadenopathy - Respiratory Respiratory exam: Present: CTAB Additional comments: L chest wall perrmacath - Cardiovascular Cardiovascular exam: Present: RRR, +S1, +S2. Absent: diastolic murmur, gallop, rubs, systolic murmur - GI/Abdominal GI/Abdominal exam: Present: normal bowel sounds, soft, no peritoneal signs. Absent: distended, tenderness - Extremities Exam Extremities exam: Present: warm, radial pulses palpable and symmetrical. Absent : calf tenderness, cyanotic, pedal edema - Neurological Exam Neurological exam: Present: alert, CN II-XII intact, oriented X3, no focal deficits. Absent: pronater drift, facial droop, speech deficit - Skin Skin exam: Present: dry Internal Medicine: Result - Labs CBC & Chem 7: 08/16/17 05:11 08/16/17 05:11 Labs: Short CBC 08/16/17 Range/Units 05:11 WBC 8.8 (4.3-11.1) K/mcL Hgb 7.3 L D (12.9-16.9) g/dL Hct 22.1 L (37.5-50.1) % Plt Count 99 L (140-400) K/mcL Neutrophils # 7.0 (1.6-8.9) K/mcL BMP 08/16/17 05:11 Sodium 134 L Potassium 3.8 Chloride 97 L Carbon Dioxide 29 BUN 38 H Creatinine 6.62 H Glucose 112 H Calcium 8.0 L - ABG Interpretation ABG results: ABG ABG pH 7.33 pH Units (7.32-7.45) 08/08/17 05:55 ABG pCO2 54 mmHg (35-45) H 08/08/17 05:55 ABG pO2 74 mmHg (85-104) L 08/08/17 05:55 ABG O2 Saturation 93 % (95-98) L 08/08/17 05:55 PT/INR, D-dimer PT 11.4 Seconds (9.4-12.1) 08/05/17 04:08 - Impressions Impressions Guidance Needle Placement Ultrasound 08/16/17 00:00 IMPRESSION: Successful right sided tunneled dialysis placement under the under fluoroscopic guidance. D/ / Maranda Hinson MD / Maranda Hinson MD Interpreting Provider: Maranda Hinson MD Insertion Tunneled Catheter 08/16/17 00:00 IMPRESSION: Successful right sided tunneled dialysis placement under the under fluoroscopic guidance. D/ / Maranda Hinosn MD / Maranda Hinson MD Interpreting Provider: Maranda Hinson MD - VTE Documentation of Mechanical Device: Intermittent pneumatic compression device Consult Discharge Plan - Plan Referrals: Nubia Field MD [Primary Care Provider] - (probably going to [facility])
[2017-08-16] MEDS: Acetaminophen 325 MG TABLET PO PRN (21:54)
[2017-08-17] MEDS: *HR* Heparin 5,000 UNIT/ML VIAL SQ SCH (05:05)
[2017-08-17 06:39] LABS: Eosinophils % 0.1 %; Red Cell Distribution Width 17.5 % (11.5-14.5)
[2017-08-17 06:41] LABS: Hematocrit 28.8 % (37.5-50.1); Hemoglobin 9.7 g/dL (12.9-16.9); Immature Granulocytes % 1.7 % (0-4); Immature Platelets 7.3 % (1.1-6.1); Lymphocytes % 9.1 %; Mean Corpuscular HGB Conc 33.7 g/dL (31.6-35.5); Mean Corpuscular Hemoglobin 31.7 pg (28.0-33.3); Mean Corpuscular Volume 94.1 fL (83.0-100.0); Mean Platelet Volume 11.9 fL (9.4-12.4); Monocytes % 7.8 %; Neutrophils # 7.2 K/mcL (1.6-8.9); Red Blood Count 3.06 M/mcL (4.19-5.50)
[2017-08-17 06:42] LABS: Basophils % 0.3 %; Lymphocytes # 0.8 K/mcL (0.6-4.6); Monocytes # 0.7 K/mcL (0.0-1.3)
[2017-08-17 06:43] LABS: Platelet Count 88 K/mcL (140-400)
[2017-08-17 06:48] LABS: Calcium 8.2 mg/dL (8.6-10.3); Potassium 4.1 mEq/L (3.5-5.1)
[2017-08-17] MEDS: Aspirin 81 MG TAB.CHEW PO SCH (08:41)
[2017-08-17] MEDS: Cholecalciferol (D-3) 1,000 UNIT TABLET PO SCH (08:41)
--- NOTE | 2017-08-17 10:47 | Nephrology Consult Note ---
Date of Encounter: 08/17/17 Time of Encounter: 10:39 Assessment and Plan (1) JOSH (acute kidney injury) Current Visit: Yes Status: Acute JOSH likely to MO and dehydration. 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 HD regimen with be MWF, last HD treatment 08/16/17. (2) Acute on chronic renal failure Current Visit: Yes Status: Acute Dehydration paired with MO likely caused JOSH, have not seen any signs of renal recovery. Qualifiers: Acute renal failure type: unspecified Chronic kidney disease stage: stage 4 (severe) Qualified Code(s): N17.9 - Acute kidney failure, unspecified; N18.4 - Chronic kidney disease, stage 4 (severe) (3) Anemia Current Visit: Yes Status: Acute Goal Hgb 10-11. Hgb 9.7 today. Qualifiers: Anemia type: due to chronic kidney disease Chronic kidney disease stage: stage 3 (moderate) Qualified Code(s): N18.3 - Chronic kidney disease, stage 3 (moderate); D63.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 (4) NSTEMI (non-ST elevated myocardial infarction) Current Visit: Yes Status: Acute Per Cardio. History of Present Illness - Reason for Consult Consult date: 08/17/17 Acute Kidney Injury Requesting physician: Dionisio Elliott - Chief Complaint elevated troponin - History of Present Illness Mr. Deng is a 76 year old Male who is new to this practice. PMH: CKD stage III, diet controlled DM, s/p total right shoulder replacement. He presented to ED 1 week after replacement with generalized weakness and dehydration. No s/sx of infection from shoulder incision. He did have an elevated troponin and appeared to be in renal failure with Scr 8.37 and GFR of 7. K was 6. Since hospitalization HD has been managed by Dr. Logan's practice, however outpatient HD will be transferred to [facility] and dialysis services will be at [facility]. 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 Past Med Surg Social Fam HX - Past Medical History Medical history: coronary artery disease, diabetes, GERD, hypertension, renal disease, other Additional medical history: Renal artery stenosis Psychiatric history: no psych history - Past Surgical History Surgical History: carotid endarterectomy, other - Social History Smoking Status: Former smoker Smokeless Tobacco Status: No Alcohol use: none Drug use: none - Family History Daughter Hx Family Neurologic Disorders: Yes (CVA) Mother Living Status: Hx Family Endocrine Disorder: Yes (DM) Medications and Allergies Clopidogrel [Plavix] 75 mg PO DAILY 07/24/17 [History] Sertraline [Zoloft] 100 mg PO DAILY 07/24/17 [History] amLODIPine [Norvasc] 5 mg PO DAILY 07/24/17 [History] Cholecalciferol (Vitamin D3) [Vitamin D3] 2,000 unit PO DAILY 08/01/17 [History] Ferrous Sulfate [Ferosul] 325 mg PO Q2D 08/01/17 [History] Chlorpromazine HCl 25 mg PO Q8H 08/02/17 [History] Acetaminophen [Tylenol] 650 mg PO Q6HR PRN tablet 08/17/17 [Rx] Metoprolol [Lopressor] 12.5 mg PO BID tablet 08/17/17 [Rx] Omeprazole [PriLOSEC] 40 mg PO DAILY capsule. 08/17/17 [Rx] Rosuvastatin [Crestor] 40 mg PO HS tablet 08/17/17 [Rx] 3 Allergy/AdvReac Type Severity Reaction Status Date / Time No Known Allergies Allergy Verified 08/02/17 06:55 Review of Systems Constitutional: fatigue, no chills, no weakness Cardiovascular: no chest pain, no dyspnea Respiratory: no cough Gastrointestinal: no abdominal pain, no change in bowel habits Exam - Vital Signs Vital signs: Initial Vital Signs Temp Pulse Resp BP Pulse Ox 97.1 F L 141 24 94/55 88 08/01/17 22:20 08/01/17 22:20 08/01/17 22:20 08/01/17 22:20 08/01/17 22:20 Vital Signs - Last 8 Hours Temp Pulse Resp BP Pulse Ox 08/17/17 06:58 98.3 F 77 16 141/60 93 Intake and Output 08/16/17 08/17/17 08/17/17 23:59 07:59 15:59 Intake Total 240 / 240 Output Total 100 / 100 Balance -100 / -100 240 / 240 Intake: Oral 240 / 240 Output: Urine 100 / 100 Other: Meal Dinner Breakfast Percent of Meal Consumed 35% 90% Weight 67.7 kg Blood Glucose* 139 100 Patient Weight 08/17/17 23:59 Weight 67.7 kg - General Appearance General appearance: well-developed, well-nourished EENT: ATNC, hearing intact, vision intact Neck: supple Respiratory: clear Cardiology: no edema, normal S1, normal S2 - Dialysis Access Dialysis Vascular Access: Venous Catheter (Permacath DRSG C/D/I.) Gastrointestinal: normoactive bowel sounds, no tenderness, no guarding Integumentary: no rash, warm and dry Neurologic: alert and oriented x3 Psychiatric: mood/affect appropriate, cooperative Results - Lab Results 08/17/17 05:22 08/17/17 05:22 Most recent lab results ABG pH 7.33 pH Units (7.32-7.45) 08/08/17 05:55 ABG pCO2 54 mmHg (35-45) H 08/08/17 05:55 ABG pO2 74 mmHg (85-104) L 08/08/17 05:55 ABG HCO3 28 mEq/L (21-27) H 08/08/17 05:55 ABG O2 Saturation 93 % (95-98) L 08/08/17 05:55 Calcium 8.2 mg/dL (8.6-10.3) L 08/17/17 05:22 Phosphorus 2.4 mg/dL (2.7-4.5) L 08/10/17 03:00 Magnesium 2.5 mg/dL (1.6-2.6) 08/10/17 03:00 Consult Discharge Plan - Plan Referrals: Nubia Field MD [Primary Care Provider] - (probably going to [facility]CF)
--- NOTE | 2017-08-17 11:41 | Discharge Summary ---
- NOTES TO OUTPATIENT PROVIDER Notes to Outpatient Provider: Patient was admitted for acute hypoxic respiratory failure secondary to Haemophilus influenza pneumonia, intubated and extubated successfully, now on low-dose oxygen, acute on chronic stage IV kidney disease, now on dialysis, NSTEMI. Is now clinically stable to be discharged home, medications reconciled include discontinuation of Plavix as recommended by cardiology continuation of aspirin and metoprolol continuation of amlodipine, lisinopril held due to JOSH on CKD, these medications, be reinitiated by primary care physician PRN. Orders not resulted at time of discharge: Pending orders 08/03/17 08:30 AFB Culture, Respiratory [TB] Routine AFB Smear [TB] Routine Fungal Culture [MYC] Routine 08/18/17 04:00 Chem 7 [Basic Metabolic Panel] AM 0400 Complete Blood Count w/o Diff [HEME] AM 0400 08/19/17 04:00 Chem 7 [Basic Metabolic Panel] AM 0400 Complete Blood Count w/o Diff [HEME] AM 04008/20/17 04:00 Chem 7 [Basic Metabolic Panel] AM 0400 Complete Blood Count w/o Diff [HEME] AM 0400 08/21/17 04:00 Chem 7 [Basic Metabolic Panel] AM 0400 Complete Blood Count w/o Diff [HEME] AM 0400 08/22/17 04:00 Chem 7 [Basic Metabolic Panel] AM 0400 Complete Blood Count w/o Diff [HEME] AM 0400 08/23/17 04:00 Chem 7 [Basic Metabolic Panel] AM 0400 Complete Blood Count w/o Diff [HEME] AM 0400 08/24/17 04:00 Chem 7 [Basic Metabolic Panel] AM 0400 Complete Blood Count w/o Diff [HEME] AM 0400 Date of Encounter: 08/17/17 Time of Encounter: 09:00 - Discharge Diagnosis (1) Status post total replacement of right shoulder Priority: Secondary Status: Chronic (2) Chronic renal disease, stage IV Priority: Primary Status: Chronic (3) DVT prophylaxis Priority: Primary Status: Acute (4) Anemia Priority: Secondary Status: Acute Qualifiers: Anemia type: due to chronic kidney disease Chronic kidney disease stage: stage 3 (moderate) Qualified Code(s): N18.3 - Chronic kidney disease, stage 3 (moderate); D63.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 (5) NSTEMI (non-ST elevated myocardial infarction) Priority: Primary Status: Acute (6) Acute respiratory failure with hypoxia Priority: Primary Status: Acute (7) Pulmonary alveolar hemorrhage Priority: Primary Status: Resolved (8) Pneumonia Priority: Secondary Status: Resolved Qualifiers: Pneumonia type: due to Haemophilus influenzae Laterality: unspecified laterality Lung location: unspecified part of lung Qualified Code(s): J14 - Pneumonia due to Hemophilus influenzae Hospital course: Mr. Deng is a 76 year old male who was admitted to the intensive care unit for management of acute hypoxemic respiratory failure secondary to history no failure, hydrostatic pulmonary edema, Haemophilus influenzae pneumonia, hospital course complicated with JOSH on CKD IV requiring hemodialysis, pulmonary alveolar hemorrhage, due to chronic anemia. The patient was admitted to the medical intensive care unit where he was intubated, successfully extubated on 08/08, currently on oxygen by nasal cannula. He has completed treatment of pneumonia with Zosyn for the course of 8 days. He had a bronchoscopy done 08/03 which showed blood in trachea and lungs , however the patient has been stable since extubation. The patient did have an STEMI with heart failure and evidence of cardiogenic shock on vasopressors, he has successfully been weaned off vasopressors prior to transfer to the unit, echocardiogram indeed showed ejection fraction 50-55% with moderate diastolic dysfunction. Aspirin was restarted due to this, heparin was not given due to pulmonary alveolar hemorrhage. Cardiology saw the patient and recommends further workup as outpatient or when kidney disease gets better. The patient has had a permanent hemodialysis catheter placed on 08/16, nephrology is following, and is scheduled for hemodialysis as outpatient. He is seen and examined at the bedside this morning, she is medically stable, chest is clear, respiratory status is adequate, he has no new complaints. He stable [facility] be [facility], follow-up with primary care physician, nephrology, and cardiology as outpatient. Plan of care discussed, verbalized understanding Discharge discussed with: patient, family, nurse, social work, unix consultant - Time Spent with Patient Total time spent providing and/or coordinating discharge services: Greater than 30 minutes - Discharge Medications Home Medications: Clopidogrel [Plavix] 75 mg PO DAILY 07/24/17 [History] Sertraline [Zoloft] 100 mg PO DAILY 07/24/17 [History] amLODIPine [Norvasc] 5 mg PO DAILY 07/24/17 [History] Cholecalciferol (Vitamin D3) [Vitamin D3] 2,000 unit PO DAILY 08/01/17 [History] Ferrous Sulfate [Ferosul] 325 mg PO Q2D 08/01/17 [History] Chlorpromazine HCl 25 mg PO Q8H 08/02/17 [History] Acetaminophen [Tylenol] 650 mg PO Q6HR PRN tablet 08/17/17 [Rx] Metoprolol [Lopressor] 12.5 mg PO BID tablet 08/17/17 [Rx] Omeprazole [PriLOSEC] 40 mg PO DAILY capsule. 08/17/17 [Rx] Rosuvastatin [Crestor] 40 mg PO HS tablet 08/17/17 [Rx] Allergies/Adverse Reactions: 3 Allergy/AdvReac Type Severity Reaction Status Date / Time No Known Allergies Allergy Verified 08/02/17 06:55 Date of admission: 08/01/17 22:24 Primary care physician: Nubia Field, Consults: 08/01/17 23:59 Consult to Cardiology [CONS] Routine Comment: Consulting Provider: Cardiology [place] Reason for Consult: NSTEMI Call Completed: No 08/02/17 08:12 Consult to Nephrology [CONS] Routine Consulting Provider: Kidney [facility] HTN Spclst HECTOR Reason for Consult: JOSH on CKD, metabolic acidosis, oliguria Call Completed: Yes 08/02/17 08:19 Consult to Pulmonology [CONS] Routine Consulting Provider: Pulm Crit Care & Sleep [place] Reason for Consult: Acute resp failure, volume overload, oliguric JOSH, metabolic acidosis Call Completed: Yes 08/02/17 08:38 Consult to Interventional Radiology [CONS] Stat Consulting Provider: Radiology Interventional Cols Reason for Consult: place temporary dialysis catheter Time Notified: 08:38 Call Completed: No 08/02/17 08:45 Consult to Dialysis [CONS] ONCE 08/03/17 11:48 Consult to Nutrition [CONS] Routine Comment: Consulting Provider: NUTRITION Reason for Dietary Consult: Tube Feed Start & Manage 08/11/17 10:23 Consult to Occupational Therapy [CONS] Routine Comment: Evaluate, develop and implement POC Reason for Consult: Evaluation, pt had recent r shoulder sx Does patient have active BEDREST order?: No Is patient medically & hemodynamically stable?: Yes Consult to Physical Therapy [CONS] Routine Comment: Evaluate, develop and implement POC Reason for Consult: Generalized weakness Does patient have active BEDREST order?: No Is patient medically & hemodynamically stable?: Yes Patient assessed for mobility or mobilized this visit?: No 08/11/17 12:15 Consult to Dialysis [CONS] ONCE 08/13/17 10:30 Consult to Hearing Aid Assembly Supervisor [CONS] Routine Reason for SW Consult: Skilled rehab 08/14/17 11:00 Consult to Dialysis [CONS] ONCE 08/15/17 09:55 Consult to Interventional Radiology [CONS] Routine Consulting Provider: Radiology Interventional Cols Reason for Consult: needs permcath. Has temp at present. Time Notified: 09:57 Call Completed: Yes 08/16/17 06:45 Consult to Dialysis [CONS] ONCE 08/16/17 14:59 Consult to Nephrology [CONS] Routine Consulting Provider: Kidney Marlin/SHANNON/KATARINA/JOCE Reason for Consult: CKD IV, progressed to ESRD Call Completed: Yes Discharging clinician: Dionisio Elliott Anticipated date of discharge: 08/17/17 - Constitutional Vitals: Temp Pulse Resp BP Pulse Ox 98.1 F 82 16 156/66 93 08/17/17 11:09 08/17/17 11:09 08/17/17 11:09 08/17/17 11:09 08/17/17 11:09 General appearance: Present: A&O X 3, pleasant, no acute distress, answers questions appropriately - Head Head exam: Present: atraumatic, normocephalic - Eye Eye exam: Present: PERRL, conjuntiva pink, sclera anicteric Pupils: Present: PERRL - Neck Neck exam general surgery: Present: supple, trachea midline. Absent: lymphadenopathy - Respiratory Additional comments: CTAB Anterior chest wall cath with slighlty soaked surrounding dressing, R shoulder with bruising - Cardiovascular Cardiovascular exam: Present: RRR, +S1, +S2. Absent: diastolic murmur, gallop, rubs, systolic murmur - GI/Abdominal GI/Abdominal exam: Present: normal bowel sounds, soft, no peritoneal signs. Absent: distended, tenderness - Extremities Exam Extremities exam: Present: warm, radial pulses palpable and symmetrical. Absent : calf tenderness, cyanotic, pedal edema - Neurological Exam Neurological exam: Present: alert, CN II-XII intact, oriented X3, no focal deficits. Absent: pronater drift, facial droop, speech deficit - Skin Skin exam: Present: dry, intact - Patient Status Disposition: Transfer SNF Condition: Fair Functional capacity at discharge: uses cane/walker Overall status at discharge: patient is progressing back to baseline - Discharge Instructions Follow Up With: Nubia Field MD [Primary Care Provider] - (probably going to [facility]) - Diet and Activity Activity: as per physical therapy, resume usual activities as tolerated Diet: diabetic diet, low fat, low cholesterol, low salt diet - VTE Documentation of Mechanical Device: Intermittent pneumatic compression device
--- NOTE | 2017-08-17 11:45 | Physician Discharge Referral ---
ExtendedCare Referral Info Transfer To: [facility] Provider in Charge: eris Elliott Provider in Charge after Transfer: PCP Institutional Level of Care: Skilled - Diagnosis (1) Status post total replacement of right shoulder Priority: Secondary Status: Chronic (2) Chronic renal disease, stage IV Priority: Secondary Status: Chronic (3) DVT prophylaxis Priority: Primary Status: Acute (4) Anemia Priority: Primary Status: Acute (5) NSTEMI (non-ST elevated myocardial infarction) Priority: Primary Status: Acute (6) Acute respiratory failure with hypoxia Priority: Primary Status: Acute (7) Pulmonary alveolar hemorrhage Priority: Secondary Status: Resolved (8) Pneumonia Priority: Secondary Status: Resolved - Transfer Medications Home Medications: Clopidogrel [Plavix] 75 mg PO DAILY 07/24/17 [History] Sertraline [Zoloft] 100 mg PO DAILY 07/24/17 [History] amLODIPine [Norvasc] 5 mg PO DAILY 07/24/17 [History] Cholecalciferol (Vitamin D3) [Vitamin D3] 2,000 unit PO DAILY 08/01/17 [History] Ferrous Sulfate [Ferosul] 325 mg PO Q2D 08/01/17 [History] Chlorpromazine HCl 25 mg PO Q8H 08/02/17 [History] Acetaminophen [Tylenol] 650 mg PO Q6HR PRN tablet 08/17/17 [Rx] Metoprolol [Lopressor] 12.5 mg PO BID tablet 08/17/17 [Rx] Omeprazole [PriLOSEC] 40 mg PO DAILY capsule. 08/17/17 [Rx] Rosuvastatin [Crestor] 40 mg PO HS tablet 08/17/17 [Rx] Allergies/Adverse Reactions: 3 Allergy/AdvReac Type Severity Reaction Status Date / Time No Known Allergies Allergy Verified 08/02/17 06:55 - Respiratory Orders Oxygen / L per min Smoking Cessation: Smoking cessation has been advised. For more information, call the [place] Tobacco Quit Line at 1-721-ADXY-NOW. - Advance Directives Code Status: Full Code - Mobility Orders Ambulate - Rehabiliation Orders Rehab Potential: Fair - Diet Orders Cardiac CERTIFICATION: I certify that the transfer of the above named patient to an Extended Care Facility is necessary for the continuing treatment of the diagnosis listed. The above information is true and accurate reflection of patient's current condition. Confidential - Redisclosure prohibited without a patient's written consent.
[2017-08-17] MEDS ORDERED: amLODIPine 5 MG TABLET PO SCH (12:00)
[2017-08-17 15:03] VITALS: BP 145/69
== END 2017-08-17 15:57 | DRG 264 ==
LOC: 2NNU 22:24 → SUATTDRO 22:24 → ICNU 08-02 15:37 → 2ANU 08-10 18:38
PROVIDERS: ADMIT General Practice; ATTEND Internal Medicine
PROC: IRPERMA (2017-08-16 12:00)